=== PATIENT | female | born 1940 | race Caucasian/White ===

== ENCOUNTER 2017-05-05 11:35 | Emergency (ER) | payer MEDICARE ==
[2017-05-05 12:26] VITALS: PULSE 89; RESP 18; TEMP 97.1
[2017-05-05] MEDS ORDERED: HYDROmorphone 1 MG/ML 1 ML SYRINGE IM STA (12:33)
--- NOTE | 2017-05-05 12:37 | ED ---
General Adult HPI - General Chief complaint: Recheck/Abnormal Lab/Rx Stated complaint: Med refill Time Seen by Provider: 05/05/17 12:27 Source: patient, RN notes reviewed Mode of arrival: ambulatory Limitations: no limitations - History of Present Illness Initial comments: 76 yo female presents to the emergency department with a chief complaint of out of her pain medication. She states that she cannot get it filled for 2 more days and she seemed to have misplaced it. She states she cannot seem to find the bottle and lasted her pills. She states she just needs a prescription for 2 days until she gets the doctor. She states that her pain is 9 out of 10 and her chronic typical flareup pain. She states whenever her pain. That her blood pressure was up as well and will not improve until her pain is treated. She has a nausea vomiting fever chills she denies any headache. They were concerned due to the continued pain and actually felt so she thought that she should be.Patient denies any recent fever, chills, shortness of breath, chest pain, back pain, abdominal pain, nausea vomiting, numbness or tingling, dysuria or hematuria, constipation or diarrhea, headaches or visual changes, or any other current symptoms. - Related Data Home Medications Medication Instructions Recorded Confirmed Aspirin 325 mg PO DAILY 10/10/13 12/14/15 Cholecalciferol [Vitamin D3] 2,000 unit PO DAILY@1200 10/10/13 12/14/15 Cyanocobalamin [Vitamin B-12] 1,000 mcg PO DAILY@1200 10/10/13 12/14/15 HYDROcodone/APAP 7.5-325MG [[place] 1 each PO Q8HR PRN 10/10/13 12/14/15 7.5] Levothyroxine Sodium [Synthroid] 88 mcg PO DAILY 10/10/13 12/14/15 Lisinopril [Zestril] 40 mg PO DAILY 10/10/13 12/14/15 Previous Rx's Medication Instructions Recorded HYDROcodone/APAP 5-325MG [[place] 1 tab PO Q6HR PRN #20 tab 12/14/15 5-325] Hydrocodone/Acetaminophen [[place] 1 each PO Q6HR PRN #10 tab 05/05/17 5-325] Allergies Allergy/AdvReac Type Severity Reaction Status Date / Time fentanyl Allergy Hallucinati Verified 05/05/17 12:25 ons propranolol HCl Allergy Unknown Verified 05/05/17 12:25 [From Inderal [place]] celecoxib [From Celebrex] AdvReac Unknown Verified 05/05/17 12:25 isosorbide [Isosorbide] AdvReac Unknown Verified 05/05/17 12:25 rofecoxib [From Vioxx] AdvReac Unknown Verified 05/05/17 12:25 Review of Systems ROS Statement: Those systems with pertinent positive or pertinent negative responses have been documented in the HPI. ROS Other: All systems not noted in ROS Statement are negative. Past Medical History Past Medical History: Coronary Artery Disease (CAD), Cancer, Chest Pain / Angina , Hyperlipidemia, Hypertension Additional Past Medical History / Comment(s): former hx of breast ca History of Any Multi-Drug Resistant Organisms: None Reported Past Surgical History: Back Surgery, Breast Surgery, Cholecystectomy, Hysterectomy, Joint Replacement, Orthopedic Surgery Additional Past Surgical History / Comment(s): left lumpectomy, cardiac stent, hip replacement Past Psychological History: No Psychological Hx Reported Smoking Status: Never smoker Past Alcohol Use History: None Reported Past Drug Use History: None Reported General Exam Limitations: no limitations General appearance: alert, in no apparent distress ENT exam: Present: normal exam, mucous membranes moist Neck exam: Present: normal inspection. Absent: tenderness, meningismus, lymphadenopathy Respiratory exam: Present: normal lung sounds bilaterally. Absent: respiratory distress, wheezes, rales, rhonchi, stridor Cardiovascular Exam: Present: regular rate, normal rhythm, normal heart sounds. Absent: systolic murmur, diastolic murmur, rubs, gallop, clicks Neurological exam: Present: alert, oriented X3 Psychiatric exam: Present: normal affect, normal mood Skin exam: Present: warm, dry, intact, normal color. Absent: rash Course Vital Signs 05/05/17 05/05/17 12:19 12:59 Temperature 97.1 F L Pulse Rate 89 Respiratory 18 Rate Blood Pressure 235/107 189/96 O2 Sat by Pulse 96 Oximetry - Reevaluation(s) Reevaluation #1: 05/05/17 12:36 Patient is a found to have an elevated blood pressure on this ER visit. At this time patient is informed to follow-up with his family care doctor for continued monitoring. Medical Decision Making - Medical Decision Making 76-year-old female presents to the emergency 5 chief complaint of medication refill. With her records patient has not been here often for this. We discussed we'll give her 10 pills. Her blood pressure is high on presentation but she is a 9 out of 10 pain we will treat the pain and patient's blood pressure did improve. We did discuss close follow-up with her doctor return parameters all questions. Patient stated that she understood and she is agreement this plan. All questions have been answered. At this time she will be discharged. Disposition Clinical Impression: Encounter for medication refill, Hypertension Disposition: HOME SELF-CARE Condition: Stable Instructions: Chronic Pain (ED), Hypertension (ED) Additional Instructions: Please use medication as discussed. Please follow up with family doctor if symptoms have not improved over the next two days. Please return to the emergency room if your symptoms increase or worsen or for any other concerns. Prescriptions: Hydrocodone/Acetaminophen [[place] 5-325] 1 each PO Q6HR PRN #10 tab PRN Reason: Pain Referrals: Zander Morillo DO [Primary Care Provider] - 1-2 days Time of Disposition: 13:37
[2017-05-05 13:00] VITALS: BP 189/96
== END 2017-05-05 13:40 | disposition home or self-care (01) ==
LOC: EC 11:35
DX: I10 Essential (primary) hypertension (principal); Z76.0 Encounter for issue of repeat prescription; R11.2 Nausea with vomiting, unspecified; R50.9 Fever, unspecified; R52 Pain, unspecified; I25.10 Atherosclerotic heart disease of native coronary artery without angina pectoris; Z79.82 Long term (current) use of aspirin; Z79.899 Other long term (current) drug therapy; Z88.6 Allergy status to analgesic agent; Z88.8 Allergy status to other drugs, medicaments and biological substances; Z85.3 Personal history of malignant neoplasm of breast; Z98.890 Other specified postprocedural states
CPT/HCPCS: 99281; 96372; J1170

== ENCOUNTER 2017-10-13 20:51 | Emergency (ER) | payer MEDICARE ==
[2017-10-13] MEDS ORDERED: IBUPROFEN 800 MG TAB PO STA (22:14)
[2017-10-13] MEDS ORDERED: HYDROcodone/APAP 5-325MG 1 EACH TAB PO STA (22:14)
[2017-10-13] MEDS ORDERED: ONDANSETRON ODT 4 MG TAB PO STA (22:14)
--- NOTE | 2017-10-13 22:16 | ED ---
General Adult HPI - General Chief complaint: Back Pain/Injury Stated complaint: Back pain Time Seen by Provider: 10/13/17 21:28 Source: patient, EMS, RN notes reviewed, old records reviewed Mode of arrival: EMS Limitations: physical limitation - History of Present Illness Initial comments: This is a 76-year-old female the ER for evaluation of back pain. Acute on chronic back pain history of back pain. Patient admits to being out of her pain medication currently. Can see Dr. deleon Tuesday. Patient has no acute injury or trauma - Related Data Home Medications Medication Instructions Recorded Confirmed Aspirin 325 mg PO DAILY 10/10/13 10/13/17 Cholecalciferol [Vitamin D3] 2,000 unit PO DAILY 10/10/13 10/13/17 Cyanocobalamin [Vitamin B-12] 1,000 mcg PO DAILY 10/10/13 10/13/17 HYDROcodone/APAP 7.5-325MG [[place] 1 tab PO QID PRN 10/10/13 10/13/17 7.5] Levothyroxine Sodium [Synthroid] 88 mcg PO DAILY 10/10/13 10/13/17 Irbesartan 300 mg PO DAILY 10/13/17 10/13/17 Previous Rx's Medication Instructions Recorded Naproxen [Naprosyn] 500 mg PO Q12HR PRN #30 tab 10/13/17 Allergies Allergy/AdvReac Type Severity Reaction Status Date / Time fentanyl Allergy Hallucinati Verified 10/13/17 21:37 ons propranolol HCl Allergy Unknown Verified 10/13/17 21:37 [From Inderal LA] celecoxib [From Celebrex] AdvReac Unknown Verified 10/13/17 21:37 isosorbide [Isosorbide] AdvReac Unknown Verified 10/13/17 21:37 rofecoxib [From Vioxx] AdvReac Unknown Verified 10/13/17 21:37 Review of Systems ROS Statement: Those systems with pertinent positive or pertinent negative responses have been documented in the HPI. ROS Other: All systems not noted in ROS Statement are negative. Past Medical History Past Medical History: Coronary Artery Disease (CAD), Cancer, Chest Pain / Angina , Hyperlipidemia, Hypertension Additional Past Medical History / Comment(s): former hx of breast ca History of Any Multi-Drug Resistant Organisms: None Reported Past Surgical History: Back Surgery, Breast Surgery, Cholecystectomy, Hysterectomy, Joint Replacement, Orthopedic Surgery Additional Past Surgical History / Comment(s): left lumpectomy, cardiac stent, hip replacement Past Psychological History: No Psychological Hx Reported Smoking Status: Never smoker Past Alcohol Use History: None Reported Past Drug Use History: None Reported General Exam Limitations: physical limitation General appearance: alert, in no apparent distress Head exam: Present: atraumatic, normocephalic, normal inspection Eye exam: Present: normal appearance, PERRL, EOMI. Absent: scleral icterus, conjunctival injection, periorbital swelling ENT exam: Present: normal exam, mucous membranes moist Neck exam: Present: normal inspection. Absent: tenderness, meningismus, lymphadenopathy Respiratory exam: Present: normal lung sounds bilaterally. Absent: respiratory distress, wheezes, rales, rhonchi, stridor Cardiovascular Exam: Present: regular rate, normal rhythm, normal heart sounds. Absent: systolic murmur, diastolic murmur, rubs, gallop, clicks GI/Abdominal exam: Present: soft, normal bowel sounds. Absent: distended, tenderness, guarding, rebound, rigid Extremities exam: Present: normal inspection, full ROM, normal capillary refill. Absent: tenderness, pedal edema, joint swelling, calf tenderness Back exam: Present: normal inspection Neurological exam: Present: alert, oriented X3, CN II-XII intact Psychiatric exam: Present: normal affect, normal mood Skin exam: Present: warm, dry, intact, normal color. Absent: rash Course Vital Signs 10/13/17 10/13/17 10/13/17 20:56 22:28 22:56 Temperature 98.4 F 97.8 F Pulse Rate 72 65 61 Respiratory 16 18 16 Rate Blood Pressure 214/97 192/87 188/87 O2 Sat by Pulse 98 97 96 Oximetry - Reevaluation(s) Reevaluation #1: Discussed at length regarding symptoms. Patient also told that she will not be given narcotics and discharged Medical Decision Making - Medical Decision Making 76 female the ER for evaluation. Patient was essay for evaluation by back pain medication refill, patient's pain is controlled here in the ER will be discharged home Disposition Clinical Impression: Mid back pain, Sciatica, Chronic back pain Disposition: HOME SELF-CARE Instructions: Acute Low Back Pain (ED), Chronic Back Pain (ED) Prescriptions: Naproxen [Naprosyn] 500 mg PO Q12HR PRN #30 tab PRN Reason: Pain Is patient prescribed a controlled substance at d/c from ED?: No Referrals: Zander Morillo DO [Primary Care Provider] - 1-2 days
[2017-10-13] MEDS ORDERED: cloNIDine 0.3 MG/24HR PATCH 1 PATCH PATCH TRANSDERM STA (22:22)
[2017-10-13] MEDS ORDERED: cloNIDine 0.3 MG/24HR PATCH 1 PATCH PATCH TRANSDERM SCH (22:30)
[2017-10-13 22:57] VITALS: BP 188/87; PULSE 61; RESP 16; TEMP 97.8
== END 2017-10-13 22:57 | disposition home or self-care (01) ==
LOC: EC 20:51
DX: M54.30 Sciatica, unspecified side (principal); M54.9 Dorsalgia, unspecified; G89.29 Other chronic pain; I25.119 Atherosclerotic heart disease of native coronary artery with unspecified angina pectoris; I10 Essential (primary) hypertension; Z85.3 Personal history of malignant neoplasm of breast; Z79.82 Long term (current) use of aspirin; Z79.899 Other long term (current) drug therapy; Z88.5 Allergy status to narcotic agent; Z88.8 Allergy status to other drugs, medicaments and biological substances; Z96.649 Presence of unspecified artificial hip joint; Z98.890 Other specified postprocedural states; Z95.5 Presence of coronary angioplasty implant and graft
CPT/HCPCS: 99284

== ENCOUNTER 2018-04-27 11:34 | Emergency (ER) | payer MEDICARE ==
[2018-04-27] MEDS ORDERED: HYDROcodone/APAP 7.5-325MG 1 EACH TAB PO ONE (11:52)
--- NOTE | 2018-04-27 12:13 | ED ---
Fall HPI - General Chief Complaint: Fall Stated Complaint: LEFT SIDE, ARM INJURY FROM FALL Time Seen by Provider: 04/27/18 11:45 Source: patient Mode of arrival: wheelchair Limitations: no limitations - History of Present Illness Initial Comments: 77-year-old female presents emergency Department chief complaint of fall, left arm and chest pain. Patient states that she fell down a few stairs without head injury, neck pain or back pain. She states she does have chronic back pain which has not worsened usual. She states that she fell with her arm tucked in. She complains of left shoulder pain and left anterior to lateral rib pain. Denies any shortness breath but she does report pain with deep inspiration. Patient denies hip, lower extremity injury. Patient did take her [place] earlier today which helped some for her pain. - Related Data Home Medications Medication Instructions Recorded Confirmed Aspirin 325 mg PO DAILY 10/10/13 04/27/18 Cholecalciferol [Vitamin D3] 2,000 unit PO DAILY 10/10/13 04/27/18 Cyanocobalamin [Vitamin B-12] 1,000 mcg PO DAILY 10/10/13 04/27/18 HYDROcodone/APAP 7.5-325MG [[place] 1 tab PO QID PRN 10/10/13 04/27/18 7.5] Levothyroxine Sodium [Synthroid] 88 mcg PO DAILY 10/10/13 04/27/18 Irbesartan 300 mg PO DAILY 10/13/17 04/27/18 Previous Rx's Medication Instructions Recorded Naproxen [Naprosyn] 500 mg PO Q12HR PRN #30 tab 10/13/17 Allergies Allergy/AdvReac Type Severity Reaction Status Date / Time celecoxib [From Celebrex] Allergy Unknown Verified 04/27/18 12:36 fentanyl Allergy Hallucinati Verified 04/27/18 12:36 ons isosorbide [Isosorbide] Allergy Unknown Verified 04/27/18 12:36 propranolol HCl Allergy Unknown Verified 04/27/18 12:36 [From Inderal LA] rofecoxib [From Vioxx] Allergy Unknown Verified 04/27/18 12:36 pregabalin [From Lyrica] AdvReac dizziness Verified 04/27/18 12:36 Review of Systems ROS Statement: Those systems with pertinent positive or pertinent negative responses have been documented in the HPI. ROS Other: All systems not noted in ROS Statement are negative. Past Medical History Past Medical History: Coronary Artery Disease (CAD), Cancer, Chest Pain / Angina , Hyperlipidemia, Hypertension Additional Past Medical History / Comment(s): former hx of breast ca History of Any Multi-Drug Resistant Organisms: None Reported Past Surgical History: Back Surgery, Breast Surgery, Cholecystectomy, Hysterectomy, Joint Replacement, Orthopedic Surgery Additional Past Surgical History / Comment(s): left lumpectomy, cardiac stent, hip replacement Past Psychological History: No Psychological Hx Reported Smoking Status: Never smoker Past Alcohol Use History: None Reported Past Drug Use History: None Reported General Exam Limitations: no limitations General appearance: alert, in no apparent distress Head exam: Present: atraumatic, normocephalic, normal inspection Eye exam: Present: normal appearance, PERRL, EOMI. Absent: scleral icterus, conjunctival injection, periorbital swelling ENT exam: Present: normal exam, normal oropharynx, mucous membranes moist Neck exam: Present: normal inspection, full ROM. Absent: tenderness, meningismus, lymphadenopathy Respiratory exam: Present: normal lung sounds bilaterally, chest wall tenderness (Moderate left anterior lateral). Absent: respiratory distress, wheezes, rales, rhonchi, stridor Cardiovascular Exam: Present: regular rate, normal rhythm, normal heart sounds. Absent: systolic murmur, diastolic murmur, rubs, gallop, clicks GI/Abdominal exam: Present: soft, normal bowel sounds. Absent: distended, tenderness, guarding, rebound, rigid Extremities exam: Present: other (Left shoulder tenderness with palpation, no obvious deformity, limited range of motion secondary pain there is no pitting distal of the left shoulder with palpation, remaining extremity exam within normal limits) Neurological exam: Present: alert, oriented X3, CN II-XII intact, reflexes normal. Absent: motor sensory deficit Skin exam: Present: warm, dry, intact, normal color. Absent: rash Course Vital Signs 04/27/18 11:41 Temperature 98 F Pulse Rate 92 Respiratory 16 Rate Blood Pressure 185/128 O2 Sat by Pulse 98 Oximetry Medical Decision Making - Medical Decision Making 77-year-old female presented for fall, left shoulder, left sided rib injury. Patient is noted to have eighth rib fracture, concern for rotator cuff injury on x-ray. Patient will be placed in a sling follow-up with orthopedics. Patient does have pain medication at home. Patient will be given incentive spirometry for her rib fracture. Return parameters were discussed. Disposition Clinical Impression: Fall, Injury of left rotator cuff, Rib fracture Disposition: HOME SELF-CARE Condition: Stable Instructions: Rib Fracture (ED) Additional Instructions: Please return to the Emergency Department if symptoms worsen or any other concerns. Is patient prescribed a controlled substance at d/c from ED?: No Referrals: Zander Morillo DO [Primary Care Provider] - 1-2 days Dejon Dillard DO [Medical Doctor] - 1-2 days Time of Disposition: 13:06
--- NOTE | 2018-04-27 12:51 | XR ---
EXAMINATION TYPE: XR shoulder complete LT DATE OF EXAM: 04/27/2018 COMPARISON: NONE HISTORY: Pain TECHNIQUE: Three views are submitted. FINDINGS: The osseous structures are intact. There is no acute fracture or dislocation. There is diffuse osteo penia. Humeral head somewhat high riding position which can be associated with rotator cuff injury. A rthropathy of the AC joint. IMPRESSION: 1. AC joint arthropathy. Humeral head somewhat high in position. Correlate for rotator cuff injury. C onsider MRI follow-up. 2. Calcific tendinosis.
--- NOTE | 2018-04-27 12:57 | XR ---
EXAMINATION TYPE: XR ribs LT w pa chest xray DATE OF EXAM: 04/27/2018 CLINICAL HISTORY: Pain TECHNIQUE: Single frontal view of the chest is obtained. 4 views of the left ribs are also submitted. COMPARISON: 11/04/2010 FINDINGS: There is curvature of the vertebral column with hypertrophic and degenerative changes. No pneumothorax. Surgical clips in the right upper quadrant. There is slight deformity of the anterolate ral left eighth rib. IMPRESSION: 1. Findings are suspicious for a hairline fracture anterolateral left eighth rib.
[2018-04-27 13:43] VITALS: TEMP 97.5
[2018-04-27] MEDS ORDERED: cloNIDine HCL 0.2 MG TAB PO STA (13:44)
[2018-04-27] MEDS ORDERED: MORPHINE SULFATE 4 MG/ML SYRINGE IM STA (13:46)
[2018-04-27 15:07] VITALS: PULSE 67
[2018-04-27 15:19] VITALS: BP 198/90; RESP 18
== END 2018-04-27 15:13 | disposition home or self-care (01) ==
LOC: EC 11:34
DX: S22.32XA Fracture of one rib, left side, initial encounter for closed fracture (principal); S46.002A Unspecified injury of muscle(s) and tendon(s) of the rotator cuff of left shoulder, initial encounter; I10 Essential (primary) hypertension; I25.119 Atherosclerotic heart disease of native coronary artery with unspecified angina pectoris; Z79.899 Other long term (current) drug therapy; Z79.890 Hormone replacement therapy; Z79.82 Long term (current) use of aspirin; Z88.6 Allergy status to analgesic agent; Z88.5 Allergy status to narcotic agent; Z88.8 Allergy status to other drugs, medicaments and biological substances; Z95.5 Presence of coronary angioplasty implant and graft; Z96.642 Presence of left artificial hip joint; Z85.3 Personal history of malignant neoplasm of breast; W10.9XXA Fall (on) (from) unspecified stairs and steps, initial encounter
CPT/HCPCS: 71101; 73030; 99283; 96372; J2270

== ENCOUNTER → 2018-11-30 | Outpatient (CLI) | payer MEDICARE ==
[2018-11-30 23:34] LABS: Albumin 4.4 g/dL (3.80-4.90); Albumin/Globulin Ratio 2.32 (1.60-3.17); BUN/Creat Ratio 33.75 Ratio (12.00-20.00); Calcium 9.5 mg/dL (8.7-10.3); Globulin 1.9 g/dL (1.6-3.3); Magnesium 2.1 mg/dL (1.5-2.4); Potassium 4.6 mmol/L (3.5-5.5); Total Bilirubin 0.8 mg/dL (0.3-1.2); Total Protein 6.3 g/dL (6.2-8.2)
== END | disposition home or self-care (01) ==
LOC: LABWHC1 14:33
PROVIDERS: ATTEND Physician Assistant
DX: I10 Essential (primary) hypertension (principal)
CPT/HCPCS: 36415; 80053; 83735

== ENCOUNTER 2022-12-31 10:50 | Day surgery (SDC) | payer MEDICARE ==
[~2022-12-31 10:50] MED LIST: ALPRAZolam 0.25 MG TAB PO PRN; ALPRAZolam 0.5 MG TAB PO PRN; ASPIRIN 325 MG TAB PO STA; ATORVASTATIN 80 MG TAB PO STA; HEPARIN SODIUM,PORCINE (1 ML) 2,500 UNIT in SODIUM CHLORIDE 0.9% 250 ML IRRIGATION PRN; HEPARIN SODIUM,PORCINE 10,000 UNIT in SODIUM CHLORIDE 0.9% 1,000 ML IRRIGATION PRN; NITROGLYCERIN SL TABS 0.4 MG TAB SUBLINGUAL PRN
[2022-12-31] MEDS: SODIUM CHLORIDE 0.9% 1,000 ML in EMPTY BAG 1 BAG IV SCH ×2 (11:08→15:53)
[2022-12-31] MEDS ORDERED: VERAPAMIL 2.5 MG/ML 2 ML AMP ONE (11:39)
[2022-12-31] MEDS ORDERED: LIDOCAINE 1% INJ 10MG/ML (20 ML MDV) ONE (11:53)
[2022-12-31] MEDS ORDERED: HEPARIN SODIUM 1,000 UN/ML (10ML VL) ONE (12:05)
[2022-12-31] MEDS ORDERED: MIDAZOLAM 2 MG/2 ML VIAL IVP ONE (12:10)
[2022-12-31] MEDS ORDERED: LIDOCAINE 1% INJ 10MG/ML (30 ML VIAL-PF) SQ ONE (12:13)
[2022-12-31] MEDS: HEPARIN SODIUM 1,000 UN/ML (10ML VL) IVP ONE ×2 (12:19→13:10)
[2022-12-31] MEDS ORDERED: CLOPIDOGREL 75 MG TAB ONE (12:22)
[2022-12-31] MEDS ORDERED: CLOPIDOGREL 75 MG TAB PO ONE (12:25)
[2022-12-31] MEDS ORDERED: NITROGLYCERIN 1000MCG/10ML SYRINGE INTRACORON ONE (12:37)
[2022-12-31 12:38] LABS: Basophils % (A) 0 %; Eosinophils # (A) 0.1 k/uL (0-0.7); Eosinophils % (A) 1 %; HCT 29.2 % (34.0-46.0); HGB 9.3 gm/dL (11.4-16.0); Hypochromasia Slight; Lymphocytes % (A) 9 %; MCH 30.5 pg (25.0-35.0); MCHC 31.7 g/dL (31.0-37.0); MCV 96.2 fL (80.0-100.0); Mean Platelet Volume 8.1; Monocytes # (A) 0.7 k/uL (0-1.0); Monocytes % (A) 6 %; Neutrophils # (A) 9.2 k/uL (1.3-7.7); Neutrophils % (A) 83 %; Platelet Count 277 k/uL (150-450); RBC 3.04 m/uL (3.80-5.40); RDW 14.8 % (11.5-15.5); WBC 11.1 k/uL (3.8-10.6)
[2022-12-31] MEDS ORDERED: IOPAMIDOL-370 100ML BTL INJ ONE ×2 (12:43→12:51)
[2022-12-31] MEDS ORDERED: FUROSEMIDE 10 MG/ML 4 ML VIAL ONE (12:55)
[2022-12-31] MEDS ORDERED: ACETAMINOPHEN TAB 500 MG TAB PO PRN (13:02)
[2022-12-31] MEDS ORDERED: IPRATROPIUM-ALBUTEROL 3 ML NEB INHALATION PRN (13:02)
[2022-12-31] MEDS ORDERED: MAG HYDROX/AL HYDROX/SIMETH 30 ML CUP PO PRN (13:03)
[2022-12-31] MEDS ORDERED: NITROGLYCERIN SL TABS 0.4 MG TAB SUBLINGUAL PRN (13:03)
[2022-12-31] MEDS ORDERED: RX INFO: IV CONTRAST WAS GIVEN 1 EACH MISC MISCELLANE PRN (13:03)
[2022-12-31] MEDS ORDERED: ATROPINE SULFATE 0.1 MG/ML 10ML SYRINGE IV PRN (13:03)
[2022-12-31] MEDS ORDERED: ZOLPIDEM 5 MG TAB PO PRN (13:03)
--- NOTE | 2022-12-31 13:09 | P.PCN ---
Date of Procedure: 12/31/22 Operative Findings: CARDIAC CATHETERIZATION AND PERCUTANEOUS CORONARY INTERVENTION PERFORMING PHYSICIAN: Jey Xie MD, [facility] PROCEDURE PERFORMED: 1. Selective right and left coronary angiogram 2. Left heart catheterization 3. Successful stenting of mid LAD using 3.5 x 15 mm Xience YAKOV with an excellent angiographic results 4. Selective right common femoral artery angiogram and ultrasound guided access of the right common femoral artery INDICATION: Severe CAD in this 82-year-old female patient who was experiencing symptoms of chest discomfort COMPLICATION: None APPROACH: Right common femoral artery LEVEL OF SEDATION: Moderate with the sedation time off 41 minutes PROCEDURE DESCRIPTION: After obtaining an informed consent the patient was brought to the cardiac lab aide. The right common femoral artery was cannulated using the commotion technique under ultrasound guidance the micropuncture wire passed easily then I placed a 6-Russian sheath. I did after that selective left coronary angiogram using a CLS 3.5 guiding catheter and subsequently I intervened on the LAD. Selective right coronary angiogram was performed using [place] meraz. I attempted engaging the right coronary artery using JR4 and subsequently AL 0.75 and I was unsuccessful. Left heart catheterization was performed using AL- 1 which cross the aortic valve then I did pulled back across aortic valve. By the end I did selective right common femoral artery angiogram. I did deployed Angio-Seal closure device. SELECTIVE CORONARY ANGIOGRAM: The right coronary artery: Large-caliber vessel and a dominant vessel and the RCA is chronically occluded in the midportion. The RCA is calcified Left main: Has mild to moderate disease appears to be in the range of 30-40%. The left circumflex: Large caliber vessel and nondominant vessel. The LCx has mild to moderate diffuse disease only. The left anterior descending artery: Large caliber vessel. The mid LAD has a tight lesion appeared to be in the r sohan of 70%. HEMODYNAMICS: The LVEDP was 20-22 mmHg was no significant gradient across aortic valve PCI OF THE LAD: Anticoagulation was initiated using heparin with continuous ACT monitoring. Subsequently I did engage the left main using a CLS 3.5 guiding catheter. Subsequently I did wire the LAD using a whisper wire and the other through wire. Predilatation was performed using 2.5 mm balloon before I deployed 3.5 x 15 mm stent where the stent was positioned under fluoroscopy guidance and deployed under its nominal pressure. Final angiogram showed excellent angiographic results and the procedure was completed was no complication CONCLUSION: Mild to moderate disease involving the left main coronary artery Severe disease involving the mid LAD. I did perform successful stenting of the LAD Intermediate disease involving the left circumflex coronary artery Chronic total occlusion of the right coronary artery POSTPROCEDURE MANAGEMENT: 1. Dual antiplatelet therapy using aspirin and Plavix for at least 6 month 2. Aggressive cholesterol control 3. Follow-up with the patient
[2022-12-31] MEDS ORDERED: FUROSEMIDE 10 MG/ML 4 ML VIAL IV ONE (13:10)
[2022-12-31] MEDS ORDERED: SODIUM CHLORIDE 0.9% 1,000 ML in EMPTY BAG 1 BAG IV SCH (13:15)
[2022-12-31] MEDS ORDERED: hydrALAZINE HCL 50 MG TAB PO SCH (13:15)
[2022-12-31 13:22] LABS: African American GFR (CKD) 78 (>60 ml/min/1.73 sqM); Anion Gap 7 mmol/L; Blood Urea Nitrogen 21 mg/dL (7-17); Calcium 7.2 mg/dL (8.4-10.2); Carbon Dioxide 23 mmol/L (22-30); Chloride 109 mmol/L (98-107); Glucose 93 mg/dL (74-99); Non-African American GFR(CKD) 67 (>60 ml/min/1.73 sqM); Potassium 3.3 mmol/L (3.5-5.1); Sodium 139 mmol/L (137-145)
[2022-12-31] MEDS: HYDROcodone/APAP 7.5-325MG 1 EACH TAB PO PRN ×2 (15:22→21:34)
[2022-12-31] MEDS: hydrALAZINE HCL 50 MG TAB PO SCH ×2 (16:05→21:35)
[2022-12-31] MEDS ORDERED: ATORVASTATIN 40 MG TAB PO SCH (21:00)
[2022-12-31] MEDS: ISOSORBIDE MONONITRATE ER 60 MG TAB.ER.24H PO SCH (21:42)
[2022-12-31] MEDS: METOPROLOL TARTRATE 25 MG TAB PO SCH (22:23)
[2023-01-01] MEDS: SODIUM CHLORIDE 0.9% 1,000 ML in EMPTY BAG 1 BAG IV SCH (04:50)
[2023-01-01] MEDS: HYDROcodone/APAP 7.5-325MG 1 EACH TAB PO PRN (06:19)
[2023-01-01] MEDS ORDERED: LEVOTHYROXINE 100 MCG TAB PO SCH (06:30)
[2023-01-01] MEDS: hydrALAZINE HCL 50 MG TAB PO SCH (08:13)
--- NOTE | 2023-01-01 08:13 | P.DS ---
Providers Attending physician: Jey Xie Consults: 12/31/22 13:03 Consult Physician Routine Consulting Provider: [facility] Consult Reason/Comments: Post Interventional patient Do you want consulting provider notified?: Already Contacted Primary care physician: Zander [facility] Course: The patient is an 82-year-old female patient who sees Dr. Ellis regularly with a past medical history significant for coronary artery disease as well as hypertension and dyslipidemia was diagnosed recently with severe symptomatic coronary artery disease documented on heart catheterization was performed at [facility] showing severe disease involving the LAD. She underwent yesterday successful stenting of the left anterior descending artery with a good angiographic results with no complication from right groin approach. She was seen and evaluated this morning. She is asymptomatic. She is stable hemodynamically. She is slightly confused but she does have mild underlying dementia The right groin is soft and nontender with no bruises. The patient is going to discharge home on dual antiplatelet therapy to be seen as an outpatient in the office in a week. Plan - Discharge Summary Discharge Rx Participant: No New Discharge Prescriptions: New Clopidogrel [Plavix] 75 mg PO DAILY #90 tab Continue Cholecalciferol [Vitamin D3 (25 Mcg = 1000 Iu)] 2,000 unit PO DAILY Cyanocobalamin [Vitamin B-12] 250 mcg PO DAILY Isosorbide Mononitrate [Isosorbide Mononitrate ER] 60 mg PO Q12H Atorvastatin Calcium 40 mg PO HS HYDROcodone/APAP 7.5-325MG [[place] 7.5-325] 1 tab PO Q6H PRN PRN Reason: Pain Losartan Potassium 100 mg PO DAILY Ipratropium-Albuterol Nebulize [Duoneb 0.5 mg-3 mg/3 ml Soln] 3 ml INHALATION Q6H PRN PRN Reason: Wheezing hydrALAZINE HCL 50 mg PO Q8H Furosemide [Lasix] 20 mg PO DAILY Calcium Carbonate [Calcium] 600 mg PO DAILY Aspirin 81 mg PO DAILY Levothyroxine Sodium 100 mcg PO DAILY Metoprolol Tartrate 25 mg PO BID Magnesium Oxide [Magnesium] 500 mg PO DAILY Acetaminophen [Tylenol Extra Strength] 1,000 mg PO Q8H PRN PRN Reason: Pain Amoxic-Pot Clav 875-125Mg [Augmentin 875-125] 1 tab PO Q12HR Discharge Medication List Cholecalciferol [Vitamin D3 (25 Mcg = 1000 Iu)] 2,000 unit PO DAILY 10/10/13 [History] Cyanocobalamin [Vitamin B-12] 250 mcg PO DAILY 10/10/13 [History] Acetaminophen [Tylenol Extra Strength] 1,000 mg PO Q8H PRN 12/30/22 [History] Aspirin 81 mg PO DAILY 12/30/22 [History] Atorvastatin Calcium 40 mg PO HS 12/30/22 [History] Calcium Carbonate [Calcium] 600 mg PO DAILY 12/30/22 [History] Furosemide [Lasix] 20 mg PO DAILY 12/30/22 [History] HYDROcodone/APAP 7.5-325MG [[place] 7.5-325] 1 tab PO Q6H PRN 12/30/22 [History] Ipratropium-Albuterol Nebulize [Duoneb 0.5 mg-3 mg/3 ml Soln] 3 ml INHALATION Q6H PRN 12/30/22 [History] Isosorbide Mononitrate [Isosorbide Mononitrate ER] 60 mg PO Q12H 12/30/22 [History] Levothyroxine Sodium 100 mcg PO DAILY 12/30/22 [History] Losartan Potassium 100 mg PO DAILY 12/30/22 [History] Magnesium Oxide [Magnesium] 500 mg PO DAILY 12/30/22 [History] Metoprolol Tartrate 25 mg PO BID 12/30/22 [History] hydrALAZINE HCL 50 mg PO Q8H 12/30/22 [History] Amoxic-Pot Clav 875-125Mg [Augmentin 875-125] 1 tab PO Q12HR 12/31/22 [History] Clopidogrel [Plavix] 75 mg PO DAILY #90 tab 01/01/23 [Rx] Follow up Appointment(s)/Referral(s): Jey Xie MD [STAFF PHYSICIAN] - 1 Week (APPOINTMENT MADE ON @ 11:00 - MAIN OFFICE TO SEE DR. ELLIS ) Patient Instructions/Handouts: Moderate Sedation (DC), Cardiac Rehabilitation (ED), Coronary Intravascular Stent Placement (DC), After Radial Heart Catheterization (GEN) Activity/Diet/Wound Care/Special Instructions: *NO LIFTING, PUSHING, OR PULLING ANYTHING OVER 5 POUDS FOR 5 DAYS *NO DRIVING FOR 3 DAYS *YOU CAN REMOVE YOUR DRESSING AND SHOWER TOMORROW BUT DO NOT SUBMERSE YOUR PUNCTURE SITE IN WATER FOR A FEW DAYS TO PREVENT INFECTION - SO NO TUB BATHS, POOLS, HOT TUBS, DISHES...ETC *ANY SIGNS OF BLEEDING (HARDNESS, SWELLIN, OR EXCESSIVE BRUISING) HOLD DIRECT PRESSURE ON YOUR PUNCTURE SITE AND COME TO THE NEAREST EMERGENCY ROOM TO GET YOUR PUNCTURE SITE LOOKED AT - DO NOT DRIVE YOURSELF! EITHER CALL EMS OR HAVE SOMEONE DRIVE YOU!
[2023-01-01] MEDS: METOPROLOL TARTRATE 25 MG TAB PO SCH (08:14)
[2023-01-01] MEDS: ISOSORBIDE MONONITRATE ER 60 MG TAB.ER.24H PO SCH (08:15)
[2023-01-01 08:26] VITALS: BP 145/70; PULSE 56; RESP 15; TEMP 98.2
[2023-01-01] MEDS ORDERED: CALCIUM CARBONATE 500 MG CHEWABLE PO SCH (09:00)
[2023-01-01] MEDS ORDERED: CYANOCOBALAMIN 500 MCG TAB PO SCH (09:00)
[2023-01-01] MEDS ORDERED: FUROSEMIDE 20 MG TAB PO SCH (09:00)
[2023-01-01] MEDS ORDERED: CHOLECALCIFEROL 25 MCG (1000 IU) TABLET PO SCH (09:00)
[2023-01-01] MEDS ORDERED: LOSARTAN 50 MG TAB PO SCH (09:00)
[2023-01-01] MEDS ORDERED: ASPIRIN 81 MG PO SCH (09:00)
[2023-01-01] MEDS ORDERED: CLOPIDOGREL 75 MG TAB PO SCH (09:00)
[2023-01-01] MEDS ORDERED: MAGNESIUM OXIDE 400 MG TAB PO SCH (09:00)
[2023-01-01 11:38] LABS: African American GFR (CKD) 63 (>60 ml/min/1.73 sqM); Non-African American GFR(CKD) 54 (>60 ml/min/1.73 sqM)
--- NOTE | 2023-01-07 12:22 | P.PCN ---
Date of Procedure: 01/07/23 Operative Findings: This is an addendum on a procedure I performed a earlier with a stenting of the left anterior descending artery Please note that intravascular ultrasound was performed.
== END 2023-01-01 11:28 ==
LOC: CATHCVL 10:50 → 6NMEDSUR 12:52 → CATHCVL 01-01 11:28
PROVIDERS: ATTEND Internal Medicine Interventional Cardiology
DX: I25.10 Atherosclerotic heart disease of native coronary artery without angina pectoris (principal); I25.82 Chronic total occlusion of coronary artery; I10 Essential (primary) hypertension; E78.5 Hyperlipidemia, unspecified; F03.A0 Unspecified dementia, mild, without behavioral disturbance, psychotic disturbance, mood disturbance, and anxiety; Z88.8 Allergy status to other drugs, medicaments and biological substances; Z79.82 Long term (current) use of aspirin; Z79.899 Other long term (current) drug therapy; Z79.02 Long term (current) use of antithrombotics/antiplatelets; Z95.5 Presence of coronary angioplasty implant and graft; Z79.890 Hormone replacement therapy
CPT/HCPCS: 94760; 92978; 93458; 80048; 82565; 85025; C9600; C1760; C1769 ×4; C1887 ×2; C1725; C1894; C1753; C1874; J2250; J1940; J2001; J1644; Q9967; J2305

== ENCOUNTER 2023-01-05 17:51 | Emergency (ER) | payer MEDICARE ==
[2023-01-05] MEDS ORDERED: SODIUM CHLORIDE 0.9% 500 ML 500 ML IV STA (19:14)
[2023-01-05] MEDS ORDERED: MORPHINE SULFATE 4 MG/ML SYRINGE IVP STA (19:14)
--- NOTE | 2023-01-05 19:15 | ED ---
Recheck HPI - General Chief Complaint: Abdominal Pain Stated Complaint: Abd Pain Time Seen by Provider: 01/05/23 18:15 Source: EMS, RN notes reviewed, old records reviewed Mode of arrival: EMS Limitations: no limitations - History of Present Illness Initial Comments: This is a 82-year-old female to the emergency department for evaluation. Patient states a for evaluation regards to groin pain after cardiac catheterization. Patient is right-sided groin pain for cardiac catheterization. Sent in from a care surgery for evaluation of groin pain. Patient has ability to move right leg no other injury or trauma no complaints. No chest pain shortness breath abdominal pain or other complaints currently. Patient's pain is improved with pain control MD Complaint: other (Right-sided groin pain) -: days(s) Returns Today for: persistent/worsening pain related to initial visit Symptoms Since Prior Visit: worsening pain Associated Symptoms: none (Patient did have recent surgery) Treatments Prior to Arrival: Given Pain Meds on, other - Related Data Home Medications Medication Instructions Recorded Confirmed Cyanocobalamin [Vitamin B-12] 250 mcg PO DAILY@89910/10/13 01/05/23 Acetaminophen [Tylenol Extra 1,000 mg PO Q8H PRN 12/30/22 01/05/23 Strength] Aspirin 81 mg PO DAILY@89912/30/22 01/05/23 Atorvastatin Calcium 40 mg PO HS@209912/30/22 01/05/23 Calcium Carbonate [Calcium] 600 mg PO DAILY@89912/30/22 01/05/23 Furosemide [Lasix] 20 mg PO DAILY@59912/30/22 01/05/23 HYDROcodone/APAP 7.5-325MG [[place] 1 tab PO Q6H PRN 12/30/22 01/05/23 7.5-325] Ipratropium-Albuterol Nebulize 3 ml INHALATION RT-Q6H PRN 12/30/22 01/05/23 [Duoneb 0.5 mg-3 mg/3 ml Soln] Isosorbide Mononitrate [Isosorbide 60 mg PO BID@0900,209912/30/22 01/05/23 Mononitrate ER] Levothyroxine Sodium 100 mcg PO DAILY@59912/30/22 01/05/23 Losartan Potassium 100 mg PO DAILY@0600 12/30/22 01/05/23 Magnesium Oxide [Magnesium] 500 mg PO DAILY@0912/30/22 01/05/23 Metoprolol Tartrate 25 mg PO BID@0900,209912/30/22 01/05/23 hydrALAZINE HCL 50 mg PO TID@0600,1400,2200 12/30/22 01/05/23 Amoxic-Pot Clav 875-125Mg 1 tab PO BID@0900,209912/31/22 01/05/23 [Augmentin 875-125] Cholecalciferol [Vitamin D3 (25 50 mcg PO DAILY@89901/05/23 01/05/23 Mcg = 1000 Iu)] Clopidogrel [Plavix] 75 mg PO DAILY@59901/05/23 01/05/23 Allergies Allergy/AdvReac Type Severity Reaction Status Date / Time celecoxib [From Celebrex] Allergy Unknown Verified 01/05/23 22:13 fentanyl Allergy Hallucinati Verified 01/05/23 22:13 ons isosorbide [Isosorbide] Allergy Unknown Verified 01/05/23 22:13 propranolol HCl Allergy Unknown Verified 01/05/23 22:13 [From Inderal LA] rofecoxib [From Vioxx] Allergy Unknown Verified 01/05/23 22:13 pregabalin [From Lyrica] AdvReac dizziness Verified 01/05/23 22:13 Review of Systems ROS Statement: Those systems with pertinent positive or pertinent negative responses have been documented in the HPI. ROS Other: All systems not noted in ROS Statement are negative. Past Medical History Past Medical History: Coronary Artery Disease (CAD), Cancer, Chest Pain / Angina, GERD/Reflux, Hyperlipidemia, Hypertension, Osteoarthritis (OA), Thyroid Disorder Additional Past Medical History / Comment(s): former hx of breast ca, bladder incontinence, wears brief. back issues uses w/c. cat bite a few weeks ago seen in ER was tx. keshawn Wells and Nurse Ella states it is mostly healed, completed antibiotics.wrapped. covid earlier this year. History of Any Multi-Drug Resistant Organisms: None Reported Past Surgical History: Back Surgery, Breast Surgery, Cholecystectomy, Heart Catheterization With Stent, Hysterectomy, Joint Replacement, Orthopedic Surgery Additional Past Surgical History / Comment(s): left lumpectomy, cardiac stent, hip replacement, hand surgery Additional Past Anesthesia/Blood Transfusion Reaction / Comment(s): Keshawn Wells unsure of any issues with anesthesia. Date of Last Stent Placement:: unk Past Psychological History: No Psychological Hx Reported Smoking Status: Never smoker Past Alcohol Use History: None Reported Past Drug Use History: None Reported - Past Family History Mother Family Medical History: Hypertension Sister(s) Family Medical History: Deep Vein Thrombosis (DVT), Myocardial Infarction (VT) General Exam Limitations: no limitations General appearance: alert, in no apparent distress Head exam: Present: atraumatic, normocephalic, normal inspection Eye exam: Present: normal appearance, PERRL, EOMI. Absent: scleral icterus, conjunctival injection, periorbital swelling ENT exam: Present: normal exam, mucous membranes moist Neck exam: Present: normal inspection. Absent: tenderness, meningismus, lymphadenopathy Respiratory exam: Present: normal lung sounds bilaterally. Absent: respiratory distress, wheezes, rales, rhonchi, stridor Cardiovascular Exam: Present: regular rate, normal rhythm, normal heart sounds. Absent: systolic murmur, diastolic murmur, rubs, gallop, clicks GI/Abdominal exam: Present: soft, normal bowel sounds. Absent: distended, tenderness, guarding, rebound, rigid Extremities exam: Present: normal inspection, full ROM, normal capillary refill. Absent: tenderness, pedal edema, joint swelling, calf tenderness Back exam: Present: normal inspection Neurological exam: Present: alert, oriented X3, CN II-XII intact Psychiatric exam: Present: normal affect, normal mood Skin exam: Present: warm, dry, intact, normal color. Absent: rash Course Vital Signs 01/05/23 01/05/23 01/05/23 18:14 20:05 21:33 Temperature 98.8 F Pulse Rate 73 69 68 Respiratory 18 19 19 Rate Blood Pressure 155/80 164/75 184/76 O2 Sat by Pulse 94 L 98 97 Oximetry 01/06/23 00:21 Temperature Pulse Rate 68 Respiratory 20 Rate Blood Pressure 167/81 O2 Sat by Pulse 97 Oximetry - Reevaluation(s) Reevaluation #1: Record is reviewed Reevaluation #2: Patient symptoms are improved Reevaluation #3: Patient informed results and questions have been answered Reevaluation #4: Was pt. sent in by a medical professional or institution (Dr., PA, SHANK SKINNER, urgent care, hospital, or care home...) When possible be specific @ -no Did you speak to anyone other than the patient for history (EMS, parent, family, police, friend...)? What history was obtained from this source @ -no Did you review nursing and triage notes (agree or disagree)? Why? @ -agree Are old charts reviewed (outside hosp., previous admission, EMS record, old EKG, old radiological studies, urgent care reports/EKG's, care home records)? Report findings @ -yes Differential Diagnosis (chest pain, altered mental status, abdominal pain women, abdominal pain men, vaginal bleeding, weakness, fever, dyspnea, syncope, headache, dizziness, GI bleed, back pain, seizure, CVA, palpatations, mental health, musculoskeletal)? @ -prior EKG interpreted by me (3pts min.). @ -no X-rays interpreted by me (1pt min.). @ -no CT interpreted by me (1pt min.). @ -no U/S interpreted by me (1pt. min.). @ -yes What testing was considered but not performed or refused? (CT, X-rays, U/S, labs)? Why? @ -none What meds were considered but not given or refused? Why? @ -none Did you discuss the management of the patient with other professionals (professionals i.e. DASH Henderson, SHANK SKINNER, lab, RT, psych nurse, social media assistant, airline stewardess, teacher, chief quality officer, case checker)? Give summary @ -no Was smoking cessation discussed for >3mins.? @ -no Was critical care preformed (if so, how long)? @ -no Were there social determinants of health that impacted care today? How? (Homelessness, low income, unemployed, alcoholism, drug addiction, transportation, low edu. Level, literacy, decrease access to med. care, nursing home, rehab)? @ -none Was there de-escalation of care discussed even if they declined (Discuss DNR or withdrawal of care, Hospice)? DNR status @ -no What co-morbidities impacted this encounter? (DM, HTN, Smoking, COPD, CAD, Cancer, CVA, ARF, Chemo, Hep., AIDS, mental health diagnosis, sleep apnea, morbid obesity)? @ -none Was patient admitted / discharged? Hospital course, mention meds given and route, prescriptions, significant lab abnormalities, going to OR and other pertinent info. @ - 82 female with right-sided groin pain after cardiac catheterization. Ultrasound negative for AVM, patient has good pulses right lower Shorty can be discharged home Discharge Undiagnosed new problem with uncertain prognosis? @ -no Drug Therapy requiring intensive monitoring for toxicity (Heparin, Nitro, Insulin, Cardizem)? @ -no Were any procedures done? @ -no Diagnosis/symptom? @ -Right-sided groin pain Acute, or Chronic, or Acute on Chronic? @ -Acute Uncomplicated (without systemic symptoms) or Complicated (systemic symptoms)? @ -Complicated Side effects of treatment? @ -no Exacerbation, Progression, or Severe Exacerbation? @ -exacerbation Poses a threat to life or bodily function? How? (Chest pain, [place], VT, pneumonia, PE, COPD, DKA, ARF, appy, cholecystitis, CVA, Diverticulitis, Homicidal, Suicidal, threat to staff... and all critical care pts) @ -no Medical Decision Making - Medical Decision Making 82-year-old female for evaluation of right-sided growing pain after cardiac catheterization. Ultrasound is negative here in the ER patient has no evidence of arteriovenous malformation and can be discharged home - Radiology Data Radiology results: report reviewed (Ultrasound of the groin is negative for acute disease), image reviewed Disposition Clinical Impression: Right groin pain Disposition: HOME SELF-CARE Condition: Good Instructions (If sedation given, give patient instructions): Groin Pain (ED) Is patient prescribed a controlled substance at d/c from ED?: No Referrals: Zander Morillo DO [Primary Care Provider] - 1-2 days Time of Disposition: 22:00
--- NOTE | 2023-01-05 21:29 | US ---
EXAMINATION TYPE: US lower ext pseudo artery RT DATE OF EXAM: 01/05/2023 COMPARISON: NONE CLINICAL INDICATION: Female, 82 years old with history of PSA; Heart cath a couple days ago. Pt state s a food tray hit her in the groin and has had pain since. EXAM PERFORMED: Grayscale and color Doppler duplex imaging performed of the groin, post cardiac akin ter to assess for pseudoaneurysm. SIDE PERFORMED: Right Color and Waveform Doppler performed to assess for the presence of pseudoaneurysm; Is there ultrasound evidence of a pseudoaneurysm: No Is there evidence of AV shunting: No Is there a fluid collection present: No No fluid seen in the right groin. There is a lymph node measuring 1.9 x 1.5 x 0.6cm IMPRESSION: 1. No suspicious vascular abnormality. 2. Prominent right inguinal lymph node
[2023-01-06 15:46] VITALS: BP 167/81; PULSE 68; RESP 20; TEMP 98.8
== END 2023-01-06 00:22 | disposition home or self-care (01) ==
LOC: EC 17:51
DX: R10.30 Lower abdominal pain, unspecified (principal); I25.10 Atherosclerotic heart disease of native coronary artery without angina pectoris; I10 Essential (primary) hypertension; E78.5 Hyperlipidemia, unspecified; K21.9 Gastro-esophageal reflux disease without esophagitis; M19.90 Unspecified osteoarthritis, unspecified site; E07.9 Disorder of thyroid, unspecified; Z86.16 Personal history of COVID-19; Z88.8 Allergy status to other drugs, medicaments and biological substances; Z88.6 Allergy status to analgesic agent; Z79.82 Long term (current) use of aspirin; Z79.890 Hormone replacement therapy; Z79.02 Long term (current) use of antithrombotics/antiplatelets; Z79.899 Other long term (current) drug therapy
CPT/HCPCS: 93975; 93926; 99285; 96374; 96361 ×2; J2270

== ENCOUNTER 2023-07-20 09:51 | Emergency (ER) | payer MEDICARE ==
[2023-07-20 10:19] VITALS: TEMP 98.2
[2023-07-20 11:06] LABS: ALT 22 U/L (4-34); AST 32 U/L (14-36); African American GFR (CKD) 84 (>60 ml/min/1.73 sqM); Albumin 3.6 g/dL (3.5-5.0); Alkaline Phosphatase 70 U/L (38-126); Anion Gap 6 mmol/L; Blood Urea Nitrogen 27 mg/dL (7-17); Calcium 9.2 mg/dL (8.4-10.2); Carbon Dioxide 28 mmol/L (22-30); Chloride 105 mmol/L (98-107); Glucose 116 mg/dL (74-99); Non-African American GFR(CKD) 73 (>60 ml/min/1.73 sqM); Potassium 4.1 mmol/L (3.5-5.1); Sodium 139 mmol/L (137-145); Total Bilirubin 0.6 mg/dL (0.2-1.3); Total Protein 6.3 g/dL (6.3-8.2)
[2023-07-20 11:14] LABS: INR 0.9 (<1.2); NT-Pro-B-Type Natriuretic Pept 865 pg/mL; Prothrombin Time 10.1 sec (10.0-12.5)
[2023-07-20 11:17] LABS: Basophils % (A) 0 %; Eosinophils # (A) 0.2 k/uL (0-0.7); Eosinophils % (A) 2 %; HCT 36.3 % (34.0-46.0); HGB 11.5 gm/dL (11.4-16.0); Lymphocytes # (A) 1.6 k/uL (1.0-4.8); Lymphocytes % (A) 18 %; MCH 30.1 pg (25.0-35.0); MCHC 31.6 g/dL (31.0-37.0); MCV 95.4 fL (80.0-100.0); Mean Platelet Volume 8.5; Monocytes # (A) 0.7 k/uL (0-1.0); Monocytes % (A) 8 %; Neutrophils # (A) 6.4 k/uL (1.3-7.7); Neutrophils % (A) 71 %; Platelet Count 227 k/uL (150-450); RBC 3.81 m/uL (3.80-5.40); RDW 14.1 % (11.5-15.5)
--- NOTE | 2023-07-20 11:48 | US ---
EXAMINATION TYPE: US venous doppler duplex LE DATE OF EXAM: 07/20/2023 11:28 AM COMPARISON: NONE CLINICAL INDICATION: Female, 82 years old with history of eval for dvt, elevated dimer; elevated d-di agapito SIDE PERFORMED: Bilateral TECHNIQUE: The lower extremity deep venous system is examined utilizing real time linear array sonog joyce with graded compression, doppler sonography and color-flow sonography. VESSELS IMAGED: Common Femoral Vein Deep Femoral Vein Greater Saphenous Vein * Femoral Vein Popliteal Vein Small Saphenous Vein * Proximal Calf Veins (* superficial vessels) Right Leg: Negative for DVT Left Leg: Negative for DVT exam limited by habitus, patient positioning, and patient pain IMPRESSION: Limited exam demonstrates no diagnostic evidence of DVT bilaterally.
[2023-07-20] MEDS: HYDROcodone/APAP 7.5-325MG 1 EACH TAB PO ONE (12:52)
--- NOTE | 2023-07-20 14:10 | CT ---
EXAMINATION TYPE: CT chest angio for PE CT DLP: 401.5 mGycm, Automated exposure control for dose reduction was used. DATE OF EXAM: 07/20/2023 12:58 PM COMPARISON: Chest radiograph 10/10/2013 Multiple CTs of the chest with most recent on . CLINICAL INDICATION:Female, 82 years old with history of eval for pe, elevated dimer; Eval for PE, el evated d-dimer TECHNIQUE/CONTRAST: CTA scan of the thorax is performed without and with IV Contrast, patient injected with 100 ml mL of Isovue 370, MIP images are created and reviewed these are created on a separate workstation.. FINDINGS: Pulmonary Artery: There is no evidence for a filling defect within the pulmonary vasculature to sugge st acute pulmonary embolism. The pulmonary artery is of normal size. Lungs/Pleura: No evidence of focal consolidation, pleural effusion or pneumothorax. Airway: Large airways are patent. Heart: Heart is within normal limits for size. Moderately severe calcific coronary artery disease is present. Vasculature: No evidence of aortic aneurysm. Mediastinum: No gross evidence of adenopathy. Musculoskeletal: No acute osseous abnormalities Soft Tissues: Unremarkable. Lower neck: No significant findings. Upper Abdomen: No significant findings. IMPRESSION: 1. No evidence of pulmonary embolism. 2. Coronary artery disease. Follow up recommendations for incidental pulmonary nodules, if there are any, are per [employer] or [employer]. [email or web address].org/[email or web address]?lang=us
--- NOTE | 2023-07-20 14:47 | ED ---
General Adult HPI - General Chief complaint: Recheck/Abnormal Lab/Rx Stated complaint: Abn Labs Time Seen by Provider: 07/20/23 10:21 Source: patient, EMS, RN notes reviewed, old records reviewed Mode of arrival: EMS Limitations: no limitations - History of Present Illness Initial comments: Patient is an 82-year-old female who presents emergency department after being sent by PCP for elevated D-dimer. Presents from [facility]. Has a recent COVID-19 infection. Apparently was also having some increased shortness of breath. Is chronically on nasal cannula oxygen not requiring any additional. Denies any lower extremity swelling. Denies any worsening chest pain or cough. Denies any worsening shortness of breath. Denies nausea, vomiting, abdominal pain. Patient has no complaints. Basic labs were obtained yesterday, however remarkable for elevated D-dimer of 4.20. Presents for workup of elevated D- dimer. - Related Data Home Medications Medication Instructions Recorded Confirmed Cyanocobalamin [Vitamin B-12] 250 mcg PO DAILY 10/10/13 07/20/23 Acetaminophen [Tylenol Extra 1,000 mg PO Q8H PRN 12/30/22 07/20/23 Strength] Aspirin 81 mg PO DAILY 12/30/22 07/20/23 Atorvastatin Calcium 40 mg PO HS 12/30/22 07/20/23 Calcium Carbonate [Calcium] 600 mg PO DAILY 12/30/22 07/20/23 Furosemide [Lasix] 20 mg PO DAILY 12/30/22 07/20/23 HYDROcodone/APAP 7.5-325MG [[place] 1 tab PO Q6H PRN 12/30/22 07/20/23 7.5-325] Isosorbide Mononitrate [Isosorbide 60 mg PO Q12H 12/30/22 07/20/23 Mononitrate ER] Levothyroxine Sodium 100 mcg PO DAILY 12/30/22 07/20/23 Losartan Potassium 100 mg PO DAILY 12/30/22 07/20/23 Magnesium Oxide [Magnesium] 500 mg PO DAILY 12/30/22 07/20/23 Metoprolol Tartrate 25 mg PO Q12H 12/30/22 07/20/23 hydrALAZINE HCL 50 mg PO Q8H 12/30/22 07/20/23 Cholecalciferol [Vitamin D3 (25 50 mcg PO DAILY 01/05/23 07/20/23 Mcg = 1000 Iu)] Clopidogrel [Plavix] 75 mg PO DAILY 01/05/23 07/20/23 Ascorbic Acid [Vitamin C] 500 mg PO DAILY 07/20/23 07/20/23 Docusate [Colace] 100 mg PO BID 07/20/23 07/20/23 Lactulose [Cephulac] 20 gram PO BID 07/20/23 07/20/23 Methyl Salicylate/Menth/Camph 1 patch TOPICAL DAILY 07/20/23 07/20/23 [Salonpas 3.1%-6.0%-10.0% Patch] Ondansetron [Zofran] 4 mg PO TID PRN 07/20/23 07/20/23 Oxymetazoline 0.05% Nasl [place] 1 spray NASAL Q15M PRN MDD 3 sprays 07/20/23 07/20/23 [Afrin 0.05% Nasal [place]] Sertraline [Zoloft] 100 mg PO HS 07/20/23 07/20/23 Zinc Gluconate [Zinc] 50 mg PO DAILY 07/20/23 07/20/23 polyethylene glycoL 3350 [Miralax] 17 gm PO DAILY PRN 07/20/23 07/20/23 Allergies Allergy/AdvReac Type Severity Reaction Status Date / Time celecoxib [From Celebrex] Allergy Unknown Verified 07/20/23 14:11 isosorbide [Isosorbide] Allergy Unknown Verified 07/20/23 14:11 propranolol HCl Allergy Unknown Verified 07/20/23 14:11 [From Inderal LA] rofecoxib [From Vioxx] Allergy Unknown Verified 07/20/23 14:11 fentanyl AdvReac Hallucinati Verified 07/20/23 14:11 ons pregabalin [From Lyrica] AdvReac dizziness Verified 07/20/23 14:11 Review of Systems ROS Statement: Those systems with pertinent positive or pertinent negative responses have been documented in the HPI. Review of Systems: CONST: Denies fever EYES: Denies blurry vision ENT: Denies nasal congestion C/V: Denies Chest pain RESP: Denies shortness of breath GI: Denies abdominal pain : Denies dysuria SKIN: Denies rash. MSK: Denies joint pain. NEURO: Denies headache ROS Other: All systems not noted in ROS Statement are negative. Past Medical History Past Medical History: Coronary Artery Disease (CAD), Cancer, Chest Pain / Angina, GERD/Reflux, Hyperlipidemia, Hypertension, Osteoarthritis (OA), Thyroid Disorder Additional Past Medical History / Comment(s): former hx of breast ca, bladder incontinence, wears brief. back issues uses w/c. cat bite a few weeks ago seen in ER was tx. mary Wells and Nurse Ella states it is mostly healed, completed antibiotics.wrapped. covid earlier this year. History of Any Multi-Drug Resistant Organisms: None Reported Past Surgical History: Back Surgery, Breast Surgery, Cholecystectomy, Heart Catheterization With Stent, Hysterectomy, Joint Replacement, Orthopedic Surgery Additional Past Surgical History / Comment(s): left lumpectomy, cardiac stent, hip replacement, hand surgery Additional Past Anesthesia/Blood Transfusion Reaction / Comment(s): Mary Wells unsure of any issues with anesthesia. Date of Last Stent Placement:: unk Past Psychological History: No Psychological Hx Reported Smoking Status: Never smoker Past Alcohol Use History: None Reported Past Drug Use History: None Reported - Past Family History Mother Family Medical History: Hypertension Sister(s) Family Medical History: Deep Vein Thrombosis (DVT), Myocardial Infarction (NC) General Exam - General Exam Comments Initial Comments: General: Appears in no acute distress. HEAD: Normal with no signs of head trauma. EYES: PERRLA, EOMI, conjunctiva normal, no discharge. ENT: Hearing grossly intact, normal oropharynx. RESPIRATORY: Clear breath sounds bilaterally. No wheezes, rales, or rhonchi. C/V: Regular rate and rhythm. S1 and S2 auscultated, no edema, peripheral pulses 2+ and intact throughout ABD: Abd is soft, nontender, nondistended EXT: Normal range of motion, no obvious deformity SKIN: No rashes or lesions observed on exposed skin. NEURO: Alert and oriented x 4. Limitations: no limitations Course Vital Signs 07/20/23 07/20/23 07/20/23 09:59 10:08 14:39 Temperature 98.2 F Pulse Rate 66 70 Respiratory 18 20 18 Rate Blood Pressure 132/62 134/66 O2 Sat by Pulse 97 94 L Oximetry Medical Decision Making - Medical Decision Making Was pt. sent in by a medical professional or institution (, PA, GROUP HOME COUNSELOR, urgent care, hospital, or senior care...) When possible be specific @ -Sent from [facility] for evaluation of elevated D-dimer. Did you speak to anyone other than the patient for history (EMS, parent, family, police, friend...)? What history was obtained from this source @ -No Did you review nursing and triage notes (agree or disagree)? Why? @ -I reviewed and agree with nursing and triage notes Were old charts reviewed (outside hosp., previous admission, EMS record, old EKG, old radiological studies, urgent care reports/EKG's, senior care records)? Report findings @ -Old charts reviewed Differential Diagnosis (chest pain, altered mental status, abdominal pain women, abdominal pain men, vaginal bleeding, weakness, fever, dyspnea, syncope, headache, dizziness, GI bleed, back pain, seizure, CVA, palpatations, mental health, musculoskeletal)? @ -PE, DVT, COVID-19 infection. This list is not all inclusive. EKG interpreted by me (3pts min.). @ -As above X-rays interpreted by me (1pt min.). @ -None done CT interpreted by me (1pt min.). @ -CT PE negative for PE. U/S interpreted by me (1pt. min.). @ -Bilateral lower extremity venous duplex negative for DVT. What testing was considered but not performed or refused? (CT, X-rays, U/S, labs)? Why? @ -None What meds were considered but not given or refused? Why? @ -None Did you discuss the management of the patient with other professionals (professionals i.e. , PA, GROUP HOME COUNSELOR, lab, RT, psych nurse, criminal justice social worker, elevator operator service, teacher, business practices officer, egg caser)? Give summary @ -No Was smoking cessation discussed for >3mins.? @ -No Was critical care preformed (if so, how long)? @ -No Were there social determinants of health that impacted care today? How? (Homelessness, low income, unemployed, alcoholism, drug addiction, transportation, low edu. Level, literacy, decrease access to med. care, assisted, rehab)? @ -No Was there de-escalation of care discussed even if they declined (Discuss DNR or withdrawal of care, Hospice)? DNR status @ -No What co-morbidities impacted this encounter? (DM, HTN, Smoking, COPD, CAD, Cancer, CVA, ARF, Chemo, Hep., AIDS, mental health diagnosis, sleep apnea, morbid obesity)? @ -Chronic hypoxia on nasal cannula oxygen. Was patient admitted / discharged? Hospital course, mention meds given and route, prescriptions, significant lab abnormalities, going to OR and other pertinent info. @ -Based on the patient's presentation and physical exam, presents emergency d epartment complaining of a D-dimer. No acute complaints at this time. Recent COVID-19 infection which is likely the source however we will obtain venous duplexes as well as CT PE. Patient was in agreement this plan. Vital signs within acceptable limits. Chronically on nasal cannula oxygen with no current hypoxia. EKG showed no signs of acute ischemia. Patient's laboratory studies unremarkab le. Patient is still testing positive for COVID-19. Patient's imaging negative for any evidence of PE or DVT. On reevaluation, patient is feeling improved. Patient will be discharged home at this time. She was in agreement this plan. Discharged back to her facility. Elevated dimer likely secondary to COVID-19 infection. I instructed the patient to follow up with their PCP in the next 1-3 days. I explained that the patient should return to the emergency department if they experience any worsening symptoms. Strict return precautions were discussed with the patient. The patient expressed understanding of these instructions. I answered all questions that the patient had. The patient was discharged home in good condition with their prescriptions and follow up information. Undiagnosed new problem with uncertain prognosis? @ -No Drug Therapy requiring intensive monitoring for toxicity (Heparin, Nitro, Insulin, Cardizem)? @ -No Were any procedures done? @ -No Diagnosis/symptom? @ -Elevated D-dimer, COVID-19 infection Acute, or Chronic, or Acute on Chronic? @ -Acute Uncomplicated (without systemic symptoms) or Complicated (systemic symptoms)? @ -Uncomplicated Side effects of treatment? @ -No Exacerbation, Progression, or Severe Exacerbation? @ -No Poses a threat to life or bodily function? How? (Chest pain, [place], NC, pneumonia, PE, COPD, DKA, ARF, appy, cholecystitis, CVA, Diverticulitis, Homicidal, Suicidal, threat to staff... and all critical care pts) @ -No Diagnosis/symptom? @ -Chronic hypoxic respiratory failure Acute, or Chronic, or Acute on Chronic? @ -Chronic Uncomplicated (without systemic symptoms) or Complicated (systemic symptoms)? @ -Uncomplicated Side effects of treatment? @ -None Exacerbation, Progression, or Severe Exacerbation] @ -No Poses a threat to life or bodily function? @ -No - Lab Data Result diagrams: 07/20/23 10:32 07/20/23 10:32 Lab Results 07/20/23 07/20/23 07/20/23 Range/Units 10:32 10:32 10:32 WBC 9.0 (3.8-10.6) k/uL RBC 3.81 (3.80-5.40) m/uL Hgb 11.5 (11.4-16.0) gm/dL Hct 36.3 (34.0-46.0) % MCV 95.4 (80.0-100.0) fL MCH 30.1 (25.0-35.0) pg MCHC 31.6 (31.0-37.0) g/dL RDW 14.1 (11.5-15.5) % Plt Count 227 (150-450) k/uL MPV 8.5 Neutrophils % 71 % Lymphocytes % 18 % Monocytes % 8 % Eosinophils % 2 % Basophils % 0 % Neutrophils # 6.4 (1.3-7.7) k/uL Lymphocytes # 1.6 (1.0-4.8) k/uL Monocytes # 0.7 (0-1.0) k/uL Eosinophils # 0.2 (0-0.7) k/uL Basophils # 0.0 (0-0.2) k/uL PT 10.1 (10.0-12.5) sec INR 0.9 (<1.2) APTT 22.0 (22.0-30.0) sec Sodium 139 (137-145) mmol/L Potassium 4.1 (3.5-5.1) mmol/L Chloride 105 (98-107) mmol/L Carbon Dioxide 28 (22-30) mmol/L Anion Gap 6 mmol/L BUN 27 H (7-17) mg/dL Creatinine 0.77 (0.52-1.04) mg/dL Est GFR (CKD-EPI)AfAm 84 (>60 ml/min/1.73 sqM) Est GFR (CKD-EPI)NonAf 73 (>60 ml/min/1.73 sqM) Glucose 116 H (74-99) mg/dL Calcium 9.2 (8.4-10.2) mg/dL Total Bilirubin 0.6 (0.2-1.3) mg/dL AST 32 (14-36) U/L ALT 22 (4-34) U/L Alkaline Phosphatase 70 (38-126) U/L NT-Pro-B Natriuret Pep 865 pg/mL Total Protein 6.3 (6.3-8.2) g/dL Albumin 3.6 (3.5-5.0) g/dL Influenza Type A (PCR) (Not Detectd) Influenza Type B (PCR) (Not Detectd) RSV (PCR) (Not Detectd) SARS-CoV-2 (PCR) (Not Detectd) 07/20/23 Range/Units 10:32 WBC (3.8-10.6) k/uL RBC (3.80-5.40) m/uL Hgb (11.4-16.0) gm/dL Hct (34.0-46.0) % MCV (80.0-100.0) fL MCH (25.0-35.0) pg MCHC (31.0-37.0) g/dL RDW (11.5-15.5) % Plt Count (150-450) k/uL MPV Neutrophils % % Lymphocytes % % Monocytes % % Eosinophils % % Basophils % % Neutrophils # (1.3-7.7) k/uL Lymphocytes # (1.0-4.8) k/uL Monocytes # (0-1.0) k/uL Eosinophils # (0-0.7) k/uL Basophils # (0-0.2) k/uL PT (10.0-12.5) sec INR (<1.2) APTT (22.0-30.0) sec Sodium (137-145) mmol/L Potassium (3.5-5.1) mmol/L Chloride (98-107) mmol/L Carbon Dioxide (22-30) mmol/L Anion Gap mmol/L BUN (7-17) mg/dL Creatinine (0.52-1.04) mg/dL Est GFR (CKD-EPI)AfAm (>60 ml/min/1.73 sqM) Est GFR (CKD-EPI)NonAf (>60 ml/min/1.73 sqM) Glucose (74-99) mg/dL Calcium (8.4-10.2) mg/dL Total Bilirubin (0.2-1.3) mg/dL AST (14-36) U/L ALT (4-34) U/L Alkaline Phosphatase (38-126) U/L NT-Pro-B Natriuret Pep pg/mL Total Protein (6.3-8.2) g/dL Albumin (3.5-5.0) g/dL Influenza Type A (PCR) Not Detected (Not Detectd) Influenza Type B (PCR) Not Detected (Not Detectd) RSV (PCR) Not Detected (Not Detectd) SARS-CoV-2 (PCR) Detected A (Not Detectd) - EKG Data -: EKG Interpreted by Me EKG Comments: 12-lead Electrocardiogram Interpretation Note EKG was reviewed and interpreted by myself. 12-lead ECG performed at 1023 is interpreted by me as revealing sinus bradycardia at a rate of 55 beats per minute. Wilson is normal. NV interval is 173 ms, QRS duration is 110 ms, QTc is 441 ms.. There were no ST or T wave abnormalities to suggest myocardial ischemia or injury. R wave progression across the precordium was satisfactory. By my interpretation this EKG is non-diagnostic for acute ischemia. Disposition Clinical Impression: Elevated d-dimer, COVID-19 virus infection, Chronic hypoxic respiratory failure Disposition: HOME SELF-CARE Condition: Good Instructions (If sedation given, give patient instructions): Coronavirus Disease 2019 (COVID-19), COVID-19 (Coronavirus Disease 2019) (ED) Is patient prescribed a controlled substance at d/c from ED?: No Referrals: Severo Campbell MD [Primary Care Provider] - 1-2 days Time of Disposition: 14:30
[2023-07-20 15:16] VITALS: BP 134/66; PULSE 70; RESP 18
== END 2023-07-20 15:21 | disposition home or self-care (01) ==
LOC: EC 09:51
DX: U07.1 COVID-19 (principal); J96.11 Chronic respiratory failure with hypoxia; R79.1 Abnormal coagulation profile; I25.2 Old myocardial infarction; Z88.8 Allergy status to other drugs, medicaments and biological substances
CPT/HCPCS: 36415; 93005; 83880; 80053; 85025; 85610; 85730; 87636; 93970; 71275; 99285; Q9967

== ENCOUNTER 2023-10-04 02:11 | Observation (INO) | payer MEDICARE ==
--- NOTE | 2023-10-04 02:51 | ED ---
Chest Pain HPI - General Chief Complaint: Chest Pain Stated Complaint: Chest Pain Source: patient Mode of arrival: EMS Limitations: no limitations - History of Present Illness Initial Comments: 82-year-old female with past medical history of coronary artery disease, hypertension, hyperlipidemia who presents to the emergency department reporting chest pain. Patient is coming from [facility]. States that she began having midsternal chest pain which radiated to her bilateral arms and face. EMS did not provide the patient with any medications however the symptoms resolved prior to the patient coming to the emergency department. She admits to nausea without vomiting. No fevers, chills or cough. No other alleviating, precipitating or modifying factors - Related Data Home Medications Medication Instructions Recorded Confirmed Cyanocobalamin [Vitamin B-12] 250 mcg PO DAILY 10/10/13 07/20/23 Acetaminophen [Tylenol Extra 1,000 mg PO Q8H PRN 12/30/22 07/20/23 Strength] Aspirin 81 mg PO DAILY 12/30/22 07/20/23 Atorvastatin Calcium 40 mg PO HS 12/30/22 07/20/23 Calcium Carbonate [Calcium] 600 mg PO DAILY 12/30/22 07/20/23 Furosemide [Lasix] 20 mg PO DAILY 12/30/22 07/20/23 HYDROcodone/APAP 7.5-325MG [[place] 1 tab PO Q6H PRN 12/30/22 07/20/23 7.5-325] Isosorbide Mononitrate [Isosorbide 60 mg PO Q12H 12/30/22 07/20/23 Mononitrate ER] Levothyroxine Sodium 100 mcg PO DAILY 12/30/22 07/20/23 Losartan Potassium 100 mg PO DAILY 12/30/22 07/20/23 Magnesium Oxide [Magnesium] 500 mg PO DAILY 12/30/22 07/20/23 Metoprolol Tartrate 25 mg PO Q12H 12/30/22 07/20/23 hydrALAZINE HCL 50 mg PO Q8H 12/30/22 07/20/23 Cholecalciferol [Vitamin D3 (25 50 mcg PO DAILY 01/05/23 07/20/23 Mcg = 1000 Iu)] Clopidogrel [Plavix] 75 mg PO DAILY 01/05/23 07/20/23 Ascorbic Acid [Vitamin C] 500 mg PO DAILY 07/20/23 07/20/23 Docusate [Colace] 100 mg PO BID 07/20/23 07/20/23 Lactulose [Cephulac] 20 gram PO BID 07/20/23 07/20/23 Methyl Salicylate/Menth/Camph 1 patch TOPICAL DAILY 07/20/23 07/20/23 [Salonpas 3.1%-6.0%-10.0% Patch] Ondansetron [Zofran] 4 mg PO TID PRN 07/20/23 07/20/23 Oxymetazoline 0.05% Nasl [place] 1 spray NASAL Q15M PRN MDD 3 sprays 07/20/23 07/20/23 [Afrin 0.05% Nasal [place]] Sertraline [Zoloft] 100 mg PO HS 07/20/23 07/20/23 Zinc Gluconate [Zinc] 50 mg PO DAILY 07/20/23 07/20/23 polyethylene glycoL 3350 [Miralax] 17 gm PO DAILY PRN 07/20/23 07/20/23 Allergies Allergy/AdvReac Type Severity Reaction Status Date / Time celecoxib [From Celebrex] Allergy Unknown Verified 10/04/23 02:17 isosorbide [Isosorbide] Allergy Unknown Verified 10/04/23 02:17 propranolol HCl Allergy Unknown Verified 10/04/23 02:17 [From Inderal [place]] rofecoxib [From Vioxx] Allergy Unknown Verified 10/04/23 02:17 fentanyl AdvReac Hallucinati Verified 10/04/23 02:17 ons pregabalin [From Lyrica] AdvReac dizziness Verified 10/04/23 02:17 Review of Systems ROS Statement: Those systems with pertinent positive or pertinent negative responses have been documented in the HPI. ROS Other: All systems not noted in ROS Statement are negative. Past Medical History Past Medical History: Coronary Artery Disease (CAD), Cancer, Chest Pain / Angina, GERD/Reflux, Hyperlipidemia, Hypertension, Osteoarthritis (OA), Thyroid Disorder Additional Past Medical History / Comment(s): former hx of breast ca, bladder incontinence, wears brief. back issues uses w/c. cat bite a few weeks ago seen in ER was tx. keshawn Wells and Nurse Ella states it is mostly healed, completed antibiotics.wrapped. covid earlier this year. History of Any Multi-Drug Resistant Organisms: None Reported Past Surgical History: Back Surgery, Breast Surgery, Cholecystectomy, Heart Catheterization With Stent, Hysterectomy, Joint Replacement, Orthopedic Surgery Additional Past Surgical History / Comment(s): left lumpectomy, cardiac stent, hip replacement, hand surgery Additional Past Anesthesia/Blood Transfusion Reaction / Comment(s): Keshawn Wells unsure of any issues with anesthesia. Date of Last Stent Placement:: unk Past Psychological History: No Psychological Hx Reported Smoking Status: Never smoker Past Alcohol Use History: None Reported Past Drug Use History: None Reported - Past Family History Mother Family Medical History: Hypertension Sister(s) Family Medical History: Deep Vein Thrombosis (DVT), Myocardial Infarction ([place]) General Exam Limitations: no limitations General appearance: alert, in no apparent distress Head exam: Present: atraumatic, normocephalic, normal inspection Eye exam: Present: normal appearance, PERRL, EOMI. Absent: scleral icterus, conjunctival injection, periorbital swelling ENT exam: Present: normal exam, mucous membranes moist Neck exam: Present: normal inspection. Absent: tenderness, meningismus, lymphadenopathy Respiratory exam: Present: normal lung sounds bilaterally. Absent: respiratory distress, wheezes, rales, rhonchi, stridor Cardiovascular Exam: Present: regular rate, normal rhythm, normal heart sounds. Absent: systolic murmur, diastolic murmur, rubs, gallop, clicks GI/Abdominal exam: Present: soft, normal bowel sounds. Absent: distended, tenderness, guarding, rebound, rigid Extremities exam: Present: normal inspection, full ROM, normal capillary refill. Absent: tenderness, pedal edema, joint swelling, calf tenderness Back exam: Present: normal inspection Neurological exam: Present: alert, oriented X3, CN II-XII intact Psychiatric exam: Present: normal affect, normal mood Skin exam: Present: warm, dry, intact, normal color. Absent: rash Course Vital Signs 10/04/23 10/04/23 10/04/23 02:17 02:26 02:50 Temperature 97.5 F L Pulse Rate 57 L 59 L 53 L Respiratory 20 20 16 Rate Blood Pressure 163/136 160/71 O2 Sat by Pulse 95 96 96 Oximetry 10/04/23 05:15 Temperature Pulse Rate 49 L Respiratory 18 Rate Blood Pressure 143/99 O2 Sat by Pulse 97 Oximetry Chest Pain MDM - MDM Was pt. sent in by a medical professional or institution (, DASH, CENTRAL COMMUNICATIONS SPECIALIST, urgent care, hospital, or alf...) When possible be specific @ -Patient was sent in from [facility] on [facility] Did you speak to anyone other than the patient for history (EMS, parent, family, police, friend...)? What history was obtained from this source @ -I spoke with EMS for history Did you review nursing and triage notes (agree or disagree)? Why? @ -I reviewed and agree with nursing and triage notes Were old charts reviewed (outside hosp., previous admission, EMS record, old EKG, old radiological studies, urgent care reports/EKG's, alf records)? Report findings @ -Reviewed catheterization report from December 2022 where patient received a stent by Dr. Salas Differential Diagnosis (chest pain, altered mental status, abdominal pain women, abdominal pain men, vaginal bleeding, weakness, fever, dyspnea, syncope, headache, dizziness, GI bleed, back pain, seizure, CVA, palpatations, mental health, musculoskeletal)? @ -Differential Chest Pain: Stable Angina, Unstable Angina, STEMI, NSTEMI Aortic Dissection, Pneumothorax, Musculoskeletal, Esophageal Spasm GERD, Cholecystitis, Pancreatitis, Zoster, this is not meant to be an all-inclusive list. EKG interpreted by me (3pts min.). @ -Demonstrates sinus bradycardia with a rate of 56. PA interval 185. QRS 119. QTc of 446. Inverted T waves 1 and aVL. No acute ST segment elevation X-rays interpreted by me (1pt min.). @ - yes and demonstrates no acute process CT interpreted by me (1pt min.). @ -None done U/S interpreted by me (1pt. min.). @ -None done What testing was considered but not performed or refused? (CT, X-rays, U/S, labs)? Why? @ -None What meds were considered but not given or refused? Why? @ -None Did you discuss the management of the patient with other professionals (professionals i.e. , DASH, CENTRAL COMMUNICATIONS SPECIALIST, lab, RT, psych nurse, rn social work, licensed practical vocational nurse, teacher, fire management officer, gearcase assembler)? Give summary @ -I discussed the case with Fifi from [facility] who will admit the patient Was smoking cessation discussed for >3mins.? @ -No Was critical care preformed (if so, how long)? @ -No Were there social determinants of health that impacted care today? How? (Homelessness, low income, unemployed, alcoholism, drug addiction, transportation, low edu. Level, literacy, decrease access to med. care, alf, rehab)? @ -No Was there de-escalation of care discussed even if they declined (Discuss DNR or withdrawal of care, Hospice)? DNR status @ -No What co-morbidities impacted this encounter? (DM, HTN, Smoking, COPD, CAD, Cancer, CVA, ARF, Chemo, Hep., AIDS, mental health diagnosis, sleep apnea, morbid obesity)? @ -Coronary artery disease, hypertension Was patient admitted / discharged? Hospital course, mention meds given and route, prescriptions, significant lab abnormalities, going to OR and other pertinent info. @ -Upon arrival patient seen and evaluated in room 11. Thorough history and physical exam was performed. Patient is pain-free at this time. IV was established. Laboratory studies are conducted. Chest x-ray was performed. Discussed results with the patient. Do feel that she should stay for observation due to history of coronary disease. Patient was agreeable to this. Spoke with Fifi from [facility] for admission Undiagnosed new problem with uncertain prognosis? @ -No Drug Therapy requiring intensive monitoring for toxicity (Heparin, Nitro, Insulin, Cardizem)? @ -No Were any procedures done? @ -No Diagnosis/symptom? @ -Acute chest pain, history of coronary disease Acute, or Chronic, or Acute on Chronic? @ -Acute Uncomplicated (without systemic symptoms) or Complicated (systemic symptoms)? @ -complicated Side effects of treatment? @ -No Exacerbation, Progression, or Severe Exacerbation? @ -No Poses a threat to life or bodily function? How? (Chest pain, [place], HI, pneumonia, PE, COPD, DKA, ARF, appy, cholecystitis, CVA, Diverticulitis, Homicidal, Suicidal, threat to staff... and all critical care pts) @ -No Disposition Clinical Impression: Chest pain Disposition: ADMITTED IP TO THIS [facility] Condition: Stable Is patient prescribed a controlled substance at d/c from ED?: No Time of Disposition: 04:36 Decision to Admit Reason: Admit from EC Decision Date: 10/04/23 Decision Time: 04:36
[2023-10-04 03:29] LABS: ALT 16 U/L (4-34); AST 29 U/L (14-36); African American GFR (CKD) 64 (>60 ml/min/1.73 sqM); Albumin 3.5 g/dL (3.5-5.0); Alkaline Phosphatase 71 U/L (38-126); Anion Gap 3 mmol/L; Blood Urea Nitrogen 37 mg/dL (7-17); Calcium 8.8 mg/dL (8.4-10.2); Carbon Dioxide 30 mmol/L (22-30); Chloride 104 mmol/L (98-107); Glucose 106 mg/dL (74-99); Non-African American GFR(CKD) 56 (>60 ml/min/1.73 sqM); Potassium 4.7 mmol/L (3.5-5.1); Sodium 137 mmol/L (137-145); Total Bilirubin 0.4 mg/dL (0.2-1.3); Total Protein 5.8 g/dL (6.3-8.2)
[2023-10-04 03:38] LABS: NT-Pro-B-Type Natriuretic Pept 727 pg/mL
--- NOTE | 2023-10-04 03:54 | XR ---
EXAM: XR Chest, 2 Views CLINICAL HISTORY: ITS.REASON XR Reason: Chest Pain TECHNIQUE: Frontal and lateral views of the chest. COMPARISON: No relevant prior studies available. IMPRESSION: Cardiomegaly. Elevated right hemidiaphragm with mild basilar opacity. Slightly prominent interstitial markings.
[2023-10-04 03:56] LABS: INR 0.8 (<1.2); Prothrombin Time 9.6 sec (10.0-12.5)
[2023-10-04 04:01] LABS: Partial Thromboplastin Time 19.2 sec (22.0-30.0)
[2023-10-04 04:05] LABS: Basophils % (A) 0 %; Eosinophils # (A) 0.2 k/uL (0-0.7); Eosinophils % (A) 2 %; HCT 29.7 % (34.0-46.0); Lymphocytes # (A) 1.6 k/uL (1.0-4.8); Lymphocytes % (A) 19 %; MCHC 33.6 g/dL (31.0-37.0); MCV 95.5 fL (80.0-100.0); Mean Platelet Volume 8.7; Monocytes # (A) 0.6 k/uL (0-1.0); Monocytes % (A) 7 %; Neutrophils % (A) 71 %; Platelet Count 212 k/uL (150-450); RBC 3.11 m/uL (3.80-5.40); WBC 8.5 k/uL (3.8-10.6)
[2023-10-04] MEDS ORDERED: NALOXONE 0.4 MG/ML 1 ML VIAL IV PRN (04:36)
[2023-10-04] MEDS: ASPIRIN 81 MG PO STA (05:14)
[2023-10-04] MEDS: HYDROcodone/APAP 10-325MG 1 EACH TAB PO ONE (05:47)
[2023-10-04] MEDS ORDERED: METOPROLOL TARTRATE 25 MG TAB PO SCH (09:30)
[2023-10-04] MEDS: CLOPIDOGREL 75 MG TAB PO SCH (09:52)
[2023-10-04] MEDS: FUROSEMIDE 20 MG TAB PO SCH (09:53)
[2023-10-04] MEDS: LOSARTAN 50 MG TAB PO SCH (09:53)
[2023-10-04] MEDS: hydrALAZINE HCL 50 MG TAB PO SCH (09:53)
[2023-10-04] MEDS: MAGNESIUM OXIDE 400 MG TAB PO SCH (09:53)
[2023-10-04] MEDS: EZETIMIBE 10 MG TAB PO SCH (09:53)
[2023-10-04] MEDS: ISOSORBIDE MONONITRATE ER 60 MG TAB.ER.24H PO SCH (09:53)
--- NOTE | 2023-10-04 10:34 | P.CRDCN ---
History of Present Illness Consult date: 10/04/23 Consult reason: chest pain History of present illness: This is an 82-year-old female patient of Dr. Vásquez with past medical history of coronary artery disease status post stent of the mid LAD by Dr. Xie, mild to moderate disease in the left main, intermediate disease in left circumflex and LEAD DRIVER right coronary artery. History of hypertension, hyperlipidemia, hypothyroidism. We have been asked to evaluate the patient for chest pain. Dana sun is currently residing at [facility]. She started having midsternal chest pain with radiation to both arms and face. Also experienced nausea without vomiting. She currently does not have any chest pain. No shortness of breath. Patient shows no lower extremity edema. EKG: Sinus rhythm, inverted T wave in leads I and aVL, no acute ST changes. Chest x-ray: Elevated right hemidiaphragm with mild basilar opacity. Slightly prominent interstitial markings. Laboratory studies: WBC 8.5, hemoglobin 10. Potassium 4.7, magnesium 2.0, BUN 37 creatinine 0.96. Troponin negative x 2. proBNP 727. Home cardiac medications: Aspirin 81 mg daily, atorvastatin 40 mg at bedtime, Plavix 75 mg daily, Lasix 20 mg daily, hydralazine 50 mg every 8 hours, Imdur 60 mg every 12 hours, losartan 100 mg daily, magnesium oxide 500 mg daily, metoprolol tartrate 25 mg twice daily, patient is also on levothyroxine 100 mcg daily Cardiac catheterization performed 12/2022 at [facility] revealed severe disease involving the LAD. Patient subsequently was transferred to [facility] and underwent successful stenting of the LAD. Review Of Systems: At the time of my exam: CONSTITUTIONAL: Denies fever or chills. HEENT: Denies blurred vision, vision changes, or eye pain. Denies hemoptysis CARDIOVASCULAR: Denies chest pain. Denies orthopnea. Denies PND. Denies palpitations RESPIRATORY: Denies shortness of breath. GASTROINTESTINAL: Denies abdominal pain. Denies nausea or vomiting. HEMATOLOGIC: Denies bleeding disorders. GENITOURINARY: Denies any blood in urine. SKIN: Denies puritis. Denies rash. Physical examination: Gen: This is a morbidly obese 82-year-old female in no acute distress VS: reviewed HEENT: Head is atraumatic, normocephalic. Pupils equal, round. Sclerae is anicteric. NECK: Supple. No JVD. LUNGS: Crackles in the right base. No intercostal retractions. HEART: Regular rate and rhythm. No murmur. ABDOMEN: Soft No tenderness. EXTREMITIES: No pedal edema. No calf tenderness. NEUROLOGICAL: Patient is awake, alert and oriented x3. Assessment: Chest pain, acute coronary syndrome ruled out with negative troponins History of coronary artery disease with previous stenting of the mid LAD Hypertension Hyperlipidemia Hypothyroidism Plan: Resume patient's home cardiac medications Obtain lipid panel Decrease Lopressor to 12.5 mg due to bradycardia Obtain 2-D echocardiogram and Doppler study to assess cardiac structure and function Further recommendations to follow based upon clinical course Thank you kindly for this consultation. Nurse practitioner note has been reviewed, I agree with documented findings and plan of care. Patient was seen and examined. Past Medical History Past Medical History: Coronary Artery Disease (CAD), Cancer, Chest Pain / Angina, GERD/Reflux, Hyperlipidemia, Hypertension, Osteoarthritis (OA), Thyroid Disorder Additional Past Medical History / Comment(s): former hx of breast ca, bladder incontinence, wears brief. back issues uses w/c. cat bite a few weeks ago seen in ER was tx. mary Wells and Nurse Ella states it is mostly healed, completed antibiotics.wrapped. covid earlier this year. History of Any Multi-Drug Resistant Organisms: None Reported Past Surgical History: Back Surgery, Breast Surgery, Cholecystectomy, Heart Catheterization With Stent, Hysterectomy, Joint Replacement, Orthopedic Surgery Additional Past Surgical History / Comment(s): left lumpectomy, cardiac stent, hip replacement, hand surgery Additional Past Anesthesia/Blood Transfusion Reaction / Comment(s): Mary Wells unsure of any issues with anesthesia. Date of Last Stent Placement:: unk Past Psychological History: No Psychological Hx Reported Smoking Status: Never smoker Past Alcohol Use History: None Reported Past Drug Use History: None Reported - Past Family History Mother Family Medical History: Hypertension Sister(s) Family Medical History: Deep Vein Thrombosis (DVT), Myocardial Infarction ([place]) Medications and Allergies Home Medications Medication Instructions Recorded Confirmed Type Cyanocobalamin [Vitamin B-12] 250 mcg PO DAILY 10/10/13 10/04/23 History Acetaminophen [Tylenol Extra 1,000 mg PO Q8H PRN 12/30/22 10/04/23 History Strength] Aspirin 81 mg PO DAILY 12/30/22 10/04/23 History Atorvastatin Calcium 40 mg PO HS 12/30/22 10/04/23 History Calcium Carbonate [Calcium] 600 mg PO DAILY 12/30/22 10/04/23 History Furosemide [Lasix] 20 mg PO DAILY@0600 12/30/22 10/04/23 History HYDROcodone/APAP 7.5-325MG [[place] 1 tab PO Q6H PRN 12/30/22 10/04/23 History 7.5-325] Isosorbide Mononitrate [Isosorbide 60 mg PO Q12H 12/30/22 10/04/23 History Mononitrate ER] Levothyroxine Sodium 100 mcg PO DAILY 12/30/22 10/04/23 History Losartan Potassium 100 mg PO DAILY 12/30/22 10/04/23 History Magnesium Oxide [Magnesium] 500 mg PO DAILY 12/30/22 10/04/23 History Metoprolol Tartrate 25 mg PO BID 12/30/22 10/04/23 History hydrALAZINE HCL 50 mg PO Q8H 12/30/22 10/04/23 History Cholecalciferol [Vitamin D3 (25 50 mcg PO DAILY 01/05/23 10/04/23 History Mcg = 1000 Iu)] Clopidogrel [Plavix] 75 mg PO DAILY@0601/05/23 10/04/23 History Docusate [Colace] 100 mg PO BID 07/20/23 10/04/23 History Lactulose [Cephulac] 20 gram PO BID 07/20/23 10/04/23 History Methyl Salicylate/Menth/Camph 1 patch TOPICAL DAILY 07/20/23 10/04/23 History [Salonpas 3.1%-6.0%-10.0% Patch] Sertraline [Zoloft] 100 mg PO HS 07/20/23 10/04/23 History Gabapentin [Neurontin] 100 mg PO BID 10/04/23 10/04/23 History Sertraline [Zoloft] 25 mg PO HS 10/04/23 10/04/23 History Soothe And Cool Powder 1 applic TOPICAL DIRECTED PRN 10/04/23 10/04/23 History Soothe And Cool Powder 1 applic TOPICAL Q12H 10/04/23 10/04/23 History Allergies Allergy/AdvReac Type Severity Reaction Status Date / Time celecoxib [From Celebrex] Allergy Unknown Verified 10/04/23 07:37 isosorbide [Isosorbide] Allergy Unknown Verified 10/04/23 07:37 propranolol HCl Allergy Unknown Verified 10/04/23 07:37 [From Inderal LA] rofecoxib [From Vioxx] Allergy Unknown Verified 10/04/23 07:37 fentanyl AdvReac Hallucinati Verified 10/04/23 07:37 ons pregabalin [From Lyrica] AdvReac dizziness Verified 10/04/23 07:37 Physical Exam Vitals: Vital Signs Temp Pulse Resp BP Pulse Ox 10/04/23 07:51 97.9 F 47 L 16 124/77 97 10/04/23 06:00 44 L 19 153/76 97 10/04/23 05:15 49 L 18 143/99 97 10/04/23 02:50 53 L 16 160/71 96 10/04/23 02:26 59 L 20 163/136 96 10/04/23 02:17 97.5 F L 57 L 20 95 Intake and Output 10/03/23 10/04/23 10/04/23 22:59 06:59 14:59 Other: Weight 122.47 kg Results 10/04/23 02:49 10/04/23 02:49 Cardiac Enzymes 10/04/23 10/04/23 10/04/23 Range/Units 02:49 02:49 06:02 AST 29 (14-36) U/L Troponin I <0.012 0.020 (0.000-0.034) ng/mL Coagulation 10/04/23 Range/Units 02:49 PT 9.6 L (10.0-12.5) sec APTT 19.2 L (22.0-30.0) sec CBC 10/04/23 Range/Units 02:49 WBC 8.5 (3.8-10.6) k/uL RBC 3.11 L (3.80-5.40) m/uL Hgb 10.0 L (11.4-16.0) gm/dL Hct 29.7 L (34.0-46.0) % Plt Count 212 (150-450) k/uL Comprehensive Metabolic Panel 10/04/23 Range/Units 02:49 Sodium 137 (137-145) mmol/L Potassium 4.7 (3.5-5.1) mmol/L Chloride 104 (98-107) mmol/L Carbon Dioxide 30 (22-30) mmol/L BUN 37 H (7-17) mg/dL Creatinine 0.96 (0.52-1.04) mg/dL Glucose 106 H (74-99) mg/dL Calcium 8.8 (8.4-10.2) mg/dL AST 29 (14-36) U/L ALT 16 (4-34) U/L Alkaline Phosphatase 71 (38-126) U/L Total Protein 5.8 L (6.3-8.2) g/dL Albumin 3.5 (3.5-5.0) g/dL Current Medications Generic Name Dose Route Start Last Admin Trade Name Freq PRN Reason Stop Dose Admin Naloxone HCl 0.2 mg 10/04/23 04:36 Naloxone 0.4 Mg/Ml 1 Ml Vial IV Q2M PRN Opioid Reversal Intake and Output 10/03/23 10/04/23 10/04/23 22:59 06:59 14:59 Other: Weight 122.47 kg 10/04/23 02:49 10/04/23 02:49
[2023-10-04] MEDS: HYDROcodone/APAP 7.5-325MG 1 EACH TAB PO PRN ×2 (11:31→19:04)
[2023-10-04] MEDS ORDERED: ACETAMINOPHEN TAB 500 MG TAB PO PRN (11:33)
--- NOTE | 2023-10-04 11:42 | P.HPIM ---
History of Present Illness 82-year-old pleasant female came with complaints of precordial chest pain radiating to both arms without any lightheadedness shortness of breath nonexertional woke up from sleep. Patient has history of coronary artery disease. Patient has history of coronary disease had stenting to LAD in 2022. Patient EKG showed sinus rhythm with inverted T waves in leads I and aVL without any ST elevations chest x-ray showed some interstitial markings with BNP of around 780. Patient does not have any fever or chills. Patient uses 2 L of ox ygen at home. REVIEW OF SYSTEMS: CONSTITUTIONAL: No fever, no malaise, no fatigue. HEENT: No recent visual problems or hearing problems. Denied any sore throat. CARDIOVASCULAR: No orthopnea, PND, no palpitations, no syncope. PULMONARY: No shortness of breath, no cough, no hemoptysis. GASTROINTESTINAL: No diarrhea, no nausea, no vomiting, no abdominal pain. NEUROLOGICAL: No headaches, no weakness, no numbness. HEMATOLOGICAL: Denies any bleeding or petechiae. GENITOURINARY: Denies any burning micturition, frequency, or urgency. MUSCULOSKELETAL/RHEUMATOLOGICAL: Denies any joint pain, swelling, or any muscle pain. ENDOCRINE: Denies any polyuria or polydipsia. The rest of the 14-point review of systems is negative. PHYSICAL EXAMINATION: GENERAL: The patient is alert and oriented x3, not in any acute distress. Well developed, well nourished. HEENT: Pupils are round and equally reacting to light. EOMI. No scleral icterus. No conjunctival pallor. Normocephalic, atraumatic. No pharyngeal erythema. No thyromegaly. CARDIOVASCULAR: S1 and S2 present. No murmurs, rubs, or gallops. PULMONARY: Chest is clear to auscultation, no wheezing or crackles. ABDOMEN: Soft, nontender, nondistended, normoactive bowel sounds. No palpable organomegaly. MUSCULOSKELETAL: No joint swelling or deformity. EXTREMITIES: No cyanosis, clubbing, or pedal edema. NEUROLOGICAL: Gross neurological examination did not reveal any focal deficits. SKIN: No rashes. Assessment and plan -Chest pain rule out acute coronary syndrome troponins are negative cardiology evaluate the patient patient is undergoing echocardiogram further recommendations from cardiology as per the echocardiogram if cleared by cardiology patient will be discharged most probably tomorrow -Hypertension -Hyperlipidemia -Hypothyroidism Gastroesophageal reflux disease -Patient is on oxygen patient is not sure why she is on oxygen may be interstitial lung disease patient has chronic hypoxic respiratory failure uses 2 L of oxygen DVT prophylaxis: Lovenox subcutaneous Past Medical History Past Medical History: Coronary Artery Disease (CAD), Cancer, Chest Pain / Ang ciarra, GERD/Reflux, Hyperlipidemia, Hypertension, Osteoarthritis (OA), Thyroid Disorder Additional Past Medical History / Comment(s): former hx of breast ca, bladder incontinence, wears brief. back issues uses w/c. cat bite a few weeks ago seen in ER was [facility]. keshawn Wells and Nurse Ella states it is mostly healed, completed antibiotics.wrapped. covid earlier this year. History of Any Multi-Drug Resistant Organisms: None Reported Past Surgical History: Back Surgery, Breast Surgery, Cholecystectomy, Heart Catheterization With Stent, Hysterectomy, Joint Replacement, Orthopedic Surgery Additional Past Surgical History / Comment(s): left lumpectomy, cardiac stent, hip replacement, hand surgery Additional Past Anesthesia/Blood Transfusion Reaction / Comment(s): Keshawn Wells unsure of any issues with anesthesia. Date of Last Stent Placement:: unk Past Psychological History: No Psychological Hx Reported Smoking Status: Never smoker Past Alcohol Use History: None Reported Past Drug Use History: None Reported - Past Family History Mother Family Medical History: Hypertension Sister(s) Family Medical History: Deep Vein Thrombosis (DVT), Myocardial Infarction (HI) Medications and Allergies Home Medications Medication Instructions Recorded Confirmed Type Cyanocobalamin [Vitamin B-12] 250 mcg PO DAILY 10/10/13 10/04/23 History Acetaminophen [Tylenol Extra 1,000 mg PO Q8H PRN 12/30/22 10/04/23 History Strength] Aspirin 81 mg PO DAILY 12/30/22 10/04/23 History Atorvastatin Calcium 40 mg PO HS 12/30/22 10/04/23 History Calcium Carbonate [Calcium] 600 mg PO DAILY 12/30/22 10/04/23 History Furosemide [Lasix] 20 mg PO DAILY@0600 12/30/22 10/04/23 History HYDROcodone/APAP 7.5-325MG [Chandler 1 tab PO Q6H PRN 12/30/22 10/04/23 History 7.5-325] Isosorbide Mononitrate [Isosorbide 60 mg PO Q12H 12/30/22 10/04/23 History Mononitrate ER] Levothyroxine Sodium 100 mcg PO DAILY 12/30/22 10/04/23 History Losartan Potassium 100 mg PO DAILY 12/30/22 10/04/23 History Magnesium Oxide [Magnesium] 500 mg PO DAILY 12/30/22 10/04/23 History Metoprolol Tartrate 25 mg PO BID 12/30/22 10/04/23 History hydrALAZINE HCL 50 mg PO Q8H 12/30/22 10/04/23 History Cholecalciferol [Vitamin D3 (25 50 mcg PO DAILY 01/05/23 10/04/23 History Mcg = 1000 Iu)] Clopidogrel [Plavix] 75 mg PO DAILY@0600 01/05/23 10/04/23 History Docusate [Colace] 100 mg PO BID 07/20/23 10/04/23 History Lactulose [Cephulac] 20 gram PO BID 07/20/23 10/04/23 History Methyl Salicylate/Menth/Camph 1 patch TOPICAL DAILY 07/20/23 10/04/23 History [Salonpas 3.1%-6.0%-10.0% Patch] Sertraline [Zoloft] 100 mg PO HS 07/20/23 10/04/23 History Gabapentin [Neurontin] 100 mg PO BID 10/04/23 10/04/23 History Sertraline [Zoloft] 25 mg PO HS 10/04/23 10/04/23 History Soothe And Cool Powder 1 applic TOPICAL DIRECTED PRN 10/04/23 10/04/23 History Soothe And Cool Powder 1 applic TOPICAL Q12H 10/04/23 10/04/23 History Allergies Allergy/AdvReac Type Severity Reaction Status Date / Time celecoxib [From Celebrex] Allergy Unknown Verified 10/04/23 07:37 isosorbide [Isosorbide] Allergy Unknown Verified 10/04/23 07:37 propranolol HCl Allergy Unknown Verified 10/04/23 07:37 [From Inderal LA] rofecoxib [From Vioxx] Allergy Unknown Verified 10/04/23 07:37 fentanyl AdvReac Hallucinati Verified 10/04/23 07:37 ons pregabalin [From Lyrica] AdvReac dizziness Verified 10/04/23 07:37 Physical Exam Vitals: Vital Signs Temp Pulse Resp BP Pulse Ox 10/04/23 09:56 57 L 16 157/77 95 10/04/23 07:51 97.9 F 47 L 16 124/77 97 10/04/23 06:00 44 L 19 153/76 97 10/04/23 05:15 49 L 18 143/99 97 10/04/23 02:50 53 L 16 160/71 96 10/04/23 02:26 59 L 20 163/136 96 10/04/23 02:17 97.5 F L 57 L 20 95 Intake and Output 10/03/23 10/04/23 10/04/23 22:59 06:59 14:59 Other: Weight 122.47 kg Results CBC & Chem 7: 10/04/23 02:49 10/04/23 02:49 Labs: Abnormal Lab Results - Last 24 Hours (Table) 10/04/23 10/04/23 10/04/23 Range/Units 02:49 02:49 02:49 RBC 3.11 L (3.80-5.40) m/uL Hgb 10.0 L (11.4-16.0) gm/dL Hct 29.7 L (34.0-46.0) % PT 9.6 L (10.0-12.5) sec APTT 19.2 L (22.0-30.0) sec BUN 37 H (7-17) mg/dL Glucose 106 H (74-99) mg/dL Total Protein 5.8 L (6.3-8.2) g/dL
[2023-10-04] MEDS: LEVOTHYROXINE 100 MCG TAB PO SCH (12:31)
[2023-10-04] MEDS: GABAPENTIN 100 MG CAP PO SCH (12:31)
--- NOTE | 2023-10-04 16:19 | CA ---
Transthoracic Echo Report Name: Giovanna Pardo Age: 82 Gender: F : 1940 Exam Date: 10/04/2023 11:06 Exam Location: [facility] Ht (in): 65 Wt (lb): 270 Ordering Physician: Ema Munoz Attending/Referring Phys: [id number], Tammy Supervising Nurse Lauryn Santiago RDCS Procedure CPT: Indications: LVF Cardiac Hx: Technical Quality: Technically difficult study Contrast 1: Definity Total Dose (mL): 2 Contrast 2: Total Dose (mL): MEASUREMENTS (Male / Female) Normal Values 2D ECHO LV Diastolic Diameter PLAX 3.5 cm 4.2 - 5.9 / 3.9 - 5.3 cm LV Systolic Diameter PLAX 2.6 cm IVS Diastolic Thickness 1.8 cm 0.6 - 1.0 / 0.6 - 0.9 cm LVPW Diastolic Thickness 1.7 cm 0.6 - 1.0 / 0.6 - 0.9 cm LV Relative Wall Thickness 1.0 RV Internal Dim ED PLAX 3.4 cm LA Volume 66.2 cm??? 18 - 58 / 22 - 52 cm??? LA Volume Index 27.2 cm???/m??? 16 - 28 cm???/m??? M-MODE Aortic Root Diameter MM 4.0 cm LA Systolic Diameter MM 4.3 cm LA Ao Ratio MM 1.1 AV Cusp Separation MM 2.2 cm DOPPLER AV Peak Velocity 192.0 cm/s AV Peak Gradient 14.7 mmHg AV Mean Velocity 126.8 cm/s AV Mean Gradient 7.6 mmHg AV Velocity Time Integral 40.5 cm LVOT Peak Velocity 123.0 cm/s LVOT Peak Gradient 6.0 mmHg LVOT Velocity Time Integral 31.3 cm MV Area PHT 2.0 cm??? Mitral E Point Velocity 71.4 cm/s Mitral A Point Velocity 107.0 cm/s Mitral E to A Ratio 0.7 MV Deceleration Time 385.2 ms MV E' Velocity 6.8 cm/s Mitral E to MV E' Ratio 10.5 TR Peak Velocity 225.8 cm/s TR Peak Gradient 20.4 mmHg Right Ventricular Systolic Press 24.0 mmHg FINDINGS Left Ventricle Severely increased left ventricular wall thickness. Left ventricular cavity size normal. No obvious regional wall motion abnormalities. Left ventricular ejection fraction is estimated at 55-60 %. Grade 1 diastolic dysfunction. Right Ventricle Normal right ventricular size and function. Right Atrium Normal right atrial size. Left Atrium Moderately increased left atrial volume. Mildly increased left atrial area. Mitral Valve Structurally normal mitral valve. Mild mitral regurgitation. Aortic Valve Trileaflet aortic valve. No aortic valve stenosis or regurgitation. Aortic valve sclerosis. Tricuspid Valve Structurally normal tricuspid valve. Mild tricuspid regurgitation. Pulmonic Valve Structurally normal pulmonic valve. Pericardium No pericardial effusion. Aorta Normal size aortic root and proximal ascending aorta. CONCLUSIONS Normal LV size and function Normal RV size and function Moderate left atrial enlargement Previewed by: Dr. Flako Ellis MD (Electronically Signed) Final Date: 04 October 2023 16:19
[2023-10-04] MEDS: SERTRALINE 100 MG TAB PO SCH (20:18)
[2023-10-04] MEDS: SERTRALINE 25 MG TAB PO SCH (20:18)
[2023-10-04] MEDS: DOCUSATE 100 MG CAP PO SCH (20:18)
[2023-10-04] MEDS: ATORVASTATIN 80 MG TAB PO SCH (20:18)
[2023-10-04] MEDS: METOPROLOL TARTRATE 12.5 MG TAB PO SCH (20:20)
[2023-10-04] MEDS ORDERED: ATORVASTATIN 40 MG TAB PO SCH (21:00)
[2023-10-05 08:51] LABS: Basophils # (A) 0.02 X 10*3/uL (0.00-0.10); Basophils % (A) 0.2 %; Eosinophils # (A) 0.21 X 10*3/uL (0.04-0.35); Eosinophils % (A) 2.5 %; HGB 9.9 g/dL (12.0-15.0); Lymphocytes # (A) 2.31 X 10*3/uL (0.90-5.00); Lymphocytes % (A) 27.2 %; MCH 30.8 pg (27.0-32.0); MCHC 31.9 g/dL (32.0-37.0); MCV 96.6 FL (80.0-97.0); Mean Platelet Volume 10.2 FL (9.5-12.2); Monocytes # (A) 0.95 X 10*3/uL (0.20-1.00); Monocytes % (A) 11.2 %; NRBC Per 100 WBC 0 X 10*3/uL (0.00-0.01); Neutrophils # (A) 4.96 X 10*3/uL (1.80-7.70); Neutrophils % (A) 58.5 %; Platelet Count 223 X 10*3/uL (140-440); RBC 3.21 X 10*6/uL (4.10-5.20); RDW 14.3 % (11.5-14.5); WBC 8.48 X 10*3/uL (4.50-10.00)
[2023-10-05 09:10] LABS: Blood Urea Nitrogen 32.1 mg/dL (9.0-27.0); Calcium 9.3 mg/dL (8.7-10.3); Carbon Dioxide 28.8 mmol/L (21.6-31.8); Chloride 101 mmol/L (96-109); Chol/HDL Ratio 4.03 Ratio; Glucose 89 mg/dL (70-110); LDL Cholesterol,Calculated 105.1 mg/dL (0.0-131.0); Potassium 4.5 mmol/L (3.5-5.5); Sodium 141 mmol/L (135-145)
[2023-10-05] MEDS: ENOXAPARIN 40 MG/0.4 ML SYRINGE SQ SCH (09:11)
[2023-10-05] MEDS: ASPIRIN 81 MG PO SCH (09:12)
[2023-10-05] MEDS: CHOLECALCIFEROL 25 MCG (1000 IU) TABLET PO SCH (09:13)
[2023-10-05] MEDS: CALCIUM CARBONATE 500 MG CHEWABLE PO SCH (09:13)
[2023-10-05] MEDS: VALSARTAN 160 MG TAB PO SCH (09:13)
[2023-10-05] MEDS: LACTULOSE 20 GM/30 ML CUP PO PRN (09:19)
--- NOTE | 2023-10-05 12:52 | P.PN ---
Subjective Progress Note Date: 10/05/23 Consult reason: chest pain History of present illness: This is an 82-year-old female patient of Dr. Ellis with past medical history of coronary artery disease status post stent of the mid LAD by Dr. Xie, mild to moderate disease in the left main, intermediate disease in left circumflex and MEDICAL INTERN right coronary artery. History of hypertension, hyperlipidemia, hypothyroidism. We have been asked to evaluate the patient for chest pain. Patient is currently residing at [facility]. She started having midsternal chest pain with radiation to both arms and face. Also experienced nausea without vomiting. She currently does not have any chest pain. No shortness of breath. Patient shows no lower extremity edema. EKG: Sinus rhythm, inverted T wave in leads I and aVL, no acute ST changes. Chest x-ray: Elevated right hemidiaphragm with mild basilar opacity. Slightly prominent interstitial markings. Laboratory studies: WBC 8.5, hemoglobin 10. Potassium 4.7, magnesium 2.0, BUN 37 creatinine 0.96. Troponin negative x 2. proBNP 727. Home cardiac medications: Aspirin 81 mg daily, atorvastatin 40 mg at bedtime, Plavix 75 mg daily, Lasix 20 mg daily, hydralazine 50 mg every 8 hours, Imdur 60 mg every 12 hours, losartan 100 mg daily, magnesium oxide 500 mg daily, metoprolol tartrate 25 mg twice daily, patient is also on levothyroxine 100 mcg daily Cardiac catheterization performed 12/2022 at [facility] revealed severe disease involving the LAD. Patient subsequently was transferred to [facility] and underwent successful stenting of the LAD. 10/04 Patient states chest pain is gone. She is hungry and would like to eat this morning. Blood pressure readings have been elevated up to 188/81. Heart rate is in the 60s, pulse ox 94% on room air. Repeat blood work reveals hemoglobin 9.9. BUN 32 creatinine 1. Triglycerides 230, cholesterol 201, LDL 105, HDL 49. Echocardiogram reveals normal LV size and function. Normal RV size and function. Moderate left atrial enlargement. Physical examination: Gen: This is a morbidly obese 82-year-old female in no acute distress VS: reviewed HEENT: Head is atraumatic, normocephalic. Pupils equal, round. Sclerae is anicteric. NECK: Supple. No JVD. LUNGS: Crackles in the right base. No intercostal retractions. HEART: Regular rate and rhythm. No murmur. ABDOMEN: Soft No tenderness. EXTREMITIES: No pedal edema. No calf tenderness. NEUROLOGICAL: Patient is awake, alert and oriented x3. Assessment: Chest pain, acute coronary syndrome ruled out with negative troponins Bradycardia History of coronary artery disease with previous stenting of the mid LAD Hypertension, uncontrolled Hyperlipidemia Hypothyroidism Plan: Continue current cardiac medications Continue decreased dose of Lopressor 12.5 mg twice daily due to bradycardia Patient is cleared from cardiology for discharge and may follow-up in the office with Dr. Ellis in 1 to 2 weeks. Nurse practitioner note has been reviewed, I agree with documented findings and plan of care. Patient was seen and examined. Objective - Vital Signs Vital signs: Vital Signs Temp 97.9 F 10/05/23 07:00 Pulse 64 10/05/23 07:00 Resp 16 10/05/23 07:00 BP 144/58 10/05/23 07:00 Pulse Ox 94 L 10/05/23 07:00 FiO2 Intake & Output 10/04/23 10/05/23 10/05/23 18:59 06:59 18:59 Weight 122.47 kg Other: Voiding Method Diaper External Catheter # Voids 2 - Labs CBC & Chem 7: 10/05/23 05:44 10/05/23 05:44
--- NOTE | 2023-10-05 14:25 | P.DS ---
Providers Date of admission: 10/04/23 04:38 Attending physician: Hilaria Pal Consults: 10/04/23 04:36 Consult Physician Urgent Consulting Provider: [facility] Consult Reason/Comments: acute chest pain, possible acs Do you want consulting provider notified?: Yes Primary care physician: Severo Campbell Hospital Course: Final Diagnosis -Chest pain, ACS has been ruled out likely gastritis -Hypertension -Hyperlipidemia -Hypothyroidism -Gastroesophageal reflux disease -Patient is on oxygen patient is not sure why she is on oxygen may be interstitial lung disease patient has chronic hypoxic respiratory failure uses 2 L of oxygen Discharge Disposition Patient is cleared for discharge back to the ECF. Has been evaluated and cleared by cardiology. Recommending to continue on bowel regimen and has been started on pepcid. Patient should sit up after eating to avoid food to digest. Cardiology has adjusted meds as recommended. Repeat blood work. Hospital Course This is an 82 year-old pleasant female with medical history of coronary artery disease status post stent of the mid LAD in 2022, mild to moderate disease in the left main, intermediate disease in left circumflex and [employer]IST right coronary artery, hypertension, hyperlipidemia, hypothyroidism. Patient came in with complaints of precordial chest pain radiating to both arms without any lightheadedness shortness of breath nonexertional woke up from sleep. Patient EKG showed sinus rhythm with inverted T waves in leads I and aVL without any ST elevations chest x-ray showed some interstitial markings with BNP of around 780. Patient does not have any fever or chills. Patient uses 2 L of oxygen at home. Was admitted to the hospital with cardiac consultation. Was monitored and patient does report GI symptoms of reflux and indigestion as well as needing to have a bowel movement states it has been over 3 days. Patient was given lactulose and started on pepcid for this. Cardiology recommending echocardiogram which was done reveals normal LV size and function. Normal RV size and function. There is moderate left atrial enlargement. Cardiology recommending to decrease beta nagel has changed the patient from losartan to valsartan. Lipid panel was done revealing triglycerides of 230 and total cholesterol of 201 and for this patient was started on zetia and lipitor increased from 40 mg to 80 mg HS. Patient is not currently reporting chest discomfort. She is evaluated today resting in bed. No shortness of breath. Alert x 3. Her renal function remains stable with BUN 32.1, and Creatinine 1.0. Troponin levels have been negative. Hemodynamically she is stable and can return to the ECF today. Please see medication reconciliation for a list of current medications. Thank you for allowing us to participate in the care of this patient. The impression and plan of care has been dictated by Iram Ross, Nurse Practitioner as directed. Dr. Pamela MD I have performed a history and physical examination and medical decision making of this patient, discussed the same with the dictator, and agree with the dictators assessment and plan as written, documented as a scribe. Based on total visit time, I have performed more than 50% of this visit. Patient Condition at Discharge: Stable Plan - Discharge Summary New Discharge Prescriptions: New Valsartan [Diovan] 320 mg PO DAILY tab Atorvastatin [Lipitor] 80 mg PO HS tab Metoprolol Tartrate [Lopressor] 12.5 mg PO BID tab Ezetimibe [Zetia] 10 mg PO DAILY tab Continue Cyanocobalamin [Vitamin B-12] 250 mcg PO DAILY Isosorbide Mononitrate [Isosorbide Mononitrate ER] 60 mg PO Q12H Clopidogrel [Plavix] 75 mg PO DAILY@0600 Soothe And Cool Powder 1 applic TOPICAL DIRECTED PRN PRN Reason: BREAST/ABDOMEN/GROIN Soothe And Cool Powder 1 applic TOPICAL Q12H Gabapentin [Neurontin] 100 mg PO BID #4 cap HYDROcodone/APAP 7.5-325MG [Virgil 7.5-325] 1 tab PO Q6H PRN #4 tab PRN Reason: Pain hydrALAZINE HCL 50 mg PO Q8H Furosemide [Lasix] 20 mg PO DAILY@0600 Calcium Carbonate [Calcium] 600 mg PO DAILY Aspirin 81 mg PO DAILY Levothyroxine Sodium 100 mcg PO DAILY Magnesium Oxide [Magnesium] 500 mg PO DAILY Acetaminophen [Tylenol Extra Strength] 1,000 mg PO Q8H PRN PRN Reason: Pain Cholecalciferol [Vitamin D3 (25 Mcg = 1000 Iu)] 50 mcg PO DAILY Sertraline [Zoloft] 100 mg PO HS Methyl Salicylate/Menth/Camph [Salonpas 3.1%-6.0%-10.0% Patch] 1 patch TOPICAL DAILY Lactulose [Cephulac] 20 gram PO BID Docusate [Colace] 100 mg PO BID Sertraline [Zoloft] 25 mg PO HS Discontinued Atorvastatin Calcium 40 mg PO HS Losartan Potassium 100 mg PO DAILY Metoprolol Tartrate 25 mg PO BID Discharge Medication List Cyanocobalamin [Vitamin B-12] 250 mcg PO DAILY 10/10/13 [History] Acetaminophen [Tylenol Extra Strength] 1,000 mg PO Q8H PRN 12/30/22 [History] Aspirin 81 mg PO DAILY 12/30/22 [History] Calcium Carbonate [Calcium] 600 mg PO DAILY 12/30/22 [History] Furosemide [Lasix] 20 mg PO DAILY@0600 12/30/22 [History] Isosorbide Mononitrate [Isosorbide Mononitrate ER] 60 mg PO Q12H 12/30/22 [History] Levothyroxine Sodium 100 mcg PO DAILY 12/30/22 [History] Magnesium Oxide [Magnesium] 500 mg PO DAILY 12/30/22 [History] hydrALAZINE HCL 50 mg PO Q8H 12/30/22 [History] Cholecalciferol [Vitamin D3 (25 Mcg = 1000 Iu)] 50 mcg PO DAILY 01/05/23 [History] Clopidogrel [Plavix] 75 mg PO DAILY@0600 01/05/23 [History] Docusate [Colace] 100 mg PO BID 07/20/23 [History] Lactulose [Cephulac] 20 gram PO BID 07/20/23 [History] Methyl Salicylate/Menth/Camph [Salonpas 3.1%-6.0%-10.0% Patch] 1 patch TOPICAL DAILY 07/20/23 [History] Sertraline [Zoloft] 100 mg PO HS 07/20/23 [History] Sertraline [Zoloft] 25 mg PO HS 10/04/23 [History] Soothe And Cool Powder 1 applic TOPICAL DIRECTED PRN 10/04/23 [History] Soothe And Cool Powder 1 applic TOPICAL Q12H 10/04/23 [History] Atorvastatin [Lipitor] 80 mg PO HS tab 10/05/23 [Rx] Ezetimibe [Zetia] 10 mg PO DAILY tab 10/05/23 [Rx] Gabapentin [Neurontin] 100 mg PO BID #4 cap 10/05/23 [Rx] HYDROcodone/APAP 7.5-325MG [Virgil 7.5-325] 1 tab PO Q6H PRN #4 tab 10/05/23 [Rx] Metoprolol Tartrate [Lopressor] 12.5 mg PO BID tab 10/05/23 [Rx] Valsartan [Diovan] 320 mg PO DAILY tab 10/05/23 [Rx] Follow up Appointment(s)/Referral(s): Severo Campbell MD [Primary Care Provider] - 1-2 days [facility], [NON-STAFF] - 1 Week Flako Ellis MD [STAFF PHYSICIAN] - 1 Week Ambulatory/Diagnostic Orders: Basic Metabolic Panel [LAB.AMB] Time Frame: 4 Days, Location: None Selected Discharge Disposition: TRANSFER TO SNF/ECF
[2023-10-05 15:06] VITALS: BP 131/54; PULSE 76; RESP 18; TEMP 98
== END 2023-10-05 19:08 ==
LOC: EC 02:11 → 6NMEDSUR 04:38
PROVIDERS: ADMIT Hospitalist; ATTEND Hospitalist
DX: R07.2 Precordial pain (principal); I11.9 Hypertensive heart disease without heart failure; J96.11 Chronic respiratory failure with hypoxia; K21.9 Gastro-esophageal reflux disease without esophagitis; I25.10 Atherosclerotic heart disease of native coronary artery without angina pectoris; I10 Essential (primary) hypertension; E78.5 Hyperlipidemia, unspecified; M79.602 Pain in left arm; M79.601 Pain in right arm; R51.9 Headache, unspecified; E03.9 Hypothyroidism, unspecified; R11.0 Nausea; R00.1 Bradycardia, unspecified; Z79.82 Long term (current) use of aspirin; Z79.890 Hormone replacement therapy; Z79.02 Long term (current) use of antithrombotics/antiplatelets; Z79.899 Other long term (current) drug therapy; Z88.6 Allergy status to analgesic agent; Z88.5 Allergy status to narcotic agent; Z88.8 Allergy status to other drugs, medicaments and biological substances; Z95.5 Presence of coronary angioplasty implant and graft; Z99.81 Dependence on supplemental oxygen
CPT/HCPCS: 96372; 99285; 36415; 93005; 93306; 83880; 80061; 80053; 80048; 83735; 84484; 85025 ×2; 85610; 85730; 71046; G0378 ×2; J1650; Q9957

== ENCOUNTER 2024-01-24 15:46 | Inpatient (IN) | payer MEDICARE, OTHER ==
--- NOTE | 2024-01-24 16:35 | ED ---
General Adult HPI - General Chief complaint: Weakness Stated complaint: Bradycardia Time Seen by Provider: 01/24/24 15:48 Source: patient, EMS, RN notes reviewed Mode of arrival: EMS Limitations: no limitations - History of Present Illness Initial comments: Patient is an 83-year-old female present to the emergency department with concerns for drowsiness. Patient has been drowsy for the last couple of days. long term was also concerned with low heart rate which is reportedly new for the patient. Patient states other than feeling drowsy she has no complaints and feels fine. - Related Data Home Medications Medication Instructions Recorded Confirmed Cyanocobalamin [Vitamin B-12] 250 mcg PO DAILY 10/10/13 10/04/23 Acetaminophen [Tylenol Extra 1,000 mg PO Q8H PRN 12/30/22 10/04/23 Strength] Aspirin 81 mg PO DAILY 12/30/22 10/04/23 Calcium Carbonate [Calcium] 600 mg PO DAILY 12/30/22 10/04/23 Furosemide [Lasix] 20 mg PO DAILY@59912/30/22 10/04/23 Isosorbide Mononitrate [Isosorbide 60 mg PO Q12H 12/30/22 10/04/23 Mononitrate ER] Levothyroxine Sodium 100 mcg PO DAILY 12/30/22 10/04/23 Magnesium Oxide [Magnesium] 500 mg PO DAILY 12/30/22 10/04/23 hydrALAZINE HCL 50 mg PO Q8H 12/30/22 10/04/23 Cholecalciferol [Vitamin D3 (25 50 mcg PO DAILY 01/05/23 10/04/23 Mcg = 1000 Iu)] Clopidogrel [Plavix] 75 mg PO DAILY@59901/05/23 10/04/23 Docusate [Colace] 100 mg PO BID 07/20/23 10/04/23 Lactulose [Cephulac] 20 gram PO BID 07/20/23 10/04/23 Methyl Salicylate/Menth/Camph 1 patch TOPICAL DAILY 07/20/23 10/04/23 [Salonpas 3.1%-6.0%-10.0% Patch] Sertraline [Zoloft] 100 mg PO HS 07/20/23 10/04/23 Sertraline [Zoloft] 25 mg PO HS 10/04/23 10/04/23 Soothe And Cool Powder 1 applic TOPICAL DIRECTED PRN 10/04/23 10/04/23 Soothe And Cool Powder 1 applic TOPICAL Q12H 10/04/23 10/04/23 Previous Rx's Medication Instructions Recorded Atorvastatin [Lipitor] 80 mg PO HS tab 10/05/23 Ezetimibe [Zetia] 10 mg PO DAILY tab 10/05/23 Gabapentin [Neurontin] 100 mg PO BID #4 cap 10/05/23 HYDROcodone/APAP 7.5-325MG [[place] 1 tab PO Q6H PRN #4 tab 10/05/23 7.5-325] Metoprolol Tartrate [Lopressor] 12.5 mg PO BID tab 10/05/23 Valsartan [Diovan] 320 mg PO DAILY tab 10/05/23 Allergies Allergy/AdvReac Type Severity Reaction Status Date / Time celecoxib [From Celebrex] Allergy Unknown Verified 10/04/23 07:37 isosorbide [Isosorbide] Allergy Unknown Verified 10/04/23 07:37 propranolol HCl Allergy Unknown Verified 10/04/23 07:37 [From Inderal LA] rofecoxib [From Vioxx] Allergy Unknown Verified 10/04/23 07:37 fentanyl AdvReac Hallucinati Verified 10/04/23 07:37 ons pregabalin [From Lyrica] AdvReac dizziness Verified 10/04/23 07:37 Review of Systems ROS Statement: Those systems with pertinent positive or pertinent negative responses have been documented in the HPI. ROS Other: All systems not noted in ROS Statement are negative. Constitutional: Denies: fever Eyes: Denies: eye pain ENT: Denies: ear pain Respiratory: Denies: cough, dyspnea Endocrine: Reports: fatigue Gastrointestinal: Denies: abdominal pain Neurological: Denies: headache, weakness Past Medical History Past Medical History: Coronary Artery Disease (CAD), Cancer, Chest Pain / Angina, GERD/Reflux, Hyperlipidemia, Hypertension, Osteoarthritis (OA), Thyroid Disorder Additional Past Medical History / Comment(s): former hx of breast ca, bladder incontinence, wears brief. back issues uses w/c. cat bite a few weeks ago seen in ER was tx. keshawn Wells and Nurse Ella states it is mostly healed, completed antibiotics.wrapped. covid earlier this year. History of Any Multi-Drug Resistant Organisms: None Reported Past Surgical History: Back Surgery, Breast Surgery, Cholecystectomy, Heart Catheterization With Stent, Hysterectomy, Joint Replacement, Orthopedic Surgery Additional Past Surgical History / Comment(s): left lumpectomy, cardiac stent, hip replacement, hand surgery Additional Past Anesthesia/Blood Transfusion Reaction / Comment(s): Keshawn Wells unsure of any issues with anesthesia. Date of Last Stent Placement:: unk Past Psychological History: No Psychological Hx Reported Smoking Status: Never smoker Past Alcohol Use History: None Reported Past Drug Use History: None Reported - Past Family History Mother Family Medical History: Hypertension Sister(s) Family Medical History: Deep Vein Thrombosis (DVT), Myocardial Infarction ([place]) General Exam Limitations: no limitations General appearance: alert, in no apparent distress Head exam: Present: normocephalic Eye exam: Present: normal appearance ENT exam: Present: mucous membranes dry Neck exam: Present: normal inspection Respiratory exam: Present: normal lung sounds bilaterally Cardiovascular Exam: Present: bradycardia, normal heart sounds GI/Abdominal exam: Present: soft. Absent: tenderness Extremities exam: Present: normal inspection. Absent: pedal edema, calf tenderness Neurological exam: Present: alert, oriented X3, CN II-XII intact. Absent: motor sensory deficit Psychiatric exam: Present: normal affect, normal mood Skin exam: Present: normal color Course Vital Signs 01/24/24 01/24/24 01/24/24 15:49 17:10 19:04 Temperature 97.8 F Pulse Rate 50 L 50 L 53 L Respiratory 18 18 18 Rate Blood Pressure 150/60 150/62 153/58 O2 Sat by Pulse 97 99 98 Oximetry EKG Findings - EKG Results: EKG: interpreted by ERMD, sinus rhythm, normal axis, normal QRS, normal ST/T EKG shows: bradycardia Medical Decision Making - Medical Decision Making Was pt. sent in by a medical professional or institution (, PA, ALLIANCE MANAGER, urgent care, hospital, or [place] health care facility...) When possible be specific @ -Patient presents from nursing facility Did you speak to anyone other than the patient for history (EMS, parent, family, police, friend...)? What history was obtained from this source @ -No Did you review nursing and triage notes (agree or disagree)? Why? @ -I reviewed and agree with nursing and triage notes Were old charts reviewed (outside hosp., previous admission, EMS record, old EKG, old radiological studies, urgent care reports/EKG's, [place] health care facility records)? Report findings @ -Transfer paperwork reviewed Differential Diagnosis (chest pain, altered mental status, abdominal pain women, abdominal pain men, vaginal bleeding, weakness, fever, dyspnea, syncope, headache, dizziness, GI bleed, back pain, seizure, CVA, palpatations, mental health, musculoskeletal)? @ -Differential Palpitations Ventricular arrhythmias, atrial arrhythmias, myocardial infarction, anemia, thyrotoxicosis, electrolyte imbalance, hypokalemia, pulmonary embolism, pulmonary disease, drugs, alcohol, anxiety, stress.... This is not meant to be an all-inclusive list. EKG interpreted by me (3pts min.). @ -As above X-rays interpreted by me (1pt min.). @ -Chest x-ray shows right lower lobe infiltrate CT interpreted by me (1pt min.). @ -None done U/S interpreted by me (1pt. min.). @ -None done What testing was considered but not performed or refused? (CT, X-rays, U/S, labs)? Why? @ -None What meds were considered but not given or refused? Why? @ -None Did you discuss the management of the patient with other professionals (professionals i.e. , PA, ALLIANCE MANAGER, lab, RT, psych nurse, marriage and family social worker, fabric inspector, teacher, nursing officer, housing case manager)? Give summary @ -Case discussed with practitioner Frank who will admit with Dr. Pal, covering Dr. [place] Was smoking cessation discussed for >3mins.? @ -No Was critical care preformed (if so, how long)? @ -No Were there social determinants of health that impacted care today? How? (Homelessness, low income, unemployed, alcoholism, drug addiction, transportation, low edu. Level, literacy, decrease access to med. care, custodial, rehab)? @ -No Was there de-escalation of care discussed even if they declined (Discuss DNR or withdrawal of care, Hospice)? DNR status @ -No What co-morbidities impacted this encounter? (DM, HTN, Smoking, COPD, CAD, Cancer, CVA, ARF, Chemo, Hep., AIDS, mental health diagnosis, sleep apnea, morbid obesity)? @ -None Was patient admitted / discharged? Hospital course, mention meds given and route, prescriptions, significant lab abnormalities, going to OR and other pertinent info. @ -Patient presents with bradycardia and fatigue. Concern for pneumonia on x-ray. Patient will be admitted with consults placed Undiagnosed new problem with uncertain prognosis? @ -No Drug Therapy requiring intensive monitoring for toxicity (Heparin, Nitro, Insulin, Cardizem)? @ -No Were any procedures done? @ -No Diagnosis/symptom? @ -Pneumonia, bradycardia care Acute, or Chronic, or Acute on Chronic? @ -Acute, acute Uncomplicated (without systemic symptoms) or Complicated (systemic symptoms)? @ -Default Side effects of treatment? @ -No Exacerbation, Progression, or Severe Exacerbation? @ -No Poses a threat to life or bodily function? How? (Chest pain, [place], [place], pneumonia, PE, COPD, DKA, ARF, appy, cholecystitis, CVA, Diverticulitis, Homicidal, Suicidal, threat to staff... and all critical care pts) @ -Threat to cardiac and pulmonary function - Lab Data Result diagrams: 01/24/24 16:30 01/24/24 16:30 Lab Results 01/24/24 01/24/24 01/24/24 Range/Units 16:30 16:30 16:30 WBC 4.4 (3.8-10.6) k/uL RBC 2.70 L (3.80-5.40) m/uL Hgb 8.2 L (11.4-16.0) gm/dL Hct 26.1 L (34.0-46.0) % MCV 96.7 (80.0-100.0) fL MCH 30.4 (25.0-35.0) pg MCHC 31.5 (31.0-37.0) g/dL RDW 14.1 (11.5-15.5) % Plt Count 201 (150-450) k/uL MPV 9.5 Neutrophils % 63 % Lymphocytes % 23 % Monocytes % 8 % Eosinophils % 3 % Basophils % 0 % Neutrophils # 2.8 (1.3-7.7) k/uL Lymphocytes # 1.0 (1.0-4.8) k/uL Monocytes # 0.4 (0-1.0) k/uL Eosinophils # 0.1 (0-0.7) k/uL Basophils # 0.0 (0-0.2) k/uL Hypochromasia Moderate PT 10.1 (10.0-12.5) sec INR 0.9 (<1.2) APTT 23.9 (22.0-30.0) sec Sodium 140 (137-145) mmol/L Potassium 4.1 (3.5-5.1) mmol/L Chloride 101 (98-107) mmol/L Carbon Dioxide 35 H (22-30) mmol/L Anion Gap 4 mmol/L BUN 24 H (7-17) mg/dL Creatinine 1.14 H (0.52-1.04) mg/dL Est GFR (CKD-EPI)AfAm 52 (>60 ml/min/1.73 sqM) Est GFR (CKD-EPI)NonAf 45 (>60 ml/min/1.73 sqM) Glucose 94 (74-99) mg/dL Plasma Lactic Acid Shoaib (0.7-2.0) mmol/L Calcium 9.1 (8.4-10.2) mg/dL Phosphorus 3.5 (2.5-4.5) mg/dL Magnesium 2.0 (1.6-2.3) mg/dL Total Bilirubin 0.3 (0.2-1.3) mg/dL AST 50 H (14-36) U/L ALT 40 H (4-34) U/L Alkaline Phosphatase 59 (38-126) U/L Troponin I (0.000-0.034) ng/mL Total Protein 5.9 L (6.3-8.2) g/dL Albumin 3.5 (3.5-5.0) g/dL TSH 3.160 (0.465-4.680) mIU/L Free T4 1.31 (0.78-2.19) ng/dL 01/24/24 01/24/24 Range/Units 16:30 16:30 WBC (3.8-10.6) k/uL RBC (3.80-5.40) m/uL Hgb (11.4-16.0) gm/dL Hct (34.0-46.0) % MCV (80.0-100.0) fL MCH (25.0-35.0) pg MCHC (31.0-37.0) g/dL RDW (11.5-15.5) % Plt Count (150-450) k/uL MPV Neutrophils % % Lymphocytes % % Monocytes % % Eosinophils % % Basophils % % Neutrophils # (1.3-7.7) k/uL Lymphocytes # (1.0-4.8) k/uL Monocytes # (0-1.0) k/uL Eosinophils # (0-0.7) k/uL Basophils # (0-0.2) k/uL Hypochromasia PT (10.0-12.5) sec INR (<1.2) APTT (22.0-30.0) sec Sodium (137-145) mmol/L Potassium (3.5-5.1) mmol/L Chloride (98-107) mmol/L Carbon Dioxide (22-30) mmol/L Anion Gap mmol/L BUN (7-17) mg/dL Creatinine (0.52-1.04) mg/dL Est GFR (CKD-EPI)AfAm (>60 ml/min/1.73 sqM) Est GFR (CKD-EPI)NonAf (>60 ml/min/1.73 sqM) Glucose (74-99) mg/dL Plasma Lactic Acid Shoaib 0.7 (0.7-2.0) mmol/L Calcium (8.4-10.2) mg/dL Phosphorus (2.5-4.5) mg/dL Magnesium (1.6-2.3) mg/dL Total Bilirubin (0.2-1.3) mg/dL AST (14-36) U/L ALT (4-34) U/L Alkaline Phosphatase (38-126) U/L Troponin I <0.012 (0.000-0.034) ng/mL Total Protein (6.3-8.2) g/dL Albumin (3.5-5.0) g/dL TSH (0.465-4.680) mIU/L Free T4 (0.78-2.19) ng/dL Disposition Clinical Impression: Bradycardia, Pneumonia Disposition: ADMITTED IP TO THIS HOSP Is patient prescribed a controlled substance at d/c from ED?: No Referrals: Severo Campbell MD [Primary Care Provider] - 1-2 days Time of Disposition: 19:29
[2024-01-24 16:41] LABS: Basophils % (A) 0 %; Eosinophils # (A) 0.1 k/uL (0-0.7); Eosinophils % (A) 3 %; HCT 26.1 % (34.0-46.0); HGB 8.2 gm/dL (11.4-16.0); Hypochromasia Moderate; Lymphocytes % (A) 23 %; MCH 30.4 pg (25.0-35.0); MCHC 31.5 g/dL (31.0-37.0); MCV 96.7 fL (80.0-100.0); Mean Platelet Volume 9.5; Monocytes # (A) 0.4 k/uL (0-1.0); Monocytes % (A) 8 %; Neutrophils # (A) 2.8 k/uL (1.3-7.7); Neutrophils % (A) 63 %; Platelet Count 201 k/uL (150-450); RDW 14.1 % (11.5-15.5); WBC 4.4 k/uL (3.8-10.6)
[2024-01-24 16:50] LABS: INR 0.9 (<1.2); Partial Thromboplastin Time 23.9 sec (22.0-30.0); Prothrombin Time 10.1 sec (10.0-12.5)
[2024-01-24 16:58] LABS: ALT 40 U/L (4-34); AST 50 U/L (14-36); African American GFR (CKD) 52 (>60 ml/min/1.73 sqM); Albumin 3.5 g/dL (3.5-5.0); Alkaline Phosphatase 59 U/L (38-126); Anion Gap 4 mmol/L; Blood Urea Nitrogen 24 mg/dL (7-17); Calcium 9.1 mg/dL (8.4-10.2); Carbon Dioxide 35 mmol/L (22-30); Chloride 101 mmol/L (98-107); Glucose 94 mg/dL (74-99); Non-African American GFR(CKD) 45 (>60 ml/min/1.73 sqM); Phosphorus 3.5 mg/dL (2.5-4.5); Potassium 4.1 mmol/L (3.5-5.1); Sodium 140 mmol/L (137-145); Total Bilirubin 0.3 mg/dL (0.2-1.3); Total Protein 5.9 g/dL (6.3-8.2)
[2024-01-24 17:55] LABS: T4, Free (Free Thyroxine) 1.31 ng/dL (0.78-2.19)
--- NOTE | 2024-01-24 18:33 | XR ---
EXAMINATION TYPE: XR chest 2V DATE OF EXAM: 01/24/2024 COMPARISON: 10/04/2023 INDICATION: Weakness TECHNIQUE: Frontal and lateral views of the chest are obtained. FINDINGS: The heart size is normal. The pulmonary vasculature is normal. There is an infiltrate at the right posterior lung base. Correlate for pneumonia.. Some superimposed atelectasis may be present. IMPRESSION: 1. Clinical correlation recommended for right lower lobe pneumonia. [facility], Workstation: [facility], 01/24/2024 6:31 PM
[2024-01-24] MEDS ORDERED: PNEUMONIA PROTOCOL UTILIZED 1 EACH MISC PO PRN (19:30)
[2024-01-24] MEDS: AZITHROMYCIN 500 MG in SODIUM CHLORIDE 0.9% 250 ML IVPB STA (20:55)
[2024-01-25] MEDS: HYDROcodone/APAP 7.5-325MG 1 EACH TAB PO PRN (01:26)
[2024-01-25 07:55] LABS: ALT 35 U/L (4-34); AST 45 U/L (14-36); African American GFR (CKD) 61 (>60 ml/min/1.73 sqM); Albumin 3.6 g/dL (3.5-5.0); Alkaline Phosphatase 54 U/L (38-126); Anion Gap 7 mmol/L; Blood Urea Nitrogen 24 mg/dL (7-17); Calcium 9.7 mg/dL (8.4-10.2); Carbon Dioxide 31 mmol/L (22-30); Chloride 104 mmol/L (98-107); Glucose 81 mg/dL (74-99); Non-African American GFR(CKD) 53 (>60 ml/min/1.73 sqM); Potassium 4.3 mmol/L (3.5-5.1); Sodium 142 mmol/L (137-145); Total Bilirubin 0.5 mg/dL (0.2-1.3); Total Protein 6.1 g/dL (6.3-8.2)
[2024-01-25 08:51] LABS: Basophils % (A) 0 %; Eosinophils # (A) 0.1 k/uL (0-0.7); Eosinophils % (A) 2 %; HCT 28.4 % (34.0-46.0); HGB 8.7 gm/dL (11.4-16.0); Hypochromasia Marked; Lymphocytes # (A) 1.6 k/uL (1.0-4.8); Lymphocytes % (A) 29 %; MCHC 30.7 g/dL (31.0-37.0); MCV 97.8 fL (80.0-100.0); Mean Platelet Volume 7.9; Monocytes # (A) 0.5 k/uL (0-1.0); Monocytes % (A) 8 %; Neutrophils # (A) 3.2 k/uL (1.3-7.7); Neutrophils % (A) 57 %; Platelet Count 215 k/uL (150-450); WBC 5.5 k/uL (3.8-10.6)
--- NOTE | 2024-01-25 08:53 | XR ---
EXAMINATION TYPE: XR chest 1V portable DATE OF EXAM: 01/25/2024 5:39 AM CLINICAL INDICATION: Female, 83 years old with history of pneumonia; COMPARISON: Chest radiograph from one day prior. TECHNIQUE: XR chest 1V portable Frontal view of the chest. FINDINGS: Lungs/Pleura: There is no evidence of pleural effusion, focal consolidation, or pneumothorax. Pulmonary vascularity: Unremarkable. Heart/mediastinum: Cardiomediastinal silhouette is unremarkable. Musculoskeletal: No acute osseous pathology. IMPRESSION: Bibasilar atelectasis with elevated diaphragm. [facility], , 01/25/2024 8:51 AM
--- NOTE | 2024-01-25 10:32 | P.HPIM ---
History of Present Illness History of present illness; 81-year-old female with a past medical history of hypothyroidism, CAD, GERD, hyperlipidemia, hypertension, and OA presents from the long term after having weakness and bradycardia. Patient reports for the last 3 to 4 days she has not been eating much and sleeping a significant amount. Patient reports she has significant weakness and was told yesterday by long term staff that she had a low heart rate and that she would be sent to the hospital for further evaluation. Patient admits to some dizziness, dry cough, chills and weakness in the legs but no other symptoms. Initial lab work done in the ER showed WBC 4.4, hemoglobin 8.2, sodium 140, potassium 4.1, bicarb 35, BUN 24, creatinine 1.14, AST 50, ALT 40, and free T3 2.1. Since being admitted she has received 1 dose Rocephin 2 g IVPB and 1 dose Zithromax 500 mg IVPB. EKG done in the ER showed heart rate of 49 bpm, no ST segment elevation or depression seen, no T-wave inversions seen. Chest x-ray done in the ER shows bibasilar atelectasis with elevated diaphragm. Patient admitted to internal medicine service REVIEW OF SYSTEMS: CONSTITUTIONAL: No fever, no malaise, no fatigue. HEENT: No recent visual problems or hearing problems. Denied any sore throat. CARDIOVASCULAR: No chest pain, orthopnea, PND, no palpitations, no syncope. PULMONARY: No shortness of breath, no cough, no hemoptysis. GASTROINTESTINAL: No diarrhea, no nausea, no vomiting, no abdominal pain. NEUROLOGICAL: No headaches, no weakness, no numbness. HEMATOLOGICAL: Denies any bleeding or petechiae. GENITOURINARY: Denies any burning micturition, frequency, or urgency. MUSCULOSKELETAL/RHEUMATOLOGICAL: Denies any joint pain, swelling, or any muscle pain. ENDOCRINE: Denies any polyuria or polydipsia. The rest of the 14-point review of systems is negative. PHYSICAL EXAMINATION: GENERAL: The patient is alert and oriented x2, not in any acute distress. Well developed, well nourished. HEENT: Pupils are round and equally reacting to light. EOMI. No scleral icterus. No conjunctival pallor. Normocephalic, atraumatic. No pharyngeal erythema. No thyromegaly. CARDIOVASCULAR: S1 and S2 present. No murmurs, rubs, or gallops. PULMONARY: Chest is clear to auscultation, no wheezing or crackles. ABDOMEN: Soft, nontender, nondistended, normoactive bowel sounds. No palpable organomegaly. MUSCULOSKELETAL: No joint swelling or deformity. EXTREMITIES: No cyanosis, clubbing, or pedal edema. NEUROLOGICAL: Gross neurological examination did not reveal any focal deficits. SKIN: No rashes. Assessment: 81-year-old female with a past medical history of hypothyroidism, CAD, GERD, hyperlipidemia, hypertension, and OA presents for drowsiness for the last couple of days. Patient is being worked up for bradycardia and chest x-ray suspicious for right lower lobe pneumonia versus bibasilar atelectasis. Plan: Right lower lobe pneumonia versus bibasilar atelectasis Currently on Zithromax 500 mg p.o. daily Second chest x-ray from this morning showed bibasilar atelectasis and less of a pneumonia picture Bradycardia: In the setting of being on metoprolol at home Metoprolol has been discontinued since admission, likely because of the bradycardia. Continue to monitor vitals Per cardio no need for repeat echo as this was performed in September of this year, continue aspirin, DC Plavix and beta-angel, continue to monitor telemetry Troponins were negative Hyperlipidemia: Continued home Lipitor 80 mg Hypothyroidism: Continue home Synthroid 100 mcg p.o. daily Coronary artery disease: Previous stenting, most recently to the LAD and 12/2022 Continue to monitor vital signs, monitor CBC, monitor CMP, continue telemetry monitoring Labs and medication were reviewed. Continue with symptomatic treatment. Resume home medication. Monitor labs and vitals. DVT and GI prophylaxis. Further recommendations as per clinical course of the patient Dictation was produced using [employer] dictation software. please excuse any grammatical, word or spelling errors. Julian confidentiality statement: "The information contained in this co mmunication, including attachments, is confidential, may be privileged, and is intended only for the use of the named recipient(s). Unauthorized use, disclosure, forwarding or copying is strictly prohibited and may be unlawful. If you have received this communication in error, please notify me IMMEDIATELY at the phone number or pager listed above." Dr. Pamela MD I have performed a history and physical examination and medical decision making of this patient, discussed the same with the the resident, and agree with the assessment and plan as written. I performed brief physical exam. Past Medical History Past Medical History: Coronary Artery Disease (CAD), Cancer, Chest Pain / Angina, GERD/Reflux, Hyperlipidemia, Hypertension, Osteoarthritis (OA), Thyroid Disorder Additional Past Medical History / Comment(s): former hx of breast ca, bladder incontinence, wears brief. back issues uses w/c. cat bite a few weeks ago seen in ER was tx. keshawn Wells and Nurse Ella states it is mostly healed, completed antibiotics.wrapped. covid earlier this year. History of Any Multi-Drug Resistant Organisms: None Reported Past Surgical History: Back Surgery, Breast Surgery, Cholecystectomy, Heart Catheterization With Stent, Hysterectomy, Joint Replacement, Orthopedic Surgery Additional Past Surgical History / Comment(s): left lumpectomy, cardiac stent, hip replacement, hand surgery Additional Past Anesthesia/Blood Transfusion Reaction / Comment(s): Keshawn Wells unsure of any issues with anesthesia. Date of Last Stent Placement:: unk Past Psychological History: No Psychological Hx Reported Smoking Status: Never smoker Past Alcohol Use History: None Reported Past Drug Use History: None Reported - Past Family History Mother Family Medical History: Hypertension Sister(s) Family Medical History: Deep Vein Thrombosis (DVT), Myocardial Infarction ([place]) Medications and Allergies Home Medications Medication Instructions Recorded Confirmed Type Cyanocobalamin [Vitamin B-12] 250 mcg PO DAILY 10/10/13 01/24/24 History Acetaminophen [Tylenol Extra 1,000 mg PO Q8H PRN 12/30/22 01/24/24 History Strength] Aspirin 81 mg PO DAILY 12/30/22 01/24/24 History Calcium Carbonate [Calcium] 600 mg PO DAILY 12/30/22 01/24/24 History Furosemide [Lasix] 20 mg PO DAILY@0600 12/30/22 01/24/24 History Isosorbide Mononitrate [Isosorbide 60 mg PO Q12H 12/30/22 01/24/24 History Mononitrate ER] Levothyroxine Sodium 100 mcg PO DAILY@0600 12/30/22 01/24/24 History Cholecalciferol [Vitamin D3 (25 50 mcg PO DAILY 01/05/23 01/24/24 History Mcg = 1000 Iu)] Docusate [Colace] 100 mg PO Q12H 07/20/23 01/24/24 History Lactulose [Cephulac] 20 gm PO Q12HR 07/20/23 01/24/24 History Methyl Salicylate/Menth/Camph 1 patch TRANSDERM DAILY 07/20/23 01/24/24 History [Salonpas 3.1%-6.0%-10.0% Patch] Sertraline [Zoloft] 25 mg PO HS 10/04/23 01/24/24 History Valsartan [Diovan] 320 mg PO DAILY tab 10/05/23 01/24/24 Rx Ezetimibe [Zetia] 10 mg PO HS 01/24/24 01/24/24 History Magnesium Oxide [Mag-Ox] 400 mg PO DAILY 01/24/24 01/24/24 History Rosuvastatin Calcium [Crestor] 40 mg PO HS 01/24/24 01/24/24 History hydrALAZINE HCL [Apresoline] 50 mg PO Q8HR@0600,1400,2200 01/24/24 01/24/24 History Gabapentin [Neurontin] 100 mg PO BID #4 cap 01/26/24 Rx HYDROcodone/APAP 7.5-325MG [[place] 1 tab PO Q6H PRN #4 tab 01/26/24 Rx 7.5-325] clonazePAM [KlonoPIN] 0.5 mg PO BID #4 tab 01/26/24 Rx Allergies Allergy/AdvReac Type Severity Reaction Status Date / Time celecoxib [From Celebrex] Allergy Unknown Verified 10/04/23 07:37 isosorbide [Isosorbide] Allergy Unknown Verified 10/04/23 07:37 propranolol HCl Allergy Unknown Verified 10/04/23 07:37 [From Inderal LA] rofecoxib [From Vioxx] Allergy Unknown Verified 10/04/23 07:37 fentanyl AdvReac Hallucinati Verified 10/04/23 07:37 ons pregabalin [From Lyrica] AdvReac dizziness Verified 10/04/23 07:37 Physical Exam Vitals: Vital Signs Temp Pulse Pulse Resp BP BP Pulse Ox 01/25/24 04:00 97.4 F L 56 L 16 136/53 96 01/25/24 00:05 55 L 18 152/98 98 01/24/24 20:13 45 L 18 143/73 98 01/24/24 19:04 53 L 18 153/58 98 01/24/24 17:10 50 L 18 150/62 99 01/24/24 15:49 97.8 F 50 L 18 150/60 97 Intake and Output 01/24/24 01/25/24 01/25/24 22:59 06:59 14:59 Other: Weight 99.79 kg Results CBC & Chem 7: 01/26/24 05:48 01/26/24 05:48 Labs: Abnormal Lab Results - Last 24 Hours (Table) 01/24/24 01/24/24 Range/Units 16:30 16:30 RBC 2.70 L (3.80-5.40) m/uL Hgb 8.2 L (11.4-16.0) gm/dL Hct 26.1 L (34.0-46.0) % Carbon Dioxide 35 H (22-30) mmol/L BUN 24 H (7-17) mg/dL Creatinine 1.14 H (0.52-1.04) mg/dL AST 50 H (14-36) U/L ALT 40 H (4-34) U/L Total Protein 5.9 L (6.3-8.2) g/dL Free T3 pg/mL 2.10 L (2.30-4.20) pg/mL
[2024-01-25] MEDS: VALSARTAN 160 MG TAB PO SCH (11:46)
[2024-01-25] MEDS: ISOSORBIDE MONONITRATE ER 60 MG TAB.ER.24H PO SCH (11:46)
[2024-01-25 12:11] LABS: Appearance,Urine Clear (Clear); Bacteria,Urine Rare /hpf; Bilirubin,Urine Negative (Negative); Blood,Urine Negative (Negative); Color,Urine Yellow; Glucose,Urine (UA) Negative (Negative); Ketones,Urine Negative (Negative); Leukocyte Esterase,Urine Trace (Negative); Nitrite,Urine Negative (Negative); Protein,Urine 1+ (Negative); RBC,Urine 4 /hpf (0-5); Specific Gravity,Urine 1.025 (1.001-1.035); Squamous Epithelial Cell,Urine 3 /hpf (0-4); Urobilinogen,Urine <2.0 mg/dL (<2.0); WBC,Urine 5 /hpf (0-5)
--- NOTE | 2024-01-25 12:15 | P.CRDCN ---
History of Present Illness History of present illness: HISTORY OF PRESENT ILLNESS: This is a 83-year-old female with a past medical history significant for coronary artery disease, hypertension, and hyperlipidemia. Patient follows in the office with Dr. Ellis. We have been asked to see the patient in consultation for bradycardia. Patient examined at the bedside in the emergency room. Patient states she came to the hospital because she was lethargic. She denied any chest pain or pressure prior to coming to the hospital. She reports mild SOB. She was found to have pneumonia. EKG on admission reveals sinus bradycardia. She denied any dizziness or lightheadedness. She reports one episode of syncope in her life. Reports a history of vertigo. She does report she is at bedbound at baseline. She reports an episode of chest pain just prior to our evaluation. She reports the pain was in the middle of her chest and also into her jaw. She reports the pain lasted for about 10 minutes then went away on its own. DIAGNOSTICS: - EKG reveals sinus mechanism with no signs of acute ischemia. Bradycardic with heart rate of 49. - Chest xray possible right lower lobe pneumonia - Laboratory data: WBC 5.5. Hemoglobin 8.7. Platelet count 215. Sodium 142. Potassium 4.3. BUN 24. Creatinine 1.0. AST 45. ALT 35. Troponin negative x 1. TSH 3.160. - Current home cardiac medications include hydralazine 50 mg 3 times a day, valsartan 320 mg daily, rosuvastatin 40 mg at night, metoprolol tartrate 12.5 mg twice a day, Imdur 60 mg every 12 hours, Lasix 20 mg daily, Zetia 10 mg at night, Plavix 75 mg daily, aspirin 81 mg daily - Most recent echocardiogram obtained in September 2023 revealing ejection fraction 55 to 60%, mild MR, mild TR - Cardiac catheterization history: December [address] Xie revealing mild to moderate disease involving left main, severe disease involving the mid LAD, intermediate disease involving left circumflex, chronic total occlusion of RCA. Patient underwent stenting of the LAD. REVIEW OF SYSTEMS: At the time of my exam: CONSTITUTIONAL: Denies fever or chills. HEENT: Denies blurred vision, vision changes, or eye pain. Denies hemoptysis CARDIOVASCULAR: Denies chest pain. Denies orthopnea. Denies PND. Denies palpitations RESPIRATORY: Denies shortness of breath. GASTROINTESTINAL: Denies abdominal pain. Denies nausea or vomiting. HEMATOLOGIC: Denies bleeding disorders. GENITOURINARY: Denies any blood in urine. SKIN: Denies pruitis. Denies rash. PHYSICAL EXAM: VITAL SIGNS: Reviewed. GENERAL: Well-developed in no acute distress. HEENT: Head is normocephalic. Pupils are equal, round. Sclerae anicteric. Mucous membranes of the mouth are moist. Neck supple. No JVD or thyromegaly LUNGS: Respirations even and unlabored. Lungs essentially clear to auscultation bilaterally. HEART: Regular rate and rhythm. S1 and S2 heard. ABDOMEN: Soft. Nondistended. Nontender. EXTREMITIES: Normal range of motion. No clubbing or cyanosis. Peripheral pulses intact. No lower extremity edema NEUROLOGIC: Awake and alert. Oriented x 3. ASSESSMENT: Right lower lobe pneumonia Chest pain, rule out ACS Sinus bradycardia, asymptomatic, on beta-angel outpatient Coronary artery disease with previous stenting, most recently to the LAD and 12/2022 Hypertension Hyperlipidemia PLAN: No need to repeat echocardiogram as this was performed in September 2023 Resume home cardiac medications Continue aspirin. May discontinue Plavix as stenting was greater than 12 months ago. Patient appears to be asymptomatic in terms of her bradycardia. However we will hold her beta-angel and continue to monitor telemetry. TSH checked and within normal limits. Obtain troponin due to episode of chest discomfort Further recommendations pending patient course Nurse practitioner note has been reviewed by physician. Signing provider agrees with the documented findings, assessment, and plan of care documented by ANIMAL CONTROL SUPERVISOR as a scribe. Past Medical History Past Medical History: Coronary Artery Disease (CAD), Cancer, Chest Pain / Angina, GERD/Reflux, Hyperlipidemia, Hypertension, Osteoarthritis (OA), Thyroid Disorder Additional Past Medical History / Comment(s): former hx of breast ca, bladder incontinence, wears brief. back issues uses w/c. cat bite a few weeks ago seen in ER was tx. mary Wells and Nurse Jaramillo states it is mostly healed, completed antibiotics.wrapped. covid earlier this year. History of Any Multi-Drug Resistant Organisms: None Reported Past Surgical History: Back Surgery, Breast Surgery, Cholecystectomy, Heart Catheterization With Stent, Hysterectomy, Joint Replacement, Orthopedic Surgery Additional Past Surgical History / Comment(s): left lumpectomy, cardiac stent, hip replacement, hand surgery Additional Past Anesthesia/Blood Transfusion Reaction / Comment(s): Mary Wells unsure of any issues with anesthesia. Date of Last Stent Placement:: unk Past Psychological History: No Psychological Hx Reported Smoking Status: Never smoker Past Alcohol Use History: None Reported Past Drug Use History: None Reported - Past Family History Mother Family Medical History: Hypertension Sister(s) Family Medical History: Deep Vein Thrombosis (DVT), Myocardial Infarction (MD) Medications and Allergies Home Medications Medication Instructions Recorded Confirmed Type Cyanocobalamin [Vitamin B-12] 250 mcg PO DAILY 10/10/13 01/24/24 History Acetaminophen [Tylenol Extra 1,000 mg PO Q8H PRN 12/30/22 01/24/24 History Strength] Aspirin 81 mg PO DAILY 12/30/22 01/24/24 History Calcium Carbonate [Calcium] 600 mg PO DAILY 12/30/22 01/24/24 History Furosemide [Lasix] 20 mg PO DAILY@0600 12/30/22 01/24/24 History Isosorbide Mononitrate [Isosorbide 60 mg PO Q12H 12/30/22 01/24/24 History Mononitrate ER] Levothyroxine Sodium 100 mcg PO DAILY@0600 12/30/22 01/24/24 History Cholecalciferol [Vitamin D3 (25 50 mcg PO DAILY 01/05/23 01/24/24 History Mcg = 1000 Iu)] Clopidogrel [Plavix] 75 mg PO DAILY@0600 01/05/23 01/24/24 History Docusate [Colace] 100 mg PO Q12H 07/20/23 01/24/24 History Lactulose [Cephulac] 20 gm PO Q12HR 07/20/23 01/24/24 History Methyl Salicylate/Menth/Camph 1 patch TRANSDERM DAILY 07/20/23 01/24/24 History [Salonpas 3.1%-6.0%-10.0% Patch] Sertraline [Zoloft] 100 mg PO HS 07/20/23 01/24/24 History Sertraline [Zoloft] 25 mg PO HS 10/04/23 01/24/24 History Gabapentin [Neurontin] 100 mg PO BID #4 cap 10/05/23 01/24/24 Rx HYDROcodone/APAP 7.5-325MG [Bethel 1 tab PO Q6H PRN #4 tab 10/05/23 01/24/24 Rx 7.5-325] Valsartan [Diovan] 320 mg PO DAILY tab 10/05/23 01/24/24 Rx Ezetimibe [Zetia] 10 mg PO HS 01/24/24 01/24/24 History Magnesium Oxide [Mag-Ox] 400 mg PO DAILY 01/24/24 01/24/24 History Metoprolol Tartrate [Lopressor] 12.5 mg PO BID 01/24/24 01/24/24 History Rosuvastatin Calcium [Crestor] 40 mg PO HS 01/24/24 01/24/24 History clonazePAM [KlonoPIN] 0.5 mg PO BID 01/24/24 01/24/24 History hydrALAZINE HCL [Apresoline] 50 mg PO Q8HR@0600,1400,2200 01/24/24 01/24/24 Hi story Allergies Allergy/AdvReac Type Severity Reaction Status Date / Time celecoxib [From Celebrex] Allergy Unknown Verified 10/04/23 07:37 isosorbide [Isosorbide] Allergy Unknown Verified 10/04/23 07:37 propranolol HCl Allergy Unknown Verified 10/04/23 07:37 [From Inderal LA] rofecoxib [From Vioxx] Allergy Unknown Verified 10/04/23 07:37 fentanyl AdvReac Hallucinati Verified 10/04/23 07:37 ons pregabalin [From Lyrica] AdvReac dizziness Verified 10/04/23 07:37 Physical Exam Vitals: Vital Signs Temp Pulse Pulse Resp BP BP Pulse Ox 01/25/24 04:00 97.4 F L 56 L 16 136/53 96 01/25/24 00:05 55 L 18 152/98 98 01/24/24 20:13 45 L 18 143/73 98 01/24/24 19:04 53 L 18 153/58 98 01/24/24 17:10 50 L 18 150/62 99 01/24/24 15:49 97.8 F 50 L 18 150/60 97 Intake and Output 01/24/24 01/25/24 01/25/24 22:59 06:59 14:59 Other: Weight 99.79 kg Results 01/25/24 08:38 10/02/24 07:06 Cardiac Enzymes 01/24/24 01/24/24 01/25/24 Range/Units 16:30 16:30 07:06 AST 50 H 45 H (14-36) U/L Troponin I <0.012 (0.000-0.034) ng/mL Coagulation 01/24/24 Range/Units 16:30 PT 10.1 (10.0-12.5) sec APTT 23.9 (22.0-30.0) sec CBC 01/24/24 01/25/24 Range/Units 16:30 08:38 WBC 4.4 5.5 (3.8-10.6) k/uL RBC 2.70 L 2.90 L (3.80-5.40) m/uL Hgb 8.2 L 8.7 L (11.4-16.0) gm/dL Hct 26.1 L 28.4 L (34.0-46.0) % Plt Count 201 215 (150-450) k/uL Comprehensive Metabolic Panel 01/24/24 01/25/24 Range/Units 16:30 07:06 Sodium 140 142 (137-145) mmol/L Potassium 4.1 4.3 (3.5-5.1) mmol/L Chloride 101 104 (98-107) mmol/L Carbon Dioxide 35 H 31 H (22-30) mmol/L BUN 24 H 24 H (7-17) mg/dL Creatinine 1.14 H 1.00 (0.52-1.04) mg/dL Glucose 94 81 (74-99) mg/dL Calcium 9.1 9.7 (8.4-10.2) mg/dL AST 50 H 45 H (14-36) U/L ALT 40 H 35 H (4-34) U/L Alkaline Phosphatase 59 54 (38-126) U/L Total Protein 5.9 L 6.1 L (6.3-8.2) g/dL Albumin 3.5 3.6 (3.5-5.0) g/dL Current Medications Generic Name Dose Route Start Last Admin Trade Name Freq PRN Reason Stop Dose Admin Hydrocodone Bitart/Acetaminophen 1 each 01/25/24 01:05 01/25/24 07:46 Hydrocodone/Apap 7.5-325mg 1 Each Tab PO 1 each Q6HR PRN Administration Pain Azithromycin 500 mg 01/25/24 20:00 Azithromycin 500 Mg Tab PO 01/26/24 20:01 DAILY@1999 [facility] Protocol Ceftriaxone Sodium 2 gm/ 50 mls @ 100 mls/hr 01/25/24 09:00 Sodium Chloride IVPB 01/28/24 09:29 Q24HR [facility] Protocol Miscellaneous Information 1 each 01/24/24 19:30 Pneumonia Protocol Utilized 1 Each Misc PO ONCE PRN Per Protocol Intake and Output 01/24/24 01/25/24 01/25/24 22:59 06:59 14:59 Other: Weight 99.79 kg 01/25/24 08:38 01/25/24 07:06
[2024-01-25] MEDS: hydrALAZINE HCL 50 MG TAB PO SCH (14:09)
[2024-01-25] MEDS ORDERED: clonazePAM 0.5 MG TAB PO PRN (17:29)
[2024-01-25] MEDS: AZITHROMYCIN 500 MG TAB PO SCH (20:49)
[2024-01-25] MEDS: EZETIMIBE 10 MG TAB PO SCH (20:49)
[2024-01-25] MEDS: DOCUSATE 100 MG CAP PO SCH (20:49)
[2024-01-25] MEDS: ATORVASTATIN 80 MG TAB PO SCH (20:50)
[2024-01-26 04:52] VITALS: RESP 16
[2024-01-26 06:34] LABS: HCT 26.4 % (34.0-46.0); HGB 8.5 gm/dL (11.4-16.0); Hypochromasia Slight; MCH 31.2 pg (25.0-35.0); MCHC 32.4 g/dL (31.0-37.0); MCV 96.3 fL (80.0-100.0); Mean Platelet Volume 8.7; Platelet Count 223 k/uL (150-450); RBC 2.74 m/uL (3.80-5.40); RDW 14.4 % (11.5-15.5); WBC 6.5 k/uL (3.8-10.6)
[2024-01-26] MEDS: FUROSEMIDE 20 MG TAB PO SCH (06:58)
[2024-01-26] MEDS: LEVOTHYROXINE 100 MCG TAB PO SCH (06:58)
[2024-01-26 07:05] LABS: African American GFR (CKD) 68 (>60 ml/min/1.73 sqM); Anion Gap 5 mmol/L; Blood Urea Nitrogen 17 mg/dL (7-17); Calcium 9.8 mg/dL (8.4-10.2); Carbon Dioxide 28 mmol/L (22-30); Chloride 106 mmol/L (98-107); Glucose 85 mg/dL (74-99); Non-African American GFR(CKD) 59 (>60 ml/min/1.73 sqM); Potassium 4.1 mmol/L (3.5-5.1); Sodium 139 mmol/L (137-145)
[2024-01-26 09:16] VITALS: BP 150/53; PULSE 81; TEMP 97.8
[2024-01-26] MEDS: CYANOCOBALAMIN 500 MCG TAB PO SCH (09:16)
[2024-01-26] MEDS: MAGNESIUM OXIDE 400 MG TAB PO SCH (09:17)
[2024-01-26] MEDS: ASPIRIN 81 MG PO SCH (09:17)
--- NOTE | 2024-01-26 10:44 | P.DS ---
Providers Date of admission: 01/24/24 19:31 Expected date of discharge: 01/26/24 Attending physician: Hilaria Pal Consults: 01/24/24 19:30 Consult Physician Routine Consulting Provider: Elroy An Consult Reason/Comments: hany Do you want consulting provider notified?: Yes Primary care physician: Severo Campbell Hospital Course: Discharge Diagnosis: Bibasilar atelectasis Bradycardia, in the setting of being on metoprolol at home Hyperlipidemia Hypothyroidism Coronary artery disease Hypertension Hospital Course: 81-year-old female with a past medical history of hypothyroidism, CAD, GERD, hyperlipidemia, hypertension, and OA presents from the [facility] after having weakness and bradycardia. Patient reports for the last 3 to 4 days she has not been eating much and sleeping a significant amount. Patient reports she has significant weakness and was told yesterday by [facility] staff that she had a low heart rate and that she would be sent to the hospital for further evaluation. Patient admits to some dizziness, dry cough, chills and weakness in the legs but no other symptoms. Initial lab work done in the ER showed WBC 4.4, hemoglobin 8.2, sodium 140, potassium 4.1, bicarb 35, BUN 24, creatinine 1.14, AST 50, ALT 40, and free T3 2.1. Since being admitted she has received 1 dose Rocephin 2 g IVPB and 1 dose Zithromax 500 mg IVPB. EKG done in the ER showed heart rate of 49 bpm, no ST segment elevation or depression seen, no T-wave inversions seen. Chest x-ray done in the ER shows bibasilar atelectasis with elevated diaphragm. Patient admitted to internal medicine service. While in the hospital patient's home metoprolol was discontinued which resulted in an improvement of her heart rate to within the normal range. While admitted patient continued to show no signs of pneumonia, with no cough, or elevated white count, or vital signs suggesting infection or sepsis. At this point in time it was deemed the patient was medically cleared for discharge as she was no longer bradycardic and had no signs of pneumonia. Discussed with patient that we would be discontinuing metoprolol as this is likely the cause of her bradycardia at the [facility] Patient is discharged back to [facility]. Also discussed with the patient the need to follow-up with cardiology to review her cardiac medications including metoprolol after discharge. Patient is advised to follow-up with PCP. Pt seen and examined at bedside: No significant overnight events. Vital signs reveiwed and stable: General: non toxic, no distress, appears at stated age, normal weight Derm: no unusual rashes/lesions, warm Head: atraumatic, normocephalic, symmetric Eyes: EOMI, no lid lag, anicteric sclera, pupils equal round reactive to light ENT: Nose and ears atraumatic Neck: No cervical lymphadenopathy, trachea midline, supple Mouth: no lip lesion, mucus membranes moist Cardiovascular: S1S2 reg, no murmur, positive dorsalis pedis pulse bilateral, no edema Lungs: Decreased air entry bilaterally, no rhonchi, no rales, no accessory muscle use Abdominal: soft, nontender to palpation, no guarding Ext: muscle strength 5 out of 5 in all 4 extremities grossly, no gross muscle atrophy, no contractures, Neuro: CN II-XI grossly intact, no gross focal neuro deficits Psych: Alert, oriented, appropriate affect A total of [40] minutes were spent preparing this discarge. Patient was discharged on []. Dr. Pamela MD I have performed a history and physical examination and medical decision making of this patient, discussed the same with the the resident, and agree with the assessment and plan as written. I performed brief physical exam. Patient Condition at Discharge: Fair Plan - Discharge Summary Discharge Rx Participant: Yes New Discharge Prescriptions: Continue Cyanocobalamin [Vitamin B-12] 250 mcg PO DAILY Isosorbide Mononitrate [Isosorbide Mononitrate ER] 60 mg PO Q12H Valsartan [Diovan] 320 mg PO DAILY tab hydrALAZINE HCL [Apresoline] 50 mg PO Q8HR@0600,1400,2200 Ezetimibe [Zetia] 10 mg PO HS HYDROcodone/APAP 7.5-325MG [Daphne 7.5-325] 1 tab PO Q6H PRN #4 tab PRN Reason: Pain Furosemide [Lasix] 20 mg PO DAILY@0600 Calcium Carbonate [Calcium] 600 mg PO DAILY Aspirin 81 mg PO DAILY Levothyroxine Sodium 100 mcg PO DAILY@0600 Acetaminophen [Tylenol Extra Strength] 1,000 mg PO Q8H PRN PRN Reason: Pain Cholecalciferol [Vitamin D3 (25 Mcg = 1000 Iu)] 50 mcg PO DAILY Methyl Salicylate/Menth/Camph [Salonpas 3.1%-6.0%-10.0% Patch] 1 patch TRANSDERM DAILY Lactulose [Cephulac] 20 gm PO Q12HR Docusate [Colace] 100 mg PO Q12H Sertraline [Zoloft] 25 mg PO HS Magnesium Oxide [Mag-Ox] 400 mg PO DAILY Rosuvastatin Calcium [Crestor] 40 mg PO HS clonazePAM [KlonoPIN] 0.5 mg PO BID #4 tab Gabapentin [Neurontin] 100 mg PO BID #4 cap Discontinued Clopidogrel [Plavix] 75 mg PO DAILY@0600 Metoprolol Tartrate [Lopressor] 12.5 mg PO BID Sertraline [Zoloft] 100 mg PO HS Discharge Medication List Cyanocobalamin [Vitamin B-12] 250 mcg PO DAILY 10/10/13 [History] Acetaminophen [Tylenol Extra Strength] 1,000 mg PO Q8H PRN 12/30/22 [History] Aspirin 81 mg PO DAILY 12/30/22 [History] Calcium Carbonate [Calcium] 600 mg PO DAILY 12/30/22 [History] Furosemide [Lasix] 20 mg PO DAILY@0600 12/30/22 [History] Isosorbide Mononitrate [Isosorbide Mononitrate ER] 60 mg PO Q12H 12/30/22 [History] Levothyroxine Sodium 100 mcg PO DAILY@0600 12/30/22 [History] Cholecalciferol [Vitamin D3 (25 Mcg = 1000 Iu)] 50 mcg PO DAILY 01/05/23 [History] Docusate [Colace] 100 mg PO Q12H 07/20/23 [History] Lactulose [Cephulac] 20 gm PO Q12HR 07/20/23 [History] Methyl Salicylate/Menth/Camph [Salonpas 3.1%-6.0%-10.0% Patch] 1 patch TRANSDERM DAILY 07/20/23 [History] Sertraline [Zoloft] 25 mg PO HS 10/04/23 [History] Valsartan [Diovan] 320 mg PO DAILY tab 10/05/23 [Rx] Ezetimibe [Zetia] 10 mg PO HS 01/24/24 [History] Magnesium Oxide [Mag-Ox] 400 mg PO DAILY 01/24/24 [History] Rosuvastatin Calcium [Crestor] 40 mg PO HS 01/24/24 [History] hydrALAZINE HCL [Apresoline] 50 mg PO Q8HR@0600,1400,2200 01/24/24 [History] Gabapentin [Neurontin] 100 mg PO BID #4 cap 01/26/24 [Rx] HYDROcodone/APAP 7.5-325MG [Daphne 7.5-325] 1 tab PO Q6H PRN #4 tab 01/26/24 [Rx] clonazePAM [KlonoPIN] 0.5 mg PO BID #4 tab 01/26/24 [Rx] Follow up Appointment(s)/Referral(s): Severo Campbell MD [Primary Care Provider] - 1-2 days Patient Instructions/Handouts: Bradycardia (GEN) Discharge Disposition: TRANSFER TO SNF/ECF
--- NOTE | 2024-01-26 11:32 | P.PN ---
Subjective HISTORY OF PRESENT ILLNESS: This is a 83-year-old female with a past medical history significant for coronary artery disease, hypertension, and hyperlipidemia. Patient follows in the office with Dr. Ellis. We have been asked to see the patient in consultation for bradycardia. Patient examined at the bedside in the emergency room. Patient states she came to the hospital because she was lethargic. She denied any chest pain or pressure prior to coming to the hospital. She reports mild SOB. She was found to have pneumonia. EKG on admission reveals sinus bradycardia. She denied any dizziness or lightheadedness. She reports one episode of syncope in her life. Reports a history of vertigo. She does report she is at bedbound at baseline. She reports an episode of chest pain just prior to our evaluation. She reports the pain was in the middle of her chest and also into her jaw. She reports the pain lasted for about 10 minutes then went away on its own. DIAGNOSTICS: - EKG reveals sinus mechanism with no signs of acute ischemia. Bradycardic with heart rate of 49. - Chest xray possible right lower lobe pneumonia - Laboratory data: WBC 5.5. Hemoglobin 8.7. Platelet count 215. Sodium 142. Potassium 4.3. BUN 24. Creatinine 1.0. AST 45. ALT 35. Troponin negative x 1. TSH 3.160. - Current home cardiac medications include hydralazine 50 mg 3 times a day, valsartan 320 mg daily, rosuvastatin 40 mg at night, metoprolol tartrate 12.5 mg twice a day, Imdur 60 mg every 12 hours, Lasix 20 mg daily, Zetia 10 mg at night, Plavix 75 mg daily, aspirin 81 mg daily - Most recent echocardiogram obtained in September 2023 revealing ejection fraction 55 to 60%, mild MR, mild TR - Cardiac catheterization history: December [address] Xie revealing mild to moderate disease involving left main, severe disease involving the mid LAD, intermediate disease involving left circumflex, chronic total occlusion of RCA. Patient underwent stenting of the LAD. 01/26/2024 Patient examined this morning at the bedside. Patient currently denies chest pain or pressure. She denies shortness of breath. Patient complained of chest pain yesterday during examination. Troponin levels were ordered and were negative x 2. She is maintaining sinus mechanism with heart rate in the 60s. Systolic blood pressure ranging from [id number]. PHYSICAL EXAM: VITAL SIGNS: Reviewed. GENERAL: Well-developed in no acute distress. HEENT: Head is normocephalic. Pupils are equal, round. Sclerae anicteric. Mucous membranes of the mouth are moist. Neck supple. No JVD or thyromegaly LUNGS: Respirations even and unlabored. Lungs essentially clear to auscultation bilaterally. HEART: Regular rate and rhythm. S1 and S2 heard. ABDOMEN: Soft. Nondistended. Nontender. EXTREMITIES: Normal range of motion. No clubbing or cyanosis. Peripheral pulses intact. No lower extremity edema NEUROLOGIC: Awake and alert. Oriented x 3. ASSESSMENT: Right lower lobe pneumonia Chest pain, ACS ruled out Sinus bradycardia, asymptomatic, on beta-angel outpatient Coronary artery disease with previous stenting, most recently to the LAD and 12/2022 Hypertension Hyperlipidemia PLAN: No need to repeat echocardiogram as this was performed in September 2023 Resume home cardiac medications Continue aspirin. May discontinue Plavix as stenting was greater than 12 months ago. Continue to hold beta-angel Continue to monitor blood pressure. If blood pressures remain elevated, will increase hydralazine Further recommendations pending patient course Nurse practitioner note has been reviewed by physician. Signing provider agrees with the documented findings, assessment, and plan of care documented by CARTON FILLING MACHINE OPERATOR as a scribe. Objective - Vital Signs Vital signs: Vital Signs Temp 98.3 F 01/26/24 00:00 Pulse 61 01/26/24 04:00 Resp 16 01/26/24 04:00 BP 170/74 01/26/24 04:00 Pulse Ox 99 01/26/24 04:00 FiO2 Intake & Output 01/25/24 01/26/24 01/26/24 18:59 06:59 18:59 Output Total 400 Balance -400 Weight 99 kg Output: Urine 400 - Labs CBC & Chem 7: 01/26/24 05:48 01/26/24 05:48 Labs: Abnormal Lab Results - Last 24 Hours (Table) 01/25/24 01/26/24 Range/Units 11:51 05:48 RBC 2.74 L (3.80-5.40) m/uL Hgb 8.5 L (11.4-16.0) gm/dL Hct 26.4 L (34.0-46.0) % Urine Protein 1+ H (Negative) Ur Leukocyte Esterase Trace H (Negative) Urine Bacteria Rare H (None) /hpf Microbiology - Last 24 Hours (Table) 01/24/24 20:08 Blood Culture - Preliminary Blood
[2024-01-26] MEDS: CHOLECALCIFEROL 25 MCG (1000 IU) TABLET PO SCH (12:17)
--- NOTE | 2024-02-09 21:05 | CDI ---
Documentation Clarification Form Date: 02/09/2024 08:53:12 PM From: Amaris Allen Phone: Admit Date: 01/24/2024 07:31:00 PM Patient Name: Giovanna Pardo V Visit Number: [id number] Discharge Date: 01/26/2024 03:05:00 PM ATTENTION: The Clinical Documentation Specialists (CDI) and [facility] Coding Staff appreciate your assistance in clarifying documentation. Please respond to the clarification below the line at the bottom and electronically sign. The CDI & [facility] Coding staff will review the response and follow-up if needed. Please note: Queries are made part of the Legal Health Record. If you have any questions, please contact the author of this message via ITS. Doctor/Provider: Saima Pamela Pneumonia is documented per ED and Progress Notes which may lack sufficient clinical evidence/support in the medical record. Additional clarification is requested. History/Risk Factors: 83yo F, Bibasilaratelectasis, bradycardia d/t metoprolol, HLD, hypothyroidism, CAD, HTN Clinical Indicators: WBC: 10/ 4.4 10/2 5.5 O2: 96-98 X-ray: The heart size is normal. The pulmonary vasculature is normal. There is aninfiltrateat the right posterior lung base. Correlate for pneumonia. Some superimposedatelectasismay be present. Treatment: While admitted patient continued to showno signs ofpneumonia,with nocough, orelevated white count, or vital signssuggestinginfectionorsepsis. At this point in time it was deemed the patient was medically cleared for discharge as shewas no longerbradycardicand hadno signs ofpneumonia. Please clarify if pneumonia, is a valid diagnosis? [ ] Pneumonia is present as evidence by (additional clinical support): [x ] Pneumonia ruled out [ ] Other, please specify [ ] Unable to determine (Template Last Revised: June 2020) MTDD
== END 2024-01-26 15:05 | DRG 310 ==
LOC: EC 15:46 → 3SCARD 19:31
PROVIDERS: ADMIT Hospitalist; ATTEND Hospitalist
DX: R00.1 Bradycardia, unspecified (principal); E03.9 Hypothyroidism, unspecified; I10 Essential (primary) hypertension; T44.7X5A Adverse effect of beta-adrenoreceptor antagonists, initial encounter; I25.10 Atherosclerotic heart disease of native coronary artery without angina pectoris; E78.5 Hyperlipidemia, unspecified; R32 Unspecified urinary incontinence; Z96.649 Presence of unspecified artificial hip joint; Z79.82 Long term (current) use of aspirin; Z79.890 Hormone replacement therapy; Z79.02 Long term (current) use of antithrombotics/antiplatelets; Z79.899 Other long term (current) drug therapy; Z85.3 Personal history of malignant neoplasm of breast; Z86.16 Personal history of COVID-19; Z95.5 Presence of coronary angioplasty implant and graft; Z74.01 Bed confinement status
CPT/HCPCS: 36415; 71045; 71046; 80048; 80053; 81001; 83605; 83735; 84100; 84145; 84439; 84443; 84481; 84484; 85025; 85027; 85610; 85730; 87040; 93005; 96365; 96366; 96368; 99285

== ENCOUNTER 2024-06-30 16:28 | Inpatient (IN) | payer MEDICARE, OTHER ==
--- NOTE | 2024-06-30 16:47 | ED ---
Chest Pain HPI - General Chief Complaint: Chest Pain Stated Complaint: Chest Pain Time Seen by Provider: 06/30/24 16:33 Source: EMS Mode of arrival: EMS Limitations: no limitations - History of Present Illness Initial Comments: This patient is an 83-year-old woman who presents to have evaluation of chest pain. The patient is a resident [facility] and noted substernal chest pain with tingling to bilateral arms approximately an hour ago while watching television. She is not able to characterize the pain well other than that is severe. MD Complaint: chest pain Onset/Timin -: hour(s) Onset: during rest Pain Location: substernal Pain Radiation: RUE, LUE Severity: severe Quality: aching Consistency: constant Improves With: nothing Worsens With: nothing Anginal Symptoms: nausea Treatments Prior to Arrival: aspirin - Related Data Home Medications Medication Instructions Recorded Confirmed Cyanocobalamin [Vitamin B-12] 250 mcg PO DAILY@89910/10/13 06/30/24 Acetaminophen [Tylenol Extra 1,000 mg PO Q8H PRN 12/30/22 06/30/24 Strength] Aspirin 81 mg PO DAILY@89912/30/22 06/30/24 Calcium Carbonate [Calcium] 600 mg PO DAILY@89912/30/22 06/30/24 Levothyroxine Sodium 100 mcg PO SUTUWEFRSA@59912/30/22 06/30/24 Cholecalciferol [Vitamin D3 (25 50 mcg PO DAILY@89901/05/23 06/30/24 Mcg = 1000 Iu)] Docusate [Colace] 100 mg PO Q12HR@899,209907/20/23 06/30/24 Lactulose [Cephulac] 20 gm PO Q12HR@899,209907/20/23 06/30/24 Methyl Salicylate/Menth/Camph 1 patch TRANSDERM DAILY@89907/20/23 06/30/24 [Salonpas 3.1%-6.0%-10.0% Patch] Sertraline [Zoloft] 25 mg PO HS@209910/04/23 06/30/24 Ezetimibe [Zetia] 10 mg PO HS@209901/24/24 06/30/24 Magnesium Oxide [Mag-Ox] 400 mg PO DAILY@0900 01/24/24 06/30/24 Ferrous Sulfate [Iron (65 MG 325 mg PO BID@0900,209906/30/24 06/30/24 Elemental)] Gabapentin [Neurontin] 100 mg PO BID@0900,209906/30/24 06/30/24 Ipratropium-Albuterol Nebulize 3 ml INHALATION RT-Q6H PRN 06/30/24 06/30/24 [Duoneb 0.5 mg-3 mg/3 ml Soln] Levothyroxine Sodium [Synthroid] 125 mcg PO MOTH@0600 06/30/24 06/30/24 Sertraline [Zoloft] 100 mg PO HS@2100 06/30/24 06/30/24 Previous Rx's Medication Instructions Recorded Apixaban [Eliquis] 2.5 mg PO BID tab 07/09/24 Atorvastatin [Lipitor] 40 mg PO HS tab 07/09/24 Furosemide [Lasix] 40 mg PO DAILY tab 07/09/24 HYDROcodone/APAP 7.5-325MG [[place] 1 tab PO Q6H PRN #4 tab 07/09/24 7.5-325] Mag Hydrox/Al Hydrox/Simeth 30 ml PO Q4HR PRN ml 07/09/24 [Maalox] Nitroglycerin Sl Tabs [Nitrostat] 0.4 mg SUBLINGUAL Q5M PRN tab 07/09/24 Ticagrelor [Brilinta] 90 mg PO BID tab 07/09/24 clonazePAM [KlonoPIN] 0.5 mg PO HS@2100 #6 tab 07/09/24 Allergies Allergy/AdvReac Type Severity Reaction Status Date / Time celecoxib [From Celebrex] Allergy Unknown Verified 06/30/24 19:55 isosorbide [Isosorbide] Allergy Unknown Verified 06/30/24 19:55 propranolol HCl Allergy Unknown Verified 06/30/24 19:55 [From Inderal LA] rofecoxib [From Vioxx] Allergy Unknown Verified 06/30/24 19:55 fentanyl AdvReac Hallucinati Verified 06/30/24 19:55 ons pregabalin [From Lyrica] AdvReac dizziness Verified 06/30/24 19:55 Review of Systems ROS Statement: Those systems with pertinent positive or pertinent negative responses have been documented in the HPI. ROS Other: All systems not noted in ROS Statement are negative. Constitutional: Denies: fever, chills Respiratory: Denies: cough, dyspnea Cardiovascular: Reports: chest pain. Denies: palpitations, edema, syncope Gastrointestinal: Reports: nausea. Denies: abdominal pain, vomiting, diarrhea Genitourinary: Denies: dysuria, hematuria Musculoskeletal: Denies: back pain Skin: Denies: rash Neurological: Denies: headache, weakness EKG Findings - EKG Results: EKG: interpreted by ERMD EKG shows: tachycardia (Rate 134 bpm), atrial fibrillation - Blocks, [place]ink, Hypertrophy, ST Abn: QRS axis and voltage: low voltage (<0.5 MV total QRS and <1.0 MV in each precordial lead) - NH, Pacemaker, Normal: Myocardial infarction: inferior NH (old age indeterminate), anterior NH (old age or indeterminate) Past Medical History Past Medical History: Coronary Artery Disease (CAD), Cancer, Chest Pain / Angina, GERD/Reflux, Hyperlipidemia, Hypertension, Osteoarthritis (OA), Thyroid Disorder Additional Past Medical History / Comment(s): former hx of breast ca, bladder incontinence, wears brief. back issues uses w/c. cat bite a few weeks ago seen in ER was tx. mary Wells and Nurse Ella states it is mostly healed, completed antibiotics.wrapped. covid earlier this year. History of Any Multi-Drug Resistant Organisms: None Reported Past Surgical History: Back Surgery, Breast Surgery, Cholecystectomy, Heart Catheterization With Stent, Hysterectomy, Joint Replacement, Orthopedic Surgery Additional Past Surgical History / Comment(s): left lumpectomy, cardiac stent, hip replacement, hand surgery Past Anesthesia/Blood Transfusion Reactions: No Reported Reaction Additional Past Anesthesia/Blood Transfusion Reaction / Comment(s): Mary Wells unsure of any issues with anesthesia. Date of Last Stent Placement:: unk Past Psychological History: No Psychological Hx Reported Smoking Status: Never smoker Past Alcohol Use History: None Reported Past Drug Use History: None Reported - Past Family History Mother Family Medical History: Hypertension Sister(s) Family Medical History: Deep Vein Thrombosis (DVT), Myocardial Infarction (NH) General Exam Limitations: no limitations Course Vital Signs 06/30/24 06/30/24 06/30/24 16:30 17:48 18:00 Temperature 98.6 F Pulse Rate 136 H 131 H 138 H Pulse Rate [ Academic Interventionist ] Respiratory 18 18 18 Rate Blood Pressure 122/97 118/79 103/71 Blood Pressure [Right Arm] O2 Sat by Pulse 97 98 95 Oximetry 06/30/24 06/30/24 07/01/24 19:00 22:42 04:17 Temperature Pulse Rate 134 H 55 L 45 L Pulse Rate [ Academic Interventionist ] Respiratory 18 18 16 Rate Blood Pressure 100/69 103/61 116/54 Blood Pressure [Right Arm] O2 Sat by Pulse 95 97 94 L Oximetry 07/01/24 07/01/24 07/01/24 07:18 08:45 08:48 Temperature 97.9 F Pulse Rate 47 L Pulse Rate [ 52 L 52 L Academic Interventionist ] Respiratory 16 18 Rate Blood Pressure 120/49 Blood Pressure 131/95 [Right Arm] O2 Sat by Pulse 97 97 Oximetry 07/01/24 07/01/24 07/01/24 11:50 14:43 16:05 Temperature 98.1 F 97.8 F Pulse Rate Pulse Rate [ 51 L 47 L 50 L Academic Interventionist ] Respiratory 18 16 Rate Blood Pressure Blood Pressure 125/61 139/59 [Right Arm] O2 Sat by Pulse 95 98 Oximetry 07/01/24 07/01/24 19:50 20:00 Temperature 97.7 F Pulse Rate 42 L Pulse Rate [ 47 L Academic Interventionist ] Respiratory 15 16 Rate Blood Pressure 97/62 Blood Pressure 114/69 [Right Arm] O2 Sat by Pulse 97 99 Oximetry Chest Pain MDM - MDM Was pt. sent in by a medical professional or institution (, PA, FACILITY SPECIALIST, urgent care, hospital, or custodial...) When possible be specific @ -[No] Did you speak to anyone other than the patient for history (EMS, parent, family, police, friend...)? What history was obtained from this source @ -[No] Did you review nursing and triage notes (agree or disagree)? Why? @ -[I reviewed and agree with nursing and triage notes] Were old charts reviewed (outside hosp., previous admission, EMS record, old EKG, old radiological studies, urgent care reports/EKG's, custodial records)? Report findings @ -[No old charts were reviewed] Differential Diagnosis (chest pain, altered mental status, abdominal pain women, abdominal pain men, vaginal bleeding, weakness, fever, dyspnea, syncope, headache, dizziness, GI bleed, back pain, seizure, CVA, palpatations, mental health, musculoskeletal)? @ -[Differential Chest Pain: Stable Angina, Unstable Angina, STEMI, NSTEMI Aortic Dissection, Pneumothorax, Musculoskeletal, Esophageal Spasm GERD, Cholecystitis, Pancreatitis, Zoster, this is not meant to be an all-inclusive list. EKG interpreted by me (3pts min.). @ -[I interpreted as above] X-rays interpreted by me (1pt min.). @ -[I interpreted as above CT interpreted by me (1pt min.). @ -[None done] U/S interpreted by me (1pt. min.). @ -[None done] What testing was considered but not performed or refused? (CT, X-rays, U/S, labs)? Why? @ -[None] What meds were considered but not given or refused? Why? @ -[None] Did you discuss the management of the patient with other professionals (professionals i.e. , PA, FACILITY SPECIALIST, lab, RT, psych nurse, social sciences department chair, sterilization technician, teacher, airport operations officer, case management associate)? Give summary @ -[Case discussed with admitting physician and treatment recommendations are incorporated Was smoking cessation discussed for >3mins.? @ -[No] Was critical care preformed (if so, how long)? @ -Yes, 35 minutes Were there social determinants of health that impacted care today? How? (Homelessness, low income, unemployed, alcoholism, drug addiction, transportation, low edu. Level, literacy, decrease access to med. care, custodial, rehab)? @ -[No] Was there de-escalation of care discussed even if they declined (Discuss DNR or withdrawal of care, Hospice)? DNR status @ -[No] What co-morbidities impacted this encounter? (DM, HTN, Smoking, COPD, CAD, Canc er, CVA, ARF, Chemo, Hep., AIDS, mental health diagnosis, sleep apnea, morbid obesity)? @ -[History of coronary artery disease Was patient admitted / discharged? Hospital course, mention meds given and route, prescriptions, significant lab abnormalities, going to OR and other pertinent info. @ -[Patient is an 83-year-old woman sent from custodial to have evaluation of chest pain. The patient is in atrial fibrillation with rapid ventricular rate. Patient is started on IV Cardizem for rate control. Patient's troponin did come back elevated and she is started on heparin. Patient is admitted with cardiology consultation. The patient's pain had resolved with treatment. Undiagnosed new problem with uncertain prognosis? @ -[No] Drug Therapy requiring intensive monitoring for toxicity (Heparin, Nitro, Insulin, Cardizem)? @ -[Cardizem Heparin Were any procedures done? @ -[No] Diagnosis/symptom? @ -[Acute chest pain NSTEMI Atrial fibrillation with rapid ventricular rate Acute, or Chronic, or Acute on Chronic? @ -[Acute Uncomplicated (without systemic symptoms) or Complicated (systemic symptoms)? @ -[Uncomplicated Side effects of treatment? @ -[No] Exacerbation, Progression, or Severe Exacerbation? @ -[No] Poses a threat to life or bodily function? How? (Chest pain, [place], NH, pneumonia, PE, COPD, DKA, ARF, appy, cholecystitis, CVA, Diverticulitis, Homicidal, Suicidal, threat to staff... and all critical care pts) @ -[Yes All treatments are based on ideal body weight as in ED triage Disposition Clinical Impression: NSTEMI (non-ST elevated myocardial infarction), Atrial fibrillation with rapid ventricular response Disposition: ADMITTED IP TO THIS HOSP Condition: Fair Is patient prescribed a controlled substance at d/c from ED?: No
[2024-06-30] MEDS: DILTIAZEM DRIP BOLUS FROM BAG 1 MG SOLN IV ONE ×2 (17:06→18:19)
[2024-06-30] MEDS: DILTIAZEM 125 MG in SODIUM CHLORIDE 0.9% 100 ML IV SCH (17:07)
[2024-06-30] MEDS: MORPHINE SULFATE 4 MG/ML SYRINGE IV STA (17:16)
[2024-06-30] MEDS: ONDANSETRON 4 MG/2 ML VIAL IVP STA (17:17)
[2024-06-30 17:25] LABS: Basophils % (A) 0 %; Eosinophils # (A) 0.2 k/uL (0-0.7); Eosinophils % (A) 2 %; HGB 11.6 gm/dL (11.4-16.0); Hypochromasia Slight; Lymphocytes # (A) 2.4 k/uL (1.0-4.8); Lymphocytes % (A) 30 %; MCH 30.3 pg (25.0-35.0); MCHC 31.2 g/dL (31.0-37.0); MCV 97.1 fL (80.0-100.0); Mean Platelet Volume 8.4; Monocytes # (A) 0.7 k/uL (0-1.0); Monocytes % (A) 9 %; Neutrophils # (A) 4.6 k/uL (1.3-7.7); Neutrophils % (A) 57 %; Platelet Count 209 k/uL (150-450); RBC 3.81 m/uL (3.80-5.40); RDW 14.5 % (11.5-15.5)
[2024-06-30 17:36] LABS: ALT 19 U/L (4-34); African American GFR (CKD) 51 (>60 ml/min/1.73 sqM); Albumin 4.1 g/dL (3.5-5.0); Anion Gap 9 mmol/L; Blood Urea Nitrogen 33 mg/dL (7-17); Calcium 9.8 mg/dL (8.4-10.2); Carbon Dioxide 26 mmol/L (22-30); Chloride 103 mmol/L (98-107); Glucose 154 mg/dL (74-99); Non-African American GFR(CKD) 44 (>60 ml/min/1.73 sqM); Sodium 138 mmol/L (137-145); Total Bilirubin 0.7 mg/dL (0.2-1.3); Total Protein 6.8 g/dL (6.3-8.2)
[2024-06-30 17:37] LABS: INR 0.9 (<1.2)
[2024-06-30 17:38] LABS: AST 53 U/L (14-36); Alkaline Phosphatase 79 U/L (38-126); Magnesium 2.2 mg/dL (1.6-2.3); Partial Thromboplastin Time 21.1 sec (22.0-30.0)
--- NOTE | 2024-06-30 18:15 | XR ---
EXAMINATION TYPE: XR chest 2V DATE OF EXAM: 06/30/2024 5:27 PM COMPARISON: Chest radiograph 01/24/2034. CLINICAL INDICATION: Female, 83 years old with history of dysrhythmia; [facility] TECHNIQUE: XR chest 2V Frontal and lateral views of the chest. FINDINGS: Cardiomegaly, possibly accentuated by low lung volumes. Small bilateral pleural effusions and pulmonary vascular congestion. No pneumothorax. No acute osseous abnormality. IMPRESSION: Small bilateral pleural effusions and pulmonary vascular congestive changes. [facility], , 06/30/2024 6:12 PM
[2024-06-30] MEDS ORDERED: HEPARIN SODIUM 1,000 UN/ML (10ML VL) IV PRN (18:47)
[2024-06-30] MEDS ORDERED: NITROGLYCERIN SL TABS 0.4 MG TAB SUBLINGUAL PRN (18:49)
[2024-06-30] MEDS: HEPARIN SOD,PORK IN 0.45% NACL 25,000 UNIT in 0.45% NACL 1 250ML.BAG IV SCH (18:56)
[2024-06-30] MEDS: HEPARIN SODIUM 1,000 UN/ML (10ML VL) IV ONE (18:57)
[2024-06-30] MEDS: MORPHINE SULFATE 4 MG/ML SYRINGE IVP STA (18:59)
[2024-06-30] MEDS: METOPROLOL TARTRATE 25 MG TAB PO SCH (23:44)
[2024-06-30] MEDS: MAGNESIUM SULFATE-D5W PMX 1 GM in DEXTROSE/WATER 1 100ML.BAG IVPB ONE (23:46)
[2024-07-01] MEDS: HYDROcodone/APAP 5-325MG 1 EACH TAB PO PRN (05:53)
[2024-07-01] MEDS: ASPIRIN 325 MG TAB PO SCH (08:50)
[2024-07-01 09:29] LABS: Basophils % (A) 0 %; Eosinophils # (A) 0.2 k/uL (0-0.7); Eosinophils % (A) 2 %; HCT 34.4 % (34.0-46.0); HGB 10.6 gm/dL (11.4-16.0); Hypochromasia Marked; Lymphocytes # (A) 2.3 k/uL (1.0-4.8); Lymphocytes % (A) 25 %; MCH 30.6 pg (25.0-35.0); MCHC 30.9 g/dL (31.0-37.0); MCV 99.1 fL (80.0-100.0); Mean Platelet Volume 8.3; Monocytes # (A) 0.6 k/uL (0-1.0); Monocytes % (A) 6 %; Neutrophils # (A) 6.2 k/uL (1.3-7.7); Neutrophils % (A) 66 %; Platelet Count 209 k/uL (150-450); RBC 3.47 m/uL (3.80-5.40); RDW 14.6 % (11.5-15.5); WBC 9.4 k/uL (3.8-10.6)
[2024-07-01 09:31] LABS: Prothrombin Time 10.9 sec (10.0-12.5)
[2024-07-01] MEDS ORDERED: IPRATROPIUM-ALBUTEROL 3 ML NEB INHALATION PRN (09:50)
[2024-07-01 10:13] LABS: NT-Pro-B-Type Natriuretic Pept 15900 pg/mL
[2024-07-01 11:02] LABS: T4, Free (Free Thyroxine) 1.19 ng/dL (0.78-2.19)
[2024-07-01] MEDS: LEVOTHYROXINE 100 MCG TAB PO SCH (11:19)
--- NOTE | 2024-07-01 13:45 | P.HPIM ---
History of Present Illness H&P Date: 07/01/24 History of present illness; patient is a 83-year-old lady with past medical history significant for hypertension, hyperlipidemia, hypothyroidism, coronary artery disease who presented to the ER for evaluation for chest pain. Patient is currently resident of [facility], was all right last night when while watching TV she started experiencing chest pain that was central location, pressure-like, radiating to both arms. There was no aggravating or relieving factor associated with this chest pain. Patient was complaining of palpitation and shortness of breath at time. There was no complaint of fever or chills. Patient denies any nausea or vomiting. There was no episode of diaphoresis during this time. Because of chest pain, patient became concerned and decided to come to the ER Initial lab work done in the ER showed WBC 8, hemoglobin 9.6, platelet count 209, sodium 130, potassium 5, BUN 33, creatinine 1.16, troponin 1.930 EKG done in the ER showed heart rate of 134, irregular rhythm and rate, no ST segment elevation or depression seen, no T-wave inversions seen. Chest x-ray done in the ER showed small bilateral pleural effusions and pulmonary vascular congestive changes Patient admitted to internal medicine service REVIEW OF SYSTEMS: CONSTITUTIONAL: No fever, no malaise, no fatigue. HEENT: No recent visual problems or hearing problems. Denied any sore throat. CARDIOVASCULAR: As mentioned above PULMONARY: As mentioned above GASTROINTESTINAL: No diarrhea, no nausea, no vomiting, no abdominal pain. NEUROLOGICAL: No headaches, no weakness, no numbness. HEMATOLOGICAL: Denies any bleeding or petechiae. GENITOURINARY: Denies any burning micturition, frequency, or urgency. MUSCULOSKELETAL/RHEUMATOLOGICAL: Denies any joint pain, swelling, or any muscle pain. ENDOCRINE: Denies any polyuria or polydipsia. The rest of the 14-point review of systems is negative. PHYSICAL EXAMINATION: GENERAL: The patient is alert and oriented x3, not in any acute distress. Well developed, well nourished. HEENT: Pupils are round and equally reacting to light. EOMI. No scleral icterus. No conjunctival pallor. Normocephalic, atraumatic. No pharyngeal erythema. No thyromegaly. CARDIOVASCULAR: S1 and S2 present. No murmurs, rubs, or gallops. PULMONARY: Chest is clear to auscultation, no wheezing or crackles. ABDOMEN: Soft, nontender, nondistended, normoactive bowel sounds. No palpable organomegaly. MUSCULOSKELETAL: No joint swelling or deformity. EXTREMITIES: No cyanosis, clubbing, or pedal edema. NEUROLOGICAL: Gross neurological examination did not reveal any focal deficits. SKIN: No rashes. Assessment and plan NSTEMI A-fib with RVR History of hypertension History of hypothyroidism History of hyperlipidemia History of coronary artery disease Monitor vital signs Monitor CBC Monitor CMP Continue telemetry monitoring Trend troponin Start pharmacy dose heparin Start Cardizem drip Ordered 2D echo Resume home meds Consult cardiology Labs and medication were reviewed.. Continue same treatment. Continue with symptomatic treatment. Resume home medication. Monitor labs and vitals. DVT and GI prophylaxis. Further recommendations as per clinical course of the patient Dictation was produced using [employer] dictation software. please excuse any gr ammatical, word or spelling errors. Past Medical History Past Medical History: Coronary Artery Disease (CAD), Cancer, Chest Pain / Angina, GERD/Reflux, Hyperlipidemia, Hypertension, Osteoarthritis (OA), Thyroid Disorder Additional Past Medical History / Comment(s): former hx of breast ca, bladder incontinence, wears brief. back issues uses w/c. cat bite a few weeks ago seen in ER was tx. mary Wells and Nurse Ella states it is mostly healed, completed antibiotics.wrapped. covid earlier this year. History of Any Multi-Drug Resistant Organisms: None Reported Past Surgical History: Back Surgery, Breast Surgery, Cholecystectomy, Heart Catheterization With Stent, Hysterectomy, Joint Replacement, Orthopedic Surgery Additional Past Surgical History / Comment(s): left lumpectomy, cardiac stent, hip replacement, hand surgery Past Anesthesia/Blood Transfusion Reactions: No Reported Reaction Additional Past Anesthesia/Blood Transfusion Reaction / Comment(s): Mary Wells unsure of any issues with anesthesia. Date of Last Stent Placement:: unk Past Psychological History: No Psychological Hx Reported Smoking Status: Never smoker Past Alcohol Use History: None Reported Past Drug Use History: None Reported - Past Family History Mother Family Medical History: Hypertension Sister(s) Family Medical History: Deep Vein Thrombosis (DVT), Myocardial Infarction ([place]) Medications and Allergies Home Medications Medication Instructions Recorded Confirmed Type Cyanocobalamin [Vitamin B-12] 250 mcg PO DAILY@0900 10/10/13 03/08/25 History Acetaminophen [Tylenol Extra 1,000 mg PO Q8H PRN 12/30/22 06/30/24 History Strength] Aspirin 81 mg PO DAILY@89912/30/22 06/30/24 History Calcium Carbonate [Calcium] 600 mg PO DAILY@89912/30/22 06/30/24 History Furosemide [Lasix] 20 mg PO DAILY@59912/30/22 06/30/24 History Isosorbide Mononitrate [Isosorbide 60 mg PO Q12HR@899,209912/30/22 06/30/24 History Mononitrate ER] Levothyroxine Sodium 100 mcg PO SUTUWEFRSA@59912/30/22 06/30/24 History Cholecalciferol [Vitamin D3 (25 50 mcg PO DAILY@89901/05/23 06/30/24 History Mcg = 1000 Iu)] Docusate [Colace] 100 mg PO Q12HR@899,209907/20/23 06/30/24 History Lactulose [Cephulac] 20 gm PO Q12HR@899,209907/20/23 06/30/24 History Methyl Salicylate/Menth/Camph 1 patch TRANSDERM DAILY@89907/20/23 06/30/24 History [Salonpas 3.1%-6.0%-10.0% Patch] Sertraline [Zoloft] 25 mg PO HS@209910/04/23 06/30/24 History Ezetimibe [Zetia] 10 mg PO HS@209901/24/24 06/30/24 History Magnesium Oxide [Mag-Ox] 400 mg PO DAILY@89901/24/24 06/30/24 History hydrALAZINE HCL [Apresoline] 50 mg PO Q8HR@0600,1400,2200 01/24/24 06/30/24 History HYDROcodone/APAP 7.5-325MG [[place] 1 tab PO Q6H PRN #4 tab 01/26/24 06/30/24 Rx 7.5-325] Atorvastatin [Lipitor] 80 mg PO HS@209906/30/24 06/30/24 History Ferrous Sulfate [Feosol] 325 mg PO BID@0900,209906/30/24 06/30/24 History Gabapentin [Neurontin] 100 mg PO BID@0900,209906/30/24 06/30/24 History Ipratropium-Albuterol Nebulize 3 ml INHALATION RT-Q6H PRN 06/30/24 06/30/24 History [Duoneb 0.5 mg-3 mg/3 ml Soln] Levothyroxine Sodium [Synthroid] 125 mcg PO MOTH@0606/30/24 06/30/24 History Sertraline [Zoloft] 100 mg PO HS@209906/30/24 06/30/24 History Valsartan 320 mg PO DAILY@89906/30/24 06/30/24 History clonazePAM [KlonoPIN] 0.5 mg PO HS@209906/30/24 06/30/24 History Allergies Allergy/AdvReac Type Severity Reaction Status Date / Time celecoxib [From Celebrex] Allergy Unknown Verified 06/30/24 19:55 isosorbide [Isosorbide] Allergy Unknown Verified 06/30/24 19:55 propranolol HCl Allergy Unknown Verified 06/30/24 19:55 [From Inderal LA] rofecoxib [From Vioxx] Allergy Unknown Verified 06/30/24 19:55 fentanyl AdvReac Hallucinati Verified 06/30/24 19:55 ons pregabalin [From Lyrica] AdvReac dizziness Verified 06/30/24 19:55 Physical Exam Vitals: Vital Signs Temp Pulse Pulse Resp BP BP Pulse Ox 07/01/24 08:48 97.9 F 52 L 18 131/95 97 07/01/24 07:18 47 L 16 120/49 97 07/01/24 04:17 45 L 16 116/54 94 L 06/30/24 22:42 55 L 18 103/61 97 06/30/24 19:00 134 H 18 100/69 95 06/30/24 18:00 138 H 18 103/71 95 06/30/24 17:48 131 H 18 118/79 98 06/30/24 16:30 98.6 F 136 H 18 122/97 97 Intake and Output 06/30/24 07/01/24 07/01/24 21:59 06:59 14:59 Intake Total 0 Balance 0 Intake: Intake, IV Titration 0 Amount Heparin Sod,Pork in 0.45% 0 NaCl 25,000 unit In 0.45 % NaCl 1 250ml.bag @ 11 UNITS/KG/HR 9.979 mls/hr IV .Q24H [facility] Rx#: [id number] Other: Weight Results CBC & Chem 7: 07/01/24 08:21 06/30/24 16:44 Labs: Abnormal Lab Results - Last 24 Hours (Table) 06/30/24 06/30/24 06/30/24 Range/Units 16:44 16:44 16:44 RBC (3.80-5.40) m/uL Hgb (11.4-16.0) gm/dL MCHC (31.0-37.0) g/dL APTT 21.1 L (22.0-30.0) sec BUN 33 H (7-17) mg/dL Creatinine 1.16 H (0.52-1.04) mg/dL Glucose 154 H (74-99) mg/dL AST 53 H (14-36) U/L Troponin I 1.930 H* (0.000-0.034) ng/mL 06/30/24 07/01/24 07/01/24 Range/Units 20:12 00:21 00:21 RBC (3.80-5.40) m/uL Hgb (11.4-16.0) gm/dL MCHC (31.0-37.0) g/dL APTT 93.0 H (22.0-30.0) sec BUN (7-17) mg/dL Creatinine (0.52-1.04) mg/dL Glucose (74-99) mg/dL AST (14-36) U/L Troponin I 1.980 H* 3.890 H* (0.000-0.034) ng/mL 07/01/24 Range/Units 08:21 RBC 3.47 L (3.80-5.40) m/uL Hgb 10.6 L (11.4-16.0) gm/dL MCHC 30.9 L (31.0-37.0) g/dL APTT (22.0-30.0) sec BUN (7-17) mg/dL Creatinine (0.52-1.04) mg/dL Glucose (74-99) mg/dL AST (14-36) U/L Troponin I (0.000-0.034) ng/mL
[2024-07-01 14:23] LABS: Chol/HDL Ratio 2.69 Ratio; LDL Cholesterol,Calculated 60.3 mg/dL (0.0-131.0)
[2024-07-01] MEDS: SODIUM CHLORIDE 0.9% 1,000 ML IV SCH (18:46)
--- NOTE | 2024-07-01 21:02 | P.CRDCN ---
History of Present Illness Consult date: 07/01/24 History of present illness: HISTORY OF PRESENTING ILLNESS: 83-year-old female with past medical history of hypertension, dyslipidemia, hypothyroidism, coronary artery disease presented to the ER because of chest pain. She is a resident of a [facility]. Last night she was watching TV when she started experiencing substernal chest pressure that was pressure-li ke sensation radiating to both arms. On admission to ER she had evidence of elevated troponin 1.9, 1.9, 3.8. Creatinine was 1.16, BUN 33, TSH 8, T4 normal, LDL 60, NT-proBNP 15,900, A1c 6, Hb 10 Admission EKG showed atrial fibrillation with RVR. She was given IV Cardizem which converted her out of atrial fibrillation and since then she has been having sinus bradycardia with diffuse T wave inversions. Chest x-ray shows significant pulmonary vascular congestion She is known to Dr. Ellis in office. She has prior history of bradycardia as well. Her last echo from September 2023 shows an EF of 55 to 60%, mild MR, mild TR. Last heart catheter December 2022 shows mild to moderate disease in left main, severe disease in mid LAD, intermediate disease in LCx and PHARMACOGENETICIST of RCA. Patient underwent stenting of LAD at that time. REVIEW OF SYSTEMS: 14 point review of system is negative except what is mentioned above in HPI. PHYSICAL EXAMINATION: Neck: Brisk carotid upstroke, mildly elevated JVP Lungs: Crackles in bilateral lungs Heart: Regular rate and rhythm, S1-S2, mild systolic murmur audible Abdomen: Soft nontender, positive bowel sounds. Extremities: 1+ pitting edema Neuro: Alert, oritented, no focal deficits. Detailed neuro exam was not performed. ASSESSMENT: # Acute HFpEF exacerbation # NSTEMI # CAD with moderate left main disease, severe disease in mid LAD status post PCI, intermediate disease in LCx, PHARMACOGENETICIST of RCA # Paroxysmal atrial fibrillation # Atrial fibrillation RVR on admission, currently sinus bradycardia # History of bradycardia in past PLAN: Continue aspirin, Lipitor IV heparin drip Discontinue Cardizem Hold beta-angel due to bradycardic rhythm At this time patient is not having any active chest pain chest pressure. She is volume overloaded. I will start her on IV Lasix 40 mg twice daily. There are also questions about patient's goals of care. Once patient is volume optimized and patient's goals of care are addressed, and if patient is full code, consider heart catheterization. Leeroy Daley MD, FACC, RPVI Thank you for allowing [facility] to participate in this patient's care. Feel free to reach out in case of any followup questions. Past Medical History Past Medical History: Coronary Artery Disease (CAD), Cancer, Chest Pain / Angina, GERD/Reflux, Hyperlipidemia, Hypertension, Osteoarthritis (OA), Thyroid Disorder Additional Past Medical History / Comment(s): former hx of breast ca, bladder incontinence, wears brief. back issues uses w/c. cat bite a few weeks ago seen in ER was tx. keshawn Wells and Nurse Ella states it is mostly healed, comp leted antibiotics.wrapped. covid earlier this year. History of Any Multi-Drug Resistant Organisms: None Reported Past Surgical History: Back Surgery, Breast Surgery, Cholecystectomy, Heart Catheterization With Stent, Hysterectomy, Joint Replacement, Orthopedic Surgery Additional Past Surgical History / Comment(s): left lumpectomy, cardiac stent, hip replacement, hand surgery Past Anesthesia/Blood Transfusion Reactions: No Reported Reaction Additional Past Anesthesia/Blood Transfusion Reaction / Comment(s): Keshawn Wells unsure of any issues with anesthesia. Date of Last Stent Placement:: unk Past Psychological History: No Psychological Hx Reported Smoking Status: Never smoker Past Alcohol Use History: None Reported Past Drug Use History: None Reported - Past Family History Mother Family Medical History: Hypertension Sister(s) Family Medical History: Deep Vein Thrombosis (DVT), Myocardial Infarction ([place]) Medications and Allergies Home Medications Medication Instructions Recorded Confirmed Type Cyanocobalamin [Vitamin B-12] 250 mcg PO DAILY@10/10/06/30/24 History Acetaminophen [Tylenol Extra 1,000 mg PO Q8H PRN 12/30/22 06/30/24 History Strength] Aspirin 81 mg PO DAILY@89912/30/22 06/30/24 History Calcium Carbonate [Calcium] 600 mg PO DAILY@89912/30/22 06/30/24 History Furosemide [Lasix] 20 mg PO DAILY@0600 12/30/22 06/30/24 History Isosorbide Mononitrate [Isosorbide 60 mg PO Q12HR@0900,2100 12/30/22 06/30/24 History Mononitrate ER] Levothyroxine Sodium 100 mcg PO SUTUWEFRSA@59912/30/22 06/30/24 History Cholecalciferol [Vitamin D3 (25 50 mcg PO DAILY@89901/05/23 06/30/24 History Mcg = 1000 Iu)] Docusate [Colace] 100 mg PO Q12HR@0900,209907/20/23 06/30/24 History Lactulose [Cephulac] 20 gm PO Q12HR@00,209907/20/23 06/30/24 History Methyl Salicylate/Menth/Camph 1 patch TRANSDERM DAILY@89907/20/23 06/30/24 History [Salonpas 3.1%-6.0%-10.0% Patch] Sertraline [Zoloft] 25 mg PO HS@209910/04/23 06/30/24 History Ezetimibe [Zetia] 10 mg PO HS@209901/24/24 06/30/24 History Magnesium Oxide [Mag-Ox] 400 mg PO DAILY@89901/24/24 06/30/24 History hydrALAZINE HCL [Apresoline] 50 mg PO Q8HR@0600,1400,2200 01/24/24 06/30/24 History HYDROcodone/APAP 7.5-325MG [[place] 1 tab PO Q6H PRN #4 tab 01/26/24 06/30/24 Rx 7.5-325] Atorvastatin [Lipitor] 80 mg PO HS@209906/30/24 06/30/24 History Ferrous Sulfate [Feosol] 325 mg PO BID@899,209906/30/24 06/30/24 History Gabapentin [Neurontin] 100 mg PO BID@0900,209906/30/24 06/30/24 History Ipratropium-Albuterol Nebulize 3 ml INHALATION RT-Q6H PRN 06/30/24 06/30/24 History [Duoneb 0.5 mg-3 mg/3 ml Soln] Levothyroxine Sodium [Synthroid] 125 mcg PO MOTH@59906/30/24 06/30/24 History Sertraline [Zoloft] 100 mg PO HS@209906/30/24 06/30/24 History Valsartan 320 mg PO DAILY@0900 06/30/24 06/30/24 History clonazePAM [KlonoPIN] 0.5 mg PO HS@2100 06/30/24 06/30/24 History Allergies Allergy/AdvReac Type Severity Reaction Status Date / Time celecoxib [From Celebrex] Allergy Unknown Verified 06/30/24 19:55 isosorbide [Isosorbide] Allergy Unknown Verified 06/30/24 19:55 propranolol HCl Allergy Unknown Verified 06/30/24 19:55 [From Inderal [place]] rofecoxib [From Vioxx] Allergy Unknown Verified 06/30/24 19:55 fentanyl AdvReac Hallucinati Verified 06/30/24 19:55 ons pregabalin [From Lyrica] AdvReac dizziness Verified 06/30/24 19:55 Physical Exam Vitals: Vital Signs Temp Pulse Pulse Resp BP BP Pulse Ox 07/01/24 19:50 42 L 15 97/62 97 07/01/24 16:05 97.8 F 50 L 16 139/59 98 07/01/24 14:43 47 L 07/01/24 11:50 98.1 F 51 L 18 125/61 95 07/01/24 08:48 97.9 F 52 L 18 131/95 97 07/01/24 08:45 52 L 07/01/24 07:18 47 L 16 120/49 97 07/01/24 04:17 45 L 16 116/54 94 L 06/30/24 22:42 55 L 18 103/61 97 Intake and Output 07/01/24 07/01/24 07/01/24 06:59 14:59 22:59 Intake Total 0 374.142 Output Total 150 Balance -150 374.142 Intake: Intake, IV Titration 0 74.142 Amount Heparin Sod,Pork in 0.45% 0 74.142 NaCl 25,000 unit In 0.45 % NaCl 1 250ml.bag @ 11 UNITS/KG/HR 9.979 mls/hr IV .Q24H [facility] Rx#: [id number] Oral 300 Output: Urine 150 Other: Voiding Method Diaper External Catheter # Voids 1 # Bowel Movements 0 0 Results 07/01/24 08:21 06/30/24 16:44 Cardiac Enzymes 06/30/24 07/01/24 Range/Units 20:12 00:21 Troponin I 1.980 H* 3.890 H* (0.000-0.034) ng/mL Coagulation 07/01/24 07/01/24 07/01/24 Range/Units 00:21 08:21 16:01 PT 10.9 (10.0-12.5) sec APTT 93.0 H 53.1 H (22.0-30.0) sec Lipids 07/01/24 Range/Units 08:21 Triglycerides 110.00 (0.00-149.00) mg/dL Cholesterol 131.00 (0.00-200.00) mg/dL HDL Cholesterol 48.70 (40.00-60.00) mg/dL Cholesterol/HDL Ratio 2.69 Ratio CBC 07/01/24 Range/Units 08:21 WBC 9.4 (3.8-10.6) k/uL RBC 3.47 L (3.80-5.40) m/uL Hgb 10.6 L (11.4-16.0) gm/dL Hct 34.4 (34.0-46.0) % Plt Count 209 (150-450) k/uL Current Medications Generic Name Dose Route Start Last Admin Trade Name Freq PRN Reason Stop Dose Admin Hydrocodone Bitart/Acetaminophen 1 each 07/01/24 09:50 Hydrocodone/Apap 7.5-325mg 1 Each Tab PO Q6H PRN Pain Albuterol/Ipratropium 3 ml 07/01/24 09:50 Ipratropium-Albuterol 3 Ml Neb INHALATION RT-Q6H PRN Shortness Of Breath Or Wheezing Aspirin 325 mg 07/01/24 09:00 07/01/24 08:50 Aspirin 325 Mg Tab PO 325 mg DAILY [facility] Administration Atorvastatin Calcium 40 mg 07/01/24 21:00 Atorvastatin 40 Mg Tab PO HS [facility] Cholecalciferol 50 mcg 07/02/24 09:00 Cholecalciferol 25 Mcg (1000 Iu) Tablet PO DAILY@0900 [facility] Clonazepam 0.5 mg 07/01/24 21:00 Clonazepam 0.5 Mg Tab PO HS@2100 [facility] Cyanocobalamin 250 mcg 07/02/24 09:00 Cyanocobalamin 500 Mcg Tab PO DAILY@0900 [facility] Ezetimibe 10 mg 07/01/24 21:00 Ezetimibe 10 Mg Tab PO HS@2100 [facility] Ferrous Sulfate 325 mg 07/01/24 21:00 Ferrous Sulfate 325 Mg Tab PO BID@0900,2100 [facility] Furosemide 40 mg 07/01/24 21:00 Furosemide 10 Mg/Ml 4 Ml Vial IV Q12HR [facility] Gabapentin 100 mg 07/01/24 21:00 Gabapentin 100 Mg Cap PO BID@0900,2100 [facility] Heparin Sodium (Porcine) 0 unit 06/30/24 18:47 Heparin Sodium 1,000 Un/Ml (10ml Vl) IV PER PROTOCOL PRN Low PTT Protocol Heparin Sodium/Sodium Chloride 250 mls @ 9.979 mls/hr 06/30/24 19:00 07/01/24 17:29 25,000 unit/ Sodium Chloride IV 8 units/kg/hr .Q24H [facility] 7.257 mls/hr Titration Protocol 11 UNITS/KG/HR Sodium Chloride 1,000 mls @ 75 mls/hr 07/01/24 18:30 07/01/24 18:46 Saline 0.9% IV 75 mls/hr .[id number] [facility] Administration Lactulose 20 gm 07/01/24 21:00 Lactulose 20 Gm/30 Ml Cup PO Q12HR@0900,2100 [facility] Levothyroxine Sodium 125 mcg 07/02/24 06:00 Levothyroxine 125 Mcg Tab PO MOTH@0600 [facility] Levothyroxine Sodium 100 mcg 07/01/24 10:30 07/01/24 11:19 Levothyroxine 100 Mcg Tab PO 100 mcg SUTUWEFRSA@0600 [facility] Administration Magnesium Oxide 400 mg 07/02/24 09:00 Magnesium Oxide 400 Mg Tab PO DAILY@0900 [facility] Methyl Salicylate 1 applic 07/02/24 09:00 Methyl Salicylate-Menthol Oint (3 Oz Tube) TOPICAL DAILY@0900 [facility] Nitroglycerin 0.4 mg 06/30/24 18:49 Nitroglycerin Sl Tabs 0.4 Mg Tab SUBLINGUAL Q5M PRN Chest Pain Sertraline HCl 100 mg 07/01/24 21:00 Sertraline 100 Mg Tab PO HS@2100 [facility] Sertraline HCl 25 mg 07/01/24 21:00 Sertraline 25 Mg Tab PO HS@2100 [facility] Intake and Output 07/01/24 07/01/24 07/01/24 06:59 14:59 22:59 Intake Total 0 374.142 Output Total 150 Balance -150 374.142 Intake: Intake, IV Titration 0 74.142 Amount Heparin Sod,Pork in 0.45% 0 74.142 NaCl 25,000 unit In 0.45 % NaCl 1 250ml.bag @ 11 UNITS/KG/HR 9.979 mls/hr IV .Q24H [facility] Rx#: [id number] Oral 300 Output: Urine 150 Other: Voiding Method Diaper External Catheter # Voids 1 # Bowel Movements 0 0 07/01/24 08:21 06/30/24 16:44
[2024-07-01] MEDS: SERTRALINE 25 MG TAB PO SCH (22:15)
[2024-07-01] MEDS: EZETIMIBE 10 MG TAB PO SCH (22:15)
[2024-07-01] MEDS: FERROUS SULFATE 325 MG TAB PO SCH (22:15)
[2024-07-01] MEDS: GABAPENTIN 100 MG CAP PO SCH (22:15)
[2024-07-01] MEDS: FUROSEMIDE 10 MG/ML 4 ML VIAL IV SCH (22:15)
[2024-07-01] MEDS: SERTRALINE 100 MG TAB PO SCH (22:15)
[2024-07-01] MEDS: ATORVASTATIN 40 MG TAB PO SCH (22:15)
[2024-07-01] MEDS: LACTULOSE 20 GM/30 ML CUP PO SCH (22:15)
[2024-07-01] MEDS: clonazePAM 0.5 MG TAB PO SCH (22:15)
[2024-07-02] MEDS: LEVOTHYROXINE 125 MCG TAB PO SCH (06:35)
[2024-07-02 07:38] LABS: LDL Cholesterol,Calculated 60.7 mg/dL (0.0-131.0)
[2024-07-02 08:01] LABS: Basophils % (A) 0 %; Eosinophils # (A) 0.3 k/uL (0-0.7); Eosinophils % (A) 4 %; HCT 34.3 % (34.0-46.0); HGB 10.3 gm/dL (11.4-16.0); Hypochromasia Slight; Lymphocytes # (A) 1.5 k/uL (1.0-4.8); Lymphocytes % (A) 22 %; MCH 29.7 pg (25.0-35.0); MCV 98.8 fL (80.0-100.0); Monocytes # (A) 0.5 k/uL (0-1.0); Monocytes % (A) 7 %; Neutrophils # (A) 4.5 k/uL (1.3-7.7); Neutrophils % (A) 66 %; Platelet Count 201 k/uL (150-450); RBC 3.47 m/uL (3.80-5.40); RDW 14.6 % (11.5-15.5); WBC 6.8 k/uL (3.8-10.6)
[2024-07-02] MEDS: CHOLECALCIFEROL 25 MCG (1000 IU) TABLET PO SCH (08:15)
[2024-07-02] MEDS: MAGNESIUM OXIDE 400 MG TAB PO SCH (08:15)
[2024-07-02] MEDS: CYANOCOBALAMIN 500 MCG TAB PO SCH (08:15)
[2024-07-02] MEDS: METHYL SALICYLATE-MENTHOL OINT (3 OZ TUBE) TOPICAL SCH (08:16)
[2024-07-02 08:23] LABS: ALT 22 U/L (4-34); AST 68 U/L (14-36); African American GFR (CKD) 36 (>60 ml/min/1.73 sqM); Albumin 3.3 g/dL (3.5-5.0); Alkaline Phosphatase 72 U/L (38-126); Anion Gap 2 mmol/L; Blood Urea Nitrogen 44 mg/dL (7-17); Calcium 9.2 mg/dL (8.4-10.2); Carbon Dioxide 35 mmol/L (22-30); Chloride 101 mmol/L (98-107); Glucose 82 mg/dL (74-99); Non-African American GFR(CKD) 32 (>60 ml/min/1.73 sqM); Sodium 138 mmol/L (137-145); Total Bilirubin 0.4 mg/dL (0.2-1.3); Total Protein 5.7 g/dL (6.3-8.2)
[2024-07-02] MEDS ORDERED: ASPIRIN 81 MG PO SCH (09:00)
[2024-07-02] MEDS: FUROSEMIDE 10 MG/ML 4 ML VIAL IV SCH (12:34)
--- NOTE | 2024-07-02 13:07 | P.PN ---
Subjective Progress Note Date: 07/02/24 HISTORY OF PRESENTING ILLNESS: 83-year-old female with past medical history of hypertension, dyslipidemia, hypothyroidism, coronary artery disease presented to the ER because of chest pain. She is a resident of a [facility]. Last night she was watching TV when she started experiencing substernal chest pressure that was pressure- like sensation radiating to both arms. On admission to ER she had evidence of elevated troponin 1.9, 1.9, 3.8. Creatinine was 1.16, BUN 33, TSH 8, T4 normal, LDL 60, NT-proBNP 15,900, A1c 6, Hb 10 Admission EKG showed atrial fibrillation with RVR. She was given IV Cardizem which converted her out of atrial fibrillation and since then she has been having sinus bradycardia with diffuse T wave inversions. Chest x-ray shows significant pulmonary vascular congestion She is known to Dr. Ellis in office. She has prior history of bradycardia as well. Her last echo from September 2023 shows an EF of 55 to 60%, mild MR, mild TR. Last heart catheter December 2022 shows mild to moderate disease in left main, severe disease in mid LAD, intermediate disease in LCx and LEGAL PROJECT MANAGER of RCA. Patient underwent stenting of LAD at that time. 07/02 Patient seen and examined. Patient has elevated troponins and discussed recommendations for cardiac catheterization. Patient is not sure if she would like to move forward with this. She plans to discuss this with her niece and lj jhaveri a decision. She is maintained on a heparin drip. She is also on IV Lasix 40 mg every 12 hours. She has no lower extremity edema. Blood pressure 124/60, heart rate 56, pulse ox 96% on 2 L nasal cannula. Repeat blood work reveals BUN 44 creatinine 1.53. PHYSICAL EXAMINATION: Neck: Brisk carotid upstroke, mildly elevated JVP Lungs: Crackles in bilateral lungs Heart: Regular rate and rhythm, S1-S2, mild systolic murmur audible Abdomen: Soft nontender, positive bowel sounds. Extremities: 1+ pitting edema Neuro: Alert, oritented, no focal deficits. Detailed neuro exam was not performed. ASSESSMENT: # Acute HFpEF exacerbation # NSTEMI # CAD with moderate left main disease, severe disease in mid LAD status post PCI, intermediate disease in LCx, LEGAL PROJECT MANAGER of RCA # Paroxysmal atrial fibrillation # Atrial fibrillation RVR on admission, currently sinus bradycardia # History of bradycardia in past Acute kidney injury PLAN: Continue aspirin, Lipitor Continue IV heparin drip Hold beta-angel due to bradycardic rhythm Change IV Lasix to 40 mg daily We will discuss option of cardiac catheterization tomorrow with the patient. She is planning to discuss this with her niece later today. At this time due to the elevated creatinine, most likely postpone another day if patient is agreeable to move forward. Nurse practitioner note has been reviewed, I agree with documented findings and plan of care. Patient was seen and examined. Objective - Vital Signs Vital signs: Vital Signs Temp 97.7 F 07/01/24 20:00 Pulse 49 L 07/02/24 04:00 Resp 16 07/02/24 04:00 BP 122/67 07/02/24 04:00 Pulse Ox 99 07/02/24 04:00 FiO2 Intake & Output 07/01/24 07/02/24 07/02/24 18:59 06:59 18:59 Intake Total 374.142 35.317 Output Total 150 400 Balance 224.142 -364.683 Weight 96.5 kg Intake: Intake, IV Titration 74.142 35.317 Amount Heparin Sod,Pork in 0.45% 74.142 35.317 NaCl 25,000 unit In 0.45 % NaCl 1 250ml.bag @ 11 UNITS/KG/HR 9.979 mls/hr IV .Q24H [facility] Rx#: [id number] Oral 300 Output: Urine 150 400 Other: Voiding Method Diaper External Catheter External Catheter # Voids 1 # Bowel Movements 0 - Labs CBC & Chem 7: 07/02/24 06:23 07/02/24 06:23 Labs: Abnormal Lab Results - Last 24 Hours (Table) 07/01/24 07/01/24 07/01/24 Range/Units 08:21 08:21 16:01 RBC 3.47 L (3.80-5.40) m/uL Hgb 10.6 L (11.4-16.0) gm/dL MCHC 30.9 L (31.0-37.0) g/dL APTT 53.1 H (22.0-30.0) sec TSH 8.000 H (0.465-4.680) mIU/L 07/02/24 Range/Units 06:23 RBC 3.47 L (3.80-5.40) m/uL Hgb 10.3 L (11.4-16.0) gm/dL MCHC 30.0 L (31.0-37.0) g/dL APTT (22.0-30.0) sec TSH (0.465-4.680) mIU/L
--- NOTE | 2024-07-02 13:09 | P.PN ---
Subjective Progress Note Date: 07/02/24 patient is a 83-year-old lady with past medical history significant for hypertension, hyperlipidemia, hypothyroidism, coronary artery disease who presented to the ER for evaluation for chest pain. Patient is currently resident of [facility], was all right last night when while watching TV she started experiencing chest pain that was central location, pressure-like, radiating to both arms. There was no aggravating or relieving factor associated with this chest pain. Patient was complaining of palpitation and shortness of breath at time. There was no complaint of fever or chills. Patient denies any nausea or vomiting. There was no episode of diaphoresis during this time. Because of chest pain, patient became concerned and decided to come to the ER Initial lab work done in the ER showed WBC 8, hemoglobin 9.6, platelet count 209, sodium 130, potassium 5, BUN 33, creatinine 1.16, troponin 1.930 EKG done in the ER showed heart rate of 134, irregular rhythm and rate, no ST segment elevation or depression seen, no T-wave inversions seen. Chest x-ray done in the ER showed small bilateral pleural effusions and pulmonary vascular congestive changes Patient admitted to internal medicine service 07/02. Patient seen and examined. Blood work done this morning showed WB 6.8, hemoglobin 0.3, sodium 138, potassium 5, BUN 44, creatinine 1.53 .. Vital signs on this morning showed heart rate of 56, respiration 16, blood pressure 124/60. Denies any chest pain. Patient wants to discuss with her niece regarding cardiac cath REVIEW OF SYSTEMS: CONSTITUTIONAL: No fever, no malaise,. CARDIOVASCULAR: No chest pain, no palpitations, no syncope. PULMONARY: No shortness of breath, no cough, GASTROINTESTINAL: No diarrhea, no nausea, no vomiting, no abdominal pain. NEUROLOGICAL: No headaches, no weakness, PHYSICAL EXAMINATION: GENERAL: The patient is alert and oriented x3, not in any acute distress. Well developed, well nourished. HEENT: Pupils are round and equally reacting to light. EOMI. No scleral icterus. No conjunctival pallor. Normocephalic, atraumatic. No pharyngeal erythema. No thyromegaly. CARDIOVASCULAR: S1 and S2 present. No murmurs, rubs, or gallops. PULMONARY: Chest is clear to auscultation, no wheezing or crackles. ABDOMEN: Soft, nontender, nondistended, normoactive bowel sounds. No palpable organomegaly. MUSCULOSKELETAL: No joint swelling or deformity. EXTREMITIES: No cyanosis, clubbing, or pedal edema. NEUROLOGICAL: Gross neurological examination did not reveal any focal deficits. SKIN: No rashes. Assessment and plan NSTEMI A-fib with RVR Acute heart failure with preserved EF exacerbation History of hypertension History of hypothyroidism History of hyperlipidemia History of coronary artery disease Monitor vital signs Monitor CBC Monitor CMP Continue telemetry monitoring Trend troponin Hold AV pattie blocking agent because of bradycardia Continue pharmacy dose heparin Continue aspirin, Lipitor Ordered 2D echo Continue Zoloft Continue Synthroid Cardiology following Labs and medication were reviewed.. Continue same treatment. Continue with symptomatic treatment. Resume home medication. Monitor labs and vitals. DVT and GI prophylaxis. Further recommendations as per clinical course of the patient Dictation was produced using [employer] dictation software. please excuse any grammatical, word or spelling errors. Objective - Vital Signs Vital signs: Vital Signs Temp 97.4 F L 07/02/24 08:00 Pulse 56 L 07/02/24 08:00 Resp 16 07/02/24 08:00 BP 124/60 07/02/24 08:00 Pulse Ox 96 07/02/24 08:00 FiO2 Intake & Output 07/01/24 07/02/24 07/02/24 18:59 06:59 18:59 Intake Total 374.142 35.317 240 Output Total 150 400 Balance 224.142 -364.683 240 Weight 96.5 kg Intake: Intake, IV Titration 74.142 35.317 Amount Heparin Sod,Pork in 0.45% 74.142 35.317 NaCl 25,000 unit In 0.45 % NaCl 1 250ml.bag @ 11 UNITS/KG/HR 9.979 mls/hr IV .Q24H [facility] Rx#: [id number] Oral 300 240 Output: Urine 150 400 Other: Voiding Method Diaper External Catheter External Catheter # Voids 1 # Bowel Movements 0 - Labs CBC & Chem 7: 07/02/24 06:23 07/02/24 06:23 Labs: Abnormal Lab Results - Last 24 Hours (Table) 07/01/24 07/01/24 07/02/24 Range/Units 08:21 16:01 06:23 RBC 3.47 L (3.80-5.40) m/uL Hgb 10.3 L (11.4-16.0) gm/dL MCHC 30.0 L (31.0-37.0) g/dL APTT 53.1 H (22.0-30.0) sec Carbon Dioxide (22-30) mmol/L BUN (7-17) mg/dL Creatinine (0.52-1.04) mg/dL AST (14-36) U/L Total Protein (6.3-8.2) g/dL Albumin (3.5-5.0) g/dL TSH 8.000 H (0.465-4.680) mIU/L 07/02/24 07/02/24 Range/Units 06:23 08:29 RBC (3.80-5.40) m/uL Hgb (11.4-16.0) gm/dL MCHC (31.0-37.0) g/dL APTT 49.3 H (22.0-30.0) sec Carbon Dioxide 35 H (22-30) mmol/L BUN 44 H (7-17) mg/dL Creatinine 1.53 H (0.52-1.04) mg/dL AST 68 H (14-36) U/L Total Protein 5.7 L (6.3-8.2) g/dL Albumin 3.3 L (3.5-5.0) g/dL TSH (0.465-4.680) mIU/L
--- NOTE | 2024-07-02 16:36 | CA ---
Transthoracic Echo Report Name: Giovanna Pardo Age: 83 Gender: F : 1940 Exam Date: 07/02/2024 10:28 Exam Location: [facility] Ht (in): 60 Wt (lb): 200 Ordering Physician: Leeroy Daley MD ([id number]) Attending/Referring Phys: [employer] Professor Daniel Snider RDCS Procedure CPT: Indications: nstemi Cardiac Hx: CAD, A-fib Technical Quality: Technically difficult study Contrast 1: Definity Total Dose (mL): 2 Contrast 2: Total Dose (mL): MEASUREMENTS (Male / Female) Normal Values 2D ECHO LV Diastolic Diameter PLAX 5.4 cm 4.2 - 5.9 / 3.9 - 5.3 cm LV Systolic Diameter PLAX 3.8 cm IVS Diastolic Thickness 1.2 cm 0.6 - 1.0 / 0.6 - 0.9 cm LVPW Diastolic Thickness 1.2 cm 0.6 - 1.0 / 0.6 - 0.9 cm LV Relative Wall Thickness 0.4 RV Internal Dim ED PLAX 3.4 cm LVOT Diameter 2.1 cm Aortic Root Diameter 3.1 cm LA Systolic Diameter LX 3.9 cm 3.0 - 4.0 / 2.7 - 3.8 cm LV Diastolic Volume MOD BP 92.0 cm??? 67 - 155 / 56 - 104 cm??? LV Systolic Volume MOD BP 35.0 cm??? 22 - 58 / 19 - 49 cm??? LV Ejection Fraction MOD BP 62.0 % >= 55 % LV Cardiac Index MOD BP 1844.9 cm???/min???m??? LV Diastolic Volume MOD 4C 100.2 cm??? LV Systolic Volume MOD 4C 36.5 cm??? LV Ejection Fraction MOD 4C 63.6 % LV Cardiac Index MOD 4C 2061.8 cm???/min???m??? LV Diastolic Length 4C 8.4 cm LV Systolic Length 4C 7.0 cm LV Diastolic Volume MOD 2C 84.9 cm??? LV Systolic Volume MOD 2C 33.7 cm??? LV Ejection Fraction MOD 2C 60.3 % LV Cardiac Index MOD 2C 1654.1 cm???/min???m??? LV Diastolic Length 2C 8.4 cm LV Systolic Length 2C 6.9 cm LA Volume 57.3 cm??? 18 - 58 / 22 - 52 cm??? LA Volume Index 28.5 cm???/m??? 16 - 28 cm???/m??? DOPPLER MV Area PHT 2.7 cm??? Mitral E Point Velocity 65.9 cm/s Mitral A Point Velocity 79.6 cm/s Mitral E to A Ratio 0.8 MV Deceleration Time 281.4 ms TR Peak Velocity 156.3 cm/s TR Peak Gradient 9.8 mmHg Right Atrial Pressure 5.0 mmHg Pulmonary Artery Systolic Pressu 14.8 mmHg Right Ventricular Systolic Press 14.8 mmHg FINDINGS Left Ventricle Left ventricular ejection fraction is estimated at 55-60 %. Apical septum hypokinesis. . Mildly increased septal wall thickness. Mildly increased posterior wall thickness. Mildly increased left ventricular diastolic diameter. Right Ventricle Moderate right ventricular dilatation. Right ventricular systolic pressure within normal limits. Right Atrium Normal right atrial size. Left Atrium Mildly increased left atrial diameter. Mildly increased left atrial volume. Mitral Valve Mitral annular calcification. No mitral stenosis. Trace mitral regurgitation. Aortic Valve Trileaflet aortic valve. Thickened aortic valve without stenosis. Trace aortic regurgitation. Tricuspid Valve Structurally normal tricuspid valve. Trace tricuspid regurgitation. Pulmonic Valve Pulmonic valve not well visualized. No pulmonic stenosis. Trace pulmonic regurgitation. Pericardium No pericardial effusion. Aorta Normal size aortic root and proximal ascending aorta. CONCLUSIONS Left ventricular ejection fraction 55-60% Apical septal hypokinesis Mild increased left ventricular wall thickness Trace mitral regurgitation Trace tricuspid regurgitation Previewed by: Dr. Elroy An DO (Electronically Signed) Final Date: 02 July 2024 16:35
[2024-07-02] MEDS: HYDROcodone/APAP 7.5-325MG 1 EACH TAB PO PRN (21:11)
[2024-07-03 07:05] LABS: ALT 20 U/L (4-34); AST 49 U/L (14-36); African American GFR (CKD) 43 (>60 ml/min/1.73 sqM); Albumin 3.4 g/dL (3.5-5.0); Alkaline Phosphatase 74 U/L (38-126); Anion Gap 3 mmol/L; Blood Urea Nitrogen 42 mg/dL (7-17); Calcium 8.9 mg/dL (8.4-10.2); Carbon Dioxide 36 mmol/L (22-30); Chloride 99 mmol/L (98-107); Glucose 88 mg/dL (74-99); Non-African American GFR(CKD) 37 (>60 ml/min/1.73 sqM); Potassium 4.4 mmol/L (3.5-5.1); Sodium 138 mmol/L (137-145); Total Bilirubin 0.4 mg/dL (0.2-1.3); Total Protein 5.8 g/dL (6.3-8.2)
[2024-07-03 07:13] LABS: Basophils % (A) 0 %; Eosinophils # (A) 0.3 k/uL (0-0.7); Eosinophils % (A) 4 %; HCT 32.8 % (34.0-46.0); HGB 10.2 gm/dL (11.4-16.0); Lymphocytes % (A) 29 %; MCH 30.1 pg (25.0-35.0); MCV 97.1 fL (80.0-100.0); Mean Platelet Volume 8.8; Monocytes # (A) 0.4 k/uL (0-1.0); Monocytes % (A) 6 %; Neutrophils % (A) 59 %; Platelet Count 210 k/uL (150-450); RBC 3.38 m/uL (3.80-5.40); RDW 14.3 % (11.5-15.5); WBC 6.8 k/uL (3.8-10.6)
[2024-07-03] MEDS: ASPIRIN 81 MG PO SCH (08:25)
[2024-07-03] MEDS ORDERED: ALPRAZolam 0.25 MG TAB PO PRN (09:05)
[2024-07-03] MEDS ORDERED: NITROGLYCERIN SL TABS 0.4 MG TAB SUBLINGUAL PRN (09:05)
[2024-07-03] MEDS: SODIUM CHLORIDE 0.9% 1,000 ML in EMPTY BAG 1 BAG IV SCH (10:30)
[2024-07-03] MEDS: ASPIRIN 325 MG TAB PO STA (10:45)
[2024-07-03] MEDS: ATORVASTATIN 80 MG TAB PO STA (10:45)
--- NOTE | 2024-07-03 12:54 | P.PN ---
Subjective Progress Note Date: 07/03/24 HISTORY OF PRESENTING ILLNESS: 83-year-old female with past medical history of hypertension, dyslipidemia, hypothyroidism, coronary artery disease presented to the ER because of chest pain. She is a resident of a [facility] the [facility]. Last night she was watching TV when she started experiencing substernal chest pressure that was pressure- like sensation radiating to both arms. On admission to ER she had evidence of elevated troponin 1.9, 1.9, 3.8. Creatinine was 1.16, BUN 33, TSH 8, T4 normal, LDL 60, NT-proBNP 15,900, A1c 6, Hb 10 Admission EKG showed atrial fibrillation with RVR. She was given IV Cardizem which converted her out of atrial fibrillation and since then she has been having sinus bradycardia with diffuse T wave inversions. Chest x-ray shows significant pulmonary vascular congestion She is known to Dr. Ellis in office. She has prior history of bradycardia as well. Her last echo from September 2023 shows an EF of 55 to 60%, mild MR, mild TR. 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 Patient underwent stenting of LAD at that time. 07/02 Patient seen and examined. Patient has elevated troponins and discussed recommendations for cardiac catheterization. Patient is not sure if she would like to move forward with this. She plans to discuss this with her niece and lj jhaveri a decision. She is maintained on a heparin drip. She is also on IV Lasix 40 mg every 12 hours. She has no lower extremity edema. Blood pressure 124/60, heart rate 56, pulse ox 96% on 2 L nasal cannula. Repeat blood work reveals BUN 44 creatinine 1.53. 07/03 Patient seen and examined. After patient discussed with her niece today, she is agreeable to move forward with cardiac catheterization which will be scheduled today with Dr. Daley. Blood pressure 130/60, heart rate 68, pulse ox 96% on 2 L nasal cannula. Heart rates were in the 40s during the night. She is on IV Lasix which we will transition to oral. Hemoglobin 10.3. BUN 42 creatinine 1.34. Echocardiogram reveals EF of 55 to 60%, trace mitral regurgitation, trace tricuspid regurgitation. PHYSICAL EXAMINATION: Neck: Brisk carotid upstroke, mildly elevated JVP Lungs: Crackles in bilateral lungs Heart: Regular rate and rhythm, S1-S2, mild systolic murmur audible Abdomen: Soft nontender, positive bowel sounds. Extremities: 1+ pitting edema Neuro: Alert, oritented, no focal deficits. Detailed neuro exam was not performed. 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 Edi Hunter n.p.o. Nurse practitioner note has been reviewed, I agree with documented findings and plan of care. Patient was seen and examined. Objective - Vital Signs Vital signs: Vital Signs Temp 97.9 F 07/03/24 04:00 Pulse 68 07/03/24 08:00 Resp 16 07/03/24 08:00 BP 131/60 07/03/24 08:00 Pulse Ox 96 07/03/24 08:00 FiO2 Intake & Output 07/02/24 07/03/24 07/03/24 18:59 06:59 18:59 Intake Total 720 240 Output Total 1550 650 Balance -830 -410 Weight 96.5 kg 94.5 kg Intake: Oral 720 240 Output: Urine 1550 650 Other: Voiding Method External Catheter External Catheter - Labs CBC & Chem 7: 07/03/24 06:21 07/03/24 06:21 Labs: Abnormal Lab Results - Last 24 Hours (Table) 07/03/24 07/03/24 Range/Units 06:21 06:21 RBC 3.38 L (3.80-5.40) m/uL Hgb 10.2 L (11.4-16.0) gm/dL Hct 32.8 L (34.0-46.0) % Carbon Dioxide 36 H (22-30) mmol/L BUN 42 H (7-17) mg/dL Creatinine 1.34 H (0.52-1.04) mg/dL AST 49 H (14-36) U/L Total Protein 5.8 L (6.3-8.2) g/dL Albumin 3.4 L (3.5-5.0) g/dL
--- NOTE | 2024-07-03 13:11 | P.PN ---
Subjective Progress Note Date: 07/03/24 patient is a 83-year-old lady with past medical history significant for hypertension, hyperlipidemia, hypothyroidism, coronary artery disease who presented to the ER for evaluation for chest pain. Patient is currently resident of [facility], was all right last night when while watching TV she started experiencing chest pain that was central location, pressure-like, radiating to both arms. There was no aggravating or relieving factor associated with this chest pain. Patient was complaining of palpitation and shortness of breath at time. There was no complaint of fever or chills. Patient denies any nausea or vomiting. There was no episode of diaphoresis during this time. Because of chest pain, patient became concerned and decided to come to the ER Initial lab work done in the ER showed WBC 8, hemoglobin 9.6, platelet count 209, sodium 130, potassium 5, BUN 33, creatinine 1.16, troponin 1.930 EKG done in the ER showed heart rate of 134, irregular rhythm and rate, no ST segment elevation or depression seen, no T-wave inversions seen. Chest x-ray done in the ER showed small bilateral pleural effusions and pulmonary vascular congestive changes Patient admitted to internal medicine service 07/02. Patient seen and examined. Blood work done this morning showed WB 6.8, hemoglobin 0.3, sodium 138, potassium 5, BUN 44, creatinine 1.53 .. Vital signs on this morning showed heart rate of 56, respiration 16, blood pressure 124/60. Denies any chest pain. Patient wants to discuss with her niece regarding cardiac cath 07/03. Patient seen and examined.Blood work done this morning showed WB 6.8, hemoglobin 10.2, platelet count 210, sodium 138, potassium 4.4, BUN 42, creatinine 1.34. Currently n.p.o. going for cardiac catheterization today. Denies any chest pain. Shortness of breath. Daughter at the bedside REVIEW OF SYSTEMS: CONSTITUTIONAL: No fever, no malaise,. CARDIOVASCULAR: No chest pain, no palpitations, no syncope. PULMONARY: No shortness of breath, no cough, GASTROINTESTINAL: No diarrhea, no nausea, no vomiting, no abdominal pain. NEUROLOGICAL: No headaches, no weakness, PHYSICAL EXAMINATION: GENERAL: The patient is alert and oriented x3, not in any acute distress. Well developed, well nourished. HEENT: Pupils are round and equally reacting to light. EOMI. No scleral icterus. No conjunctival pallor. Normocephalic, atraumatic. No pharyngeal erythema. No thyromegaly. CARDIOVASCULAR: S1 and S2 present. No murmurs, rubs, or gallops. PULMONARY: Chest is clear to auscultation, no wheezing or crackles. ABDOMEN: Soft, nontender, nondistended, normoactive bowel sounds. No palpable organomegaly. MUSCULOSKELETAL: No joint swelling or deformity. EXTREMITIES: No cyanosis, clubbing, or pedal edema. NEUROLOGICAL: Gross neurological examination did not reveal any focal deficits. SKIN: No rashes. Assessment and plan NSTEMI A-fib with RVR Acute heart failure with preserved EF exacerbation History of hypertension History of hypothyroidism History of hyperlipidemia History of coronary artery disease Monitor vital signs Monitor CBC Monitor CMP Continue telemetry monitoring Trend troponin Hold AV pattie blocking agent because of bradycardia Continue pharmacy dose heparin Continue aspirin, Lipitor 2D echo done showed LVEF of 55 to 60%, apical septal hypokinesis, trace mitral regurg and tricuspid regurg Continue Zoloft Continue Synthroid Cardiology following, currently n.p.o., going for cardiac catheterization today Labs and medication were reviewed.. Continue same treatment. Continue with symptomatic treatment. Resume home medication. Monitor labs and vitals. DVT and GI prophylaxis. Further recommendations as per clinical course of the patient Dictation was produced using [employer] dictation software. please excuse any grammatical, word or spelling errors. Objective - Vital Signs Vital signs: Vital Signs Temp 97.9 F 07/03/24 04:00 Pulse 68 07/03/24 08:00 Resp 16 07/03/24 08:00 BP 131/60 07/03/24 08:00 Pulse Ox 96 07/03/24 08:00 FiO2 Intake & Output 07/02/24 07/03/24 07/03/24 18:59 06:59 18:59 Intake Total 720 240 Output Total 1550 650 Balance -830 -410 Weight 96.5 kg 94.5 kg Intake: Oral 720 240 Output: Urine 1550 650 Other: Voiding Method External Catheter External Catheter - Labs CBC & Chem 7: 07/03/24 06:21 07/03/24 06:21 Labs: Abnormal Lab Results - Last 24 Hours (Table) 03/11/25 03/11/25 Range/Units 06:21 06:21 RBC 3.38 L (3.80-5.40) m/uL Hgb 10.2 L (11.4-16.0) gm/dL Hct 32.8 L (34.0-46.0) % Carbon Dioxide 36 H (22-30) mmol/L BUN 42 H (7-17) mg/dL Creatinine 1.34 H (0.52-1.04) mg/dL AST 49 H (14-36) U/L Total Protein 5.8 L (6.3-8.2) g/dL Albumin 3.4 L (3.5-5.0) g/dL
[2024-07-03] MEDS: NITROGLYCERIN OINT 1 INCH/GM PACKET TOPICAL SCH (16:56)
[2024-07-03] MEDS: ALPRAZolam 0.5 MG TAB PO PRN (20:58)
[2024-07-04 09:08] LABS: African American GFR (CKD) 51 (>60 ml/min/1.73 sqM); Anion Gap 5 mmol/L; Blood Urea Nitrogen 37 mg/dL (7-17); Calcium 9.3 mg/dL (8.4-10.2); Carbon Dioxide 33 mmol/L (22-30); Chloride 99 mmol/L (98-107); Glucose 87 mg/dL (74-99); Non-African American GFR(CKD) 45 (>60 ml/min/1.73 sqM); Potassium 4.5 mmol/L (3.5-5.1); Sodium 137 mmol/L (137-145)
[2024-07-04] MEDS: FUROSEMIDE 40 MG TAB PO SCH (09:35)
[2024-07-04] MEDS: IV FLUID CONTINUATION 1,000 ML IV ONE (11:54)
[2024-07-04] MEDS: HEPARIN SODIUM,PORCINE 10,000 UNIT in SODIUM CHLORIDE 0.9% 1,000 ML IRRIGATION PRN (11:54)
[2024-07-04] MEDS: HEPARIN SODIUM,PORCINE (1 ML) 2,500 UNIT in SODIUM CHLORIDE 0.9% 250 ML IRRIGATION PRN (11:54)
[2024-07-04] MEDS: LIDOCAINE 1% INJ 10MG/ML (20 ML MDV) SQ ONE (12:13)
[2024-07-04] MEDS: MIDAZOLAM 2 MG/2 ML VIAL IVP ONE (12:14)
[2024-07-04] MEDS: HYDROmorphone 0.5 MG/0.5 ML SYRINGE IVP ONE (12:14)
[2024-07-04] MEDS: VERAPAMIL SYRINGE (5 MG/10 ML) INTRAARTER ONE (12:14)
[2024-07-04] MEDS: HEPARIN SODIUM 1,000 UN/ML (10ML VL) IVP ONE (12:21)
--- NOTE | 2024-07-04 12:38 | P.PN ---
Subjective Progress Note Date: 07/04/24 patient is a 83-year-old lady with past medical history significant for hypertension, hyperlipidemia, hypothyroidism, coronary artery disease who presented to the ER for evaluation for chest pain. Patient is currently resident of [facility], was all right last night when while watching TV she started experiencing chest pain that was central location, pressure-like, radiating to both arms. There was no aggravating or relieving factor associated with this chest pain. Patient was complaining of palpitation and shortness of breath at time. There was no complaint of fever or chills. Patient denies any nausea or vomiting. There was no episode of diaphoresis during this time. Because of chest pain, patient became concerned and decided to come to the ER Initial lab work done in the ER showed WBC 8, hemoglobin 9.6, platelet count 209, sodium 130, potassium 5, BUN 33, creatinine 1.16, troponin 1.930 EKG done in the ER showed heart rate of 134, irregular rhythm and rate, no ST segment elevation or depression seen, no T-wave inversions seen. Chest x-ray done in the ER showed small bilateral pleural effusions and pulmonary vascular congestive changes Patient admitted to internal medicine service 07/02. Patient seen and examined. Blood work done this morning showed WB 6.8, hemoglobin 0.3, sodium 138, potassium 5, BUN 44, creatinine 1.53 .. Vital signs on this morning showed heart rate of 56, respiration 16, blood pressure 124/60. Denies any chest pain. Patient wants to discuss with her niece regarding cardiac cath 07/03. Patient seen and examined.Blood work done this morning showed WB 6.8, hemoglobin 10.2, platelet count 210, sodium 138, potassium 4.4, BUN 42, creatinine 1.34. Currently n.p.o. going for cardiac catheterization today. Denies any chest pain. Shortness of breath. Daughter at the bedside 07/04. Patient seen and examined. Blood work done this morning showed sodium 137, potassium 4.5, BUN 37, creatinine 1.15, GFR 51. Patient was supposed to get cardiac cath yesterday but it was postponed because of some technical issues REVIEW OF SYSTEMS: CONSTITUTIONAL: No fever, no malaise,. CARDIOVASCULAR: No chest pain, no palpitations, no syncope. PULMONARY: No shortness of breath, no cough, GASTROINTESTINAL: No diarrhea, no nausea, no vomiting, no abdominal pain. NEUROLOGICAL: No headaches, no weakness, PHYSICAL EXAMINATION: GENERAL: The patient is alert and oriented x3, not in any acute distress. Ill looking HEENT: Pupils are round and equally reacting to light. EOMI. No scleral icterus. No conjunctival pallor. Normocephalic, atraumatic. No pharyngeal erythema. No thyromegaly. CARDIOVASCULAR: S1 and S2 present. No murmurs, rubs, or gallops. PULMONARY: Chest is clear to auscultation, no wheezing or crackles. ABDOMEN: Soft, nontender, nondistended, normoactive bowel sounds. No palpable organomegaly. MUSCULOSKELETAL: No joint swelling or deformity. EXTREMITIES: No cyanosis, clubbing, or pedal edema. NEUROLOGICAL: Gross neurological examination did not reveal any focal deficits. SKIN: No rashes. Assessment and plan NSTEMI A-fib with RVR Acute heart failure with preserved EF exacerbation History of hypertension History of hypothyroidism History of hyperlipidemia History of coronary artery disease Monitor vital signs Monitor CBC Monitor CMP Continue telemetry monitoring Trend troponin Hold AV pattie blocking agent because of bradycardia Continue pharmacy dose heparin Continue aspirin, Lipitor 2D echo done showed LVEF of 55 to 60%, apical septal hypokinesis, trace mitral regurg and tricuspid regurg Continue Zoloft Continue Synthroid Cardiology following, cardiac cath was postponed from yesterday to today Labs and medication were reviewed.. Continue same treatment. Continue with symptomatic treatment. Resume home medication. Monitor labs and vitals. DVT and GI prophylaxis. Further recommendations as per clinical course of the patient Dictation was produced using [employer] dictation software. please excuse any grammatical, word or spelling errors. Objective - Vital Signs Vital signs: Vital Signs Temp 97.3 F L 07/03/24 20:00 Pulse 44 L 07/04/24 04:00 Resp 16 07/04/24 04:00 BP 119/65 07/04/24 04:00 Pulse Ox 98 07/04/24 04:00 FiO2 Intake & Output 07/03/24 07/04/24 07/04/24 18:59 06:59 18:59 Intake Total 480 Output Total 1600 Balance -1120 Weight 96 kg Intake: Oral 480 Output: Urine 1600 Other: Voiding Method External Catheter External Catheter - Labs CBC & Chem 7: 07/03/24 06:21 07/04/24 08:27 Labs: Abnormal Lab Results - Last 24 Hours (Table) 07/04/24 Range/Units 08:27 Carbon Dioxide 33 H (22-30) mmol/L BUN 37 H (7-17) mg/dL Creatinine 1.15 H (0.52-1.04) mg/dL
[2024-07-04] MEDS: IOPAMIDOL-250 100ML BTL INTRAARTER ONE ×2 (12:48→13:37)
--- NOTE | 2024-07-04 13:12 | P.CARDCATH ---
Date of Procedure: 07/04/24 Description of Procedure: DIAGNOSTIC CORONARY ANGIOGRAPHY and LEFT HEART CATH REPORT PROCEDURES PERFORMED: Left heart catheterization was attempted however could not cross aortic valve and obtain LV pressure. Selective coronary angiography Moderate conscious sedation 35 mins Right radial access INDICATION: NSTEMI BRIEF HPI: 83-year-old who presented to the hospital because of substernal chest pressure and shortness of breath. She had evidence of of elevated troponin on admission and was treated medically for NSTEMI. She also had evidence of congestive heart failure and [place]. She was stabilized and was scheduled for a heart catheterization procedure. CONSENT: I have explained the procedural steps of above-mentioned procedures in layman's terms to the patient. I discussed the risks (including but not limited to stroke, emergent vascular or cardiac surgery or ), benefits and alternative therapies for the above-mentioned procedure. I discussed the risks of sedation/analgesia and blood product administration (if indicated). The patient has indicated understanding and acceptance of these risks. Conscious Sedation: Patient's ECG, heart rate, blood pressure, pulse oximetry were monitored throughout the duration of procedure under my direct supervision. 0.5 mg Versed and 0.5 mg Dilaudid were used for induction of moderate conscious sedation. Total duration of moderate concious sedation 35 minutes. PROCEDURAL DETAILS: Patient was prepped and draped in sterile fashion. 1% lidocaine was infiltrated over the right radial artery. Right radial access was obtained via modified seldinger technique. Medications: 5mg of verapamil was administed in the radial sheet. 4000 Units of Heparin was administed once the catheter reached the aortic root Wires and Catheter used: J wire was advanced under fluroscopy to get to aortic root. 5 cost[place]ican JR 4 diagnostic catheter was attempted to cross the aortic valve however could not be up crossed. 5 [place]ican JR 5 diagnostic catheter was used to selectively engage the right coronary ostium. 5 [place] JL 3.5 diagnostic catheter was utilized to selectively engage the left coronary ostium. This catheter was exchanged for a 5 Japanese pigtail catheter. In WRIGHT view it was attempted to prolapse across aortic valve however I could not advance it across aortic valve therefore LV pressures could not be obtained. Angiographic images were reviewed in detail. Catheter and wire were removed. Radial sheet was flushed. Plan was to proceed with the IFR assessment of LAD and LCx. TECHNICAL DETAILS Total contrast used: Isovue [80 ml] Complications: [none] Estimated Blood loss: less than 15 ml HEMODYNAMICS: Aortic Pressure: 110/60 mmHg. Aortic valve could not be crossed therefore LV pressures could not be obtained. SELECTIVE CORONARY ARTERIOGRAPHY: LEFT MAIN: The left main is short and large caliber vessel. Left main has mild disease. It bifurcates into LAD and LCx. LEFT ANTERIOR DESCENDING CORONARY ARTERY: LAD appears moderate to large caliber reaches up to the apex. Ostial LAD appears to have 50 to 60% disease. Proximal LAD has diffuse 20% disease. Mid LAD has a prior stent. Proximal portion of the prior stent appears hazy stent otherwise appears patent. Distal LAD has mild luminal irregularities. Proximal LAD gives rise to a medium size diagonal 1 branch which has mild diffuse disease. Mid LAD just proximal to the stent gives a small diagonal 2 branch which has 70% diffuse disease in proximal segment. LEFT CIRCUMFLEX CORONARY ARTERY: It is nondominant vessel. LCx is moderate caliber. Proximal LCx has 30% diffuse disease. And midportion it bifurcates into a small OM1 branch and continues to become the medium size OM 2 branch. Midportion of OM 2 has 70% disease. RIGHT CORONARY ARTERY: Dominant vessel. Ostial RCA is 20 to 30% disease. Proximal RCA has a prior stent which appears patent. And midportion RCA is 100% occluded. This is unchanged from 202. Distal RCA is a prior occluded stent. 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 Feel free to reach out in case of any followup questions.
--- NOTE | 2024-07-04 13:42 | P.PCN ---
Date of Procedure: 07/04/24 Operative Findings: IFR of the LAD and LCx Performing physician Jey Xie M.D. Procedure Performed: 1. 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 Daley earlier today with anticoagulation was initiated using heparin with continuous ACT monitoring. Subsequently after zeroing the Dobler wire and equalizing between the Dobler wire and guiding catheter which was JL 3 guiding catheter the left main was engaged and subsequently the LAD was wired and I did an IFR of the LAD came in to be at 0.79 and subsequently the wire was directed toward the left circumflex with IFR came to be at 0.70. The procedure was completed with no complication Postprocedure Management: 1. PCI of the LCx and LAD to be done in a staged fashion giving the renal function and limited amount of the contrast 2. Continue maximize medical treatment 3. Follow-up with the patient
[2024-07-04] MEDS ORDERED: RX INFO: IV CONTRAST WAS GIVEN 1 EACH MISC MISCELLANE PRN (13:51)
[2024-07-04] MEDS: SODIUM CHLORIDE 0.9% 1,000 ML IV SCH (15:10)
[2024-07-04] MEDS: HEPARIN SODIUM,PORCINE 5,000 UNIT/ML 1 ML VIAL SQ SCH (16:53)
[2024-07-05 07:21] LABS: Basophils % (A) 0 %; Eosinophils # (A) 0.3 k/uL (0-0.7); Eosinophils % (A) 4 %; HGB 9.4 gm/dL (11.4-16.0); Hypochromasia Slight; Lymphocytes # (A) 1.8 k/uL (1.0-4.8); Lymphocytes % (A) 23 %; MCH 30.7 pg (25.0-35.0); MCHC 31.4 g/dL (31.0-37.0); MCV 97.8 fL (80.0-100.0); Mean Platelet Volume 8.1; Monocytes # (A) 0.5 k/uL (0-1.0); Monocytes % (A) 6 %; Neutrophils # (A) 5.2 k/uL (1.3-7.7); Neutrophils % (A) 65 %; Platelet Count 190 k/uL (150-450); RBC 3.07 m/uL (3.80-5.40); RDW 14.4 % (11.5-15.5); WBC 8.1 k/uL (3.8-10.6)
[2024-07-05 07:39] LABS: ALT 45 U/L (4-34); AST 68 U/L (14-36); African American GFR (CKD) 44 (>60 ml/min/1.73 sqM); Albumin 3.2 g/dL (3.5-5.0); Alkaline Phosphatase 79 U/L (38-126); Anion Gap 2 mmol/L; Blood Urea Nitrogen 36 mg/dL (7-17); Calcium 8.8 mg/dL (8.4-10.2); Carbon Dioxide 34 mmol/L (22-30); Chloride 101 mmol/L (98-107); Glucose 88 mg/dL (74-99); Non-African American GFR(CKD) 38 (>60 ml/min/1.73 sqM); Potassium 4.9 mmol/L (3.5-5.1); Sodium 137 mmol/L (137-145); Total Bilirubin 0.5 mg/dL (0.2-1.3); Total Protein 5.6 g/dL (6.3-8.2)
--- NOTE | 2024-07-05 11:09 | P.PN ---
Subjective Progress Note Date: 07/05/24 HISTORY OF PRESENTING ILLNESS: 83-year-old female with past medical history of hypertension, dyslipidemia, hypothyroidism, coronary artery disease presented to the ER because of chest pain. She is a resident of a [facility] the [facility]. Last night she was watching TV when she started experiencing substernal chest pressure that was pressure- like sensation radiating to both arms. On admission to ER she had evidence of elevated troponin 1.9, 1.9, 3.8. Creatinine was 1.16, BUN 33, TSH 8, T4 normal, LDL 60, NT-proBNP 15,900, A1c 6, Hb 10 Admission EKG showed atrial fibrillation with RVR. She was given IV Cardizem which converted her out of atrial fibrillation and since then she has been having sinus bradycardia with diffuse T wave inversions. Chest x-ray shows significant pulmonary vascular congestion She is known to Dr. Ellis in office. She has prior history of bradycardia as well. Her last echo from September 2023 shows an EF of 55 to 60%, mild MR, mild TR. Last heart catheter December 2022 shows mild to moderate disease in left main, severe disease in mid LAD, intermediate disease in LCx and ARCHEOLOGIST of RCA. Patient underwent stenting of LAD at that time. 07/02 Patient seen and examined. Patient has elevated troponins and discussed recommendations for cardiac catheterization. Patient is not sure if she would like to move forward with this. She plans to discuss this with her niece and lj jhaveri a decision. She is maintained on a heparin drip. She is also on IV Lasix 40 mg every 12 hours. She has no lower extremity edema. Blood pressure 124/60, heart rate 56, pulse ox 96% on 2 L nasal cannula. Repeat blood work reveals BUN 44 creatinine 1.53. 07/03 Patient seen and examined. After patient discussed with her niece today, she is agreeable to move forward with cardiac catheterization which will be scheduled today with Dr. Daley. Blood pressure 130/60, heart rate 68, pulse ox 96% on 2 L nasal cannula. Heart rates were in the 40s during the night. She is on IV Lasix which we will transition to oral. Hemoglobin 10.3. BUN 42 creatinine 1.34. Echocardiogram reveals EF of 55 to 60%, trace mitral regurgitation, trace tricuspid regurgitation. 07/05 Yesterday, patient underwent cardiac catheterization with Dr. Daley which revealed 60% ostial LAD disease, haziness in the proximal portion of the LAD stent which is otherwise patent, 70% mid OM 2 disease, 100% ARCHEOLOGIST of the RCA unch anged from 2022 and moderate disease in the diagonal 2, small caliber but amenable for intervention. Patient subsequently underwent IFR of the LAD and circumflex with plan for staged PCI giving the renal function and limited amount of contrast. Patient will be scheduled for tomorrow with Dr. Xie for PCI. Blood pressure 133/66, heart rate 56, pulse ox 97% on 3 L nasal cannula. Repeat blood work reveals hemoglobin 9.4, BUN 36 creatinine 1.31. PHYSICAL EXAMINATION: Neck: Brisk carotid upstroke, mildly elevated JVP Lungs: Crackles in bilateral lungs Heart: Regular rate and rhythm, S1-S2, mild systolic murmur audible Abdomen: Soft nontender, positive bowel sounds. Extremities: 1+ pitting edema Neuro: Alert, oritented, no focal deficits. Detailed neuro exam was not performed. ASSESSMENT: # Acute HFpEF exacerbation # NSTEMI # CAD with moderate left main disease, severe disease in mid LAD status post PCI, intermediate disease in LCx, ARCHEOLOGIST of RCA # Paroxysmal atrial fibrillation # Atrial fibrillation RVR on admission, currently sinus bradycardia # History of bradycardia in past Acute kidney injury PLAN: Continue aspirin, Lipitor, Zetia, nitro paste Continue oral Lasix 40 mg daily Hold beta-angel due to bradycardic rhythm Schedule patient for PCI tomorrow with Dr. Xie Repeat BMP in the morning N.p.o. status after midnight Nurse practitioner note has been reviewed, I agree with documented findings and plan of care. Patient was seen and examined. Objective - Vital Signs Vital signs: Vital Signs Temp 98.0 F 07/05/24 08:25 Pulse 56 L 07/05/24 08:25 Resp 16 07/05/24 08:25 BP 133/66 07/05/24 08:25 Pulse Ox 98 07/05/24 10:03 FiO2 Intake & Output 07/04/24 07/05/24 07/05/24 18:59 06:59 18:59 Intake Total 260 Output Total 300 Balance 260 -300 Weight 96.5 kg Intake: IV 260 Output: Urine 300 Other: Voiding Method External Catheter External Catheter External Catheter - Labs CBC & Chem 7: 07/05/24 06:55 07/05/24 06:55 Labs: Abnormal Lab Results - Last 24 Hours (Table) 07/05/24 07/05/24 Range/Units 06:55 06:55 RBC 3.07 L (3.80-5.40) m/uL Hgb 9.4 L (11.4-16.0) gm/dL Hct 30.0 L (34.0-46.0) % Carbon Dioxide 34 H (22-30) mmol/L BUN 36 H (7-17) mg/dL Creatinine 1.31 H (0.52-1.04) mg/dL AST 68 H (14-36) U/L ALT 45 H (4-34) U/L Total Protein 5.6 L (6.3-8.2) g/dL Albumin 3.2 L (3.5-5.0) g/dL
--- NOTE | 2024-07-05 14:00 | P.PN ---
Subjective Progress Note Date: 07/05/24 patient is a 83-year-old lady with past medical history significant for hypertension, hyperlipidemia, hypothyroidism, coronary artery disease who presented to the ER for evaluation for chest pain. Patient is currently resident of [facility], was all right last night when while watching TV she started experiencing chest pain that was central location, pressure-like, radiating to both arms. There was no aggravating or relieving factor associated with this chest pain. Patient was complaining of palpitation and shortness of breath at time. There was no complaint of fever or chills. Patient denies any nausea or vomiting. There was no episode of diaphoresis during this time. Because of chest pain, patient became concerned and decided to come to the ER Initial lab work done in the ER showed WBC 8, hemoglobin 9.6, platelet count 209, sodium 130, potassium 5, BUN 33, creatinine 1.16, troponin 1.930 EKG done in the ER showed heart rate of 134, irregular rhythm and rate, no ST segment elevation or depression seen, no T-wave inversions seen. Chest x-ray done in the ER showed small bilateral pleural effusions and pulmonary vascular congestive changes Patient admitted to internal medicine service 07/02. Patient seen and examined. Blood work done this morning showed WB 6.8, hemoglobin 0.3, sodium 138, potassium 5, BUN 44, creatinine 1.53 .. Vital signs on this morning showed heart rate of 56, respiration 16, blood pressure 124/60. Denies any chest pain. Patient wants to discuss with her niece regarding cardiac cath 07/03. Patient seen and examined.Blood work done this morning showed WB 6.8, hemoglobin 10.2, platelet count 210, sodium 138, potassium 4.4, BUN 42, creatinine 1.34. Currently n.p.o. going for cardiac catheterization today. Denies any chest pain. Shortness of breath. Daughter at the bedside 07/04. Patient seen and examined. Blood work done this morning showed sodium 137, potassium 4.5, BUN 37, creatinine 1.15, GFR 51. Patient was supposed to get cardiac cath yesterday but it was postponed because of some technical issues 07/05. Patient seen and examined. Patient had episode of chest pain overnight, was given Nitropaste. Cardiac cath done yesterday showed 60% ostial LAD disease,Haziness in proximal portion of mid LAD stent which is otherwise patent,70% mid OM 2 disease,100% SECURITY TEAM LEAD RCA unchanged from 2022 . Cardiology p darren staged PCI of LAD and left circumflex tomorrow REVIEW OF SYSTEMS: CONSTITUTIONAL: No fever, no malaise,. CARDIOVASCULAR: No chest pain, no palpitations, no syncope. PULMONARY: No shortness of breath, no cough, GASTROINTESTINAL: No diarrhea, no nausea, no vomiting, no abdominal pain. NEUROLOGICAL: No headaches, no weakness, PHYSICAL EXAMINATION: GENERAL: The patient is alert and oriented x3, not in any acute distress. Ill looking HEENT: Pupils are round and equally reacting to light. EOMI. No scleral icterus. No conjunctival pallor. Normocephalic, atraumatic. No pharyngeal erythema. No thyromegaly. CARDIOVASCULAR: S1 and S2 present. No murmurs, rubs, or gallops. PULMONARY: Chest is clear to auscultation, no wheezing or crackles. ABDOMEN: Soft, nontender, nondistended, normoactive bowel sounds. No palpable organomegaly. MUSCULOSKELETAL: No joint swelling or deformity. EXTREMITIES: No cyanosis, clubbing, or pedal edema. NEUROLOGICAL: Gross neurological examination did not reveal any focal deficits. SKIN: No rashes. Assessment and plan NSTEMI A-fib with RVR Acute heart failure with preserved EF exacerbation History of hypertension History of hypothyroidism History of hyperlipidemia History of coronary artery disease Monitor vital signs Monitor CBC Monitor CMP Continue telemetry monitoring Trend troponin Hold AV pattie blocking agent because of bradycardia Continue pharmacy dose heparin Continue aspirin, Lipitor 2D echo done showed LVEF of 55 to 60%, apical septal hypokinesis, trace mitral regurg and tricuspid regurg Continue Zoloft Continue Synthroid Cardiac cath done yesterday showed 60% ostial LAD disease,Haziness in proximal portion of mid LAD stent which is otherwise patent,70% mid OM 2 disease,100% SECURITY TEAM LEAD RCA unchanged from 2022 . Cardiology planning staged PCI of LAD and left circumflex tomorrow Labs and medication were reviewed.. Continue same treatment. Continue with symptomatic treatment. Resume home medication. Monitor labs and vitals. DVT and GI prophylaxis. Further recommendations as per clinical course of the patient Dictation was produced using [employer] dictation software. please excuse any grammatical, word or spelling errors. Objective - Vital Signs Vital signs: Vital Signs Temp 98.0 F 03/13/25 08:25 Pulse 53 L 07/05/24 11:50 Resp 16 07/05/24 11:50 BP 131/67 07/05/24 11:50 Pulse Ox 95 07/05/24 11:50 FiO2 Intake & Output 07/04/24 07/05/24 07/05/24 18:59 06:59 18:59 Intake Total 260 Output Total 300 Balance 260 -300 Weight 96.5 kg Intake: IV 260 Output: Urine 300 Other: Voiding Method External Catheter External Catheter External Catheter - Labs CBC & Chem 7: 07/05/24 06:55 07/05/24 06:55 Labs: Abnormal Lab Results - Last 24 Hours (Table) 07/05/24 07/05/24 Range/Units 06:55 06:55 RBC 3.07 L (3.80-5.40) m/uL Hgb 9.4 L (11.4-16.0) gm/dL Hct 30.0 L (34.0-46.0) % Carbon Dioxide 34 H (22-30) mmol/L BUN 36 H (7-17) mg/dL Creatinine 1.31 H (0.52-1.04) mg/dL AST 68 H (14-36) U/L ALT 45 H (4-34) U/L Total Protein 5.6 L (6.3-8.2) g/dL Albumin 3.2 L (3.5-5.0) g/dL
[2024-07-06] MEDS: ASPIRIN 325 MG TAB PO ONE (05:20)
[2024-07-06] MEDS: ATORVASTATIN 80 MG TAB PO ONE (05:20)
[2024-07-06 05:48] LABS: Glucose,Whole Blood 179 mg/dL (70-110)
[2024-07-06 07:41] LABS: Basophils % (A) 0 %; Eosinophils # (A) 0.3 k/uL (0-0.7); Eosinophils % (A) 4 %; HCT 30.8 % (34.0-46.0); Hypochromasia Slight; Lymphocytes % (A) 25 %; MCH 31.2 pg (25.0-35.0); MCHC 32.5 g/dL (31.0-37.0); MCV 95.9 fL (80.0-100.0); Monocytes # (A) 0.5 k/uL (0-1.0); Monocytes % (A) 6 %; Neutrophils # (A) 5.2 k/uL (1.3-7.7); Neutrophils % (A) 64 %; Platelet Count 182 k/uL (150-450); RBC 3.21 m/uL (3.80-5.40); RDW 14.4 % (11.5-15.5); WBC 8.2 k/uL (3.8-10.6)
[2024-07-06] MEDS: LIDOCAINE 1% INJ 10MG/ML (20 ML MDV) SQ ONE (07:45)
[2024-07-06 07:46] LABS: ALT 33 U/L (4-34); AST 48 U/L (14-36); African American GFR (CKD) 65 (>60 ml/min/1.73 sqM); Albumin 3.3 g/dL (3.5-5.0); Alkaline Phosphatase 82 U/L (38-126); Anion Gap 3 mmol/L; Blood Urea Nitrogen 30 mg/dL (7-17); Calcium 9.3 mg/dL (8.4-10.2); Carbon Dioxide 33 mmol/L (22-30); Chloride 100 mmol/L (98-107); Glucose 88 mg/dL (74-99); Non-African American GFR(CKD) 56 (>60 ml/min/1.73 sqM); Potassium 4.9 mmol/L (3.5-5.1); Sodium 136 mmol/L (137-145); Total Bilirubin 0.4 mg/dL (0.2-1.3); Total Protein 5.7 g/dL (6.3-8.2)
[2024-07-06] MEDS: TICAGRELOR 90 MG TAB PO ONE (08:02)
[2024-07-06] MEDS: IV FLUID CONTINUATION 1,000 ML IV ONE (08:25)
[2024-07-06] MEDS: HEPARIN SODIUM 1,000 UN/ML (10ML VL) IV ONE (09:00)
[2024-07-06] MEDS: HEPARIN SODIUM,PORCINE 10,000 UNIT in SODIUM CHLORIDE 0.9% 1,000 ML IRRIGATION ONE (09:01)
[2024-07-06] MEDS: HEPARIN SODIUM,PORCINE (1 ML) 2,500 UNIT in SODIUM CHLORIDE 0.9% 250 ML IRRIGATION ONE (09:01)
[2024-07-06] MEDS: MORPHINE SULFATE 4 MG/ML SYRINGE IVP ONE (09:10)
[2024-07-06] MEDS: MIDAZOLAM 2 MG/2 ML VIAL IVP ONE (09:10)
[2024-07-06] MEDS: hydrALAZINE HCL 20 MG/ML 1 ML VIAL IVP ONE (09:15)
[2024-07-06] MEDS: IOPAMIDOL-370 100ML BTL INJ ONE (09:33)
[2024-07-06] MEDS ORDERED: RX INFO: IV CONTRAST WAS GIVEN 1 EACH MISC MISCELLANE PRN (09:35)
[2024-07-06] MEDS ORDERED: ZOLPIDEM 5 MG TAB PO PRN (09:35)
[2024-07-06] MEDS ORDERED: NITROGLYCERIN SL TABS 0.4 MG TAB SUBLINGUAL PRN (09:35)
[2024-07-06] MEDS ORDERED: MAG HYDROX/AL HYDROX/SIMETH 30 ML CUP PO PRN (09:35)
[2024-07-06] MEDS ORDERED: ATROPINE SULFATE 0.1 MG/ML 10ML SYRINGE IV PRN (09:35)
--- NOTE | 2024-07-06 09:39 | P.PCN ---
Date of Procedure: 07/06/24 Operative Findings: PERCUTANEOUS CORONARY INTERVENTION Performing physician Jey Xie M.D. Procedure Performed: 1. Successful stenting of the proximal LCx using 0.25 x 38 mm Xience drug- eluting stent with an excellent angiographic results. 2. Adjunctive use of IVUS 3. Ultrasound-guided access of the right common femoral artery and selective right common femoral artery angiogram Indication: Right common femoral artery Approach: Right common femoral artery Complications: None Level of Sedation: Moderate with a sedation length of 34 minutes Procedure Discussion: Please refer to diagnostic heart catheterization was performed before. The right common femoral artery was cannulated using micropuncture technique under ultrasound guidance a micropuncture wire passed easily then I placed a 6 Macedonian 23 cm sheath at the right common femoral artery. We chose to go from the right common femoral artery because we had a hard time engaging the coronaries from right radial approach few days ago. Anticoagulation was initiated using heparin with continuous ACT monitoring. Subsequently I did engage the left main using JL 3.5 guiding catheter. I did wired the left circumflex using a run-through wire. IVUS was performed that showed a diameter around 3.25 to 3.5 mm. Predilatation was performed using 2.5 mm regular balloon and subsequently 3.0 mm NC balloon before I deployed 3.25 x 38 mm stent which was postdilated using 3.5 mm NC balloon with final angiogram showing excellent angiographic results and the procedure was completed with no complication Postprocedure Management: 1. Dual antiplatelet therapy using aspirin and Brilinta for 12-month 2. Aggressive cholesterol control 3. Risk factors modification
[2024-07-06] MEDS: SODIUM CHLORIDE 0.9% 1,000 ML in EMPTY BAG 1 BAG IV SCH (10:35)
--- NOTE | 2024-07-06 12:44 | P.PN ---
Subjective Progress Note Date: 07/06/24 HISTORY OF PRESENTING ILLNESS: 83-year-old female with past medical history of hypertension, dyslipidemia, hypothyroidism, coronary artery disease presented to the ER because of chest pain. She is a [facility] Last night she was watching TV when she started experiencing substernal chest pressure that was pressure- like sensation radiating to both arms. On admission to ER she had evidence of elevated troponin 1.9, 1.9, 3.8. Creatinine was 1.16, BUN 33, TSH 8, T4 normal, LDL 60, NT-proBNP 15,900, A1c 6, Hb 10 Admission EKG showed atrial fibrillation with RVR. She was given IV Cardizem which converted her out of atrial fibrillation and since then she has been having sinus bradycardia with diffuse T wave inversions. Chest x-ray shows significant pulmonary vascular congestion She is known to Dr. Ellis in office. She has prior history of bradycardia as well. Her last echo from September 2023 shows an EF of 55 to 60%, mild MR, mild TR. Last heart catheter December 2022 shows mild to moderate disease in left main, severe disease in mid LAD, intermediate disease in LCx and FAMILY HELPER of RCA. Patient underwent stenting of LAD at that time. 07/02 Patient seen and examined. Patient has elevated troponins and discussed recommendations for cardiac catheterization. Patient is not sure if she would like to move forward with this. She plans to discuss this with her niece and lj jhaveri a decision. She is maintained on a heparin drip. She is also on IV Lasix 40 mg every 12 hours. She has no lower extremity edema. Blood pressure 124/60, heart rate 56, pulse ox 96% on 2 L nasal cannula. Repeat blood work reveals BUN 44 creatinine 1.53. 07/03 Patient seen and examined. After patient discussed with her niece today, she is agreeable to move forward with cardiac catheterization which will be scheduled today with Dr. Daley. Blood pressure 130/60, heart rate 68, pulse ox 96% on 2 L nasal cannula. Heart rates were in the 40s during the night. She is on IV Lasix which we will transition to oral. Hemoglobin 10.3. BUN 42 creatinine 1.34. Echocardiogram reveals EF of 55 to 60%, trace mitral regurgitation, trace tricuspid regurgitation. 07/05 Yesterday, patient underwent cardiac catheterization with Dr. Daley which revealed 60% ostial LAD disease, haziness in the proximal portion of the LAD stent which is otherwise patent, 70% mid OM 2 disease, 100% FAMILY HELPER of the RCA unch anged from 2022 and moderate disease in the diagonal 2, small caliber but amenable for intervention. Patient subsequently underwent IFR of the LAD and circumflex with plan for staged PCI giving the renal function and limited amount of contrast. Patient will be scheduled for tomorrow with Dr. Xie for PCI. Blood pressure 133/66, heart rate 56, pulse ox 97% on 3 L nasal cannula. Repeat blood work reveals hemoglobin 9.4, BUN 36 creatinine 1.31. 07/06 Patient is at [facility] for PCI. PHYSICAL EXAMINATION: Neck: Brisk carotid upstroke, mildly elevated JVP Lungs: Crackles in bilateral lungs Heart: Regular rate and rhythm, S1-S2, mild systolic murmur audible Abdomen: Soft nontender, positive bowel sounds. Extremities: 1+ pitting edema Neuro: Alert, oritented, no focal deficits. Detailed neuro exam was not performed. ASSESSMENT: # Acute HFpEF exacerbation # NSTEMI # CAD with moderate left main disease, severe disease in mid LAD status post PCI, intermediate disease in LCx, FAMILY HELPER of RCA # Paroxysmal atrial fibrillation # Atrial fibrillation RVR on admission, currently sinus bradycardia # History of bradycardia in past Acute kidney injury PLAN: Continue aspirin, Lipitor, Zetia, nitro paste Continue oral Lasix 40 mg daily Hold beta-angel due to bradycardic rhythm Schedule patient for PCI tomorrow with Dr. Xie Repeat BMP in the morning N.p.o. status after midnight Nurse practitioner note has been reviewed, I agree with documented findings and plan of care. Patient was seen and examined. Objective - Vital Signs Vital signs: Vital Signs Temp 98.1 F 07/06/24 03:09 Pulse 55 L 07/06/24 03:09 Resp 16 07/06/24 03:09 BP 130/76 07/06/24 03:09 Pulse Ox 96 07/06/24 03:09 FiO2 Intake & Output 07/05/24 07/06/24 07/06/24 18:59 06:59 18:59 Output Total 600 350 Balance -600 -350 Output: Urine 600 350 Other: Voiding Method External Catheter External Catheter - Labs CBC & Chem 7: 07/06/24 06:54 07/06/24 06:54 Labs: Abnormal Lab Results - Last 24 Hours (Table) 07/06/24 07/06/24 07/06/24 Range/Units 05:46 06:54 06:54 RBC 3.21 L (3.80-5.40) m/uL Hgb 10.0 L (11.4-16.0) gm/dL Hct 30.8 L (34.0-46.0) % Sodium 136 L (137-145) mmol/L Carbon Dioxide 33 H (22-30) mmol/L BUN 30 H (7-17) mg/dL POC Glucose (mg/dL) 179 H (70-110) mg/dL AST 48 H (14-36) U/L Total Protein 5.7 L (6.3-8.2) g/dL Albumin 3.3 L (3.5-5.0) g/dL
--- NOTE | 2024-07-06 13:28 | P.PN ---
Subjective Progress Note Date: 07/06/24 patient is a 83-year-old lady with past medical history significant for hypertension, hyperlipidemia, hypothyroidism, coronary artery disease who presented to the ER for evaluation for chest pain. Patient is currently resident of [facility], was all right last night when while watching TV she started experiencing chest pain that was central location, pressure-like, radiating to both arms. There was no aggravating or relieving factor associated with this chest pain. Patient was complaining of palpitation and shortness of breath at time. There was no complaint of fever or chills. Patient denies any nausea or vomiting. There was no episode of diaphoresis during this time. Because of chest pain, patient became concerned and decided to come to the ER Initial lab work done in the ER showed WBC 8, hemoglobin 9.6, platelet count 209, sodium 130, potassium 5, BUN 33, creatinine 1.16, troponin 1.930 EKG done in the ER showed heart rate of 134, irregular rhythm and rate, no ST segment elevation or depression seen, no T-wave inversions seen. Chest x-ray done in the ER showed small bilateral pleural effusions and pulmonary vascular congestive changes Patient admitted to internal medicine service 07/02. Patient seen and examined. Blood work done this morning showed WB 6.8, hemoglobin 0.3, sodium 138, potassium 5, BUN 44, creatinine 1.53 .. Vital signs on this morning showed heart rate of 56, respiration 16, blood pressure 124/60. Denies any chest pain. Patient wants to discuss with her niece regarding cardiac cath 07/03. Patient seen and examined.Blood work done this morning showed WB 6.8, hemoglobin 10.2, platelet count 210, sodium 138, potassium 4.4, BUN 42, creatinine 1.34. Currently n.p.o. going for cardiac catheterization today. Denies any chest pain. Shortness of breath. Daughter at the bedside 07/04. Patient seen and examined. Blood work done this morning showed sodium 137, potassium 4.5, BUN 37, creatinine 1.15, GFR 51. Patient was supposed to get cardiac cath yesterday but it was postponed because of some technical issues 07/05. Patient seen and examined. Patient had episode of chest pain overnight, was given Nitropaste. Cardiac cath done yesterday showed 60% ostial LAD disease,Haziness in proximal portion of mid LAD stent which is otherwise patent,70% mid OM 2 disease,100% LEATHER STAKER RCA unchanged from 2022 . Cardiology jer banks staged PCI of LAD and left circumflex tomorrow 07/06. Patient seen and examined. Patient underwent cardiac cath with stenting of left circumflex this morning. Currently doing much better. Denies any chest pain. REVIEW OF SYSTEMS: CONSTITUTIONAL: No fever, no malaise,. CARDIOVASCULAR: No chest pain, no palpitations, no syncope. PULMONARY: No shortness of breath, no cough, GASTROINTESTINAL: No diarrhea, no nausea, no vomiting, no abdominal pain. NEUROLOGICAL: No headaches, no weakness, PHYSICAL EXAMINATION: GENERAL: The patient is alert and oriented x3, not in any acute distress. Ill looking HEENT: Pupils are round and equally reacting to light. EOMI. No scleral icterus. No conjunctival pallor. Normocephalic, atraumatic. No pharyngeal erythema. No thyromegaly. CARDIOVASCULAR: S1 and S2 present. No murmurs, rubs, or gallops. PULMONARY: Chest is clear to auscultation, no wheezing or crackles. ABDOMEN: Soft, nontender, nondistended, normoactive bowel sounds. No palpable organomegaly. MUSCULOSKELETAL: No joint swelling or deformity. EXTREMITIES: No cyanosis, clubbing, or pedal edema. NEUROLOGICAL: Gross neurological examination did not reveal any focal deficits. SKIN: No rashes. Assessment and plan NSTEMI A-fib with RVR Acute heart failure with preserved EF exacerbation History of hypertension History of hypothyroidism History of hyperlipidemia History of coronary artery disease Monitor vital signs Monitor CBC Monitor CMP Continue telemetry monitoring Trend troponin Hold AV pattie blocking agent because of bradycardia Continue pharmacy dose heparin Continue aspirin, Lipitor 2D echo done showed LVEF of 55 to 60%, apical septal hypokinesis, trace mitral regurg and tricuspid regurg Continue Zoloft Continue Synthroid Cardiac cath done on 07/04 showed 60% ostial LAD disease,Haziness in proximal portion of mid LAD stent which is otherwise patent,70% mid OM 2 disease,100% LEATHER STAKER RCA unchanged from 2022 . Status post cardiac cath on 07/06 with Successful stenting of the proximal LCx using 0.25 x 38 mm Xience drug-eluting stent Cardiology following Labs and medication were reviewed.. Continue same treatment. Continue with symptomatic treatment. Resume home medication. Monitor labs and vitals. DVT and GI prophylaxis. Further recommendations as per clinical course of the patient Dictation was produced using [employer] dictation software. please excuse any grammatical, word or spelling errors. Objective - Vital Signs Vital signs: Vital Signs Temp 98.1 F 07/06/24 03:09 Pulse 55 L 07/06/24 03:09 Resp 16 07/06/24 03:09 BP 130/76 07/06/24 03:09 Pulse Ox 96 07/06/24 09:39 FiO2 Intake & Output 07/05/24 07/06/24 07/06/24 18:59 06:59 18:59 Intake Total 100 Output Total 600 350 Balance -600 -350 100 Intake: IV 100 Output: Urine 600 350 Other: Voiding Method External Catheter External Catheter - Labs CBC & Chem 7: 07/06/24 06:54 07/06/24 06:54 Labs: Abnormal Lab Results - Last 24 Hours (Table) 07/06/24 07/06/24 07/06/24 Range/Units 05:46 06:54 06:54 RBC 3.21 L (3.80-5.40) m/uL Hgb 10.0 L (11.4-16.0) gm/dL Hct 30.8 L (34.0-46.0) % Sodium 136 L (137-145) mmol/L Carbon Dioxide 33 H (22-30) mmol/L BUN 30 H (7-17) mg/dL POC Glucose (mg/dL) 179 H (70-110) mg/dL AST 48 H (14-36) U/L Total Protein 5.7 L (6.3-8.2) g/dL Albumin 3.3 L (3.5-5.0) g/dL
[2024-07-06] MEDS: TICAGRELOR 90 MG TAB PO SCH (20:27)
[2024-07-07 09:02] LABS: Basophils % (A) 0 %; Eosinophils # (A) 0.3 k/uL (0-0.7); Eosinophils % (A) 3 %; HCT 34.1 % (34.0-46.0); HGB 10.5 gm/dL (11.4-16.0); Hypochromasia Slight; Lymphocytes # (A) 1.7 k/uL (1.0-4.8); Lymphocytes % (A) 19 %; MCH 30.3 pg (25.0-35.0); MCHC 30.9 g/dL (31.0-37.0); MCV 98.3 fL (80.0-100.0); Mean Platelet Volume 8.8; Monocytes # (A) 0.5 k/uL (0-1.0); Monocytes % (A) 5 %; Neutrophils # (A) 6.1 k/uL (1.3-7.7); Neutrophils % (A) 71 %; Platelet Count 223 k/uL (150-450); RBC 3.47 m/uL (3.80-5.40); RDW 14.8 % (11.5-15.5); WBC 8.7 k/uL (3.8-10.6)
[2024-07-07 09:13] LABS: African American GFR (CKD) 57 (>60 ml/min/1.73 sqM); Anion Gap 8 mmol/L; Blood Urea Nitrogen 27 mg/dL (7-17); Calcium 9.6 mg/dL (8.4-10.2); Carbon Dioxide 33 mmol/L (22-30); Chloride 97 mmol/L (98-107); Glucose 89 mg/dL (74-99); Non-African American GFR(CKD) 49 (>60 ml/min/1.73 sqM); Potassium 4.3 mmol/L (3.5-5.1); Sodium 138 mmol/L (137-145)
--- NOTE | 2024-07-07 11:08 | P.PN ---
Subjective Progress Note Date: 07/07/24 HISTORY OF PRESENTING ILLNESS: 83-year-old female with past medical history of hypertension, dyslipidemia, hypothyroidism, coronary artery disease presented to the ER because of chest pain. She is a resident of a [facility] the [facility]. Last night she was watching TV when she started experiencing substernal chest pressure that was pressure- like sensation radiating to both arms. On admission to ER she had evidence of elevated troponin 1.9, 1.9, 3.8. Creatinine was 1.16, BUN 33, TSH 8, T4 normal, LDL 60, NT-proBNP 15,900, A1c 6, Hb 10 Admission EKG showed atrial fibrillation with RVR. She was given IV Cardizem which converted her out of atrial fibrillation and since then she has been having sinus bradycardia with diffuse T wave inversions. Chest x-ray shows significant pulmonary vascular congestion She is known to Dr. Ellis in office. She has prior history of bradycardia as well. Her last echo from September 2023 shows an EF of 55 to 60%, mild MR, mild TR. Last heart catheter December 2022 shows mild to moderate disease in left main, severe disease in mid LAD, intermediate disease in LCx and TICKET PRINTER AND TAGGER of RCA. Patient underwent stenting of LAD at that time. 07/02 Patient seen and examined. Patient has elevated troponins and discussed recommendations for cardiac catheterization. Patient is not sure if she would like to move forward with this. She plans to discuss this with her niece and lj jhaveri a decision. She is maintained on a heparin drip. She is also on IV Lasix 40 mg every 12 hours. She has no lower extremity edema. Blood pressure 124/60, heart rate 56, pulse ox 96% on 2 L nasal cannula. Repeat blood work reveals BUN 44 creatinine 1.53. 07/03 Patient seen and examined. After patient discussed with her niece today, she is agreeable to move forward with cardiac catheterization which will be scheduled today with Dr. Daley. Blood pressure 130/60, heart rate 68, pulse ox 96% on 2 L nasal cannula. Heart rates were in the 40s during the night. She is on IV Lasix which we will transition to oral. Hemoglobin 10.3. BUN 42 creatinine 1.34. Echocardiogram reveals EF of 55 to 60%, trace mitral regurgitation, trace tricuspid regurgitation. 07/05 Yesterday, patient underwent cardiac catheterization with Dr. Daley which revealed 60% ostial LAD disease, haziness in the proximal portion of the LAD stent which is otherwise patent, 70% mid OM 2 disease, 100% TICKET PRINTER AND TAGGER of the RCA unch anged from 2022 and moderate disease in the diagonal 2, small caliber but amenable for intervention. Patient subsequently underwent IFR of the LAD and circumflex with plan for staged PCI giving the renal function and limited amount of contrast. Patient will be scheduled for tomorrow with Dr. Xie for PCI. Blood pressure 133/66, heart rate 56, pulse ox 97% on 3 L nasal cannula. Repeat blood work reveals hemoglobin 9.4, BUN 36 creatinine 1.31. 07/06 Patient is at [facility]. 07/07 Yesterday, patient underwent PCI with stenting of the proximal left circumflex with recommendations for dual antiplatelet therapy with aspirin and Brilinta for 12 months and aggressive cholesterol control risk factor modification. Patient has had oozing from the groin site overnight and required 3 dressing changes and a Lydia patch was placed. Oozing is now very minimal. She has had no drop in her hemoglobin and repeat is 10.5. Blood pressure 131/78, heart rate 59, pulse ox 97% on 2 L nasal cannula. BUN 27 creatinine 1.06. PHYSICAL EXAMINATION: Neck: Brisk carotid upstroke, mildly elevated JVP Lungs: Crackles in bilateral lungs Heart: Regular rate and rhythm, S1-S2, mild systolic murmur audible Abdomen: Soft nontender, positive bowel sounds. Extremities: 2+ pitting edema Neuro: Alert, oritented, no focal deficits. Detailed neuro exam was not performed. ASSESSMENT: # Acute HFpEF exacerbation # NSTEMI # CAD with moderate left main disease, severe disease in mid LAD status post PCI, intermediate disease in LCx, TICKET PRINTER AND TAGGER of RCA # Paroxysmal atrial fibrillation # Atrial fibrillation RVR on admission, currently sinus bradycardia # History of bradycardia in past Acute kidney injury PLAN: Continue aspirin, Lipitor, Zetia and the addition of Brilinta 90 mg twice daily Continue Lasix 40 mg oral daily Discontinue Nitropaste Hold beta-angel due to bradycardic rhythm Further recommendations as patient progresses. Nurse practitioner note has been reviewed, I agree with documented findings and plan of care. Patient was seen and examined. Objective - Vital Signs Vital signs: Vital Signs Temp 97.6 F 07/07/24 07:22 Pulse 59 L 07/07/24 07:23 Resp 18 07/07/24 07:22 BP 131/78 07/07/24 07:22 Pulse Ox 97 07/07/24 07:22 FiO2 Intake & Output 07/06/24 07/07/24 07/07/24 18:59 06:59 18:59 Intake Total 220 118 Output Total 800 0 Balance -580 0 118 Weight 98.5 kg Intake: IV 100 Oral 120 118 Output: Urine 800 0 Other: Voiding Method External Catheter External Catheter External Catheter # Voids 1 - Labs CBC & Chem 7: 07/07/24 07:40 07/07/24 07:40 Labs: Abnormal Lab Results - Last 24 Hours (Table) 07/07/24 07/07/24 Range/Units 07:40 07:40 RBC 3.47 L (3.80-5.40) m/uL Hgb 10.5 L (11.4-16.0) gm/dL MCHC 30.9 L (31.0-37.0) g/dL Chloride 97 L (98-107) mmol/L Carbon Dioxide 33 H (22-30) mmol/L BUN 27 H (7-17) mg/dL Creatinine 1.06 H (0.52-1.04) mg/dL
[2024-07-07 14:19] VITALS: BMI 41.7
--- NOTE | 2024-07-07 16:14 | P.PN ---
Subjective Progress Note Date: 07/07/24 patient is a 83-year-old lady with past medical history significant for hypertension, hyperlipidemia, hypothyroidism, coronary artery disease who presented to the ER for evaluation for chest pain. Patient is currently resident of [facility], was all right last night when while watching TV she started experiencing chest pain that was central location, pressure-like, radiating to both arms. There was no aggravating or relieving factor associated with this chest pain. Patient was complaining of palpitation and shortness of breath at time. There was no complaint of fever or chills. Patient denies any nausea or vomiting. There was no episode of diaphoresis during this time. Because of chest pain, patient became concerned and decided to come to the ER Initial lab work done in the ER showed WBC 8, hemoglobin 9.6, platelet count 209, sodium 130, potassium 5, BUN 33, creatinine 1.16, troponin 1.930 EKG done in the ER showed heart rate of 134, irregular rhythm and rate, no ST segment elevation or depression seen, no T-wave inversions seen. Chest x-ray done in the ER showed small bilateral pleural effusions and pulmonary vascular congestive changes Patient admitted to internal medicine service 07/02. Patient seen and examined. Blood work done this morning showed WB 6.8, hemoglobin 0.3, sodium 138, potassium 5, BUN 44, creatinine 1.53 .. Vital signs on this morning showed heart rate of 56, respiration 16, blood pressure 124/60. Denies any chest pain. Patient wants to discuss with her niece regarding cardiac cath 07/03. Patient seen and examined.Blood work done this morning showed WB 6.8, hemoglobin 10.2, platelet count 210, sodium 138, potassium 4.4, BUN 42, creatinine 1.34. Currently n.p.o. going for cardiac catheterization today. Denies any chest pain. Shortness of breath. Daughter at the bedside 07/04. Patient seen and examined. Blood work done this morning showed sodium 137, potassium 4.5, BUN 37, creatinine 1.15, GFR 51. Patient was supposed to get cardiac cath yesterday but it was postponed because of some technical issues 07/05. Patient seen and examined. Patient had episode of chest pain overnight, was given Nitropaste. Cardiac cath done yesterday showed 60% ostial LAD disease,Haziness in proximal portion of mid LAD stent which is otherwise patent,70% mid OM 2 disease,100% MOBILE PET GROOMER RCA unchanged from [address] anning staged PCI of LAD and left circumflex tomorrow 07/06. Patient seen and examined. Patient underwent cardiac cath with stenting of left circumflex this morning. Currently doing much better. Denies any chest pain. 07/06/2024 Patient evaluated today in follow-up on the medical floor currently resting in bed. She is continuing to report some right-sided chest discomfort and states that is radiating to the back. She is status post cardiac catheterization with stenting to the left circumflex. Patient hemoglobin main stable and her groin site stabilized with minimal oozing from the puncture. Patient recommended for dual antiplatelet therapy with aspirin and Brilinta for 12 months as well as aggressive cholesterol control. Labs today reveal a BUN of 27 creatinine of 1.06. REVIEW OF SYSTEMS: CONSTITUTIONAL: No fever, no malaise,. CARDIOVASCULAR: No chest pain, no palpitations, no syncope. PULMONARY: No shortness of breath, no cough, GASTROINTESTINAL: No diarrhea, no nausea, no vomiting, no abdominal pain. NEUROLOGICAL: No headaches, no weakness, PHYSICAL EXAMINATION: GENERAL: The patient is alert and oriented x3, not in any acute distress. Ill looking HEENT: Pupils are round and equally reacting to light. EOMI. No scleral icterus. No conjunctival pallor. Normocephalic, atraumatic. No pharyngeal erythema. No thyromegaly. CARDIOVASCULAR: S1 and S2 present. No murmurs, rubs, or gallops. PULMONARY: Chest is clear to auscultation, no wheezing or crackles. ABDOMEN: Soft, nontender, nondistended, normoactive bowel sounds. No palpable organomegaly. MUSCULOSKELETAL: No joint swelling or deformity. EXTREMITIES: No cyanosis, clubbing, or pedal edema. NEUROLOGICAL: Gross neurological examination did not reveal any focal deficits. Diffuse weakness and patient is bedbound at rest SKIN: No rashes. Assessment and plan NSTEMI Status post cardiac catheterization with stenting of the left circumflex A-fib with RVR Acute heart failure with preserved EF exacerbation History of hypertension History of hypothyroidism History of hyperlipidemia History of coronary artery disease Chronic medical debility patient is bedbound at rest Monitor vital signs Monitor CBC Monitor CMP Continue telemetry monitoring Hold AV pattie blocking agent because of bradycardia Continue aspirin, Lipitor 2D echo done showed LVEF of 55 to 60%, apical septal hypokinesis, trace mitral regurg and tricuspid regurg Continue Zoloft Continue Synthroid Cardiac cath done on 07/04 showed 60% ostial LAD disease,Haziness in proximal portion of mid LAD stent which is otherwise patent,70% mid OM 2 disease,100% MOBILE PET GROOMER RCA unchanged from 2022 . Status post cardiac cath on 07/06 with Successful stenting of the proximal LCx using 0.25 x 38 mm Xience drug-eluting stent Cardiology following Patient will be returned to [facility] on discharge she is a long-term resident Labs and medication were reviewed.. Continue same treatment. Continue with symptomatic treatment. Resume home medication. Monitor labs and vitals. DVT and GI prophylaxis. Further recommendations as per clinical course of the patient Dictation was produced using [employer] dictation software. please excuse any grammatical, word or spelling errors. Objective - Vital Signs Vital signs: Vital Signs Temp 97.4 F L 07/07/24 11:26 Pulse 79 07/07/24 13:30 Resp 18 07/07/24 11:26 BP 116/72 07/07/24 11:26 Pulse Ox 98 07/07/24 11:26 FiO2 Intake & Output 07/06/24 07/07/24 07/07/24 18:59 06:59 18:59 Intake Total 220 118 Output Total 800 0 400 Balance -580 0 -282 Weight 98.5 kg 98.5 kg Intake: IV 100 Oral 120 118 Output: Urine 800 0 400 Other: Voiding Method External Catheter External Catheter External Catheter # Voids 1 - Labs CBC & Chem 7: 07/07/24 07:40 07/07/24 07:40 Labs: Abnormal Lab Results - Last 24 Hours (Table) 07/07/24 07/07/24 Range/Units 07:40 07:40 RBC 3.47 L (3.80-5.40) m/uL Hgb 10.5 L (11.4-16.0) gm/dL MCHC 30.9 L (31.0-37.0) g/dL Chloride 97 L (98-107) mmol/L Carbon Dioxide 33 H (22-30) mmol/L BUN 27 H (7-17) mg/dL Creatinine 1.06 H (0.52-1.04) mg/dL Assessment and Plan Time with Patient: Less than 30
[2024-07-07 18:05] LABS: INR 0.9 (<1.2); Prothrombin Time 10.3 sec (10.0-12.5)
[2024-07-08 06:42] LABS: HCT 30.9 % (34.0-46.0); HGB 9.8 gm/dL (11.4-16.0); MCH 30.6 pg (25.0-35.0); MCHC 31.7 g/dL (31.0-37.0); MCV 96.6 fL (80.0-100.0); Mean Platelet Volume 8.6; Platelet Count 228 k/uL (150-450); RDW 14.9 % (11.5-15.5); WBC 6.4 k/uL (3.8-10.6)
[2024-07-08 06:59] LABS: African American GFR (CKD) 55 (>60 ml/min/1.73 sqM); Anion Gap 4 mmol/L; Blood Urea Nitrogen 25 mg/dL (7-17); Calcium 9.2 mg/dL (8.4-10.2); Carbon Dioxide 33 mmol/L (22-30); Chloride 98 mmol/L (98-107); Glucose 95 mg/dL (74-99); Non-African American GFR(CKD) 48 (>60 ml/min/1.73 sqM); Potassium 4.5 mmol/L (3.5-5.1); Sodium 135 mmol/L (137-145)
--- NOTE | 2024-07-08 11:42 | P.PN ---
Subjective Progress Note Date: 07/08/24 HISTORY OF PRESENTING ILLNESS: 83-year-old female with past medical history of hypertension, dyslipidemia, hypothyroidism, coronary artery disease presented to the ER because of chest pain. She is a resident of a [facility] the [facility]. Last night she was watching TV when she started experiencing substernal chest pressure that was pressure- like sensation radiating to both arms. On admission to ER she had evidence of elevated troponin 1.9, 1.9, 3.8. Creatinine was 1.16, BUN 33, TSH 8, T4 normal, LDL 60, NT-proBNP 15,900, A1c 6, Hb 10 Admission EKG showed atrial fibrillation with RVR. She was given IV Cardizem which converted her out of atrial fibrillation and since then she has been having sinus bradycardia with diffuse T wave inversions. Chest x-ray shows significant pulmonary vascular congestion She is known to Dr. Ellis in office. She has prior history of bradycardia as well. Her last echo from September 2023 shows an EF of 55 to 60%, mild MR, mild TR. Last heart catheter December 2022 shows mild to moderate disease in left main, severe disease in mid LAD, intermediate disease in LCx and MOTOR EQUIPMENT CAPTAIN of RCA. Patient underwent stenting of LAD at that time. 07/02 Patient seen and examined. Patient has elevated troponins and discussed recommendations for cardiac catheterization. Patient is not sure if she would like to move forward with this. She plans to discuss this with her niece and lj jhaveri a decision. She is maintained on a heparin drip. She is also on IV Lasix 40 mg every 12 hours. She has no lower extremity edema. Blood pressure 124/60, heart rate 56, pulse ox 96% on 2 L nasal cannula. Repeat blood work reveals BUN 44 creatinine 1.53. 07/03 Patient seen and examined. After patient discussed with her niece today, she is agreeable to move forward with cardiac catheterization which will be scheduled today with Dr. Daley. Blood pressure 130/60, heart rate 68, pulse ox 96% on 2 L nasal cannula. Heart rates were in the 40s during the night. She is on IV Lasix which we will transition to oral. Hemoglobin 10.3. BUN 42 creatinine 1.34. Echocardiogram reveals EF of 55 to 60%, trace mitral regurgitation, trace tricuspid regurgitation. 07/05 Yesterday, patient underwent cardiac catheterization with Dr. Daley which revealed 60% ostial LAD disease, haziness in the proximal portion of the LAD stent which is otherwise patent, 70% mid OM 2 disease, 100% MOTOR EQUIPMENT CAPTAIN of the RCA unch anged from 2022 and moderate disease in the diagonal 2, small caliber but amenable for intervention. Patient subsequently underwent IFR of the LAD and circumflex with plan for staged PCI giving the renal function and limited amount of contrast. Patient will be scheduled for tomorrow with Dr. Xie for PCI. Blood pressure 133/66, heart rate 56, pulse ox 97% on 3 L nasal cannula. Repeat blood work reveals hemoglobin 9.4, BUN 36 creatinine 1.31. 07/06 Patient is at [facility] for [facility]. 07/07 Yesterday, patient underwent PCI with stenting of the proximal left circumflex with recommendations for dual antiplatelet therapy with aspirin and Brilinta for 12 months and aggressive cholesterol control risk factor modification. Patient has had oozing from the groin site overnight and required 3 dressing changes and a Lydia patch was placed. Oozing is now very minimal. She has had no drop in her hemoglobin and repeat is 10.5. Blood pressure 131/78, heart rate 59, pulse ox 97% on 2 L nasal cannula. BUN 27 creatinine 1.06. 07/08 Patient seen and examined. She denies chest pain or chest pressure and added beta-angel. Blood pressure 132/81, heart rate 60, pulse ox 93% on 2 L nasal cannula. Right groin is no longer having any blood oozing. Yesterday we discontinued Nitropaste. Repeat blood work reveals hemoglobin 9.8, BUN 25 creatinine 1.08 PHYSICAL EXAMINATION: Neck: Brisk carotid upstroke, mildly elevated JVP Lungs: Diminished breath sounds. Heart: Regular rate and rhythm, S1-S2, mild systolic murmur audible Abdomen: Soft nontender, positive bowel sounds. Extremities: 2+ pitting edema Neuro: Alert, oritented, no focal deficits. Detailed neuro exam was not performed. ASSESSMENT: Acute HFpEF exacerbation NSTEMI CAD with moderate left main disease, severe disease in mid LAD status post PCI, intermediate disease in LCx, MOTOR EQUIPMENT CAPTAIN of RCA status post cardiac cath on 07/04 Status post PCI of the proximal left circumflex on 07/06 Paroxysmal atrial fibrillation Atrial fibrillation RVR on admission, currently sinus rhythm History of bradycardia in past Acute kidney injury, improved PLAN: Continue aspirin, Lipitor, Zetia and the addition of Brilinta 90 mg twice daily Continue Lasix 40 mg oral daily Patient is not on a beta-angel due to bradycardia Patient is cleared for discharge from cardiology perspective. Patient will follow-up with Dr. Daley. Patient is returning to intermediate. Nurse practitioner note has been reviewed, I agree with documented findings and plan of care. Patient was seen and examined. Objective - Vital Signs Vital signs: Vital Signs Temp 98.0 F 07/08/24 07:22 Pulse 60 07/08/24 07:23 Resp 18 07/08/24 07:22 BP 116/68 07/08/24 07:22 Pulse Ox 95 07/08/24 07:22 FiO2 Intake & Output 07/07/24 07/08/24 07/08/24 18:59 06:59 18:59 Intake Total 318 20 250 Output Total 1000 0 200 Balance -682 20 50 Weight 98.5 kg Intake: IV 20 10 Invasive Line 3 20 10 Oral 318 240 Output: Urine 1000 0 200 Other: Voiding Method External Catheter External Catheter External Catheter - Labs CBC & Chem 7: 07/08/24 06:21 07/08/24 06:21 Labs: Abnormal Lab Results - Last 24 Hours (Table) 07/08/24 07/08/24 Range/Units 06:21 06:21 RBC 3.20 L (3.80-5.40) m/uL Hgb 9.8 L (11.4-16.0) gm/dL Hct 30.9 L (34.0-46.0) % Sodium 135 L (137-145) mmol/L Carbon Dioxide 33 H (22-30) mmol/L BUN 25 H (7-17) mg/dL Creatinine 1.08 H (0.52-1.04) mg/dL
--- NOTE | 2024-07-08 14:24 | P.PN ---
Subjective Progress Note Date: 07/08/24 patient is a 83-year-old lady with past medical history significant for hypertension, hyperlipidemia, hypothyroidism, coronary artery disease who presented to the ER for evaluation for chest pain. Patient is currently resident of [facility], was all right last night when while watching TV she started experiencing chest pain that was central location, pressure-like, radiating to both arms. There was no aggravating or relieving factor associated with this chest pain. Patient was complaining of palpitation and shortness of breath at time. There was no complaint of fever or chills. Patient denies any nausea or vomiting. There was no episode of diaphoresis during this time. Because of chest pain, patient became concerned and decided to come to the ER Initial lab work done in the ER showed WBC 8, hemoglobin 9.6, platelet count 209, sodium 130, potassium 5, BUN 33, creatinine 1.16, troponin 1.930 EKG done in the ER showed heart rate of 134, irregular rhythm and rate, no ST segment elevation or depression seen, no T-wave inversions seen. Chest x-ray done in the ER showed small bilateral pleural effusions and pulmonary vascular congestive changes Patient admitted to internal medicine service 07/02. Patient seen and examined. Blood work done this morning showed WB 6.8, hemoglobin 0.3, sodium 138, potassium 5, BUN 44, creatinine 1.53 .. Vital signs on this morning showed heart rate of 56, respiration 16, blood pressure 124/60. Denies any chest pain. Patient wants to discuss with her niece regarding cardiac cath 07/03. Patient seen and examined.Blood work done this morning showed WB 6.8, hemoglobin 10.2, platelet count 210, sodium 138, potassium 4.4, BUN 42, creatinine 1.34. Currently n.p.o. going for cardiac catheterization today. Denies any chest pain. Shortness of breath. Daughter at the bedside 07/04. Patient seen and examined. Blood work done this morning showed sodium 137, potassium 4.5, BUN 37, creatinine 1.15, GFR 51. Patient was supposed to get cardiac cath yesterday but it was postponed because of some technical issues 07/05. Patient seen and examined. Patient had episode of chest pain overnight, was given Nitropaste. Cardiac cath done yesterday showed 60% ostial LAD disease,Haziness in proximal portion of mid LAD stent which is otherwise patent,70% mid OM 2 disease,100% MINE ENGINEERING SUPERINTENDENT RCA unchanged from [address] anning staged PCI of LAD and left circumflex tomorrow 07/06. Patient seen and examined. Patient underwent cardiac cath with stenting of left circumflex this morning. Currently doing much better. Denies any chest pain. 07/07/2024 Patient evaluated today in follow-up on the medical floor currently resting in bed. She is continuing to report some right-sided chest discomfort and states that is radiating to the back. She is status post cardiac catheterization with stenting to the left circumflex. Patient hemoglobin main stable and her groin site stabilized with minimal oozing from the puncture. Patient recommended for dual antiplatelet therapy with aspirin and Brilinta for 12 months as well as aggressive cholesterol control. Labs today reveal a BUN of 27 creatinine of 1.06. 07/08/2024 Patient is evaluated in follow-up in the medical floor. Patient is currently resting in bed comfortably. She reports no further chest discomfort. She is status post tenting of the left circumflex. [facility] and can likely discharge home tomorrow. Her labs today reveal a white blood cell count 6.4, hemoglobin 9.8, sodium of 135, BUN of 25 creatinine of 1.08. Patient is afebrile and she is 93% on 2 L of oxygen via nasal cannula. REVIEW OF SYSTEMS: CONSTITUTIONAL: No fever, no malaise,. CARDIOVASCULAR: No chest pain, no palpitations, no syncope. PULMONARY: No shortness of breath, no cough, GASTROINTESTINAL: No diarrhea, no nausea, no vomiting, no abdominal pain. NEUROLOGICAL: No headaches, no weakness, PHYSICAL EXAMINATION: GENERAL: The patient is alert and oriented x3, not in any acute distress. Ill looking HEENT: Pupils are round and equally reacting to light. EOMI. No scleral icterus. No conjunctival pallor. Normocephalic, atraumatic. No pharyngeal erythema. No thyromegaly. CARDIOVASCULAR: S1 and S2 present. No murmurs, rubs, or gallops. PULMONARY: Chest is clear to auscultation, no wheezing or crackles. ABDOMEN: Soft, nontender, nondistended, normoactive bowel sounds. No palpable organomegaly. MUSCULOSKELETAL: No joint swelling or deformity. EXTREMITIES: No cyanosis, clubbing, or pedal edema. NEUROLOGICAL: Gross neurological examination did not reveal any focal deficits. Diffuse weakness and patient is bedbound at rest SKIN: No rashes. Assessment and plan NSTEMI Status post cardiac catheterization with stenting of the left circumflex A-fib with RVR Acute heart failure with preserved EF exacerbation History of hypertension History of hypothyroidism History of hyperlipidemia History of coronary artery disease Chronic medical debility patient is bedbound at rest Monitor vital signs Monitor CBC Monitor CMP Continue telemetry monitoring Hold AV pattie blocking agent because of bradycardia Continue aspirin, Lipitor 2D echo done showed LVEF of 55 to 60%, apical septal hypokinesis, trace mitral regurg and tricuspid regurg Continue Zoloft Continue Synthroid Cardiac cath done on 07/04 showed 60% ostial LAD disease,Haziness in proximal portion of mid LAD stent which is otherwise patent,70% mid OM 2 disease,100% MINE ENGINEERING SUPERINTENDENT RCA unchanged from 2022 . Status post cardiac cath on 07/06 with Successful stenting of the proximal LCx using 0.25 x 38 mm Xience drug-eluting stent Cardiology following Patient will be returned to [facility] on discharge she is a long-term resident Labs and medication were reviewed.. Continue same treatment. Continue with symptomatic treatment. Resume home medication. Monitor labs and vitals. DVT and GI prophylaxis. Further recommendations as per clinical course of the patient Dictation was produced using [employer] dictation software. please excuse any grammatical, word or spelling errors. Objective - Vital Signs Vital signs: Vital Signs Temp 98.0 F 07/08/24 07:22 Pulse 60 07/08/24 07:23 Resp 18 07/08/24 07:22 BP 116/68 07/08/24 07:22 Pulse Ox 95 07/08/24 07:22 FiO2 Intake & Output 07/07/24 07/08/24 07/08/24 18:59 06:59 18:59 Intake Total 318 20 250 Output Total 1000 0 200 Balance -682 20 50 Weight 98.5 kg Intake: IV 20 10 Invasive Line 3 20 10 Oral 318 240 Output: Urine 1000 0 200 Other: Voiding Method External Catheter External Catheter External Catheter - Labs CBC & Chem 7: 07/08/24 06:21 07/08/24 06:21 Labs: Abnormal Lab Results - Last 24 Hours (Table) 07/07/24 07/08/24 07/08/24 Range/Units 07:40 06:21 06:21 RBC 3.20 L (3.80-5.40) m/uL Hgb 9.8 L (11.4-16.0) gm/dL Hct 30.9 L (34.0-46.0) % Sodium 135 L (137-145) mmol/L Chloride 97 L (98-107) mmol/L Carbon Dioxide 33 H 33 H (22-30) mmol/L BUN 27 H 25 H (7-17) mg/dL Creatinine 1.06 H 1.08 H (0.52-1.04) mg/dL Assessment and Plan Time with Patient: Less than 30
[2024-07-09 06:29] LABS: African American GFR (CKD) 62 (>60 ml/min/1.73 sqM); Anion Gap 4 mmol/L; Blood Urea Nitrogen 24 mg/dL (7-17); Calcium 9.2 mg/dL (8.4-10.2); Carbon Dioxide 33 mmol/L (22-30); Chloride 97 mmol/L (98-107); Glucose 94 mg/dL (74-99); Non-African American GFR(CKD) 53 (>60 ml/min/1.73 sqM); Potassium 4.3 mmol/L (3.5-5.1); Sodium 134 mmol/L (137-145)
--- NOTE | 2024-07-09 07:31 | XR ---
EXAMINATION TYPE: XR chest 2V DATE OF EXAM: 07/09/2024 7:27 AM COMPARISON: 06/30/2024 CLINICAL INDICATION: Female, 83 years old with history of hypoxia; H TECHNIQUE: XR chest 2V Frontal and lateral views of the chest. FINDINGS: Lungs/Pleura: Elevated right diaphragm. Airspace opacities projecting over the spine. There is no ludivina dence of pleural effusion, focal consolidation, or pneumothorax. Pulmonary vascularity: Unremarkable. Heart/mediastinum: Cardiomediastinal silhouette is unremarkable. Musculoskeletal: No acute osseous pathology. IMPRESSION: Elevated right diaphragm withe airspace opacities projecting over the spine correlate for pneumonia [facility] Freddy Calloway, , 07/09/2024 7:29 AM
[2024-07-09 10:55] VITALS: TEMP 97.6
--- NOTE | 2024-07-09 12:08 | P.PN ---
Subjective HISTORY OF PRESENT ILLNESS: 83-year-old female with past medical history of hypertension, dyslipidemia, hypothyroidism, coronary artery disease presented to the ER because of chest pain. She is a resident of a [facility]. Last night she was watching TV when she started experiencing substernal chest pressure that was pressure- like sensation radiating to both arms. On admission to ER she had evidence of elevated troponin 1.9, 1.9, 3.8. Creatinine was 1.16, BUN 33, TSH 8, T4 normal, LDL 60, NT-proBNP 15,900, A1c 6, Hb 10 Admission EKG showed atrial fibrillation with RVR. She was given IV Cardizem which converted her out of atrial fibrillation and since then she has been having sinus bradycardia with diffuse T wave inversions. Chest x-ray shows significant pulmonary vascular congestion She is known to Dr. Ellis in office. She has prior history of bradycardia as well. Her last echo from September 2023 shows an EF of 55 to 60%, mild MR, mild TR. 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 Patient underwent stenting of LAD at that time. 07/02 Patient seen and examined. Patient has elevated troponins and discussed r ecommendations for cardiac catheterization. Patient is not sure if she would like to move forward with this. She plans to discuss this with her niece and make a decision. She is maintained on a heparin drip. She is also on IV Lasix 40 mg every 12 hours. She has no lower extremity edema. Blood pressure 124/60, heart rate 56, pulse ox 96% on 2 L nasal cannula. Repeat blood work reveals BUN 44 creatinine 1.53. 07/03 Patient seen and examined. After patient discussed with her niece today, she is agreeable to move forward with cardiac catheterization which will be scheduled today with Dr. Daley. Blood pressure 130/60, heart rate 68, pulse ox 96% on 2 L nasal cannula. Heart rates were in the 40s during the night. She is on IV Lasix which we will transition to oral. Hemoglobin 10.3. BUN 42 creatinine 1.34. Echocardiogram reveals EF of 55 to 60%, trace mitral regurgitation, trace tri cuspid regurgitation. 07/05 Yesterday, patient underwent cardiac catheterization with Dr. Daley which revealed 60% ostial LAD disease, haziness in the proximal portion of the LAD stent which is otherwise patent, 70% mid OM 2 disease, 100% STRAW HAT WASHER OPERATOR of the RCA unchanged from 2022 and moderate disease in the diagonal 2, small caliber but amenable for intervention. Patient subsequently underwent IFR of the LAD and circumflex with plan for staged PCI giving the renal function and limited amount of contrast. Patient will be scheduled for tomorrow with Dr. Xie for PCI. Blood pressure 133/66, heart rate 56, pulse ox 97% on 3 L nasal cannula. Repeat blood work reveals hemoglobin 9.4, BUN 36 creatinine 1.31. 07/06 Patient is at [facility] for PCI. 07/07 Yesterday, patient underwent PCI with stenting of the proximal left circumflex with recommendations for dual antiplatelet therapy with aspirin and Brilinta for 12 months and aggressive cholesterol control risk factor modification. Patient has had oozing from the groin site overnight and required 3 dressing changes and a Lydia patch was placed. Oozing is now very minimal. She has had no drop in her hemoglobin and repeat is 10.5. Blood pressure 131/78, heart rate 59, pulse ox 97% on 2 L nasal cannula. BUN 27 creatinine 1.06. 07/08 Patient seen and examined. She denies chest pain or chest pressure and added beta-angel. Blood pressure 132/81, heart rate 60, pulse ox 93% on 2 L nasal cannula. Right groin is no longer having any blood oozing. Yesterday we discontinued Nitropaste. Repeat blood work reveals hemoglobin 9.8, BUN 25 cr eatinine 1.08 PHYSICAL EXAM: VITAL SIGNS: Reviewed. GENERAL: Well-developed in no acute distress. NECK: Supple. No JVD or thyromegaly LUNGS: Respirations even and unlabored. Lungs essentially clear to auscultation bilaterally. HEART: Regular rate and rhythm. S1 and S2 heard. EXTREMITIES: Normal range of motion. No clubbing or cyanosis. Peripheral pulses intact. No lower extremity edema ASSESSMENT: Acute HFpEF exacerbation NSTEMI CAD with moderate left main disease, severe disease in mid LAD status post PCI, intermediate disease in LCx, STRAW HAT WASHER OPERATOR of RCA status post cardiac cath on 07/04 Status post PCI of the proximal left circumflex on 07/06 Paroxysmal atrial fibrillation Atrial fibrillation RVR on admission, currently sinus rhythm History of bradycardia in past Acute kidney injury, improved PLAN: Continue dual antiplatelet therapy with aspirin and Brilinta for 12 months Continue high intensity statin. LDL goal less than 70 Add Eliquis 2.5 mg twice a day (decreased dose due to aspirin and brilinta) Continue additional cardiac medications including Zetia and Lasix Patient is not on a beta-angel due to bradycardia Patient is stable for discharge to [facility] from a cardiac standpoint Patient to follow-up postdischarge in the office with Dr. Daley We will sign off. Please reconsult if needed. Nurse practitioner note has been reviewed by physician. Signing provider agrees with the documented findings, assessment, and plan of care documented by HEALTH AND SAFETY TECHNICIAN as a scribe. Objective - Vital Signs Vital signs: Vital Signs Temp 97.6 F 07/09/24 10:47 Pulse 79 07/09/24 10:47 Resp 18 07/09/24 10:47 BP 136/69 07/09/24 10:47 Pulse Ox 94 L 07/09/24 10:47 FiO2 Intake & Output 07/08/24 07/09/24 07/09/24 18:59 06:59 18:59 Intake Total 620 240 Output Total 1250 200 200 Balance -630 -200 40 Weight 98.5 kg Intake: IV 20 Invasive Line 3 20 Oral 600 240 Output: Urine 1250 200 200 Other: Voiding Method External Catheter External Catheter External Catheter - Labs CBC & Chem 7: 07/08/24 06:21 07/09/24 05:47 Labs: Abnormal Lab Results - Last 24 Hours (Table) 07/09/24 Range/Units 05:47 Sodium 134 L (137-145) mmol/L Chloride 97 L (98-107) mmol/L Carbon Dioxide 33 H (22-30) mmol/L BUN 24 H (7-17) mg/dL
[2024-07-09] MEDS ORDERED: APIXABAN 5 MG TAB PO SCH (12:15)
[2024-07-09] MEDS: APIXABAN 2.5 MG TABLET PO SCH (12:22)
[2024-07-09 15:05] VITALS: BP 134/72; PULSE 72; RESP 15
--- NOTE | 2024-07-09 15:26 | P.DS ---
Providers Date of admission: 06/30/24 18:49 Expected date of discharge: 07/09/24 Attending physician: Hilaria Pal Primary care physician: Severo Campbell Hospital Course: Final diagnosis NSTEMI Status post cardiac catheterization with stenting of the left circumflex A-fib with RVR, currently rate controlled Acute heart failure with preserved EF exacerbation History of hypertension History of hypothyroidism History of hyperlipidemia History of coronary artery disease Chronic medical debility patient is bedbound at rest Morbid obesity with a BMI of 41.7 GI prophylaxis DVT prophylaxis Full code Discharge disposition Patient is being discharged in a stable condition with guarded prognosis to [facility]. Patient will follow-up with Dr. Campbell in the outpatient setting upon discharge. Patient is to continue with current medications and close outpatient follow-up with cardiology Dr. Daley as scheduled. Total time taken is greater than 35 minutes. Hospital course Patient is a 83-year-old lady with past medical history significant for hypertension, hyperlipidemia, hypothyroidism, coronary artery disease who presented to the ER for evaluation for chest pain. Patient is currently resident of [facility], was all right last night when while watching TV she started experiencing chest pain that was central location, pressure-like, radiating to both arms. There was no aggravating or relieving factor associated with this chest pain. Patient was complaining of palpitation and shortness of breath at time. There was no complaint of fever or chills. Patient denies any nausea or vomiting. There was no episode of diaphoresis during this time. Because of chest pain, patient became concerned and decided to come to the ER Initial lab work done in the ER showed WBC 8, hemoglobin 9.6, platelet count 2 09, sodium 130, potassium 5, BUN 33, creatinine 1.16, troponin 1.930 EKG done in the ER showed heart rate of 134, irregular rhythm and rate, no ST segment elevation or depression seen, no T-wave inversions seen. Chest x-ray done in the ER showed small bilateral pleural effusions and pulmonary vascular congestive changes Patient admitted to internal medicine service 07/02. Patient seen and examined. Blood work done this morning showed WB 6.8, hemoglobin 0.3, sodium 138, potassium 5, BUN 44, creatinine 1.53 .. Vital signs on this morning showed heart rate of 56, respiration 16, blood pressure 124/60. Denies any chest pain. Patient wants to discuss with her niece regarding cardiac cath 07/03. Patient seen and examined.Blood work done this morning showed WB 6.8, hemoglobin 10.2, platelet count 210, sodium 138, potassium 4.4, BUN 42, creatinine 1.34. Currently n.p.o. going for cardiac catheterization today. Denies any chest pain. Shortness of breath. Daughter at the bedside 07/04. Patient seen and examined. Blood work done this morning showed sodium 137, potassium 4.5, BUN 37, creatinine 1.15, GFR 51. Patient was supposed to get cardiac cath yesterday but it was postponed because of some technical issues 07/05. Patient seen and examined. Patient had episode of chest pain overnight, was given Nitropaste. Cardiac cath done yesterday showed 60% ostial LAD disease,Haziness in proximal portion of mid LAD stent which is otherwise patent,70% mid OM 2 disease,100% [employer] RCA unchanged from 2022 . Cardiology planning staged PCI of LAD and left circumflex tomorrow 07/06. Patient seen and examined. Patient underwent cardiac cath with stenting of left circumflex this morning. Currently doing much better. Denies any chest pain. 07/07/2024 Patient evaluated today in follow-up on the medical floor currently resting in bed. She is continuing to report some right-sided chest discomfort and states that is radiating to the back. She is status post cardiac catheterization with stenting to the left circumflex. Patient hemoglobin main stable and her groin site stabilized with minimal oozing from the puncture. Patient recommended for dual antiplatelet therapy with aspirin and Brilinta for 12 months as well as aggressive cholesterol control. Labs today reveal a BUN of 27 creatinine of 1.06. 07/08/2024 Patient is evaluated in follow-up in the medical floor. Patient is currently resting in bed comfortably. She reports no further chest discomfort. She is status post tenting of the left circumflex. [facility] and can likely discharge home tomorrow. Her labs today reveal a white blood cell count 6.4, hemoglobin 9.8, sodium of 135, BUN of 25 creatinine of 1.08. Patient is afebrile and she is 93% on 2 L of oxygen via nasal cannula. 07/09/2024 Patient is seen in follow-up this morning with cardiology following and has cleared the patient for discharge. Patient will be returning to [facility] [place] and recommending outpatient follow-up with Dr. Edi mays in the next 1 to 2 weeks. Patient is to continue on aspirin, Brilinta, and low-dose Eliquis with statin therapy per cardiology. Patient has been cleared by cardiology. Please refer to cardiology notes for further HPI. Currently no reports of chest pain, shortness of breath, or palpitations. Patient is afebrile. No reports of nausea or vomiting and patient is tolerating diet. Patient will be going to [facility] [place] today. Guarded prognosis PHYSICAL EXAMINATION: GENERAL: The patient is alert and oriented x3, not in any acute distress. Ill looking HEENT: Pupils are round and equally reacting to light. EOMI. No scleral icterus. No conjunctival pallor. Normocephalic, atraumatic. No pharyngeal erythema. No t hyromegaly. CARDIOVASCULAR: S1 and S2 present. No murmurs, rubs, or gallops. PULMONARY: Chest is clear to auscultation, no wheezing or crackles. ABDOMEN: Soft, nontender, nondistended, normoactive bowel sounds. No palpable organomegaly. MUSCULOSKELETAL: No joint swelling or deformity. EXTREMITIES: No cyanosis, clubbing, or pedal edema. NEUROLOGICAL: Gross neurological examination did not reveal any focal deficits. Diffuse weakness and patient is bedbound at rest SKIN: No rashes. Please refer to medication reconciliation sheet for a list of medications. The impression and plan of care has been dictated by Fifi Cee, Nurse Practitioner as directed. Dr. Demarco MD I have performed a history and examination and MDM of this patient, discussed the same with the dictator, and agree with the dictator's assessment and plan as written ,documented as a scribe. Based on total visit time, I have performed more than 50% of the visit. Patient Condition at Discharge: Fair Plan - Discharge Summary Discharge Rx Participant: No New Discharge Prescriptions: New Ticagrelor [Brilinta] 90 mg PO BID tab Atorvastatin [Lipitor] 40 mg PO HS tab Nitroglycerin Sl Tabs [Nitrostat] 0.4 mg SUBLINGUAL Q5M PRN tab PRN Reason: Chest Pain Apixaban [Eliquis] 2.5 mg PO BID tab Furosemide [Lasix] 40 mg PO DAILY tab Mag Hydrox/Al Hydrox/Simeth [Maalox] 30 ml PO Q4HR PRN ml PRN Reason: Heartburn Continue Cyanocobalamin [Vitamin B-12] 250 mcg PO DAILY@0900 Ezetimibe [Zetia] 10 mg PO HS@2100 Ferrous Sulfate [Iron (65 MG Elemental)] 325 mg PO BID@0900,2100 Levothyroxine Sodium [Synthroid] 125 mcg PO MOTH@0600 HYDROcodone/APAP 7.5-325MG [[place] 7.5-325] 1 tab PO Q6H PRN #4 tab PRN Reason: Pain Calcium Carbonate [Calcium] 600 mg PO DAILY@0900 Aspirin 81 mg PO DAILY@0900 Levothyroxine Sodium 100 mcg PO SUTUWEFRSA@0600 Acetaminophen [Tylenol Extra Strength] 1,000 mg PO Q8H PRN PRN Reason: Pain Cholecalciferol [Vitamin D3 (25 Mcg = 1000 Iu)] 50 mcg PO DAILY@0900 Methyl Salicylate/Menth/Camph [Salonpas 3.1%-6.0%-10.0% Patch] 1 patch TRANSDERM DAILY@0900 Lactulose [Cephulac] 20 gm PO Q12HR@0900,2100 Docusate [Colace] 100 mg PO Q12HR@0900,2100 Sertraline [Zoloft] 25 mg PO HS@2100 Magnesium Oxide [Mag-Ox] 400 mg PO DAILY@0900 Gabapentin [Neurontin] 100 mg PO BID@0900,2100 Ipratropium-Albuterol Nebulize [Duoneb 0.5 mg-3 mg/3 ml Soln] 3 ml INHALATION RT-Q6H PRN PRN Reason: Shortness Of Breath Or Wheezing Sertraline [Zoloft] 100 mg PO HS@2100 Changed clonazePAM [KlonoPIN] 0.5 mg PO HS@2100 #6 tab Discontinued Isosorbide Mononitrate [Isosorbide Mononitrate ER] 60 mg PO Q12HR@0900,2100 hydrALAZINE HCL [Apresoline] 50 mg PO Q8HR@0600,1400,2200 Atorvastatin [Lipitor] 80 mg PO HS@2100 Valsartan 320 mg PO DAILY@0900 Furosemide [Lasix] 20 mg PO DAILY@0600 Discharge Medication List Cyanocobalamin [Vitamin B-12] 250 mcg PO DAILY@89910/10/13 [History] Acetaminophen [Tylenol Extra Strength] 1,000 mg PO Q8H PRN 12/30/22 [History] Aspirin 81 mg PO DAILY@89912/30/22 [History] Calcium Carbonate [Calcium] 600 mg PO DAILY@89912/30/22 [History] Levothyroxine Sodium 100 mcg PO SUTUWEFRSA@59912/30/22 [History] Cholecalciferol [Vitamin D3 (25 Mcg = 1000 Iu)] 50 mcg PO DAILY@89901/05/23 [History] Docusate [Colace] 100 mg PO Q12HR@899,209907/20/23 [History] Lactulose [Cephulac] 20 gm PO Q12HR@899,209907/20/23 [History] Methyl Salicylate/Menth/Camph [Salonpas 3.1%-6.0%-10.0% Patch] 1 patch TRANSDERM DAILY@89907/20/23 [History] Sertraline [Zoloft] 25 mg PO HS@209910/04/23 [History] Ezetimibe [Zetia] 10 mg PO HS@209901/24/24 [History] Magnesium Oxide [Mag-Ox] 400 mg PO DAILY@89901/24/24 [History] Ferrous Sulfate [Iron (65 MG Elemental)] 325 mg PO BID@899,209906/30/24 [History] Gabapentin [Neurontin] 100 mg PO BID@899,209906/30/24 [History] Ipratropium-Albuterol Nebulize [Duoneb 0.5 mg-3 mg/3 ml Soln] 3 ml INHALATION RT-Q6H PRN 06/30/24 [History] Levothyroxine Sodium [Synthroid] 125 mcg PO MOTH@59906/30/24 [History] Sertraline [Zoloft] 100 mg PO HS@209906/30/24 [History] Apixaban [Eliquis] 2.5 mg PO BID tab 07/09/24 [Rx] Atorvastatin [Lipitor] 40 mg PO HS tab 07/09/24 [Rx] Furosemide [Lasix] 40 mg PO DAILY tab 07/09/24 [Rx] HYDROcodone/APAP 7.5-325MG [[place] 7.5-325] 1 tab PO Q6H PRN #4 tab 07/09/24 [Rx] Mag Hydrox/Al Hydrox/Simeth [Maalox] 30 ml PO Q4HR PRN ml 07/09/24 [Rx] Nitroglycerin Sl Tabs [Nitrostat] 0.4 mg SUBLINGUAL Q5M PRN tab 07/09/24 [Rx] Ticagrelor [Brilinta] 90 mg PO BID tab 07/09/24 [Rx] clonazePAM [KlonoPIN] 0.5 mg PO HS@2100 #6 tab 07/09/24 [Rx] Follow up Appointment(s)/Referral(s): Leeroy Daley MD [Medical Doctor] - 1 Week Severo Campbell MD [Primary Care Provider] - 1-2 days Activity/Diet/Wound Care/Special Instructions: [facility] [place] [facility] [place] as tolerated Recommend follow-up with cardiology in 1 to 2 weeks Continue taking medications as prescribed Continue consistent carb heart healthy diet Discharge Disposition: TRANSFER TO SNF/ECF
== END 2024-07-09 17:50 | DRG 321 ==
LOC: EC 16:28 → 3SCARD 18:49
PROVIDERS: ADMIT Hospitalist; ATTEND Hospitalist
PROC: 4A033BC Measurement of Arterial Pressure, Coronary, Percutaneous Approach (ICD-10-PCS; 2024-07-04 12:00)
PROC: B2111ZZ Fluoroscopy of Multiple Coronary Arteries using Low Osmolar Contrast (ICD-10-PCS; 2024-07-04 12:00)
PROC: 4A023N7 Measurement of Cardiac Sampling and Pressure, Left Heart, Percutaneous Approach (ICD-10-PCS; 2024-07-04 12:00)
PROC: B41F1ZZ Fluoroscopy of Right Lower Extremity Arteries using Low Osmolar Contrast (ICD-10-PCS; principal; 2024-07-06 07:30)
PROC: B240ZZ3 Ultrasonography of Single Coronary Artery, Intravascular (ICD-10-PCS; principal; 2024-07-06 07:30)
PROC: 027034Z Dilation of Coronary Artery, One Artery with Drug-eluting Intraluminal Device, Percutaneous Approach (ICD-10-PCS; principal; 2024-07-06 07:30)
DX: T82.855A Stenosis of coronary artery stent, initial encounter (principal); I21.4 Non-ST elevation (NSTEMI) myocardial infarction; I50.33 Acute on chronic diastolic (congestive) heart failure; I11.0 Hypertensive heart disease with heart failure; Z68.41 Body mass index [BMI] 40.0-44.9, adult; E03.9 Hypothyroidism, unspecified; I08.1 Rheumatic disorders of both mitral and tricuspid valves; N17.9 Acute kidney failure, unspecified; I48.0 Paroxysmal atrial fibrillation; E66.01 Morbid (severe) obesity due to excess calories; R00.1 Bradycardia, unspecified; M19.90 Unspecified osteoarthritis, unspecified site; Z79.890 Hormone replacement therapy; E78.5 Hyperlipidemia, unspecified; I25.10 Atherosclerotic heart disease of native coronary artery without angina pectoris; Z74.01 Bed confinement status; Z79.82 Long term (current) use of aspirin; Z79.899 Other long term (current) drug therapy; Z82.49 Family history of ischemic heart disease and other diseases of the circulatory system; Z85.3 Personal history of malignant neoplasm of breast; Z90.710 Acquired absence of both cervix and uterus; Z96.649 Presence of unspecified artificial hip joint; Z88.5 Allergy status to narcotic agent; Z88.8 Allergy status to other drugs, medicaments and biological substances
CPT/HCPCS: 36415; 71046; 80048; 80053; 80061; 83036; 83735; 83880; 84439; 84443; 84484; 85025; 85027; 85610; 85730; 92978; 93005; 93306; 93454; 93799; 94760; 96365; 96366; 96367; 96368; 96375; 96376; 99291

== ENCOUNTER 2024-07-30 10:12 | Day surgery (SDC) | payer MEDICARE, OTHER ==
[~2024-07-30 10:12] MED LIST changes: -ALPRAZolam 0.25 MG TAB PO PRN; -ASPIRIN 325 MG TAB PO STA; -ATORVASTATIN 80 MG TAB PO STA; -HEPARIN SODIUM,PORCINE (1 ML) 2,500 UNIT in SODIUM CHLORIDE 0.9% 250 ML IRRIGATION PRN; -HEPARIN SODIUM,PORCINE 10,000 UNIT in SODIUM CHLORIDE 0.9% 1,000 ML IRRIGATION PRN
[2024-07-30] MEDS: IV FLUID CONTINUATION 1,000 ML IV ONE (10:37)
[2024-07-30] MEDS: SODIUM CHLORIDE 0.9% 1,000 ML in EMPTY BAG 1 BAG IV SCH ×2 (11:00→14:05)
[2024-07-30 11:15] LABS: Basophils % (A) 0 %; Eosinophils # (A) 0.3 k/uL (0-0.7); Eosinophils % (A) 5 %; HCT 36.2 % (34.0-46.0); HGB 11.4 gm/dL (11.4-16.0); Hypochromasia Moderate; Lymphocytes # (A) 1.6 k/uL (1.0-4.8); Lymphocytes % (A) 25 %; MCH 30.2 pg (25.0-35.0); MCHC 31.4 g/dL (31.0-37.0); MCV 96.2 fL (80.0-100.0); Monocytes # (A) 0.5 k/uL (0-1.0); Monocytes % (A) 7 %; Neutrophils % (A) 61 %; Platelet Count 270 k/uL (150-450); RBC 3.76 m/uL (3.80-5.40); RDW 14.5 % (11.5-15.5); WBC 6.6 k/uL (3.8-10.6)
[2024-07-30 11:34] LABS: African American GFR (CKD) 61 (>60 ml/min/1.73 sqM); Anion Gap 5 mmol/L; Blood Urea Nitrogen 26 mg/dL (7-17); Calcium 9.7 mg/dL (8.4-10.2); Carbon Dioxide 39 mmol/L (22-30); Chloride 95 mmol/L (98-107); Glucose 105 mg/dL (74-99); Non-African American GFR(CKD) 53 (>60 ml/min/1.73 sqM); Potassium 3.7 mmol/L (3.5-5.1); Sodium 139 mmol/L (137-145)
[2024-07-30] MEDS: LIDOCAINE 1% INJ 10MG/ML (20 ML MDV) SQ ONE (12:52)
[2024-07-30] MEDS: MIDAZOLAM 2 MG/2 ML VIAL IVP ONE (12:52)
[2024-07-30] MEDS: HEPARIN SODIUM,PORCINE 10,000 UNIT in SODIUM CHLORIDE 0.9% 1,000 ML IRRIGATION PRN (12:58)
[2024-07-30] MEDS: HEPARIN SODIUM 1,000 UN/ML (10ML VL) IVP ONE (12:58)
[2024-07-30] MEDS: HEPARIN SODIUM,PORCINE (1 ML) 2,500 UNIT in SODIUM CHLORIDE 0.9% 250 ML IRRIGATION PRN (12:58)
[2024-07-30] MEDS: NITROGLYCERIN 1000MCG/10ML SYRINGE INTRACORON ONE (13:00)
[2024-07-30] MEDS: MORPHINE SULFATE 4 MG/ML SYRINGE IVP ONE (13:10)
[2024-07-30] MEDS: IOPAMIDOL-370 100ML BTL INJ ONE ×2 (13:23→13:52)
[2024-07-30] MEDS ORDERED: ONDANSETRON ODT 4 MG TAB PO PRN (13:47)
[2024-07-30] MEDS ORDERED: MAG HYDROX/AL HYDROX/SIMETH 30 ML CUP PO PRN ×2 (13:47→13:48)
[2024-07-30] MEDS ORDERED: NITROGLYCERIN SL TABS 0.4 MG TAB SUBLINGUAL PRN ×2 (13:47→13:48)
[2024-07-30] MEDS ORDERED: ATROPINE SULFATE 0.1 MG/ML 10ML SYRINGE IV PRN (13:48)
[2024-07-30] MEDS ORDERED: ZOLPIDEM 5 MG TAB PO PRN (13:48)
[2024-07-30] MEDS ORDERED: RX INFO: IV CONTRAST WAS GIVEN 1 EACH MISC MISCELLANE PRN (13:48)
--- NOTE | 2024-07-30 13:53 | P.PCN ---
Date of Procedure: 07/30/24 Operative Findings: CARDIAC CATHETERIZATION AND PERCUTANEOUS CORONARY INTERVENTION PERFORMING PHYSICIAN: Jey Xie MD, [facility] PROCEDURE PERFORMED: 1. Selective right and left coronary angiogram 2. Successful stenting of distal LAD using 2.75 x 23 mm Xience YAKOV with an excellent angiographic results along with successful angioplasty of the proximal LAD using 3.5 mm NC balloon 3. Adjunctive use of IVUS and IFR 4. Ultrasound-guided access of the right common femoral artery and selective right common femoral artery angio INDICATION: Severe disease involving the LAD documented to be flow-limiting by Doppler COMPLICATION: None APPROACH: Right common femoral LEVEL OF SEDATION: Moderate with the sedation time off 55 minutes PROCEDURE DESCRIPTION: After obtaining informed consent the patient was brought to cardiac Dul[place] where the right common femoral artery was cannulated using micropuncture technique under ultrasound guidance a micropuncture wire passed easily then placed 6 [place] 11 cm sheath at the right common femoral artery. After that I did engage the left main using JL 4 guiding catheter. I did IFR initially of the left main and LAD. IFR of the left main came to be at 0.90 and IFR of the LAD came to be at 0.79. I decided to intervene on the LAD. The wire was advanced to the distal LAD using a whisper wire with subsequently was exchanged into a run-through wire for better support. IVUS was performed but only advanced to the left main and was not advanced to the LAD because of calcified left main. I did balloon angioplasty using 2.5 mm balloon before I deployed in the distal LAD 2.75 x 23 mm stent and in the proximal LAD I did balloon angioplasty using 3.5 mm NC balloon final angiogram was performed and showed that the area in the stented segment distally appears to be postdilated and that was performed using 3 mm NC balloon. Final angiogram showed good angiographic results and the procedure was completed without complication. Selective right common femoral artery angiogram was performed as well. SELECTIVE CORONARY ANGIOGRAM: Left main: Has intermediate lesion appears to be in the range of 50% documented to be borderline nonflow-limiting by Doppler wire with IFR of 0.90 The left circumflex: Stents in the LCx appears to be The left anterior descending artery: Has severe disease in the proximal portion and severe disease in the distal CONCLUSION: 1. Severe disease involving the LAD and the proximal and distal portion. Successful PCI of the proximal and distal portion with an excellent angiographic result 2. Intermediate disease involving the distal left main with borderline IFR 0.90 3. Patent stent in the left circumflex coronary artery POSTPROCEDURE MANAGEMENT: 1. Dual antiplatelet therapy using aspirin and Brilinta for at least 6 month 2. Consider revascularization of the left main if the patient remains symptomatic
[2024-07-30] MEDS: ASPIRIN 325 MG TAB PO STA (15:17)
[2024-07-30] MEDS: HYDROcodone/APAP 7.5-325MG 1 EACH TAB PO ONE (15:17)
[2024-07-30] MEDS: HYDROcodone/APAP 7.5-325MG 1 EACH TAB PO PRN (18:19)
[2024-07-30] MEDS: EZETIMIBE 10 MG TAB PO SCH (21:21)
[2024-07-30] MEDS: LACTULOSE 20 GM/30 ML CUP PO SCH (21:21)
[2024-07-30] MEDS: SERTRALINE 100 MG TAB PO SCH (21:22)
[2024-07-30] MEDS: GABAPENTIN 100 MG CAP PO SCH (21:22)
[2024-07-30] MEDS: DOCUSATE 100 MG CAP PO SCH (21:22)
[2024-07-30] MEDS: SERTRALINE 25 MG TAB PO SCH (21:22)
[2024-07-30] MEDS: FERROUS SULFATE 325 MG TAB PO SCH (21:22)
[2024-07-30] MEDS: clonazePAM 0.5 MG TAB PO SCH (21:22)
[2024-07-30] MEDS: ATORVASTATIN 40 MG TAB PO SCH (21:22)
[2024-07-30] MEDS: TICAGRELOR 90 MG TAB PO SCH (21:22)
[2024-07-31] MEDS: LEVOTHYROXINE 100 MCG TAB PO SCH (05:29)
[2024-07-31] MEDS: CHOLECALCIFEROL 25 MCG (1000 IU) TABLET PO SCH (07:58)
[2024-07-31] MEDS: ASPIRIN 81 MG PO SCH (07:58)
[2024-07-31] MEDS: CALCIUM CARB-VIT D 500 MG-5 MCG TAB PO SCH (07:58)
[2024-07-31] MEDS: MAGNESIUM OXIDE 400 MG TAB PO SCH (07:58)
[2024-07-31] MEDS: FUROSEMIDE 40 MG TAB PO SCH (07:59)
[2024-07-31] MEDS: METHYL SALICYLATE-MENTHOL OINT (3 OZ TUBE) TOPICAL SCH (07:59)
[2024-07-31] MEDS: CYANOCOBALAMIN 500 MCG TAB PO SCH (07:59)
--- NOTE | 2024-07-31 11:17 | P.DS ---
Providers Attending physician: Jey Xie Consults: 07/30/24 13:48 Consult Physician Routine Consulting Provider: [facility] Consult Reason/Comments: Post Interventional Patient Do you want consulting provider notified?: Already Contacted Primary care physician: Severo Campbell Hospital Course: This is an 83-year-old female who underwent cardiac catheterization yesterday with Dr. Xie. Patient was found to have severe disease involving the LAD and the proximal and distal portion. Intermediate disease involving the distal left main with borderline IFR of 0.90. Patent stent to the left coronary artery. Patient underwent PCI of the proximal and distal portion of the LAD. Patient examined this morning the bedside. Patient without complaints of chest pain or pressure. She denies shortness of breath. Vital signs are stable. The patient was deemed stable for discharge home today per Dr. Xie. Patient to remain on dual antiplatelet therapy with aspirin and Brilinta for 6 months. Continue high intensity statin with LDL goal less than 70. Please see EMR for further hospital course details. Discharge diagnosis Coronary artery disease, status post PCI of the proximal and distal portion of the LAD Nurse practitioner note has been reviewed by physician. Signing provider agrees with the documented findings, assessment, and plan of care documented by [employer] AIDE as a scribe. Plan - Discharge Summary Discharge Rx Participant: No New Discharge Prescriptions: No Action Cyanocobalamin [Vitamin B-12] 250 mcg PO DAILY@0900 Ezetimibe [Zetia] 10 mg PO HS@2100 Ferrous Sulfate [Iron (65 MG Elemental)] 325 mg PO BID@0900,2100 Levothyroxine Sodium [Synthroid] 125 mcg PO MOTH@0600 Ticagrelor [Brilinta] 90 mg PO BID tab Atorvastatin [Lipitor] 40 mg PO HS tab Nitroglycerin Sl Tabs [Nitrostat] 0.4 mg SUBLINGUAL Q5M PRN tab PRN Reason: Chest Pain HYDROcodone/APAP 7.5-325MG [[place] 7.5-325] 1 tab PO Q6H PRN #4 tab PRN Reason: Pain Calcium Carbonate [Calcium] 600 mg PO DAILY@0900 Aspirin 81 mg PO DAILY@0900 Levothyroxine Sodium 100 mcg PO SUTUWEFRSA@0600 Acetaminophen [Tylenol Extra Strength] 1,000 mg PO Q8H PRN PRN Reason: Pain Cholecalciferol [Vitamin D3 (25 Mcg = 1000 Iu)] 50 mcg PO DAILY@09 Methyl Salicylate/Menth/Camph [Salonpas 3.1%-6.0%-10.0% Patch] 1 patch TRANSDERM DAILY@899 Lactulose [Cephulac] 20 gm PO Q12HR@899,2099 Docusate [Colace] 100 mg PO Q12HR@899,2099 Sertraline [Zoloft] 25 mg PO HS@2099 Magnesium Oxide [Mag-Ox] 400 mg PO DAILY@899 Gabapentin [Neurontin] 100 mg PO BID@899,2099 Sertraline [Zoloft] 100 mg PO HS@2099 Apixaban [Eliquis] 2.5 mg PO BID tab Furosemide [Lasix] 40 mg PO DAILY tab Mag Hydrox/Al Hydrox/Simeth [Maalox] 30 ml PO Q4HR PRN ml PRN Reason: Heartburn clonazePAM [KlonoPIN] 0.5 mg PO HS@2099 #6 tab Ondansetron [Zofran] 4 mg PO Q12HR PRN PRN Reason: Nausea Discharge Medication List Cyanocobalamin [Vitamin B-12] 250 mcg PO DAILY@89910/10/13 [History] Acetaminophen [Tylenol Extra Strength] 1,000 mg PO Q8H PRN 12/30/22 [History] Aspirin 81 mg PO DAILY@89912/30/22 [History] Calcium Carbonate [Calcium] 600 mg PO DAILY@89912/30/22 [History] Levothyroxine Sodium 100 mcg PO SUTUWEFRSA@59912/30/22 [History] Cholecalciferol [Vitamin D3 (25 Mcg = 1000 Iu)] 50 mcg PO DAILY@89901/05/23 [History] Docusate [Colace] 100 mg PO Q12HR@899,209907/20/23 [History] Lactulose [Cephulac] 20 gm PO Q12HR@899,209907/20/23 [History] Methyl Salicylate/Menth/Camph [Salonpas 3.1%-6.0%-10.0% Patch] 1 patch TRANSDERM DAILY@89907/20/23 [History] Sertraline [Zoloft] 25 mg PO HS@209910/04/23 [History] Ezetimibe [Zetia] 10 mg PO HS@209901/24/24 [History] Magnesium Oxide [Mag-Ox] 400 mg PO DAILY@0900 01/24/24 [History] Ferrous Sulfate [Iron (65 MG Elemental)] 325 mg PO BID@0900,209906/30/24 [History] Gabapentin [Neurontin] 100 mg PO BID@0900,209906/30/24 [History] Levothyroxine Sodium [Synthroid] 125 mcg PO MOTH@0600 06/30/24 [History] Sertraline [Zoloft] 100 mg PO HS@209906/30/24 [History] Apixaban [Eliquis] 2.5 mg PO BID tab 07/09/24 [Rx] Atorvastatin [Lipitor] 40 mg PO HS tab 07/09/24 [Rx] Furosemide [Lasix] 40 mg PO DAILY tab 07/09/24 [Rx] HYDROcodone/APAP 7.5-325MG [[place] 7.5-325] 1 tab PO Q6H PRN #4 tab 07/09/24 [Rx] Mag Hydrox/Al Hydrox/Simeth [Maalox] 30 ml PO Q4HR PRN ml 07/09/24 [Rx] Nitroglycerin Sl Tabs [Nitrostat] 0.4 mg SUBLINGUAL Q5M PRN tab 07/09/24 [Rx] Ticagrelor [Brilinta] 90 mg PO BID tab 07/09/24 [Rx] clonazePAM [KlonoPIN] 0.5 mg PO HS@2100 #6 tab 07/09/24 [Rx] Ondansetron [Zofran] 4 mg PO Q12HR PRN 07/26/24 [History] Follow up Appointment(s)/Referral(s): Flako Severino MD [STAFF PHYSICIAN] - 08/06/24 1:00 pm (FOLLOW UP APPOINTMENT IS MADE. PATIENT WILL SEE [facility] OF DR. SEVERINO) Patient Instructions/Handouts: Moderate Sedation (DC), After Radial Heart Anita terization (GEN), Left Heart Catheterization (DC)
[2024-07-31 11:34] VITALS: BMI 40.3
[2024-07-31 11:44] VITALS: BP 123/70; PULSE 63; RESP 18; TEMP 97.4
[2024-07-31] MEDS: ALPRAZolam 0.25 MG TAB PO PRN (12:07)
[2024-07-31] MEDS: ACETAMINOPHEN TAB 500 MG TAB PO PRN (12:07)
[2024-08-02] MEDS ORDERED: LEVOTHYROXINE 125 MCG TAB PO SCH (06:00)
== END 2024-07-31 13:14 ==
LOC: CATHCVL 10:12 → 6NMEDSUR 13:46 → CATHCVL 07-31 13:14
PROVIDERS: ATTEND Internal Medicine Interventional Cardiology
DX: I25.10 Atherosclerotic heart disease of native coronary artery without angina pectoris (principal); I48.0 Paroxysmal atrial fibrillation; I73.9 Peripheral vascular disease, unspecified; I10 Essential (primary) hypertension; E78.5 Hyperlipidemia, unspecified; I49.5 Sick sinus syndrome; Z79.01 Long term (current) use of anticoagulants; Z79.02 Long term (current) use of antithrombotics/antiplatelets; Z79.82 Long term (current) use of aspirin; Z79.899 Other long term (current) drug therapy
CPT/HCPCS: 92978; 93799; 80048; 85025; 99152; 99153; C9600; C1760; C1769 ×5; C1894; C1887; C1753; C1725 ×2; J2250; J2270; J1644 ×3; J2003; Q9967; J2305

== ENCOUNTER 2024-10-27 04:37 | Observation (INO) | payer MEDICARE, OTHER ==
--- NOTE | 2024-10-27 04:57 | ED ---
Chest Pain HPI - General Stated Complaint: chest pain Time Seen by Provider: 10/27/24 04:46 Source: patient Mode of arrival: EMS Limitations: no limitations - History of Present Illness Initial Comments: This patient is an 83-year-old woman who arrives by ambulance to have evaluation of chest pain. The patient states that she had been sleeping. She woke up feeling like she wanted to have something to drink. She states that she noticed substernal chest pain and it seemed like numbness going to both arms. The patient states that over the course of the prior few days her breathing had been off. She was feeling congested like she had to cough. She was a little short of breath. When the symptoms in the chest persisted she states that EMS was called and that they gave her aspirin and 3 nitroglycerin tablets and that the severity of the sensation decreased from 01/02-07/02. MD Complaint: chest pain -: hour(s) Onset: during rest Pain Location: substernal Pain Radiation: RUE, LUE Severity: severe Quality: aching, heaviness Consistency: constant Improves With: nitroglycerin Worsens With: nothing Anginal Symptoms: dyspnea Treatments Prior to Arrival: aspirin, nitroglycerin, oxygen - Related Data Home Medications Medication Instructions Recorded Confirmed Cyanocobalamin [Vitamin B-12] 250 mcg PO DAILY@89910/10/13 07/30/24 Acetaminophen [Tylenol Extra 1,000 mg PO Q8H PRN 12/30/22 07/26/24 Strength] Aspirin 81 mg PO DAILY@89912/30/22 07/30/24 Calcium Carbonate [Calcium] 600 mg PO DAILY@89912/30/22 07/30/24 Levothyroxine Sodium 100 mcg PO SUTUWEFRSA@59912/30/22 07/30/24 Cholecalciferol [Vitamin D3 (25 50 mcg PO DAILY@89901/05/23 07/30/24 Mcg = 1000 Iu)] Docusate [Colace] 100 mg PO Q12HR@09,209907/20/23 07/30/24 Lactulose [Cephulac] 20 gm PO Q12HR@0900,209907/20/23 07/30/24 Methyl Salicylate/Menth/Camph 1 patch TRANSDERM DAILY@89907/20/23 07/30/24 [Salonpas 3.1%-6.0%-10.0% Patch] Sertraline [Zoloft] 25 mg PO HS@209910/04/23 07/30/24 Ezetimibe [Zetia] 10 mg PO HS@209901/24/24 07/30/24 Magnesium Oxide [Mag-Ox] 400 mg PO DAILY@0900 01/24/24 07/30/24 Ferrous Sulfate [Iron (65 MG 325 mg PO BID@899,209906/30/24 07/30/24 Elemental)] Gabapentin [Neurontin] 100 mg PO BID@899,209906/30/24 07/30/24 Levothyroxine Sodium [Synthroid] 125 mcg PO MOTH@59906/30/24 07/30/24 Sertraline [Zoloft] 100 mg PO HS@209906/30/24 07/30/24 Ondansetron [Zofran] 4 mg PO Q12HR PRN 07/26/24 07/26/24 Previous Rx's Medication Instructions Recorded Apixaban [Eliquis] 2.5 mg PO BID tab 07/09/24 Atorvastatin [Lipitor] 40 mg PO HS tab 07/09/24 Furosemide [Lasix] 40 mg PO DAILY tab 07/09/24 HYDROcodone/APAP 7.5-325MG [[place] 1 tab PO Q6H PRN #4 tab 07/09/24 7.5-325] Mag Hydrox/Al Hydrox/Simeth 30 ml PO Q4HR PRN ml 07/09/24 [Maalox] Nitroglycerin Sl Tabs [Nitrostat] 0.4 mg SUBLINGUAL Q5M PRN tab 07/09/24 Ticagrelor [Brilinta] 90 mg PO BID tab 07/09/24 clonazePAM [KlonoPIN] 0.5 mg PO HS@2099 #6 tab 07/09/24 Allergies Allergy/AdvReac Type Severity Reaction Status Date / Time celecoxib [From Celebrex] Allergy Unknown Verified 07/27/24 08:32 isosorbide [Isosorbide] Allergy Unknown Verified 07/27/24 08:32 propranolol HCl Allergy Unknown Verified 07/27/24 08:32 [From Inderal LA] rofecoxib [From Vioxx] Allergy Unknown Verified 07/27/24 08:32 fentanyl AdvReac Hallucinati Verified 07/26/24 16:12 ons pregabalin [From Lyrica] AdvReac dizziness Verified 07/27/24 08:32 Review of Systems ROS Statement: Those systems with pertinent positive or pertinent negative responses have been documented in the HPI. ROS Other: All systems not noted in ROS Statement are negative. Constitutional: Denies: fever, weakness ENT: Denies: congestion Respiratory: Reports: as per HPI, cough, dyspnea Cardiovascular: Reports: chest pain, palpitations. Denies: orthopnea, edema, syncope Gastrointestinal: Denies: abdominal pain, nausea, vomiting, diarrhea Genitourinary: Denies: dysuria, hematuria Musculoskeletal: Denies: back pain Skin: Denies: rash Neurological: Denies: headache, weakness, numbness EKG Findings - EKG Results: EKG: normal axis EKG shows: atrial fibrillation (Rate 118 bpm) - Dysrhythmias: Supraventricular dysrhythmia: atrial fibrillation - Blocks, [place], Hypertrophy, ST Abn: Repolarization changes or abnormalities: nonspecific abnormality, ST segment, and/or T wave Past Medical History Past Medical History: Atrial Fibrillation, Coronary Artery Disease (CAD), Cancer, Chest Pain / Angina, Heart Failure, GERD/Reflux, Hyperlipidemia, Hypertension, Osteoarthritis (OA), Thyroid Disorder, Vascular Disorder Additional Past Medical History / Comment(s): former hx of breast ca, bladder incontinence, wears brief. back pain, weakness & pain lowe extremities, constipation, no current skin issues per [facility] History of Any Multi-Drug Resistant Organisms: None Reported Past Surgical History: Back Surgery, Breast Surgery, Cholecystectomy, Heart Catheterization With Stent, Hysterectomy, Joint Replacement, Orthopedic Surgery Additional Past Surgical History / Comment(s): left lumpectomy, cardiac stent, hip replacement, hand surgery Past Anesthesia/Blood Transfusion Reactions: No Reported Reaction Additional Past Anesthesia/Blood Transfusion Reaction / Comment(s): Keshawn Wells unsure of any issues with anesthesia. Date of Last Stent Placement:: unk Past Psychological History: Anxiety Smoking Status: Unknown if ever smoked Past Alcohol Use History: None Reported Past Drug Use History: None Reported - Past Family History Mother Family Medical History: Hypertension Sister(s) Family Medical History: Deep Vein Thrombosis (DVT), Myocardial Infarction ([place]) General Exam General appearance: alert, in no apparent distress Head exam: Present: atraumatic, normocephalic Eye exam: Present: normal appearance. Absent: scleral icterus, conjunctival injection ENT exam: Present: normal oropharynx Neck exam: Present: normal inspection Respiratory exam: Present: rales. Absent: wheezes, rhonchi, stridor, accessory muscle use Cardiovascular Exam: Present: tachycardia, irregular rhythm. Absent: systolic murmur, diastolic murmur, rubs, gallop GI/Abdominal exam: Present: soft. Absent: distended, tenderness, guarding, rebound, rigid, mass Extremities exam: Present: normal inspection, normal capillary refill. Absent: pedal edema, calf tenderness Back exam: Present: normal inspection. Absent: CVA tenderness (R), CVA tenderness (L) Neurological exam: Present: alert Skin exam: Present: warm, dry, intact, normal color. Absent: rash Course Vital Signs 10/27/24 10/27/24 04:53 07:01 Temperature 98.0 F Pulse Rate 131 H 75 Respiratory 18 16 Rate Blood Pressure 141/104 127/71 O2 Sat by Pulse 98 90 L Oximetry Disposition Clinical Impression: Atrial fibrillation with rapid ventricular response, Chest pain Disposition: ADMITTED IP TO THIS HOSP Condition: Fair Instructions (If sedation given, give patient instructions): Chest Pain (ED) Is patient prescribed a controlled substance at d/c from ED?: No Referrals: Severo Campbell MD [Primary Care Provider] - 1-2 days
[2024-10-27 06:04] LABS: Basophils # (A) 0.02 10*3/uL (0.00-0.10); Basophils % (A) 0.2 %; Eosinophils # (A) 0.23 10*3/uL (0.04-0.35); Eosinophils % (A) 2.2 %; HCT 35.5 % (37.2-46.3); HGB 11.6 g/dL (12.0-15.0); Lymphocytes # (A) 1.66 10*3/uL (0.90-5.00); Lymphocytes % (A) 16.2 %; MCH 31.4 pg (27.0-32.0); MCHC 32.7 g/dL (32.0-37.0); MCV 96.2 fL (80.0-97.0); Monocytes # (A) 0.71 10*3/uL (0.20-1.00); Monocytes % (A) 6.9 %; Neutrophils # (A) 7.58 10*3/uL (1.80-7.70); Neutrophils % (A) 74.2 %; Platelet Count 248 10*3/uL (140-440); RBC 3.69 10*6/uL (4.10-5.20); RDW 13.9 % (11.5-14.5); WBC 10.23 10*3/uL (4.50-10.00)
[2024-10-27 06:19] LABS: ALT 16 U/L (4-34); African American GFR (CKD) 82 (>60 ml/min/1.73 sqM); Albumin 3.8 g/dL (3.5-5.0); Anion Gap 7 mmol/L; Blood Urea Nitrogen 30 mg/dL (7-17); Calcium 9.4 mg/dL (8.4-10.2); Carbon Dioxide 33 mmol/L (22-30); Chloride 100 mmol/L (98-107); Glucose 148 mg/dL (74-99); Non-African American GFR(CKD) 71 (>60 ml/min/1.73 sqM); Sodium 140 mmol/L (137-145); Total Protein 6.5 g/dL (6.3-8.2)
[2024-10-27 06:20] LABS: INR 0.9 (<1.2); Partial Thromboplastin Time 22.4 sec (22.0-30.0); Prothrombin Time 9.7 sec (10.0-12.5)
--- NOTE | 2024-10-27 06:32 | XR ---
EXAM: XR Chest, 2 Views CLINICAL HISTORY: ITS.REASON XR Reason: dysrhythmia TECHNIQUE: Frontal and lateral views of the chest. COMPARISON: No relevant prior studies available. IMPRESSION: 1. Cardiomegaly with hypoinflated lungs. Otherwise, no acute cardiopulmonary abnormality.
[2024-10-27 06:45] LABS: AST 31 U/L (14-36); Alkaline Phosphatase 83 U/L (38-126); Magnesium 2.1 mg/dL (1.6-2.3); Potassium 4.5 mmol/L (3.5-5.1)
[2024-10-27] MEDS: HYDROcodone/APAP 7.5-325MG 1 EACH TAB PO PRN ×2 (12:45→18:28)
--- NOTE | 2024-10-27 14:51 | P.CRDCN ---
History of Present Illness Consult date: 10/27/24 Consult reason: chest pain Chief complaint: cp History of present illness: History of present illness: Patient is a pleasant 83 year old female with significant past medical history of CAD s/p multiple PCI, hypertension, hyperlipidemia, hypothyroidism, a-fib who presented to the ER with complaints of chest pain. She follows with Dr. Ellis in the office. She has been feeling shortness of breath and nausea for a couple days. Then she was having some chest pain severe after sitting up in bed and drinking water. She was given aspirin and nitro and pain was relieved temporarily and then the pain returned. Labs: WBC 10.2, Hgb 11.6, Trop neg. She is on Eliquis and Brilinta. She is feeling better today with no further chest pains. ECHO from 06/2024 with EF 55-60. EKG in ER showed a-fib with RVR 118 bpm. Current in sinus rhythm. REVIEW OF SYSTEMS: No fever or chills. No cough or expectoration. No diaphoresis. Patient denies headache, blurred vision, double vision. Patient denies any stomach discomfort. No nausea, vomiting. No hematochezia. No hematemesis. Denies any black stools or blood in his stools. Denies dysuria or hematuria. No muscle weakness or numbness. Reports chest pain or pressure. Reports intermittent dizziness. PHYSICAL EXAMINATION: This is a 83-year-old female in no apparent distress at the time of my examination. HEENT: Head is atraumatic, normocephalic. Pupils are equal, round. Sclerae anicteric. Conjunctivae are clear. Mucous membranes of the mouth are moist. Neck is supple. There is no jugular venous distention. No carotid bruit is heard. CHEST EXAMINATION: Lungs are clear to auscultation. No chest wall tenderness is noted on palpation or with deep breathing. HEART EXAMINATION: Heart regular rate and rhythm. S1, S2 heard. No murmurs, gallops or rub. ABDOMEN: Soft, nontender. Bowel sounds are heard. EXTREMITIES: 2+ peripheral pulses with no evidence of peripheral edema and no calf tenderness noted. NEUROLOGIC EXAMINATION: Patient is awake, alert and oriented x3. IMPRESSION AND PLAN: CAD s/p PCI, most recent 07/2024 Chest pain Hypertension Hyperlipidemia A-fib, paroxsymal PLAN: She was in a-fib with RVR upon arrival to ER. Symptoms likely related to a-fib. We will start amiodarone 400mg po BID with taper for rhythm control. Trend Troponins. Monitor overnight. I am dictating on behalf of Dr. Elroy An's history/physical and assessment/plan. Past Medical History Past Medical History: Atrial Fibrillation, Coronary Artery Disease (CAD), Cancer, Chest Pain / Angina, Heart Failure, GERD/Reflux, Hyperlipidemia, Hypertension, Osteoarthritis (OA), Thyroid Disorder, Vascular Disorder Additional Past Medical History / Comment(s): former hx of breast ca, bladder incontinence, wears brief. back pain, weakness & pain lowe extremities, constipation, no current skin issues per [facility] History of Any Multi-Drug Resistant Organisms: None Reported Past Surgical History: Back Surgery, Breast Surgery, Cholecystectomy, Heart Catheterization With Stent, Hysterectomy, Joint Replacement, Orthopedic Surgery Additional Past Surgical History / Comment(s): left lumpectomy, cardiac stent, hip replacement, hand surgery Past Anesthesia/Blood Transfusion Reactions: No Reported Reaction Additional Past Anesthesia/Blood Transfusion Reaction / Comment(s): Keshawn Wells unsure of any issues with anesthesia. Date of Last Stent Placement:: unk Past Psychological History: Anxiety Smoking Status: Unknown if ever smoked Past Alcohol Use History: None Reported Past Drug Use History: None Reported - Past Family History Mother Family Medical History: Hypertension Sister(s) Family Medical History: Deep Vein Thrombosis (DVT), Myocardial Infarction ([place]) Medications and Allergies Home Medications Medication Instructions Recorded Confirmed Type Cyanocobalamin [Vitamin B-12] 250 mcg PO DAILY@89910/10/13 10/27/24 History Acetaminophen [Tylenol Extra 1,000 mg PO Q8H PRN 12/30/22 10/27/24 History Strength] Calcium Carbonate [Calcium] 600 mg PO DAILY@89912/30/22 10/27/24 History Levothyroxine Sodium 100 mcg PO SUTUWEFRSA@59912/30/22 10/27/24 History Cholecalciferol [Vitamin D3 (25 50 mcg PO DAILY@89901/05/23 10/27/24 History Mcg = 1000 Iu)] Docusate [Colace] 100 mg PO Q12HR@0900,2100 07/20/23 10/27/24 History Lactulose [Cephulac] 20 gm PO Q12HR@899,209907/20/23 10/27/24 History Methyl Salicylate/Menth/Camph 1 patch TRANSDERM DAILY@89907/20/23 10/27/24 History [Salonpas 3.1%-6.0%-10.0% Patch] Sertraline [Zoloft] 25 mg PO HS@209910/04/23 10/27/24 History Ezetimibe [Zetia] 10 mg PO HS@209901/24/24 10/27/24 History Magnesium Oxide [Mag-Ox] 400 mg PO DAILY@89901/24/24 10/27/24 History Ferrous Sulfate [Iron (65 MG 325 mg PO BID@899,209906/30/24 10/27/24 History Elemental)] Gabapentin [Neurontin] 100 mg PO BID@00,209906/30/24 10/27/24 History Levothyroxine Sodium [Synthroid] 125 mcg PO MOTH@59906/30/24 10/27/24 History Sertraline [Zoloft] 100 mg PO HS@209906/30/24 10/27/24 History HYDROcodone/APAP 7.5-325MG [[place] 1 tab PO Q6H PRN #4 tab 07/09/24 10/27/24 Rx 7.5-325] Nitroglycerin Sl Tabs [Nitrostat] 0.4 mg SUBLINGUAL Q5M PRN tab 07/09/24 10/27/24 Rx clonazePAM [KlonoPIN] 0.5 mg PO HS@2099 #6 tab 07/09/24 10/27/24 Rx Ondansetron [Zofran] 4 mg PO Q12HR PRN 07/26/24 10/27/24 History Apixaban [Eliquis] 2.5 mg PO BID@899,209910/27/24 10/27/24 History Atorvastatin [Lipitor] 40 mg PO HS@209910/27/24 10/27/24 History Brimonidine Tartrate [Alphagan P 1 drop BOTH EYES BID@00,209910/27/24 0709/16 History 0.1% Ophth Soln] Furosemide [Lasix] 40 mg PO DAILY@89910/27/2425 History Ipratropium-Albuterol Nebulize 3 ml INHALATION RT-Q6H PRN 10/27/24 10/27/24 History [Duoneb 0.5 mg-3 mg/3 ml Soln] Mag Hydrox/Al Hydrox/Simeth 30 ml PO Q4HR PRN 10/27/24 10/27/24 History [Maalox] Metoprolol Succinate (ER) [Toprol 50 mg PO DAILY@0900 10/27/24 10/27/24 History Xl] Naloxegol Oxalate [Movantik] 12.5 mg PO HS@209910/27/24 10/27/24 History Ticagrelor [Brilinta] 90 mg PO BID@0900,209910/27/24 10/27/24 History Allergies Allergy/AdvReac Type Severity Reaction Status Date / Time celecoxib [From Celebrex] Allergy Unknown Verified 10/27/24 11:30 isosorbide [Isosorbide] Allergy Unknown Verified 10/27/24 11:30 propranolol HCl Allergy Unknown Verified 10/27/24 11:30 [From Inderal LA] rofecoxib [From Vioxx] Allergy Unknown Verified 10/27/24 11:30 fentanyl AdvReac Hallucinati Verified 10/27/24 11:30 ons pregabalin [From Lyrica] AdvReac dizziness Verified 10/27/24 11:30 Physical Exam Vitals: Vital Signs Temp Pulse Resp BP Pulse Ox 10/27/24 12:00 61 20 156/96 92 L 10/27/24 09:49 61 20 163/82 92 L 10/27/24 08:28 69 20 151/93 92 L 10/27/24 07:01 75 16 127/71 90 L 10/27/24 04:53 98.0 F 131 H 18 141/104 98 Intake and Output 10/26/24 10/27/24 10/27/24 22:59 06:59 14:59 Other: Weight 63.503 kg Results 10/27/24 05:50 10/27/24 05:50 Cardiac Enzymes 10/27/24 10/27/24 Range/Units 05:50 05:50 AST 31 (14-36) U/L Troponin I <0.012 (0.000-0.034) ng/mL Coagulation 10/27/24 Range/Units 05:50 PT 9.7 L (10.0-12.5) sec APTT 22.4 (22.0-30.0) sec CBC 10/27/24 Range/Units 05:50 WBC 10.23 H (4.50-10.00) 10*3/uL RBC 3.69 L (4.10-5.20) 10*6/uL Hgb 11.6 L (12.0-15.0) g/dL Hct 35.5 L (37.2-46.3) % Plt Count 248 (140-440) 10*3/uL Comprehensive Metabolic Panel 10/27/24 Range/Units 05:50 Sodium 140 (137-145) mmol/L Potassium 4.5 (3.5-5.1) mmol/L Chloride 100 (98-107) mmol/L Carbon Dioxide 33 H (22-30) mmol/L BUN 30 H (7-17) mg/dL Creatinine 0.78 (0.52-1.04) mg/dL Glucose 148 H (74-99) mg/dL Calcium 9.4 (8.4-10.2) mg/dL AST 31 (14-36) U/L ALT 16 (4-34) U/L Alkaline Phosphatase 83 (38-126) U/L Total Protein 6.5 (6.3-8.2) g/dL Albumin 3.8 (3.5-5.0) g/dL Current Medications Generic Name Dose Route Start Last Admin Trade Name Freq PRN Reason Stop Dose Admin Hydrocodone Bitart/Acetaminophen 1 each 10/27/24 12:25 10/27/24 12:45 Hydrocodone/Apap 7.5-325mg 1 Each Tab PO 1 each Q6HR PRN Administration Pain Intake and Output 10/26/24 10/27/24 10/27/24 22:59 06:59 14:59 Other: Weight 63.503 kg 10/27/24 05:50 10/27/24 05:50
[2024-10-27] MEDS ORDERED: ACETAMINOPHEN TAB 500 MG TAB PO PRN (15:07)
[2024-10-27] MEDS ORDERED: NITROGLYCERIN SL TABS 0.4 MG TAB SUBLINGUAL PRN (15:07)
[2024-10-27] MEDS ORDERED: IPRATROPIUM-ALBUTEROL 3 ML NEB INHALATION PRN (15:07)
[2024-10-27] MEDS ORDERED: MAG HYDROX/AL HYDROX/SIMETH 30 ML CUP PO PRN (15:07)
[2024-10-27] MEDS ORDERED: NALOXONE 0.4 MG/ML 1 ML VIAL IV PRN (15:10)
[2024-10-27] MEDS ORDERED: ONDANSETRON 4 MG/2 ML VIAL IVP PRN (15:10)
--- NOTE | 2024-10-27 15:13 | P.HPIM ---
History of Present Illness H&P Date: 10/27/24 History of present illness; patient is a 83-year-old lady with past medical history significant for CAD s/p multiple PCI, hypertension, hyperlipidemia, hypothyroidism, a-fib who is a resident of [facility] presented the ER because of chest pain. Patient states that she was all right last night when she was woken up from sleep with chest pain that was central location, pressure-like, radiating down her arms, denied any aggravating or relieving factor associated with this chest pain. Patient did mention in the last couple of days she has been getting short of breath. Shortness of breath is present at rest. Denies any orthopnea or PND. There is no complaint of fever or chills. Patient denies any nausea vomiting abdominal pain.. Because of the chest pain patient came to the ER Initial lab work done in the ER showed WBC 10.23, hemoglobin 9.6, platelet count 248, sodium 140, potassium 4.5, BUN 30, creatinine 0.78, glucose 148, calcium 9.4, magnesium 2.1, bilirubin 0.5, AST 31, ALT 16, troponin 0.012 EKG done in the ER showed heart rate of 78, no ST segment elevation or depression seen, no T-wave inversions seen. Chest x-ray done in the ER showed cardiomegaly with hyperinflated lungs. Patient admitted to internal medicine service REVIEW OF SYSTEMS: CONSTITUTIONAL: No fever, no malaise, no fatigue. HEENT: No recent visual problems or hearing problems. Denied any sore throat. CARDIOVASCULAR: As mentioned above PULMONARY: As mentioned above GASTROINTESTINAL: No diarrhea, no nausea, no vomiting, no abdominal pain. NEUROLOGICAL: No headaches, no weakness, no numbness. HEMATOLOGICAL: Denies any bleeding or petechiae. GENITOURINARY: Denies any burning micturition, frequency, or urgency. MUSCULOSKELETAL/RHEUMATOLOGICAL: Denies any joint pain, swelling, or any muscle pain. ENDOCRINE: Denies any polyuria or polydipsia. The rest of the 14-point review of systems is negative. PHYSICAL EXAMINATION: GENERAL: The patient is alert and oriented x3, not in any acute distress. Ill looking HEENT: Pupils are round and equally reacting to light. EOMI. No scleral icterus. No conjunctival pallor. Normocephalic, atraumatic. No pharyngeal erythema. No thyromegaly. CARDIOVASCULAR: S1 and S2 present. No murmurs, rubs, or gallops. PULMONARY: Chest is clear to auscultation, no wheezing or crackles. ABDOMEN: Soft, nontender, nondistended, normoactive bowel sounds. No palpable organomegaly. MUSCULOSKELETAL: No joint swelling or deformity. EXTREMITIES: No cyanosis, clubbing, or pedal edema. NEUROLOGICAL: Gross neurological examination did not reveal any focal deficits. SKIN: No rashes. Assessment and plan Chest pain rule out acute coronary syndrome CAD s/p PCI, most recent 07/2024 Hypertension Hyperlipidemia A-fib, paroxsymal Monitor vital signs Monitor CBC Monitor CMP Continue telemetry monitoring Trend troponin. Ordered D-dimer Resume Eliquis Resume Brilinta Resume Synthroid Continue pain management Consult cardiology Labs and medication were reviewed.. Continue same treatment. Continue with symptomatic treatment. Resume home medication. Monitor labs and vitals. DVT and GI prophylaxis. Further recommendations as per clinical course of the patie nt Dictation was produced using [employer] dictation software. please excuse any grammatical, word or spelling errors. Past Medical History Past Medical History: Atrial Fibrillation, Coronary Artery Disease (CAD), Cancer, Chest Pain / Angina, Heart Failure, GERD/Reflux, Hyperlipidemia, Hypertension, Osteoarthritis (OA), Thyroid Disorder, Vascular Disorder Additional Past Medical History / Comment(s): former hx of breast ca, bladder i ncontinence, wears brief. back pain, weakness & pain lowe extremities, constipation, no current skin issues per [facility] History of Any Multi-Drug Resistant Organisms: None Reported Past Surgical History: Back Surgery, Breast Surgery, Cholecystectomy, Heart Catheterization With Stent, Hysterectomy, Joint Replacement, Orthopedic Surgery Additional Past Surgical History / Comment(s): left lumpectomy, cardiac stent, h ip replacement, hand surgery Past Anesthesia/Blood Transfusion Reactions: No Reported Reaction Additional Past Anesthesia/Blood Transfusion Reaction / Comment(s): Keshawn Wells unsure of any issues with anesthesia. Date of Last Stent Placement:: unk Past Psychological History: Anxiety Smoking Status: Unknown if ever smoked Past Alcohol Use History: None Reported Past Drug Use History: None Reported - Past Family History Mother Family Medical History: Hypertension Sister(s) Family Medical History: Deep Vein Thrombosis (DVT), Myocardial Infarction ([place]) Medications and Allergies Home Medications Medication Instructions Recorded Confirmed Type Cyanocobalamin [Vitamin B-12] 250 mcg PO DAILY@89910/10/13 10/27/24 History Acetaminophen [Tylenol Extra 1,000 mg PO Q8H PRN 12/30/22 10/27/24 History Strength] Calcium Carbonate [Calcium] 600 mg PO DAILY@89912/30/22 10/27/24 History Levothyroxine Sodium 100 mcg PO SUTUWEFRSA@59912/30/22 10/27/24 History Cholecalciferol [Vitamin D3 (25 50 mcg PO DAILY@89901/05/23 10/27/24 History Mcg = 1000 Iu)] Docusate [Colace] 100 mg PO Q12HR@899,209907/20/23 10/27/24 History Lactulose [Cephulac] 20 gm PO Q12HR@00,209907/20/23 10/27/24 History Methyl Salicylate/Menth/Camph 1 patch TRANSDERM DAILY@89907/20/23 10/27/24 History [Salonpas 3.1%-6.0%-10.0% Patch] Sertraline [Zoloft] 25 mg PO HS@209910/04/23 10/27/24 History Ezetimibe [Zetia] 10 mg PO HS@209901/24/24 10/27/24 History Magnesium Oxide [Mag-Ox] 400 mg PO DAILY@89901/24/24 10/27/24 History Ferrous Sulfate [Iron (65 MG 325 mg PO BID@899,209906/30/24 10/27/24 History Elemental)] Gabapentin [Neurontin] 100 mg PO BID@0900,209906/30/24 10/27/24 History Levothyroxine Sodium [Synthroid] 125 mcg PO MOTH@59906/30/24 10/27/24 History Sertraline [Zoloft] 100 mg PO HS@209906/30/24 10/27/24 History HYDROcodone/APAP 7.5-325MG [[place] 1 tab PO Q6H PRN #4 tab 07/09/24 10/27/24 Rx 7.5-325] Nitroglycerin Sl Tabs [Nitrostat] 0.4 mg SUBLINGUAL Q5M PRN tab 07/09/24 10/27/24 Rx clonazePAM [KlonoPIN] 0.5 mg PO HS@2100 #6 tab 07/09/24 10/27/24 Rx Ondansetron [Zofran] 4 mg PO Q12HR PRN 07/26/24 10/27/24 History Apixaban [Eliquis] 2.5 mg PO BID@0900,209910/27/24 10/27/24 History Atorvastatin [Lipitor] 40 mg PO HS@209910/27/24 10/27/24 History Brimonidine Tartrate [Alphagan P 1 drop BOTH EYES BID@0900,209910/27/24 10/27/24 History 0.1% Ophth Soln] Furosemide [Lasix] 40 mg PO DAILY@0900 10/27/24 10/27/24 History Ipratropium-Albuterol Nebulize 3 ml INHALATION RT-Q6H PRN 10/27/24 10/27/24 History [Duoneb 0.5 mg-3 mg/3 ml Soln] Mag Hydrox/Al Hydrox/Simeth 30 ml PO Q4HR PRN 10/27/24 10/27/24 History [Maalox] Metoprolol Succinate (ER) [Toprol 50 mg PO DAILY@0900 10/27/24 10/27/24 History Xl] Naloxegol Oxalate [Movantik] 12.5 mg PO HS@209910/27/24 10/27/24 History Ticagrelor [Brilinta] 90 mg PO BID@0900,209910/27/24 10/27/24 History Allergies Allergy/AdvReac Type Severity Reaction Status Date / Time celecoxib [From Celebrex] Allergy Unknown Verified 10/27/24 11:30 isosorbide [Isosorbide] Allergy Unknown Verified 10/27/24 11:30 propranolol HCl Allergy Unknown Verified 10/27/24 11:30 [From Inderal LA] rofecoxib [From Vioxx] Allergy Unknown Verified 10/27/24 11:30 fentanyl AdvReac Hallucinati Verified 10/27/24 11:30 ons pregabalin [From Lyrica] AdvReac dizziness Verified 10/27/24 11:30 Physical Exam Vitals: Vital Signs Temp Pulse Resp BP Pulse Ox 10/27/24 14:00 78 20 184/92 92 L 10/27/24 12:00 61 20 156/96 92 L 10/27/24 09:49 61 20 163/82 92 L 10/27/24 08:28 69 20 151/93 92 L 10/27/24 07:01 75 16 127/71 90 L 10/27/24 04:53 98.0 F 131 H 18 141/104 98 Intake and Output 10/27/24 10/27/24 10/27/24 06:59 14:59 22:59 Other: Weight 63.503 kg Results CBC & Chem 7: 10/27/24 05:50 10/27/24 05:50 Labs: Abnormal Lab Results - Last 24 Hours (Table) 10/27/24 10/27/24 10/27/24 Range/Units 05:50 05:50 05:50 WBC 10.23 H (4.50-10.00) 10*3/uL RBC 3.69 L (4.10-5.20) 10*6/uL Hgb 11.6 L (12.0-15.0) g/dL Hct 35.5 L (37.2-46.3) % PT 9.7 L (10.0-12.5) sec Carbon Dioxide 33 H (22-30) mmol/L BUN 30 H (7-17) mg/dL Glucose 148 H (74-99) mg/dL
[2024-10-27] MEDS ORDERED: MELATONIN 3 MG TABLET PO PRN (21:00)
[2024-10-27] MEDS: EZETIMIBE 10 MG TAB PO SCH (21:06)
[2024-10-27] MEDS: DOCUSATE 100 MG CAP PO SCH (21:06)
[2024-10-27] MEDS: clonazePAM 0.5 MG TAB PO SCH (21:06)
[2024-10-27] MEDS: BRIMONIDINE TARTRATE 0.2% DROPS 5 ML BTL BOTH EYES SCH (21:06)
[2024-10-27] MEDS: AMIODARONE 200 MG TAB PO SCH (21:06)
[2024-10-27] MEDS: APIXABAN 2.5 MG TABLET PO SCH (21:06)
[2024-10-27] MEDS: FERROUS SULFATE 325 MG TAB PO SCH (21:06)
[2024-10-27] MEDS: ATORVASTATIN 40 MG TAB PO SCH (21:06)
[2024-10-27] MEDS: SERTRALINE 100 MG TAB PO SCH (21:07)
[2024-10-27] MEDS: GABAPENTIN 100 MG CAP PO SCH (21:07)
[2024-10-27] MEDS: TICAGRELOR 90 MG TAB PO SCH (21:07)
[2024-10-27] MEDS: LACTULOSE 20 GM/30 ML CUP PO SCH (21:07)
[2024-10-27] MEDS: SERTRALINE 25 MG TAB PO SCH (21:07)
[2024-10-27] MEDS: MOVANTIK 12.5 MG PO SCH (21:13)
[2024-10-28] MEDS: LEVOTHYROXINE 100 MCG TAB PO SCH (05:16)
[2024-10-28] MEDS: CYANOCOBALAMIN 500 MCG TAB PO SCH (08:51)
[2024-10-28] MEDS: CALCIUM CARBONATE 500 MG CHEWABLE PO SCH (08:51)
[2024-10-28] MEDS: FUROSEMIDE 40 MG TAB PO SCH (08:52)
[2024-10-28] MEDS: CHOLECALCIFEROL 25 MCG (1000 IU) TABLET PO SCH (08:52)
[2024-10-28] MEDS: MENTHOL TRANSDERM SCH (08:53)
[2024-10-28] MEDS: METOPROLOL SUCCINATE (ER) 50 MG TAB.ER.24H PO SCH (08:53)
[2024-10-28] MEDS: METHYL SALICYLATE TRANSDERM SCH (08:53)
[2024-10-28] MEDS: CAMPHOR TRANSDERM SCH (08:53)
[2024-10-28] MEDS: MAGNESIUM OXIDE 400 MG TAB PO SCH (08:53)
[2024-10-28 09:08] LABS: Basophils # (A) 0.02 X 10*3/uL (0.00-0.10); Basophils % (A) 0.2 %; Eosinophils # (A) 0.25 X 10*3/uL (0.04-0.35); Eosinophils % (A) 3.0 %; HCT 34.8 % (37.2-46.3); HGB 10.9 g/dL (12.0-15.0); Immature Grans, Automated 0.90 %; Lymphocytes # (A) 2.00 X 10*3/uL (0.90-5.00); Lymphocytes % (A) 23.7 %; MCH 30.7 pg (27.0-32.0); MCHC 31.3 g/dL (32.0-37.0); MCV 98.0 FL (80.0-97.0); Monocytes # (A) 0.74 X 10*3/uL (0.20-1.00); Monocytes % (A) 8.8 %; NRBC Per 100 WBC 0 X 10*3/uL (0.00-0.01); Neutrophils # (A) 5.36 X 10*3/uL (1.80-7.70); Neutrophils % (A) 63.4 %; Platelet Count 237 X 10*3/uL (140-440); RBC 3.55 X 10*6/uL (4.10-5.20); RDW 14.2 % (11.5-14.5); WBC 8.45 X 10*3/uL (4.50-10.00)
[2024-10-28 09:12] LABS: ALT 74 U/L (8-44); AST 127 U/L (13-35); Albumin 3.6 g/dL (3.8-4.9); Albumin/Globulin Ratio 1.80 Ratio (1.60-3.17); Alkaline Phosphatase 108 U/L (41-126); Anion Gap 10.70 mmol/L (4.00-12.00); BUN/Creat Ratio 25.80 Ratio (12.00-20.00); Blood Urea Nitrogen 25.8 mg/dL (9.0-27.0); Calcium 9.4 mg/dL (8.7-10.3); Carbon Dioxide 31.3 mmol/L (21.6-31.8); Chloride 99 mmol/L (96-109); Globulin 2.0 g/dL (1.6-3.3); Glucose 93 mg/dL (70-110); Potassium 4.3 mmol/L (3.5-5.5); Sodium 141 mmol/L (135-145); Total Protein 5.6 g/dL (6.2-8.2)
--- NOTE | 2024-10-28 13:22 | P.PN ---
Subjective Progress Note Date: 10/28/24 History of present illness: Patient is a pleasant 83 year old female with significant past medical history of CAD s/p multiple PCI, hypertension, hyperlipidemia, hypothyroidism, a-fib who presented to the ER with complaints of chest pain. She follows with Dr. Ellis in the office. She has been feeling shortness of breath and nausea for a couple days. Then she was having some chest pain severe after sitting up in bed and drinking water. She was given aspirin and nitro and pain was relieved temporarily and then the pain returned. Labs: WBC 10.2, Hgb 11.6, Trop neg. She is on Eliquis and Brilinta. She is feeling better today with no further chest pains. ECHO from 06/2024 with EF 55-60. EKG in ER showed a-fib with RVR 118 bpm. Current in sinus rhythm. 10/28/2024 Patient reports her breathing has improved. She denies having any chest pain or pressure since being in the hospital. Heart rates on telemetry 5060. Hemoglobin 10.9, D-dimer was normal, creatinine 1.0, troponin <0.012, 0.048, 0.046. PHYSICAL EXAMINATION: This is a 83-year-old female in no apparent distress at the time of my examination. HEENT: Head is atraumatic, normocephalic. Pupils are equal, round. Sclerae anicteric. Conjunctivae are clear. Mucous membranes of the mouth are moist. Neck is supple. There is no jugular venous distention. No carotid bruit is heard. CHEST EXAMINATION: Lungs are clear to auscultation. No chest wall tenderness is noted on palpation or with deep breathing. HEART EXAMINATION: Heart regular rate and rhythm. S1, S2 heard. No murmurs, gallops or rub. ABDOMEN: Soft, nontender. Bowel sounds are heard. EXTREMITIES: 2+ peripheral pulses with no evidence of peripheral edema and no calf tenderness noted. NEUROLOGIC EXAMINATION: Patient is awake, alert and oriented x3. IMPRESSION AND PLAN: CAD s/p PCI, most recent 07/2024 Chest pain Hypertension Hyperlipidemia A-fib, paroxsymal NSTEMI, likely type 2 r/t a-fib PLAN: She has been stable overnight. Symptoms likely related to a-fib. Continue amiodarone 400mg po BID with taper for rhythm control (400mg BID x1 week, then 200mg BID x1 week, then continue 200mg daily). Will continue to monitor overnight. Likely discharge home tomorrow. I am dictating on behalf of Dr. Elroy An's history/physical and assessment/plan. Objective - Vital Signs Vital signs: Vital Signs Temp 97.7 F 10/28/24 06:57 Pulse 59 L 10/28/24 06:57 Resp 20 10/28/24 06:57 BP 146/71 10/28/24 06:57 Pulse Ox 97 10/28/24 06:57 FiO2 Intake & Output 10/27/24 10/28/24 10/28/24 18:59 06:59 18:59 Intake Total 118 118 Output Total 300 Balance 118 -300 118 Weight 63.503 kg Intake: Oral 118 118 Output: Urine 300 Other: Voiding Method External Catheter External Catheter # Voids 1 - Labs CBC & Chem 7: 10/28/24 04:49 10/28/24 04:49 Labs: Abnormal Lab Results - Last 24 Hours (Table) 10/27/24 10/27/24 10/28/24 Range/Units 15:19 18:34 04:49 RBC 3.55 L (4.10-5.20) X 10*6/uL Hgb 10.9 L (12.0-15.0) g/dL Hct 34.8 L (37.2-46.3) % MCV 98.0 H (80.0-97.0) FL MCHC 31.3 L (32.0-37.0) g/dL Immature Gran # 0.08 H (0.00-0.04) X 10*3/uL Est GFR (CKD-EPI) (>=60) BUN/Creatinine Ratio (12.00-20.00) Ratio AST (13-35) U/L ALT (8-44) U/L Troponin I 0.048 H* 0.046 H* (0.000-0.034) ng/mL Total Protein (6.2-8.2) g/dL Albumin (3.8-4.9) g/dL 10/28/24 Range/Units 04:49 RBC (4.10-5.20) X 10*6/uL Hgb (12.0-15.0) g/dL Hct (37.2-46.3) % MCV (80.0-97.0) FL MCHC (32.0-37.0) g/dL Immature Gran # (0.00-0.04) X 10*3/uL Est GFR (CKD-EPI) 56 L (>=60) BUN/Creatinine Ratio 25.80 H (12.00-20.00) Ratio AST 127 H (13-35) U/L ALT 74 H (8-44) U/L Troponin I (0.000-0.034) ng/mL Total Protein 5.6 L (6.2-8.2) g/dL Albumin 3.6 L (3.8-4.9) g/dL
--- NOTE | 2024-10-28 13:42 | P.PN ---
Subjective History of present illness; patient is a 83-year-old lady with past medical history significant for CAD s/p multiple PCI, hypertension, hyperlipidemia, hypothyroidism, a-fib who is a resident of [facility] presented the ER because of chest pain. Patient states that she was all right last night when she was woken up from sleep with chest pain that was central location, pressure-like, radiating down her arms, denied any aggravating or relieving factor associated with this chest pain. Patient did mention in the last couple of days she has been getting short of breath. Shortness of breath is present at rest. Denies any orthopnea or PND. There is no complaint of fever or chills. Patient denies any nausea vomiting abdominal pain.. Because of the chest pain patient came to the ER Initial lab work done in the ER showed WBC 10.23, hemoglobin 9.6, platelet count 248, sodium 140, potassium 4.5, BUN 30, creatinine 0.78, glucose 148, calcium 9. 4, magnesium 2.1, bilirubin 0.5, AST 31, ALT 16, troponin 0.012 EKG done in the ER showed heart rate of 78, no ST segment elevation or depression seen, no T-wave inversions seen. Chest x-ray done in the ER showed cardiomegaly with hyperinflated lungs. Patient admitted to internal medicine service 10/28/2024 Patient is admitted for chest pressure which was believed to be secondary to atrial fibrillation although patient is sinus rhythm at this time her chest pain resolved patient had minimally elevated troponins of 0.046 and remained stable at that level. Patient was started on amiodarone patient was switched to oral amiodarone today. Patient will need amnio taper. Cardiology is recommending monitoring 1 more night patient is from [facility] possibly can be discharged to [facility] tomorrow The rest of the 14-point review of systems is negative. PHYSICAL EXAMINATION: GENERAL: The patient is alert and oriented x3, not in any acute distress. Ill looking HEENT: Pupils are round and equally reacting to light. EOMI. No scleral icterus. No conjunctival pallor. Normocephalic, atraumatic. No pharyngeal erythema. No thyromegaly. CARDIOVASCULAR: S1 and S2 present. No murmurs, rubs, or gallops. PULMONARY: Chest is clear to auscultation, no wheezing or crackles. ABDOMEN: Soft, nontender, nondistended, normoactive bowel sounds. No palpable organomegaly. MUSCULOSKELETAL: No joint swelling or deformity. EXTREMITIES: No cyanosis, clubbing, or pedal edema. NEUROLOGICAL: Gross neurological examination did not reveal any focal deficits. SKIN: No rashes. Assessment and plan Chest pain ruled out acute coronary syndrome Atrial fibrillation rapid unclear rate on admission presently sinus rhythm CAD s/p PCI, most recent 07/2024 Hypertension Hyperlipidemia Monitor vital signs Continue telemetry monitoring Patient is started on oral amiodarone today Continue Eliquis Continue Brilinta Continue Synthroid Continue pain management Appreciate cardiology recommendations Labs and medication were reviewed.. Continue same treatment. Continue with symptomatic treatment. Resume home medication. Monitor labs and vitals. DVT and GI prophylaxis. Further recommendations as per clinical course of the patient Possibility of discharge tomorrow. Objective - Vital Signs Vital signs: Vital Signs Temp 97.7 F 10/28/24 06:57 Pulse 59 L 10/28/24 06:57 Resp 20 10/28/24 06:57 BP 146/71 10/28/24 06:57 Pulse Ox 97 10/28/24 06:57 FiO2 Intake & Output 10/27/24 10/28/24 10/28/24 18:59 06:59 18:59 Intake Total 118 118 Output Total 300 Balance 118 -300 118 Weight 63.503 kg Intake: Oral 118 118 Output: Urine 300 Other: Voiding Method External Catheter External Catheter # Voids 1 - Labs CBC & Chem 7: 10/28/24 04:49 10/28/24 04:49 Labs: Abnormal Lab Results - Last 24 Hours (Table) 10/27/24 10/27/24 10/28/24 Range/Units 15:19 18:34 04:49 RBC 3.55 L (4.10-5.20) X 10*6/uL Hgb 10.9 L (12.0-15.0) g/dL Hct 34.8 L (37.2-46.3) % MCV 98.0 H (80.0-97.0) FL MCHC 31.3 L (32.0-37.0) g/dL Immature Gran # 0.08 H (0.00-0.04) X 10*3/uL Est GFR (CKD-EPI) (>=60) BUN/Creatinine Ratio (12.00-20.00) Ratio AST (13-35) U/L ALT (8-44) U/L Troponin I 0.048 H* 0.046 H* (0.000-0.034) ng/mL Total Protein (6.2-8.2) g/dL Albumin (3.8-4.9) g/dL 10/28/24 Range/Units 04:49 RBC (4.10-5.20) X 10*6/uL Hgb (12.0-15.0) g/dL Hct (37.2-46.3) % MCV (80.0-97.0) FL MCHC (32.0-37.0) g/dL Immature Gran # (0.00-0.04) X 10*3/uL Est GFR (CKD-EPI) 56 L (>=60) BUN/Creatinine Ratio 25.80 H (12.00-20.00) Ratio AST 127 H (13-35) U/L ALT 74 H (8-44) U/L Troponin I (0.000-0.034) ng/mL Total Protein 5.6 L (6.2-8.2) g/dL Albumin 3.6 L (3.8-4.9) g/dL
[2024-10-29] MEDS: LEVOTHYROXINE 125 MCG TAB PO SCH (06:10)
[2024-10-29 07:27] VITALS: RESP 17; TEMP 97.9
--- NOTE | 2024-10-29 09:52 | P.PN ---
Subjective Progress Note Date: 10/29/24 History of present illness: Patient is a pleasant 83 year old female with significant past medical history of CAD s/p multiple PCI, hypertension, hyperlipidemia, hypothyroidism, a-fib who presented to the ER with complaints of chest pain. She follows with Dr. Ellis in the office. She has been feeling shortness of breath and nausea for a couple days. Then she was having some chest pain severe after sitting up in bed and drinking water. She was given aspirin and nitro and pain was relieved temporarily and then the pain returned. Labs: WBC 10.2, Hgb 11.6, Trop neg. She is on Eliquis and Brilinta. She is feeling better today with no further chest pains. ECHO from 06/2024 with EF 55-60. EKG in ER showed a-fib with RVR 118 bpm. Current in sinus rhythm. 10/28/2024 Patient reports her breathing has improved. She denies having any chest pain or pressure since being in the hospital. Heart rates on telemetry 5060. Hemoglobin 10.9, D-dimer was normal, creatinine 1.0, troponin <0.012, 0.048, 0.046. 10/29/2024 Patient seen and examined. Stable. She denies chest pain. She complains of dizziness for which orthostatics from flat position to sitting will be tested. She is currently on amiodarone at 400 mg twice daily with plan for tapering dosing. Patient is in a sinus rhythm. Blood pressure 129/70, heart rate in the 50s to 70s, pulse ox 96% on 2 L nasal cannula. PHYSICAL EXAMINATION: This is a 83-year-old female in no apparent distress at the time of my examination. HEENT: Head is atraumatic, normocephalic. Pupils are equal, round. Sclerae anicteric. Conjunctivae are clear. Mucous membranes of the mouth are moist. Neck is supple. There is no jugular venous distention. No carotid bruit is heard. CHEST EXAMINATION: Lungs are clear to auscultation. No chest wall tenderness is noted on palpation or with deep breathing. HEART EXAMINATION: Heart irregular rate and rhythm. S1, S2 heard. No murmurs, gallops or rub. ABDOMEN: Soft, nontender. Bowel sounds are heard. EXTREMITIES: 2+ peripheral pulses with no evidence of peripheral edema and no calf tenderness noted. NEUROLOGIC EXAMINATION: Patient is awake, alert and oriented x3. IMPRESSION AND PLAN: CAD s/p PCI, most recent 07/2024 Chest pain Hypertension Hyperlipidemia A-fib, paroxsymal NSTEMI, likely type 2 r/t a-fib PLAN: Continue amiodarone 400 mg twice daily on a tapering dose, prescription has been ordered in her discharge age Continue current cardiac medications If possible, obtain limited orthostatics with flat to sitting. Patient is normally bedbound. Patient is cleared for discharge and will be returning to [facility]. Nurse practitioner note has been reviewed, I agree with documented findings and plan of care. Patient was seen and examined. Objective - Vital Signs Vital signs: Vital Signs Temp 97.9 F 10/29/24 07:00 Pulse 51 L 10/29/24 07:00 Resp 17 10/29/24 07:00 BP 129/70 10/29/24 07:00 Pulse Ox 96 10/29/24 07:00 FiO2 Intake & Output 10/28/24 10/29/24 10/29/24 18:59 06:59 18:59 Intake Total 416 Output Total 600 300 Balance -184 -300 Intake: Oral 416 Output: Urine 600 300 Other: Voiding Method External Catheter External Catheter - Labs CBC & Chem 7: 10/28/24 04:49 10/28/24 04:49 Labs: Abnormal Lab Results - Last 24 Hours (Table) 10/28/24 10/28/24 Range/Units 04:49 04:49 RBC 3.55 L (4.10-5.20) X 10*6/uL Hgb 10.9 L (12.0-15.0) g/dL Hct 34.8 L (37.2-46.3) % MCV 98.0 H (80.0-97.0) FL MCHC 31.3 L (32.0-37.0) g/dL Immature Gran # 0.08 H (0.00-0.04) X 10*3/uL Est GFR (CKD-EPI) 56 L (>=60) BUN/Creatinine Ratio 25.80 H (12.00-20.00) Ratio AST 127 H (13-35) U/L ALT 74 H (8-44) U/L Total Protein 5.6 L (6.2-8.2) g/dL Albumin 3.6 L (3.8-4.9) g/dL
[2024-10-29 09:53] VITALS: BP 123/68; PULSE 62
[2024-10-29] MEDS: METOPROLOL SUCCINATE (ER) 25 MG TAB.ER.24H PO SCH (10:11)
--- NOTE | 2024-10-29 12:00 | P.DS ---
Providers Date of admission: 10/27/24 09:02 Attending physician: Saima Santiago Consults: 10/27/24 09:02 Consult Physician Routine Consulting Provider: Elroy An Consult Reason/Comments: chest pain Do you want consulting provider notified?: Yes Primary care physician: Severo Campbell Hospital Course: diagnoses: Chest pain ruled out acute coronary syndrome ruled out, resolved Atrial fibrillation rapid ventricular rate on admission presently sinus rhythm. Cleared for discharge on amiodarone Taper CAD s/p PCI, most recent 07/2024 Hypertension Hyperlipidemia Hospital course: History of present illness; patient is a 83-year-old lady with past medical history significant for CAD s/p multiple PCI, hypertension, hyperlipidemia, hypothyroidism, a-fib who is a resident of [facility] presented the ER because of chest pain. Patient was found to have A-fib and RVR controlled with amiodarone. Patient will be discharged on amiodarone taper per trauma therapist. Discharge prescription will be set by cardiology team. Other than that patient doing well with no chest pain or dyspnea. No other new complaint. Agreeable for discharge today. Patient was cleared for discharge by trauma therapist. Problems and management plan were discussed with the patient and he verbalized understanding and acceptance Patient was found stable and can be discharged home in guarded prognosis however he needs follow-up as an outpatient. Patient was instructed to follow up with PCP within one week and patient agrees Patient was directed to follow-up with her trauma therapist or Dr. Barbour in 1 to 2 weeks after discharge and she agrees Physical exam Gen: patient is a AAOx3, no distress CVS: S1-S2, RRR, no murmur Lungs: B/L CTA, no wheezing Abdomen: soft, no distention, no tenderness, positive bowel sounds Extremity: no leg edema or induration Time spent more than 35 minutes Patient Condition at Discharge: Fair Plan - Discharge Summary New Discharge Prescriptions: New Amiodarone HCl [Pacerone] 400 mg PO BID #60 tablet No Action Cyanocobalamin [Vitamin B-12] 250 mcg PO DAILY@0900 Ezetimibe [Zetia] 10 mg PO HS@2100 Ferrous Sulfate [Iron (65 MG Elemental)] 325 mg PO BID@0900,2100 Levothyroxine Sodium [Synthroid] 125 mcg PO MOTH@0600 Nitroglycerin Sl Tabs [Nitrostat] 0.4 mg SUBLINGUAL Q5M PRN tab PRN Reason: Chest Pain HYDROcodone/APAP 7.5-325MG [Pendleton 7.5-325] 1 tab PO Q6H PRN #4 tab PRN Reason: Pain Naloxegol Oxalate [Movantik] 12.5 mg PO HS@2100 Atorvastatin [Lipitor] 40 mg PO HS@2100 Ipratropium-Albuterol Nebulize [Duoneb 0.5 mg-3 mg/3 ml Soln] 3 ml INHALATION RT-Q6H PRN PRN Reason: Shortness Of Breath Mag Hydrox/Al Hydrox/Simeth [Maalox] 30 ml PO Q4HR PRN PRN Reason: UPSET STOMACH Calcium Carbonate [Calcium] 600 mg PO DAILY@0900 Levothyroxine Sodium 100 mcg PO SUTUWEFRSA@0600 Acetaminophen [Tylenol Extra Strength] 1,000 mg PO Q8H PRN PRN Reason: Pain Cholecalciferol [Vitamin D3 (25 Mcg = 1000 Iu)] 50 mcg PO DAILY@0900 Methyl Salicylate/Menth/Camph [Salonpas 3.1%-6.0%-10.0% Patch] 1 patch TRANSDERM DAILY@0900 Lactulose [Cephulac] 20 gm PO Q12HR@0900,2099 Docusate [Colace] 100 mg PO Q12HR@0900,2100 Sertraline [Zoloft] 25 mg PO HS@2100 Magnesium Oxide [Mag-Ox] 400 mg PO DAILY@0900 Gabapentin [Neurontin] 100 mg PO BID@0900,2099 Sertraline [Zoloft] 100 mg PO HS@2100 clonazePAM [KlonoPIN] 0.5 mg PO HS@2100 #6 tab Ondansetron [Zofran] 4 mg PO Q12HR PRN PRN Reason: Nausea Apixaban [Eliquis] 2.5 mg PO BID@0900,2100 Ticagrelor [Brilinta] 90 mg PO BID@0900,2100 Brimonidine Tartrate [Alphagan P 0.1% Ophth Soln] 1 drop BOTH EYES BID@0900,2100 Metoprolol Succinate (ER) [Toprol Xl] 50 mg PO DAILY@0900 Furosemide [Lasix] 40 mg PO DAILY@0900 Discharge Medication List Cyanocobalamin [Vitamin B-12] 250 mcg PO DAILY@89910/10/13 [History] Acetaminophen [Tylenol Extra Strength] 1,000 mg PO Q8H PRN 12/30/22 [History] Calcium Carbonate [Calcium] 600 mg PO DAILY@89912/30/22 [History] Levothyroxine Sodium 100 mcg PO SUTUWEFRSA@59912/30/22 [History] Cholecalciferol [Vitamin D3 (25 Mcg = 1000 Iu)] 50 mcg PO DAILY@89901/05/23 [History] Docusate [Colace] 100 mg PO Q12HR@899,209907/20/23 [History] Lactulose [Cephulac] 20 gm PO Q12HR@899,209907/20/23 [History] Methyl Salicylate/Menth/Camph [Salonpas 3.1%-6.0%-10.0% Patch] 1 patch TRANSDERM DAILY@89907/20/23 [History] Sertraline [Zoloft] 25 mg PO HS@209910/04/23 [History] Ezetimibe [Zetia] 10 mg PO HS@209901/24/24 [History] Magnesium Oxide [Mag-Ox] 400 mg PO DAILY@89901/24/24 [History] Ferrous Sulfate [Iron (65 MG Elemental)] 325 mg PO BID@899,209906/30/24 [History] Gabapentin [Neurontin] 100 mg PO BID@899,209906/30/24 [History] Levothyroxine Sodium [Synthroid] 125 mcg PO MOTH@59906/30/24 [History] Sertraline [Zoloft] 100 mg PO HS@209906/30/24 [History] HYDROcodone/APAP 7.5-325MG [Pendleton 7.5-325] 1 tab PO Q6H PRN #4 tab 07/09/24 [Rx] Nitroglycerin Sl Tabs [Nitrostat] 0.4 mg SUBLINGUAL Q5M PRN tab 07/09/24 [Rx] clonazePAM [KlonoPIN] 0.5 mg PO HS@2099 #6 tab 07/09/24 [Rx] Ondansetron [Zofran] 4 mg PO Q12HR PRN 07/26/24 [History] Apixaban [Eliquis] 2.5 mg PO BID@09,209910/27/24 [History] Atorvastatin [Lipitor] 40 mg PO HS@209910/27/24 [History] Brimonidine Tartrate [Alphagan P 0.1% Ophth Soln] 1 drop BOTH EYES BID@00,209910/27/24 [History] Furosemide [Lasix] 40 mg PO DAILY@89910/27/24 [History] Ipratropium-Albuterol Nebulize [Duoneb 0.5 mg-3 mg/3 ml Soln] 3 ml INHALATION RT-Q6H PRN 10/27/24 [History] Mag Hydrox/Al Hydrox/Simeth [Maalox] 30 ml PO Q4HR PRN 10/27/24 [History] Metoprolol Succinate (ER) [Toprol Xl] 50 mg PO DAILY@89910/27/24 [History] Naloxegol Oxalate [Movantik] 12.5 mg PO HS@209910/27/24 [History] Ticagrelor [Brilinta] 90 mg PO BID@09,209910/27/24 [History] Amiodarone HCl [Pacerone] 400 mg PO BID #60 tablet 10/29/24 [Rx] Follow up Appointment(s)/Referral(s): Severo Campbell MD [Primary Care Provider] - 1-2 days Patient Instructions/Handouts: Chest Pain (ED)
== END 2024-10-29 14:30 ==
LOC: EC 04:37 → 6NMEDSUR 09:02
PROVIDERS: ADMIT Internal Medicine; ATTEND Internal Medicine
DX: R07.2 Precordial pain (principal); I48.0 Paroxysmal atrial fibrillation; I25.10 Atherosclerotic heart disease of native coronary artery without angina pectoris; E03.9 Hypothyroidism, unspecified; I11.0 Hypertensive heart disease with heart failure; I50.9 Heart failure, unspecified; E78.5 Hyperlipidemia, unspecified; R79.89 Other specified abnormal findings of blood chemistry; Z79.82 Long term (current) use of aspirin; Z79.890 Hormone replacement therapy; Z79.01 Long term (current) use of anticoagulants; Z79.02 Long term (current) use of antithrombotics/antiplatelets; Z79.899 Other long term (current) drug therapy; Z88.5 Allergy status to narcotic agent; Z88.6 Allergy status to analgesic agent; Z88.8 Allergy status to other drugs, medicaments and biological substances; Z95.5 Presence of coronary angioplasty implant and graft
CPT/HCPCS: 99285; 36415; 93005; 85379; 80053 ×2; 83735; 84484; 85025 ×2; 85610; 85730; 71046; G0378 ×3